=== PATIENT | male | born 1930 | race Caucasian/White ===

== ENCOUNTER 2018-03-17 21:02 | Emergency (ER) | payer MEDICARE, OTHER ==
--- NOTE | 2018-03-17 22:07 | EDM.PDOC ---
ED HPI GENERAL MEDICAL PROBLEM - General Chief Complaint: Neuro Symptoms/Deficits Stated Complaint: [facility] Time Seen by Provider: 03/17/18 21:48 Source of Information: Reports: Patient, Family (, daughter) History Limitations: Reports: Physical Impairment (Dysarthric speech, likely confusion) - History of Present Illness INITIAL COMMENTS - FREE TEXT/NARRATIVE: The patient has a history of a stroke with left hemiparesis. The patient's family states that he is essentially wheelchair bound. He is brought to the ED from [facility] for a complaint of dizziness tonight. Apparently the RNs at the facility found that the patient was "weaving", however, since the patient does not ambulate, it is not clear what this means. When asked if, by dizziness, the patient means that he is lightheaded or vertiginous, the patient responded "neck". When asked if he is feeling dizzy now, he responded yes, if he moves his head. He states that he has had similar symptoms a few times in the past, but cannot say when, or how many. He stated that he feels that way if he gets up too fast. The patient's PCP is Dr. Kennedy. - Related Data Home Meds: Home Meds Carvedilol 25 mg PO BID 03/17/18 [History] Doxazosin [Doxazosin Mesylate] 8 mg PO DAILY 03/17/18 [History] Dutasteride 0.5 mg PO DAILY 03/17/18 [History] Ergocalciferol (Vitamin D2) [Vitamin D2] 1,000 unit PO DAILY 03/17/18 [History] Famotidine 20 mg PO DAILY 03/17/18 [History] Ferrous Sulfate 325 mg PO DAILY 03/17/18 [History] Furosemide 40 mg PO BID 03/17/18 [History] Insulin Glargine,Hum.Rec.Anlog [Basaglar Kwikpen U-100] 22 unit SQ BEDTIME 03/17 [History] Levothyroxine [Sythroid] 100 mcg PO DAILY 03/17/18 [History] Losartan [Cozaar] 100 mg PO DAILY 03/17/18 [History] NIFEdipine [Nifedipine ER] 60 mg PO DAILY 03/17/18 [History] Pravastatin [Pravachol] 40 mg PO DAILY 03/17/18 [History] glipiZIDE [Glucotrol] 15 mg PO BID 03/17/18 [History] traMADol [Ultram] 50 mg PO Q6H PRN 03/17/18 [History] Past Medical History HEENT History: Reports: Impaired Vision Other HEENT History: Wears glasses Cardiovascular History: Reports: High Cholesterol, Hypertension Gastrointestinal History: Reports: GERD Genitourinary History: Reports: BPH, Chronic Renal Insuffiency Neurological History: Reports: CVA (resulting in left hemiparesis, wheelchair- bound) Endocrine/Metabolic History: Reports: Diabetes, Type II, Hypothyroidism, Obesity /BMI 30+ Oncologic (Cancer) History: 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) - Past Surgical History HEENT Surgical History: Reports: Cataract Surgery, Oral Surgery (All teeth extracted), Tonsillectomy Cardiovascular Surgical History: Reports: Carotid Endarterectomy (right) GI Surgical History: Reports: Cholecystectomy Male Surgical History: Reports: Nephrectomy (left) Musculoskeletal Surgical History: Reports: 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 GI/Abdominal: Reports: Stool Incontinence ED EXAM, DIZZINESS - Physical Exam Exam: See Below Exam Limited By: Physical Impairment (Right hemiparesis) General Appearance: Alert, WD/WN, No Apparent Distress Eye Exam: Bilateral Eye: Normal Inspection Ears: Normal External Exam, Hearing Grossly Normal Nose: Normal Inspection, No Blood Throat/Mouth: Normal Inspection, Normal Lips, Normal Voice, No Airway Compromise Head Exam: Atraumatic, Normocephalic Neck: Limited Range of Motion Respiratory/Chest: No Respiratory Distress, Lungs Clear, Normal Breath Sounds, No Accessory Muscle Use Cardiovascular: Normal Peripheral Pulses, No Gallop, No JVD, No Murmur, No Rub, Irregularly Irregular (regular rate) GI/Abdominal: Normal Bowel Sounds, Soft, Non-Tender, No Organomegaly, No Distention, No Abnormal Bruit, No Mass, Other (Obese) (Male) Exam: Deferred Rectal (Males) Exam: Deferred Neurological: Alert, Other (Masked facies. Some confusion.) Back Exam: Normal Inspection Extremities: Normal Inspection, Normal Range of Motion, Normal Capillary Refill , Other (1-2+ bilateral pretibial edema) Psychiatric: Other (Unable to assess) Skin Exam: Warm, Dry, Intact, Normal Color, No Rash EKG INTERPRETATION EKG Date: 03/17/18 Time: 22:12 Rhythm: A-Fib Rate (Beats/Min): 78 Brimley: LAD-Left Brimley Deviation P-Wave: Absent QRS: RBBB (in those normally conducted QRS complexes. Frequent PVCs.) ST-T: Normal QT: Prolonged (QTc 577 ms) Comparison: NA - No Prior EKG Course - Vital Signs Last Recorded V/S: Last Vital Signs Temp 36.3 C 03/17/18 21:05 Pulse 63 03/17/18 21:05 Resp 16 03/17/18 21:05 BP 137/70 03/17/18 21:05 Pulse Ox 91 L 03/17/18 21:05 Orthostatic Blood Pressure [ 168/78 Sitting] Orthostatic Blood Pressure [ 142/68 Supine] - Orders/Labs/Meds Orders: Active Orders 24 hr Category Date Time Status EKG Documentation Completion [RC] STAT Care 03/17/18 22:04 Active Orthostatic Vital Signs [RC] STAT Care 03/17/18 22:05 Active Chest 1V Frontal [CR] Stat Exams 03/17/18 22:04 Taken UA W/MICROSCOPIC [URIN] Stat Lab 03/17/18 22:42 Ordered Labs: Laboratory Tests 03/17/18 03/17/18 03/17/18 Range/Units 22:22 22:22 22:22 WBC 9.99 H (4.23-9.07) K/mm3 RBC 4.14 L (4.63-6.08) M/mm3 Hgb 11.9 L (13.7-17.5) gm/L Hct 36.2 L (40.1-51.0) % MCV 87.4 (79.0-92.2) fl MCH 28.7 (25.7-32.2) pg MCHC 32.9 (32.2-35.5) g/dl RDW Std Deviation 38.8 (35.1-43.9) fL Plt Count 219 (163-337) K/mm3 MPV 9.6 (9.4-12.3) fl Neutrophils % (Manual) 89 H (40-60) % Band Neutrophils % 0 (0-10) % Lymphocytes % (Manual) 5 L (20-40) % Atypical Lymphs % 0 % Monocytes % (Manual) 4 (2-10) % Eosinophils % (Manual) 1 (0.8-7.0) % Basophils % (Manual) 1 (0.2-1.2) Toxic Granulation Few Platelet Estimate Adequate Plt Morphology Comment Normal RBC Morph Comment Normal PT 10.3 (9.5-12.1) SECONDS INR 0.94 APTT 26 (24-31) SECONDS D-Dimer, Quantitative 2.00 H (0.19-0.50) mg/L Sodium 138 (136-145) mEq/L Potassium 3.5 (3.5-5.1) mEq/L Chloride 101 (98-107) mEq/L Carbon Dioxide 29 (21-32) mEq/L Anion Gap 11.5 (5-15) BUN 39 H (7-18) mg/dL Creatinine 2.6 H (0.7-1.3) mg/dL Est Cr Clr Drug Dosing 23.47 mL/min Estimated GFR (MDRD) 24 (>60) mL/min BUN/Creatinine Ratio 15.0 (14-18) Glucose 219 H (83-115) mg/dL Calcium 8.5 (8.5-10.1) mg/dL Magnesium 2.0 (1.8-2.4) mg/dl Total Bilirubin 0.3 (0.2-1.0) mg/dL AST 10 L (15-37) U/L ALT 14 L (16-63) U/L Alkaline Phosphatase 68 (46-116) U/L Troponin I 0.384 H* (0.00-0.056) ng/mL Total Protein 6.9 (6.4-8.2) g/dl Albumin 3.3 L (3.4-5.0) g/dl Globulin 3.6 gm/dL Albumin/Globulin Ratio 0.9 L (1-2) Urine Color (Yellow) Urine Appearance (Clear) Urine pH (5.0-8.0) Ur Specific [place] (1.005-1.030) Urine Protein (Negative) Urine Glucose (UA) (Negative) Urine Ketones (Negative) Urine Occult Blood (Negative) Urine Nitrite (Negative) Urine Bilirubin (Negative) Urine Urobilinogen (0.2-1.0) Ur Leukocyte Esterase (Negative) Urine RBC (0-5) /hpf Urine WBC (0-5) /hpf Ur Epithelial Cells (0-5) /hpf Urine Bacteria (FEW) /hpf Broad Casts Urine Mucus (FEW) /hpf 03/17/18 Range/Units 22:42 WBC (4.23-9.07) K/mm3 RBC (4.63-6.08) M/mm3 Hgb (13.7-17.5) gm/L Hct (40.1-51.0) % MCV (79.0-92.2) fl MCH (25.7-32.2) pg MCHC (32.2-35.5) g/dl RDW Std Deviation (35.1-43.9) fL Plt Count (163-337) K/mm3 MPV (9.4-12.3) fl Neutrophils % (Manual) (40-60) % Band Neutrophils % (0-10) % Lymphocytes % (Manual) (20-40) % Atypical Lymphs % % Monocytes % (Manual) (2-10) % Eosinophils % (Manual) (0.8-7.0) % Basophils % (Manual) (0.2-1.2) Toxic Granulation Platelet Estimate Plt Morphology Comment RBC Morph Comment PT (9.5-12.1) SECONDS INR APTT (24-31) SECONDS D-Dimer, Quantitative (0.19-0.50) mg/L Sodium (136-145) mEq/L Potassium (3.5-5.1) mEq/L Chloride (98-107) mEq/L Carbon Dioxide (21-32) mEq/L Anion Gap (5-15) BUN (7-18) mg/dL Creatinine (0.7-1.3) mg/dL Est Cr Clr Drug Dosing mL/min Estimated GFR (MDRD) (>60) mL/min BUN/Creatinine Ratio (14-18) Glucose (83-115) mg/dL Calcium (8.5-10.1) mg/dL Magnesium (1.8-2.4) mg/dl Total Bilirubin (0.2-1.0) mg/dL AST (15-37) U/L ALT (16-63) U/L Alkaline Phosphatase (46-116) U/L Troponin I (0.00-0.056) ng/mL Total Protein (6.4-8.2) g/dl Albumin (3.4-5.0) g/dl Globulin gm/dL Albumin/Globulin Ratio (1-2) Urine Color Yellow (Yellow) Urine Appearance Clear (Clear) Urine pH 6.0 (5.0-8.0) Ur Specific [place] 1.015 (1.005-1.030) Urine Protein 1+ H (Negative) Urine Glucose (UA) Trace H (Negative) Urine Ketones Negative (Negative) Urine Occult Blood 1+ H (Negative) Urine Nitrite Negative (Negative) Urine Bilirubin Negative (Negative) Urine Urobilinogen 0.2 (0.2-1.0) Ur Leukocyte Esterase Negative (Negative) Urine RBC 5-10 H (0-5) /hpf Urine WBC Not seen (0-5) /hpf Ur Epithelial Cells 0-5 (0-5) /hpf Urine Bacteria Not seen (FEW) /hpf Broad Casts 0 Urine Mucus Not seen (FEW) /hpf - Re-Assessments/Exams Free Text/Narrative Re-Assessment/Exam: 03/17/18 22:06 The patient consents with a complaint of dizziness, however, is unclear if he is referring to lightheadedness or vertigo. Unfortunately, the patient's physical condition precludes performing the [place]-Hallpike maneuver. I have ordered orthostatics, but we will likely only be able to check them supine and sitting, not standing. I have ordered additional tests, including blood work, a urinalysis, ECG, and portable chest radiograph. 03/17/18 22:41 Portable chest radiograph reviewed. Cardiac silhouette is at the upper limits of normal, but no pulmonary vascular congestion to suggest decompensated CHF. No pleural effusions seen. No focal infiltrate. No pneumothorax. Formal read per the Radiologist pending. 03/17/18 22:54 As anticipated, the patient was not able to stand for orthostatics. From supine to sitting, he is not orthostatic. 03/17/18 23:48 The patient's BUN/Cr is elevated at 39/2.6, which accounts for the patient's elevated D-dimer of 2.0 and troponin of 0.384. His blood glucose is elevated at 219. The remainder of his workup is unremarkable, and does not explain the cause of his dizziness. As the patient is hemodynamically stable, I do not see an indication for admission to the hospital. I will recommend return to the assisted living facility, then follow-up with Dr. Kennedy. 03/17/18 23:55 Test results and my plan for discharge discussed with the patient's and daughter. The patient's states that she does not feel the patient can return to the assisted living facility, as she does not feel that she can take care of him there. I asked what she meant, why she needed to take care of him instead of the staff, and she indicated that the staff helps him when he needs to be moved, but she needs to call the staff. She stated that the patient has been experiencing dizziness for greater than 1 month, not just tonight. 03/17/18 23:[address] Saleem at 23:57. She does not find an indication to place the patient into observation, even if intermediate placement is indicated , as that can be done from the assisted living facility. 03/18/18 00:04 The above was discussed with the patient's and daughter. They are okay with returning the patient to the assisted living facility. Departure - Departure Time of Disposition: 00:05 Disposition: Home, Self-Care 01 Condition: Fair Clinical Impression: Dizziness - Discharge Information Instructions: Dizziness Referrals: Santino Kennedy MD [Primary Care Provider] - Forms: ED Department Discharge Additional Instructions: Mr. Hall was seen in the emergency room for dizziness over the past month. It is unclear if he means lightheadedness or vertigo. Workup in the ER included blood work, a urinalysis, positional blood pressure checks, a chest x-ray, and an ECG. His workup found that he has renal insufficiency - likely chronic - otherwise, no significant findings. The cause of his dizziness is not clear. We did not find an indication to keep in the hospital, therefore had to return him to his assisted living facility. He should follow-up with his PCP, Dr. Kennedy, this week, for further evaluation. If any other problems, please do not hesitate to return Mr. Hall to the ER. - My Orders Last 24 Hours: My Active Orders 03/17/18 22:04 EKG Documentation Completion [RC] STAT Chest 1V Frontal [CR] Stat 03/17/18 22:05 Orthostatic Vital Signs [RC] STAT 03/17/18 22:42 UA W/MICROSCOPIC [URIN] Stat - Assessment/Plan Last 24 Hours: My Active Orders 03/17/18 22:04 EKG Documentation Completion [RC] STAT Chest 1V Frontal [CR] Stat 03/17/18 22:05 Orthostatic Vital Signs [RC] STAT 03/17/18 22:42 UA W/MICROSCOPIC [URIN] Stat
--- NOTE | 2018-03-18 08:36 | CR ---
Chest: Portable view of the chest was obtained. Comparison: No prior chest x-ray. Heart size appears at the upper limits of normal. Tortuous thoracic aorta is seen. Lungs are clear with no acute parenchymal change. Several old healed left lower rib fractures are noted. Impression: 1. Incidental findings. Nothing acute is identified on portable chest x-ray. Diagnostic code #2
== END 2018-03-18 00:47 | disposition home or self-care (01) ==
LOC: JD.ED 21:02
DX: R42 Dizziness and giddiness (principal); I10 Essential (primary) hypertension; E78.00 Pure hypercholesterolemia, unspecified; E03.9 Hypothyroidism, unspecified; E11.9 Type 2 diabetes mellitus without complications; Z79.4 Long term (current) use of insulin; Z79.899 Other long term (current) drug therapy; Z87.891 Personal history of nicotine dependence
CPT/HCPCS: 36415; 71045; 71045-26; 80053; 81001; 83735; 84484; 85007; 85027; 85379; 85610; 85730; 87804; 93005; 99284; 99285-25

== ENCOUNTER 2019-06-22 02:23 | Inpatient (IN) | payer MEDICARE, OTHER ==
--- NOTE | 2019-06-22 03:04 | EDM.PDOC ---
ED HPI GENERAL MEDICAL PROBLEM - General Chief Complaint: Respiratory Problem Stated Complaint: [facility] Time Seen by Provider: 06/22/19 02:34 Source of Information: Reports: Patient History Limitations: Reports: No Limitations - History of Present Illness INITIAL COMMENTS - FREE TEXT/NARRATIVE: The patient states that he developed sudden onset shortness of breath around 00: 30 this morning, while in bed. He feels more comfortable now that he is upright. His oxygen saturation was found by EMS to be in the 70s on room air. He was placed on a nonrebreather mask, and saturating 100%. The patient denies having a recent cough or fever. No recent chest pain or palpitations. He states that he thought he was slightly wheezing yesterday afternoon and this morning. He denies prior similar symptoms, although his PMHx includes CHF. Other than the oxygen that was placed per EMS, the patient denies any other home treatments prior to coming to the ED. The patient reports chronic bilateral lower extremity edema that he states is no worse than usual. He states that he ordinarily wears compression stockings, but he does not have them on at this time. The patient has a history of a stroke with left hemiparesis. The patient is wheelchair-bound. He resides with his at [facility]. The patient's PCP is Dr. Santino Kennedy. Treatments [employer]: Reports: IV/IO, Oxygen - Related Data Allergies Allergy/AdvReac Type Severity Reaction Status Date / Time No Known Allergies Allergy Verified 06/22/19 02:26 Home Meds: Home Meds Carvedilol 25 mg PO BID 03/17/18 [History] Doxazosin [Doxazosin Mesylate] 8 mg PO DAILY 03/17/18 [History] Dutasteride 0.5 mg PO DAILY 03/17/18 [History] Ergocalciferol (Vitamin D2) [Vitamin D2] 1,000 unit PO DAILY 03/17/18 [History] Famotidine 20 mg PO DAILY 03/17/18 [History] Furosemide 80 mg PO BID 03/17/18 [History] Insulin Glargine,Hum.Rec.Anlog [Basaglar Kwikpen U-100] 22 unit SQ BEDTIME 03/17 [History] Levothyroxine [Sythroid] 100 mcg PO DAILY 03/17/18 [History] Losartan [Cozaar] 100 mg PO DAILY 03/17/18 [History] NIFEdipine [Nifedipine ER] 60 mg PO DAILY 03/17/18 [History] Pravastatin [Pravachol] 40 mg PO DAILY 03/17/18 [History] glipiZIDE [Glucotrol] 15 mg PO BID 03/17/18 [History] traMADol [Ultram] 50 mg PO Q6H PRN 03/17/18 [History] Finasteride 5 mg PO DAILY 05/23/19 [History] Cinnamon Bark [Cinnamon] 1,000 mg PO DAILY 06/22/19 [History] Cranberry Fruit Extract/Vit C [Cvs Cranberry-Vitamin C Sfgl] 1 each PO DAILY 11/09 [History] Cyanocobalamin (Vitamin B12) [Vitamin B12] 1,000 mcg PO DAILY 06/22/19 [History] Multivit-Min/FA/Lycopene/Lut [Centrum Silver Tablet] 1 each PO DAILY 06/22/19 [ History] Sertraline [Zoloft] 25 mg PO DAILY 06/22/19 [History] Slow Release Iron 45 mg PO DAILY 06/22/19 [History] Ubidecarenone [Co Q-10] 400 mg PO DAILY 06/22/19 [History] Past Medical History HEENT History: Reports: Impaired Vision Other HEENT History: wears glasses Cardiovascular History: Reports: Afib, Heart Failure, High Cholesterol, Hypertension Gastrointestinal History: Reports: GERD Genitourinary History: Reports: BPH, Chronic Renal Insuffiency Neurological History: Reports: CVA (left hemiparesis, wheelchair-bound) Endocrine/Metabolic History: Reports: Diabetes, Type II, Hypothyroidism, Obesity /BMI 30+ Oncologic (Cancer) History: 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) - Past Surgical History HEENT Surgical History: Reports: Cataract Surgery (bilateral), Oral Surgery ( edentulous), Tonsillectomy Cardiovascular Surgical History: Reports: Carotid Endarterectomy (right) GI Surgical History: Reports: Cholecystectomy Male Surgical History: Reports: Nephrectomy (left) Musculoskeletal Surgical History: Reports: Amputation (2 right toes), Carpal Tunnel (bilateral), Knee Replacement (left), ORIF (right ankle) Social & Family History - Tobacco Use Smoking Status *Q: Former Smoker Years of Tobacco use: 37 Packs/Tins Daily: 3 Month/Year Tobacco Last Used: Quit 1987 - Caffeine Use Caffeine Use: Reports: Coffee - Alcohol Use Alcohol Use History: No - Recreational Drug Use Recreational Drug Use: No - Living Situation & Occupation Living situation: Reports: , with Spouse, Assisted Living ([facility]/ [place]) Occupation: Retired ED ROS GENERAL - Review of Systems Review Of Systems: ROS reveals no pertinent complaints other than HPI. ED EXAM, GENERAL - Physical Exam Exam: See Below Exam Limited By: No Limitations General Appearance: Alert, WD/WN, No Apparent Distress Eye Exam: Bilateral Eye: EOMI, Normal Inspection Ears: Normal External Exam, Hearing Grossly Normal Nose: Normal Inspection Throat/Mouth: Normal Inspection, Normal Lips, Normal Voice, No Airway Compromise Head: Atraumatic, Normocephalic Neck: Normal Inspection, Full Range of Motion Respiratory/Chest: No Respiratory Distress, No Accessory Muscle Use, Decreased Breath Sounds, Crackles (1/[address] up bilaterally). No: Rhonchi, Wheezing, Prolonged Expiration Cardiovascular: Normal Peripheral Pulses, No Gallop, No JVD, No Murmur, No Rub, Irregularly Irregular GI/Abdominal: Normal Bowel Sounds, Soft, Non-Tender, No Organomegaly, No Distention, No Abnormal Bruit, No Mass (Male) Exam: Deferred Rectal (Males) Exam: Deferred Back Exam: Normal Inspection, Full Range of Motion, NT Extremities: Normal Capillary Refill, Other (3-4+ pitting pretibial edema bilaterally) Neurological: Alert, Oriented, Normal Cognition, Other (Left hemiparesis) Psychiatric: Normal Affect Skin Exam: Warm, Dry, Intact, Normal Color, No Rash EKG INTERPRETATION EKG Date: 06/22/19 Time: 02:39 Rhythm: A-Fib Rate (Beats/Min): 107 [place]: LAD-Left [place] Deviation P-Wave: Absent 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 Late transition) ST-T: Normal QT: Prolonged (QTc 589 ms) Comparison: No Change (03/17/2018) Course - Vital Signs Last Recorded V/S: Last Vital Signs Temp 36.4 C 06/22/19 02:26 Pulse 95 06/22/19 02:26 Resp 21 H 06/22/19 02:26 BP 155/95 H 06/22/19 02:26 Pulse Ox 100 06/22/19 02:26 - Orders/Labs/Meds Orders: Active Orders 24 hr Category Date Time Status EKG Documentation Completion [RC] STAT Care 06/22/19 02:34 Active Chest 1V Frontal [CR] Stat Exams 06/22/19 02:34 Taken CULTURE BLOOD [BC] Stat Lab 06/22/19 03:30 Received CULTURE BLOOD [BC] Stat Lab 06/22/19 03:40 Received Blood Culture x2 Reflex Set [OM.PC] Stat Oth 06/22/19 02:34 Ordered Labs: Laboratory Tests 06/22/19 06/22/19 06/22/19 Range/Units 02:40 02:55 03:10 WBC 12.32 H (4.23-9.07) K/mm3 RBC 4.03 L (4.63-6.08) M/mm3 Hgb 11.5 L (13.7-17.5) gm/L Hct 36.1 L (40.1-51.0) % MCV 89.6 (79.0-92.2) fl MCH 28.5 (25.7-32.2) pg MCHC 31.9 L (32.2-35.5) g/dl RDW Std Deviation 44.0 H (35.1-43.9) fL Plt Count 201 (163-337) K/mm3 MPV 10.1 (9.4-12.3) fl Neutrophils % (Manual) 91 H (40-60) % Band Neutrophils % 0 (0-10) % Lymphocytes % (Manual) 2 L (20-40) % Atypical Lymphs % 0 % Monocytes % (Manual) 6 (2-10) % Eosinophils % (Manual) 1 (0.8-7.0) % Basophils % (Manual) 0 L (0.2-1.2) Platelet Estimate Adequate RBC Morph Comment Normal PT (9.7-12.0) SECONDS INR APTT (22-31) SECONDS D-Dimer, Quantitative (0.19-0.50) mg/L Puncture Site Rt radial ABG pH 7.33 L (7.35-7.45) ABG pCO2 50.9 H (35.0-45.0) mmHg ABG pO2 67.0 L (80.0-100.0) mmHg ABG HCO3 26.2 H (22.0-26.0) meq/L ABG O2 Saturation 89.8 L (96.0-97.0) % ABG Base Excess 0.3 (-2-2.0) Ike Test Positive O2 Delivery Device Cannula Oxygen Flow Rate 4.0 FiO2 36.00 (21.00-100.00) % Sodium (136-145) mEq/L Potassium (3.5-5.1) mEq/L Chloride (98-107) mEq/L Carbon Dioxide (21-32) mEq/L Anion Gap (5-15) BUN (7-18) mg/dL Creatinine (0.7-1.3) mg/dL Est Cr Clr Drug Dosing Estimated GFR (MDRD) (>60) mL/min BUN/Creatinine Ratio (14-18) Glucose (83-115) mg/dL Lactic Acid 0.8 (0.4-2.0) mmol/L Calcium (8.5-10.1) mg/dL Total Bilirubin (0.2-1.0) mg/dL AST (15-37) U/L ALT (16-63) U/L Alkaline Phosphatase (46-116) U/L Troponin I (0.00-0.056) ng/mL NT-Pro-B Natriuret Pep (0-450) pg/mL Total Protein (6.4-8.2) g/dl Albumin (3.4-5.0) g/dl Globulin gm/dL Albumin/Globulin Ratio (1-2) 06/22/19 06/22/19 06/22/19 Range/Units 03:10 03:10 03:10 WBC (4.23-9.07) K/mm3 RBC (4.63-6.08) M/mm3 Hgb (13.7-17.5) gm/L Hct (40.1-51.0) % MCV (79.0-92.2) fl MCH (25.7-32.2) pg MCHC (32.2-35.5) g/dl RDW Std Deviation (35.1-43.9) fL Plt Count (163-337) K/mm3 MPV (9.4-12.3) fl Neutrophils % (Manual) (40-60) % Band Neutrophils % (0-10) % Lymphocytes % (Manual) (20-40) % Atypical Lymphs % % Monocytes % (Manual) (2-10) % Eosinophils % (Manual) (0.8-7.0) % Basophils % (Manual) (0.2-1.2) Platelet Estimate RBC Morph Comment PT 11.2 (9.7-12.0) SECONDS INR 1.03 APTT 23 (22-31) SECONDS D-Dimer, Quantitative 2.02 H (0.19-0.50) mg/L Puncture Site ABG pH (7.35-7.45) ABG pCO2 (35.0-45.0) mmHg ABG pO2 (80.0-100.0) mmHg ABG HCO3 (22.0-26.0) meq/L ABG O2 Saturation (96.0-97.0) % ABG Base Excess (-2-2.0) Ike Test O2 Delivery Device Oxygen Flow Rate FiO2 (21.00-100.00) % Sodium 137 (136-145) mEq/L Potassium 4.0 (3.5-5.1) mEq/L Chloride 101 (98-107) mEq/L Carbon Dioxide 27 (21-32) mEq/L Anion Gap 13.0 (5-15) BUN 27 H (7-18) mg/dL Creatinine 2.4 H (0.7-1.3) mg/dL Est Cr Clr Drug Dosing TNP Estimated GFR (MDRD) 26 (>60) mL/min BUN/Creatinine Ratio 11.3 L (14-18) Glucose 219 H (83-115) mg/dL Lactic Acid (0.4-2.0) mmol/L Calcium 8.0 L (8.5-10.1) mg/dL Total Bilirubin 0.6 (0.2-1.0) mg/dL AST 15 (15-37) U/L ALT 16 (16-63) U/L Alkaline Phosphatase 68 (46-116) U/L Troponin I 0.282 H* (0.00-0.056) ng/mL NT-Pro-B Natriuret Pep 88698 H (0-450) pg/mL Total Protein 6.8 (6.4-8.2) g/dl Albumin 3.2 L (3.4-5.0) g/dl Globulin 3.6 gm/dL Albumin/Globulin Ratio 0.9 L (1-2) Meds: Medications Discontinued Medications Generic Name Dose Route Start Last Admin Trade Name Gauravq PRN Reason Stop Dose Admin Furosemide 40 mg 06/22/19 04:07 06/22/19 04:13 Lasix IVPUSH 06/22/19 04:08 40 mg NOW ONE Administration Furosemide 40 mg 06/22/19 04:19 Lasix IVPUSH 06/22/19 04:20 NOW ONE - Re-Assessments/Exams Free Text/Narrative Re-Assessment/Exam: 06/22/19 03:03 At first blush, I suspect that the patient is suffering from a CHF exacerbation , but we will need to see what his workup shows. So far, I only have his ABG back, which shows an acute on chronic respiratory acidosis and hypoxemia. The patient's ECG reflects atrial fibrillation, however, he was in atrial fibrillation on his previous ECG on 03/17/2018. The patient tells me that he is not familiar with the term atrial fibrillation - never heard of it - therefore I cannot determine if his atrial fibrillation is chronic or paroxysmal. His medication list does not reflect an anticoagulant. 06/22/19 04:05 Portable chest x-ray reviewed. There is cardiomegaly and pulmonary vascular congestion, consistent with decompensated CHF. A left pleural effusion cannot be excluded. No focal infiltrate. No pneumothorax. Formal read per the Radiologist pending. The patient's CBC is remarkable for a WBC count mildly elevated at 12.32, but with 0% bandemia. His H/H are 11.5/36.1. The remainder of his CBC is unremarkable. His CMP is remarkable for a BUN/Cr elevated at 27/2.4. His blood glucose is elevated at 219. The remainder of his CMP is unremarkable. His troponin is elevated at 0.282. His lactic acid is within normal limits at 0.8. His D-dimer is elevated at 2.02. His coags are within normal limits. His BNP is still pending. The patient's BUN/Cr were 39/2.6 on 03/17/2018, and 25/2.4 on 05/23/2019. His troponin was 0.384 on 03/17/2018, and his D-dimer was 2.00 on 03/17/2018, indicating that his renal function, elevated troponin, and elevated D-dimer are all chronic. Given their chronicity, and his significant renal insufficiency, I do not believe it would be in the patient's best interest to pursue a CT angiogram of the chest to look for a pulmonary embolus at this time. Instead, I think it would be better to treat him for CHF. While his BNP has not yet resulted, I believe we have enough evidence to treat him with IV Lasix and recommend admission to the hospital for CHF exacerbation. 06/22/19 04:19 I discussed the test results with the patient, along with my recommendation to admit him to the hospital. The patient was agreeable. Case then discussed with Dr. Gallardo at 04:15. Because the patient is ordinarily on 80 mg of oral Lasix BID, he is concerned that 40 mg of IV Lasix will be inadequate, therefore he recommended that I give the patient on additional 40 mg, for a total of 80 mg IV here in the ED. He accepted the patient for admission to the hospital. 06/22/19 04:35 The patient's BNP is 18,887. Departure - Departure Time of Disposition: 04:20 Disposition: Admitted As Inpatient 68 Condition: Fair Clinical Impression: CHF exacerbation, Elevated d-dimer, Elevated troponin, Chronic renal insufficiency, Atrial fibrillation - Discharge Information *PRESCRIPTION DRUG MONITORING PROGRAM REVIEWED*: Not Applicable *COPY OF PRESCRIPTION DRUG MONITORING REPORT IN PATIENT [place]: Not Applicable Referrals: Santino Kennedy MD [Primary Care Provider] - - My Orders Last 24 Hours: My Active Orders 06/22/19 02:34 EKG Documentation Completion [RC] STAT Chest 1V Frontal [CR] Stat Blood Culture x2 Reflex Set [OM.PC] Stat 06/22/19 03:30 CULTURE BLOOD [BC] Stat 06/22/19 03:40 CULTURE BLOOD [BC] Stat - Assessment/Plan Last 24 Hours: My Active Orders 06/22/19 02:34 EKG Documentation Completion [RC] STAT Chest 1V Frontal [CR] Stat Blood Culture x2 Reflex Set [OM.PC] Stat 06/22/19 03:30 CULTURE BLOOD [BC] Stat 06/22/19 03:40 CULTURE BLOOD [BC] Stat
[2019-06-22] MEDS ORDERED: Furosemide 40 MG/4 ML VIAL IVPUSH ONE ×2 (04:07→04:19)
[2019-06-22] MEDS ORDERED: Acetaminophen 325 MG Tab PO PRN (08:14)
[2019-06-22] MEDS ORDERED: Heparin Sodium 5,000 Units/ML Vial IVPUSH ONE ×2 (08:15→15:07)
[2019-06-22 08:31] LABS: HEMOGLOBIN A1C 6.7 % (4.50-6.20)
[2019-06-22] MEDS: Levothyroxine 100 MCG Tab PO SCH (08:43)
[2019-06-22] MEDS: Carvedilol 12.5 MG Tab PO SCH ×2 (08:43→20:30)
[2019-06-22] MEDS: Sertraline 25 MG Tab PO SCH (08:43)
[2019-06-22] MEDS: Heparin Sodium/D5W 25,000 UNITS/500 ML BAG IV SCH ×2 (08:44→21:57)
[2019-06-22] MEDS: NIFEdipine 30 MG Tab.ER PO SCH (08:45)
[2019-06-22] MEDS: Furosemide 100 MG in Sodium Chloride 0.9% 90 ML IV SCH ×2 (08:53→20:47)
[2019-06-22] MEDS: Insulin Lispro 100 Units/ML 3 ML Vial SUBCUT SCH ×3 (11:16→21:29)
--- NOTE | 2019-06-22 12:26 | CR ---
Chest: Portable view of the chest was obtained. Comparison: Prior chest x-ray of 03/17/18. Heart size mildly prominent. Pulmonary vessels are felt to be mildly congested. Possible small left-sided pleural effusion is noted. Bony structures are osteopenic. Impression: 1. Findings which are suspicious for mild CHF. Diagnostic code #3
--- NOTE | 2019-06-22 12:59 | PCM.HP.2 ---
H&P History of Present Illness - General Date of Service: 06/22/19 Admit Problem/Dx: Admission Diagnosis/Problem Admission Diagnosis/Problem Congestive heart failure - History of Present Illness Initial Comments - Free Text/Narative: 88-year-old male who is a very poor historian that comes with no family or history presents to the emergency room with sudden shortness of breath around 00 :30. Most of the history is obtained from emergency room and EMS notes. Patient was found at his assisted living [facility] where his oxygen saturation was found to be in the 70s on room air. Patient was placed on a nonrebreather mask and presented to the emergency room saturating 100%. Patient denied any recent illness, cough, fever, chills. It appears he does have a past medical history for atrial fibrillation, CHF, and renal disease, but patient does not believe he has those. he does state he has had a stroke with left-sided leg weakness. He does report chronic bilateral lower extremity edema and states it is no worse than normal. An old EKG from 2018 did show atrial fibrillation. In the emergency room his white count was 12.32, hemoglobin of 11.5, platelet count of 201, d-dimer was 2.2, BNP 18,887, troponin 0.282, creatinine of 2.4 with a BUN of 27. ABG: PH 7.33, PCO2 of 50.9, PO2 67.0, HCO3 26.2, on 4 L nasal cannula. CTA was not performed likely secondary to renal insufficiency. Chest x- ray did show bilateral pulmonary edema. in the emergency room patient was given Lasix 80 mg IV for likely CHF exacerbation. Elevation in troponin and d-dimer were believed to be due to his renal insufficiency and chronic. He was felt to treat the patient for his CHF. It is unknown why patient is not on an anticoagulation for atrial fibrillation. - Related Data Allergies/Adverse Reactions: Allergies Allergy/AdvReac Type Severity Reaction Status Date / Time No Known Allergies Allergy Verified 06/22/19 06:28 Home Medications: Home Meds Carvedilol 25 mg PO BID 03/17/18 [History] Doxazosin [Doxazosin Mesylate] 8 mg PO DAILY 03/17/18 [History] Dutasteride 0.5 mg PO DAILY 03/17/18 [History] Ergocalciferol (Vitamin D2) [Vitamin D2] 1,000 unit PO DAILY 03/17/18 [History] Famotidine 20 mg PO DAILY 03/17/18 [History] Furosemide 80 mg PO BID 03/17/18 [History] Insulin Glargine,Hum.Rec.Anlog [Basaglar Kwikpen U-100] 22 unit SQ BEDTIME 03/17 [History] Levothyroxine [Sythroid] 100 mcg PO DAILY 03/17/18 [History] Losartan [Cozaar] 100 mg PO DAILY 03/17/18 [History] NIFEdipine [Nifedipine ER] 60 mg PO DAILY 03/17/18 [History] Pravastatin [Pravachol] 40 mg PO DAILY 03/17/18 [History] glipiZIDE [Glucotrol] 15 mg PO BID 03/17/18 [History] traMADol [Ultram] 50 mg PO Q6H PRN 03/17/18 [History] Finasteride 5 mg PO DAILY 05/23/19 [History] Cinnamon Bark [Cinnamon] 1,000 mg PO DAILY 06/22/19 [History] Cranberry Fruit Extract/Vit C [Cvs Cranberry-Vitamin C Sfgl] 1 each PO DAILY 11/09 [History] Cyanocobalamin (Vitamin B12) [Vitamin B12] 1,000 mcg PO DAILY 06/22/19 [History] Multivit-Min/FA/Lycopene/Lut [Centrum Silver Tablet] 1 each PO DAILY 06/22/19 [ History] Sertraline [Zoloft] 25 mg PO DAILY 06/22/19 [History] Slow Release Iron 45 mg PO DAILY 06/22/19 [History] Ubidecarenone [Co Q-10] 400 mg PO DAILY 06/22/19 [History] glipiZIDE [Glucotrol] 15 mg PO BID 06/22/19 [History] Past Medical History HEENT History: Reports: Impaired Vision Other HEENT History: wears glasses Cardiovascular History: Reports: Afib, Heart Failure, High Cholesterol, Hypertension Respiratory History: Reports: COPD Gastrointestinal History: Reports: GERD Genitourinary History: Reports: BPH, Chronic Renal Insuffiency Musculoskeletal History: Reports: Amputation Neurological History: Reports: CVA Endocrine/Metabolic History: Reports: Diabetes, Type II, Hypothyroidism, Obesity /BMI 30+ Oncologic (Cancer) History: Reports: Renal Other Oncologic History: R) kidney removed - Past Surgical History HEENT Surgical History: Reports: Cataract Surgery, Oral Surgery, Tonsillectomy Cardiovascular Surgical History: Reports: Carotid Endarterectomy Respiratory Surgical History: Reports: None GI Surgical History: Reports: Cholecystectomy Male Surgical History: Reports: Nephrectomy Endocrine Surgical History: Reports: None Neurological Surgical History: Reports: None Musculoskeletal Surgical History: Reports: Amputation, Carpal Tunnel, Knee Replacement, ORIF Social & Family History - Tobacco Use Smoking Status *Q: Former Smoker Years of Tobacco use: 37 Packs/Tins Daily: 3 Used Tobacco, but Quit: No Month/Year Tobacco Last Used: Quit 1987 Second Hand Smoke Exposure: No - Caffeine Use Caffeine Use: Reports: Coffee - Recreational Drug Use Recreational Drug Use: No - Living Situation & Occupation Living situation: Reports: , with Spouse, Assisted Living ([facility]/ [facility]) Occupation: Retired H&P Review of Systems - Review of Systems: Review Of Systems: Unable To Obtain Exam - Exam Exam: See Below - Vital Signs Vital Signs: Last Vital Signs Temp 98.4 F 06/22/19 12:00 Pulse 96 06/22/19 08:43 Resp 18 06/22/19 12:00 BP 144/85 H 06/22/19 12:00 Pulse Ox 96 06/22/19 12:00 Weight: 240 lb - Exam Quality Assessment: Supplemental Oxygen General: Cooperative, Mild Distress HEENT: Conjunctiva Clear, Mucosa Moist & [place] Neck: Supple, Trachea Midline Lungs: Crackles, Rales. No: Normal Respiratory Effort (increased respiratory effort) Cardiovascular: Irregular Rhythm, Tachycardia GI/Abdominal Exam: Normal Bowel Sounds, Soft, Non-Tender, No Organomegaly, No Distention Extremities: Normal Capillary Refill, Pedal Edema Skin: Warm, Dry, Intact Neuro Extensive - Mental Status: Disorientation to Time, Memory Loss-Remote Events, Memory Loss-Recent Events. No: Memory Intact - Patient Data Lab Results Last 24 hrs: Laboratory Results - last 24 hr 06/22/19 06/22/19 06/22/19 Range/Units 02:40 02:55 03:10 WBC 12.32 H (4.23-9.07) K/mm3 RBC 4.03 L (4.63-6.08) M/mm3 Hgb 11.5 L (13.7-17.5) gm/L Hct 36.1 L (40.1-51.0) % MCV 89.6 (79.0-92.2) fl MCH 28.5 (25.7-32.2) pg MCHC 31.9 L (32.2-35.5) g/dl RDW Std Deviation 44.0 H (35.1-43.9) fL Plt Count 201 (163-337) K/mm3 MPV 10.1 (9.4-12.3) fl Neutrophils % (Manual) 91 H (40-60) % Band Neutrophils % 0 (0-10) % Lymphocytes % (Manual) 2 L (20-40) % Atypical Lymphs % 0 % Monocytes % (Manual) 6 (2-10) % Eosinophils % (Manual) 1 (0.8-7.0) % Basophils % (Manual) 0 L (0.2-1.2) Platelet Estimate Adequate RBC Morph Comment Normal PT (9.7-12.0) SECONDS INR APTT (22-31) SECONDS D-Dimer, Quantitative (0.19-0.50) mg/L Puncture Site Rt radial ABG pH 7.33 L (7.35-7.45) ABG pCO2 50.9 H (35.0-45.0) mmHg ABG pO2 67.0 L (80.0-100.0) mmHg ABG HCO3 26.2 H (22.0-26.0) meq/L ABG O2 Saturation 89.8 L (96.0-97.0) % ABG Base Excess 0.3 (-2-2.0) Ike Test Positive O2 Delivery Device Cannula Oxygen Flow Rate 4.0 FiO2 36.00 (21.00-100.00) % Sodium (136-145) mEq/L Potassium (3.5-5.1) mEq/L Chloride (98-107) mEq/L Carbon Dioxide (21-32) mEq/L Anion Gap (5-15) BUN (7-18) mg/dL Creatinine (0.7-1.3) mg/dL Est Cr Clr Drug Dosing Estimated GFR (MDRD) (>60) mL/min BUN/Creatinine Ratio (14-18) Glucose (83-115) mg/dL POC Glucose (83-110) mg/dL Lactic Acid 0.8 (0.4-2.0) mmol/L Calcium (8.5-10.1) mg/dL Total Bilirubin (0.2-1.0) mg/dL AST (15-37) U/L ALT (16-63) U/L Alkaline Phosphatase (46-116) U/L Troponin I (0.00-0.056) ng/mL NT-Pro-B Natriuret Pep (0-450) pg/mL Total Protein (6.4-8.2) g/dl Albumin (3.4-5.0) g/dl Globulin gm/dL Albumin/Globulin Ratio (1-2) TSH 3rd Generation (0.358-3.74) uIU/mL MRSA (PCR) 06/22/19 06/22/19 06/22/19 Range/Units 03:10 03:10 03:10 WBC (4.23-9.07) K/mm3 RBC (4.63-6.08) M/mm3 Hgb (13.7-17.5) gm/L Hct (40.1-51.0) % MCV (79.0-92.2) fl MCH (25.7-32.2) pg MCHC (32.2-35.5) g/dl RDW Std Deviation (35.1-43.9) fL Plt Count (163-337) K/mm3 MPV (9.4-12.3) fl Neutrophils % (Manual) (40-60) % Band Neutrophils % (0-10) % Lymphocytes % (Manual) (20-40) % Atypical Lymphs % % Monocytes % (Manual) (2-10) % Eosinophils % (Manual) (0.8-7.0) % Basophils % (Manual) (0.2-1.2) Platelet Estimate RBC Morph Comment PT 11.2 (9.7-12.0) SECONDS INR 1.03 APTT 23 (22-31) SECONDS D-Dimer, Quantitative 2.02 H (0.19-0.50) mg/L Puncture Site ABG pH (7.35-7.45) ABG pCO2 (35.0-45.0) mmHg ABG pO2 (80.0-100.0) mmHg ABG HCO3 (22.0-26.0) meq/L ABG O2 Saturation (96.0-97.0) % ABG Base Excess (-2-2.0) Ike Test O2 Delivery Device Oxygen Flow Rate FiO2 (21.00-100.00) % Sodium 137 (136-145) mEq/L Potassium 4.0 (3.5-5.1) mEq/L Chloride 101 (98-107) mEq/L Carbon Dioxide 27 (21-32) mEq/L Anion Gap 13.0 (5-15) BUN 27 H (7-18) mg/dL Creatinine 2.4 H (0.7-1.3) mg/dL Est Cr Clr Drug Dosing TNP Estimated GFR (MDRD) 26 (>60) mL/min BUN/Creatinine Ratio 11.3 L (14-18) Glucose 219 H (83-115) mg/dL POC Glucose (83-110) mg/dL Lactic Acid (0.4-2.0) mmol/L Calcium 8.0 L (8.5-10.1) mg/dL Total Bilirubin 0.6 (0.2-1.0) mg/dL AST 15 (15-37) U/L ALT 16 (16-63) U/L Alkaline Phosphatase 68 (46-116) U/L Troponin I 0.282 H* (0.00-0.056) ng/mL NT-Pro-B Natriuret Pep 49767 H (0-450) pg/mL Total Protein 6.8 (6.4-8.2) g/dl Albumin 3.2 L (3.4-5.0) g/dl Globulin 3.6 gm/dL Albumin/Globulin Ratio 0.9 L (1-2) TSH 3rd Generation (0.358-3.74) uIU/mL MRSA (PCR) 06/22/19 06/22/19 06/22/19 Range/Units 05:30 07:45 07:45 WBC (4.23-9.07) K/mm3 RBC (4.63-6.08) M/mm3 Hgb (13.7-17.5) gm/L Hct (40.1-51.0) % MCV (79.0-92.2) fl MCH (25.7-32.2) pg MCHC (32.2-35.5) g/dl RDW Std Deviation (35.1-43.9) fL Plt Count (163-337) K/mm3 MPV (9.4-12.3) fl Neutrophils % (Manual) (40-60) % Band Neutrophils % (0-10) % Lymphocytes % (Manual) (20-40) % Atypical Lymphs % % Monocytes % (Manual) (2-10) % Eosinophils % (Manual) (0.8-7.0) % Basophils % (Manual) (0.2-1.2) Platelet Estimate RBC Morph Comment PT (9.7-12.0) SECONDS INR APTT (22-31) SECONDS D-Dimer, Quantitative (0.19-0.50) mg/L Puncture Site ABG pH (7.35-7.45) ABG pCO2 (35.0-45.0) mmHg ABG pO2 (80.0-100.0) mmHg ABG HCO3 (22.0-26.0) meq/L ABG O2 Saturation (96.0-97.0) % ABG Base Excess (-2-2.0) Ike Test O2 Delivery Device Oxygen Flow Rate FiO2 (21.00-100.00) % Sodium (136-145) mEq/L Potassium (3.5-5.1) mEq/L Chloride (98-107) mEq/L Carbon Dioxide (21-32) mEq/L Anion Gap (5-15) BUN (7-18) mg/dL Creatinine (0.7-1.3) mg/dL Est Cr Clr Drug Dosing Estimated GFR (MDRD) (>60) mL/min BUN/Creatinine Ratio (14-18) Glucose (83-115) mg/dL POC Glucose (83-110) mg/dL Lactic Acid 0.7 (0.4-2.0) mmol/L Calcium (8.5-10.1) mg/dL Total Bilirubin (0.2-1.0) mg/dL AST (15-37) U/L ALT (16-63) U/L Alkaline Phosphatase (46-116) U/L Troponin I 0.274 H* (0.00-0.056) ng/mL NT-Pro-B Natriuret Pep (0-450) pg/mL Total Protein (6.4-8.2) g/dl Albumin (3.4-5.0) g/dl Globulin gm/dL Albumin/Globulin Ratio (1-2) TSH 3rd Generation (0.358-3.74) uIU/mL MRSA (PCR) Negative 06/22/19 06/22/19 06/22/19 Range/Units 07:45 07:45 09:04 WBC (4.23-9.07) K/mm3 RBC (4.63-6.08) M/mm3 Hgb (13.7-17.5) gm/L Hct (40.1-51.0) % MCV (79.0-92.2) fl MCH (25.7-32.2) pg MCHC (32.2-35.5) g/dl RDW Std Deviation (35.1-43.9) fL Plt Count (163-337) K/mm3 MPV (9.4-12.3) fl Neutrophils % (Manual) (40-60) % Band Neutrophils % (0-10) % Lymphocytes % (Manual) (20-40) % Atypical Lymphs % % Monocytes % (Manual) (2-10) % Eosinophils % (Manual) (0.8-7.0) % Basophils % (Manual) (0.2-1.2) Platelet Estimate RBC Morph Comment PT (9.7-12.0) SECONDS INR APTT 26 (22-31) SECONDS D-Dimer, Quantitative (0.19-0.50) mg/L Puncture Site ABG pH (7.35-7.45) ABG pCO2 (35.0-45.0) mmHg ABG pO2 (80.0-100.0) mmHg ABG HCO3 (22.0-26.0) meq/L ABG O2 Saturation (96.0-97.0) % ABG Base Excess (-2-2.0) Ike Test O2 Delivery Device Oxygen Flow Rate FiO2 (21.00-100.00) % Sodium (136-145) mEq/L Potassium (3.5-5.1) mEq/L Chloride (98-107) mEq/L Carbon Dioxide (21-32) mEq/L Anion Gap (5-15) BUN (7-18) mg/dL Creatinine (0.7-1.3) mg/dL Est Cr Clr Drug Dosing Estimated GFR (MDRD) (>60) mL/min BUN/Creatinine Ratio (14-18) Glucose (83-115) mg/dL POC Glucose 177 H (83-110) mg/dL Lactic Acid (0.4-2.0) mmol/L Calcium (8.5-10.1) mg/dL Total Bilirubin (0.2-1.0) mg/dL AST (15-37) U/L ALT (16-63) U/L Alkaline Phosphatase (46-116) U/L Troponin I (0.00-0.056) ng/mL NT-Pro-B Natriuret Pep (0-450) pg/mL Total Protein (6.4-8.2) g/dl Albumin (3.4-5.0) g/dl Globulin gm/dL Albumin/Globulin Ratio (1-2) TSH 3rd Generation 1.444 (0.358-3.74) uIU/mL MRSA (PCR) 06/22/19 06/22/19 06/22/19 Range/Units 10:20 11:10 11:11 WBC (4.23-9.07) K/mm3 RBC (4.63-6.08) M/mm3 Hgb (13.7-17.5) gm/L Hct (40.1-51.0) % MCV (79.0-92.2) fl MCH (25.7-32.2) pg MCHC (32.2-35.5) g/dl RDW Std Deviation (35.1-43.9) fL Plt Count (163-337) K/mm3 MPV (9.4-12.3) fl Neutrophils % (Manual) (40-60) % Band Neutrophils % (0-10) % Lymphocytes % (Manual) (20-40) % Atypical Lymphs % % Monocytes % (Manual) (2-10) % Eosinophils % (Manual) (0.8-7.0) % Basophils % (Manual) (0.2-1.2) Platelet Estimate RBC Morph Comment PT (9.7-12.0) SECONDS INR APTT (22-31) SECONDS D-Dimer, Quantitative (0.19-0.50) mg/L Puncture Site ABG pH (7.35-7.45) ABG pCO2 (35.0-45.0) mmHg ABG pO2 (80.0-100.0) mmHg ABG HCO3 (22.0-26.0) meq/L ABG O2 Saturation (96.0-97.0) % ABG Base Excess (-2-2.0) Ike Test O2 Delivery Device Oxygen Flow Rate FiO2 (21.00-100.00) % Sodium (136-145) mEq/L Potassium (3.5-5.1) mEq/L Chloride (98-107) mEq/L Carbon Dioxide (21-32) mEq/L Anion Gap (5-15) BUN (7-18) mg/dL Creatinine (0.7-1.3) mg/dL Est Cr Clr Drug Dosing Estimated GFR (MDRD) (>60) mL/min BUN/Creatinine Ratio (14-18) Glucose (83-115) mg/dL POC Glucose 158 H 154 H (83-110) mg/dL Lactic Acid (0.4-2.0) mmol/L Calcium (8.5-10.1) mg/dL Total Bilirubin (0.2-1.0) mg/dL AST (15-37) U/L ALT (16-63) U/L Alkaline Phosphatase (46-116) U/L Troponin I 0.274 H* (0.00-0.056) ng/mL NT-Pro-B Natriuret Pep (0-450) pg/mL Total Protein (6.4-8.2) g/dl Albumin (3.4-5.0) g/dl Globulin gm/dL Albumin/Globulin Ratio (1-2) TSH 3rd Generation (0.358-3.74) uIU/mL MRSA (PCR) Result Diagrams: 06/22/19 03:10 06/22/19 03:10 EKG INTERPRETATION EKG Date: 06/22/19 Rhythm: A-Fib Rate (Beats/Min): 107 QRS: RBBB (PVCs) Problem List Initiated/Reviewed/Updated: Yes Orders Last 24hrs: Active Orders 24 hr Category Date Time Status Patient Status [ADT] Routine ADT 06/22/19 08:09 Active Blood Glucose Check, Bedside [RC] QIDACANDBED Care 06/22/19 08:21 Active Insert Bradford Catheter [Insert Urinary Catheter] [OM.PC] Care 06/22/19 08:15 Ordered Q24H Insert Urinary Catheter [OM.PC] Q24H Care 06/22/19 08:15 Ordered Oxygen Therapy [RC] PRN Care 06/22/19 08:14 Active Up ad Yuliya [RC] ASDIRECTED Care 06/22/19 08:14 Active Urinary Catheter Assessment [RC] Q4HR Care 06/22/19 08:14 Active VTE/DVT Education [RC] Care 06/22/19 08:14 Active Vital Signs [RC] Q4HR Care 06/22/19 08:14 Active Heart Healthy Diet [DIET] Diet 06/22/19 Lunch Active Venous Doppler Lwr Ext Bi [US] Routine Exams 06/22/19 08:18 Ordered CBC WITH AUTO DIFF [HEME] AM Lab 06/23/19 05:11 Ordered CBC WITH AUTO DIFF [HEME] AM Lab 06/24/19 05:11 Ordered CBC WITH AUTO DIFF [HEME] AM Lab 06/25/19 05:11 Ordered CBC WITH AUTO DIFF [HEME] AM Lab 06/26/19 05:11 Ordered CBC WITH AUTO DIFF [HEME] AM Lab 06/27/19 05:11 Ordered COMPREHENSIVE METABOLIC PN,CMP [CHEM] AM Lab 06/23/19 05:11 Ordered COMPREHENSIVE METABOLIC PN,CMP [CHEM] AM Lab 06/24/19 05:11 Ordered COMPREHENSIVE METABOLIC PN,CMP [CHEM] AM Lab 06/25/19 05:11 Ordered COMPREHENSIVE METABOLIC PN,CMP [CHEM] AM Lab 06/26/19 05:11 Ordered COMPREHENSIVE METABOLIC PN,CMP [CHEM] AM Lab 06/27/19 05:11 Ordered CULTURE BLOOD [BC] Stat Lab 06/22/19 03:30 Received CULTURE BLOOD [BC] Stat Lab 06/22/19 03:40 Received GLYCOSYLATED HEMOGLOBIN,HGBA1C [CHEM] AM Lab 06/23/19 05:11 Ordered MAGNESIUM [CHEM] AM Lab 06/23/19 05:11 Ordered MAGNESIUM [CHEM] AM Lab 06/24/19 05:11 Ordered MAGNESIUM [CHEM] AM Lab 06/25/19 05:11 Ordered MAGNESIUM [CHEM] AM Lab 06/26/19 05:11 Ordered MAGNESIUM [CHEM] AM Lab 06/27/19 05:11 Ordered TSH [CHEM] AM Lab 06/23/19 05:11 Ordered aPTT [PTT,PARTIAL THROMBOPLSTIN TIME] [COAG] Timed Lab 06/22/19 14:00 Ordered Acetaminophen [Tylenol] Med 06/22/19 08:14 Active 650 mg PO Q4H PRN Acetaminophen/HYDROcodone [Mona 325-10 MG] Med 06/22/19 08:31 Active 1 tab PO Q4H PRN Carvedilol [Coreg] Med 06/22/19 09:00 Active 25 mg PO BID Furosemide [Lasix] 100 mg Med 06/22/19 09:00 Active Sodium Chloride 0.9% [Normal Saline] 90 ml IV TITRATE Heparin Sodium/D5W [Heparin 25,000 Units in D5W 500 ML] Med 06/22/19 08:30 Active 25,000 units in 500 ml IV TITRATE Insulin Lispro [HumaLOG] Med 06/22/19 11:00 Active See Protocol SUBCUT QIDACANDBED Levothyroxine [Synthroid] Med 06/22/19 09:00 Active 100 mcg PO DAILY@0600 NIFEdipine [Procardia XL] Med 06/22/19 09:00 Active 60 mg PO DAILY Sertraline [Zoloft] Med 06/22/19 09:00 Active 25 mg PO DAILY Simvastatin [Zocor] Med 06/22/19 21:00 Active 20 mg PO BEDTIME Blood Culture x2 Reflex Set [OM.PC] Stat Oth 06/22/19 02:34 Ordered Code Status [Resuscitation Status] Routine Resus Stat 06/22/19 08:11 Ordered Medication Orders Acetaminophen (Tylenol) 650 mg PO Q4H PRN PRN Reason: Pain (Mild 1-3)/fever Hydrocodone Bitart/Acetaminophen (Mona 325-10 Mg) 1 tab PO Q4H PRN PRN Reason: Pain (moderate 4-6) Carvedilol (Coreg) 25 mg PO BID JEN Last Admin: 06/22/19 08:43 Dose: 25 mg Heparin Sodium/Dextrose (Heparin 25,000 Units In D5w 500 Ml) 25,000 units in 500 mls @ 26 mls/hr IV TITRATE JEN; Protocol Last Admin: 06/22/19 08:44 Dose: 1,300 units/hr, 26 mls/hr Furosemide 100 mg/ Sodium (Chloride) 100 mls @ 10 mls/hr IV TITRATE JEN; Protocol Last Infusion: 06/22/19 12:38 Dose: 8 mls/hr Admin: 06/22/19 08:53 Dose: 10 mls/hr Insulin Human Lispro (Humalog) 0 unit SUBCUT QIDACANDBED JEN; Protocol Last Admin: 06/22/19 11:16 Dose: Levothyroxine Sodium (Synthroid) 100 mcg PO DAILY@0600 [facility] Last Admin: 06/22/19 08:43 Dose: 100 mcg Nifedipine (Procardia Xl) 60 mg PO DAILY [facility] Last Admin: 06/22/19 08:45 Dose: 60 mg Sertraline HCl (Zoloft) 25 mg PO DAILY [facility] Last Admin: 06/22/19 08:43 Dose: 25 mg Simvastatin (Zocor) 20 mg PO BEDTIME [facility] Assessment/Plan Comment:: Assessment * Acute on chronic heart failure - presenting probe BNP 18,887: home Lasix 80 mg twice a day * Atrial fibrillation with RVR: home medications include Coreg 25 mg twice a day and nifedipine ER 60 mg daily * Elevated troponin and d-dimer - Unable to do a VQ scan on the weekends and with renal dysfunction risks versus benefits outweigh doing a CTA of the chest. * chronic renal insufficiency with history of only one kidney * hard of hearing and poor historian making history difficult * Diabetes mellitus on Lantus * history of hypertension, hyperlipidemia, hypothyroidism, depression, BPH, GERD , anemia on vitamin B12 Plan * admit to ICU * Lasix drip starting at 10 mg per hour to titrate for urine output of just greater than 100 mL/h * Heparin drip secondary to possible pulmonary embolism and possible non-STEMI due to the elevated d-dimer and troponin respectively. Also secondary to atrial fibrillation. * [id number] - 6.7 % (high risk) * HAS-Bled Score 3- 4.9-19.6 % risk of bled on OAC (high risk) * due to patient's risk of bleeding versus stroke we will continue him on heparin drip at this time and consider a VQ scan on Sunday. Patient's elevation in his d-dimer is likely to be secondary to his renal insufficiency and congestive failure. * Reconcile home meds * Lantus 12 units in the evening. Patient is on 16 units at home. * Sliding scale insulin * strict I's and O's and daily weights with Bradford catheter. * Echocardiogram ordered but it will not be done until Sunday because of the holiday weekend. * CBC, CMP, BNP, magnesium daily * Serial troponins showed no change. This increases the likelihood that this is a false positive since he has improvement in symptoms. Will check one in the morning. * CODE STATUS: Full code. I discussed this in detail with him and his family. They let me to believe that this has not been discussed with them in the past and that his likelihood of survival of a code is very low. * Prognosis is very poor. Family was counseled on the above. - Mortality Measure Prognosis:: Poor
--- NOTE | 2019-06-22 15:26 | US ---
Bilateral lower extremity deep venous ultrasound: Duplex and color flow Doppler imaging was obtained of the right and left common femoral, proximal greater saphenous, superficial femoral, popliteal, posterior tibial and peroneal veins. Normal phasic flow, augmentation and compression is seen. Impression: 1. No evidence of deep venous thrombosis within the right or left lower extremities. Diagnostic code #1
[2019-06-22] MEDS: Simvastatin 20 MG Tab PO SCH (20:30)
[2019-06-22] MEDS: Insulin Glarg,Human.Rec.Analog 100 UNIT/ML ML SUBCUT SCH (20:50)
[2019-06-22] MEDS ORDERED: Insulin Glarg,Human.Rec.Analog 100 UNIT/ML ML SUBCUT SCH ×2 (21:00)
[2019-06-22] MEDS ORDERED: Sodium Chloride 0.9% 500 ML IV PRN (22:45)
[2019-06-22] MEDS: Potassium Chloride 10 MEQ in Premix Bag 1 BAG IV SCH (22:48)
[2019-06-23] MEDS: Potassium Chloride 10 MEQ in Premix Bag 1 BAG IV SCH ×3 (01:06→04:58)
[2019-06-23] MEDS: Levothyroxine 100 MCG Tab PO SCH (06:21)
[2019-06-23] MEDS: Insulin Lispro 100 Units/ML 3 ML Vial SUBCUT SCH ×4 (06:32→21:21)
[2019-06-23] MEDS: Carvedilol 12.5 MG Tab PO SCH ×2 (08:52→20:41)
[2019-06-23] MEDS: NIFEdipine 30 MG Tab.ER PO SCH (08:53)
[2019-06-23] MEDS: Acetaminophen/HYDROcodone 325-10 MG Tab PO PRN ×2 (08:54→15:30)
[2019-06-23] MEDS: Sertraline 25 MG Tab PO SCH (08:54)
[2019-06-23] MEDS: Furosemide 100 MG in Sodium Chloride 0.9% 90 ML IV SCH ×2 (08:59→20:40)
[2019-06-23] MEDS ORDERED: Potassium Chloride 20 MEQ Tab.ER PO ONE (10:34)
[2019-06-23] MEDS ORDERED: Colchicine 0.6 MG Tab PO ONE ×2 (11:31→15:00)
[2019-06-23] MEDS: Heparin Sodium/D5W 25,000 UNITS/500 ML BAG IV SCH (11:49)
--- NOTE | 2019-06-23 15:06 | PCM.PN ---
- General Info Date of Service: 06/23/19 Admission Dx/Problem (Free Text): Admission Diagnosis/Problem Admission Diagnosis/Problem Congestive heart failure Subjective Update: patient states that he is breathing better. He has less shortness of breath. New complaint of right wrist pain over the ulnar styloid. He has a history of gout and uric acid is elevated at 7.8 Functional Status: Denies: Pain Controlled - Review of Systems General: Reports: No Symptoms. Denies: Fever HEENT: Reports: No Symptoms Pulmonary: Reports: Shortness of Breath Cardiovascular: Reports: Edema. Denies: Chest Pain, Palpitations - Patient Data Vitals - Most Recent: Last Vital Signs Temp 99.2 F 06/23/19 12:00 Pulse 77 06/23/19 08:52 Resp 19 06/23/19 12:00 BP 115/81 06/23/19 14:00 Pulse Ox 92 L 06/23/19 14:00 Weight - Most Recent: 248 lb I&O - Last 24 Hours: Intake & Output 06/23/19 06/23/19 06/23/19 06:59 14:59 22:59 Intake Total 890 300 Output Total 750 1075 Balance 140 -775 Lab Results Last 24 Hours: Laboratory Results - last 24 hr 06/22/19 06/22/19 06/22/19 Range/Units 14:03 16:09 20:03 WBC (4.23-9.07) K/mm3 RBC (4.63-6.08) M/mm3 Hgb (13.7-17.5) gm/L Hct (40.1-51.0) % MCV (79.0-92.2) fl MCH (25.7-32.2) pg MCHC (32.2-35.5) g/dl RDW Std Deviation (35.1-43.9) fL Plt Count (163-337) K/mm3 MPV (9.4-12.3) fl Neut % (Auto) (34.0-67.9) % Lymph % (Auto) (21.8-53.1) % [place] % (Auto) (5.3-12.2) % Eos % (Auto) (0.8-7.0) Baso % (Auto) (0.1-1.2) % Neut # (Auto) (1.78-5.38) K/mm3 Lymph # (Auto) (1.32-3.57) K/mm3 [place] # (Auto) (0.30-0.82) K/mm3 Eos # (Auto) (0.04-0.54) K/mm3 Baso # (Auto) (0.01-0.08) K/mm3 APTT 42 H 71 H (22-31) SECONDS Sodium (136-145) mEq/L Potassium (3.5-5.1) mEq/L Chloride (98-107) mEq/L Carbon Dioxide (21-32) mEq/L Anion Gap (5-15) BUN (7-18) mg/dL Creatinine (0.7-1.3) mg/dL Est Cr Clr Drug Dosing mL/min Estimated GFR (MDRD) (>60) mL/min BUN/Creatinine Ratio (14-18) Glucose (83-115) mg/dL POC Glucose 116 H (83-110) mg/dL Uric Acid (3.5-7.2) mg/dL Calcium (8.5-10.1) mg/dL Magnesium (1.8-2.4) mg/dl Total Bilirubin (0.2-1.0) mg/dL AST (15-37) U/L ALT (16-63) U/L Alkaline Phosphatase (46-116) U/L Troponin I (0.00-0.056) ng/mL NT-Pro-B Natriuret Pep (0-450) pg/mL Total Protein (6.4-8.2) g/dl Albumin (3.4-5.0) g/dl Globulin gm/dL Albumin/Globulin Ratio (1-2) TSH 3rd Generation (0.358-3.74) uIU/mL 06/22/19 06/22/19 06/23/19 Range/Units 20:28 21:38 02:05 WBC (4.23-9.07) K/mm3 RBC (4.63-6.08) M/mm3 Hgb (13.7-17.5) gm/L Hct (40.1-51.0) % MCV (79.0-92.2) fl MCH (25.7-32.2) pg MCHC (32.2-35.5) g/dl RDW Std Deviation (35.1-43.9) fL Plt Count (163-337) K/mm3 MPV (9.4-12.3) fl Neut % (Auto) (34.0-67.9) % Lymph % (Auto) (21.8-53.1) % [place] % (Auto) (5.3-12.2) % Eos % (Auto) (0.8-7.0) Baso % (Auto) (0.1-1.2) % Neut # (Auto) (1.78-5.38) K/mm3 Lymph # (Auto) (1.32-3.57) K/mm3 [place] # (Auto) (0.30-0.82) K/mm3 Eos # (Auto) (0.04-0.54) K/mm3 Baso # (Auto) (0.01-0.08) K/mm3 APTT 75 H (22-31) SECONDS Sodium 142 (136-145) mEq/L Potassium 3.3 L (3.5-5.1) mEq/L Chloride 104 (98-107) mEq/L Carbon Dioxide 31 (21-32) mEq/L Anion Gap 10.3 (5-15) BUN 29 H (7-18) mg/dL Creatinine 2.4 H (0.7-1.3) mg/dL Est Cr Clr Drug Dosing 24.25 mL/min Estimated GFR (MDRD) 26 (>60) mL/min BUN/Creatinine Ratio 12.1 L (14-18) Glucose 132 H (83-115) mg/dL POC Glucose 126 H (83-110) mg/dL Uric Acid (3.5-7.2) mg/dL Calcium 8.1 L (8.5-10.1) mg/dL Magnesium (1.8-2.4) mg/dl Total Bilirubin (0.2-1.0) mg/dL AST (15-37) U/L ALT (16-63) U/L Alkaline Phosphatase (46-116) U/L Troponin I (0.00-0.056) ng/mL NT-Pro-B Natriuret Pep (0-450) pg/mL Total Protein (6.4-8.2) g/dl Albumin (3.4-5.0) g/dl Globulin gm/dL Albumin/Globulin Ratio (1-2) TSH 3rd Generation (0.358-3.74) uIU/mL 06/23/19 06/23/19 06/23/19 Range/Units 05:10 05:10 05:10 WBC 7.70 (4.23-9.07) K/mm3 RBC 3.55 L (4.63-6.08) M/mm3 Hgb 10.1 L (13.7-17.5) gm/L Hct 32.3 L (40.1-51.0) % MCV 91.0 (79.0-92.2) fl MCH 28.5 (25.7-32.2) pg MCHC 31.3 L (32.2-35.5) g/dl RDW Std Deviation 45.0 H (35.1-43.9) fL Plt Count 168 (163-337) K/mm3 MPV 10.4 (9.4-12.3) fl Neut % (Auto) 75.9 H (34.0-67.9) % Lymph % (Auto) 10.6 L (21.8-53.1) % [place] % (Auto) 12.1 (5.3-12.2) % Eos % (Auto) 0.9 (0.8-7.0) Baso % (Auto) 0.4 (0.1-1.2) % Neut # (Auto) 5.84 H (1.78-5.38) K/mm3 Lymph # (Auto) 0.82 L (1.32-3.57) K/mm3 [place] # (Auto) 0.93 H (0.30-0.82) K/mm3 Eos # (Auto) 0.07 (0.04-0.54) K/mm3 Baso # (Auto) 0.03 (0.01-0.08) K/mm3 APTT (22-31) SECONDS Sodium 141 (136-145) mEq/L Potassium 3.6 (3.5-5.1) mEq/L Chloride 103 (98-107) mEq/L Carbon Dioxide 29 (21-32) mEq/L Anion Gap 12.6 (5-15) BUN 29 H (7-18) mg/dL Creatinine 2.4 H (0.7-1.3) mg/dL Est Cr Clr Drug Dosing 24.25 mL/min Estimated GFR (MDRD) 26 (>60) mL/min BUN/Creatinine Ratio 12.1 L (14-18) Glucose 128 H (83-115) mg/dL POC Glucose (83-110) mg/dL Uric Acid (3.5-7.2) mg/dL Calcium 7.8 L (8.5-10.1) mg/dL Magnesium 2.0 (1.8-2.4) mg/dl Total Bilirubin 0.6 (0.2-1.0) mg/dL AST 12 L (15-37) U/L ALT 13 L (16-63) U/L Alkaline Phosphatase 56 (46-116) U/L Troponin I 0.225 H* (0.00-0.056) ng/mL NT-Pro-B Natriuret Pep (0-450) pg/mL Total Protein 6.1 L (6.4-8.2) g/dl Albumin 2.7 L (3.4-5.0) g/dl Globulin 3.4 gm/dL Albumin/Globulin Ratio 0.8 L (1-2) TSH 3rd Generation 1.063 (0.358-3.74) uIU/mL 06/23/19 06/23/19 06/23/19 Range/Units 06:18 08:00 08:00 WBC (4.23-9.07) K/mm3 RBC (4.63-6.08) M/mm3 Hgb (13.7-17.5) gm/L Hct (40.1-51.0) % MCV (79.0-92.2) fl MCH (25.7-32.2) pg MCHC (32.2-35.5) g/dl RDW Std Deviation (35.1-43.9) fL Plt Count (163-337) K/mm3 MPV (9.4-12.3) fl Neut % (Auto) (34.0-67.9) % Lymph % (Auto) (21.8-53.1) % [place] % (Auto) (5.3-12.2) % Eos % (Auto) (0.8-7.0) Baso % (Auto) (0.1-1.2) % Neut # (Auto) (1.78-5.38) K/mm3 Lymph # (Auto) (1.32-3.57) K/mm3 [place] # (Auto) (0.30-0.82) K/mm3 Eos # (Auto) (0.04-0.54) K/mm3 Baso # (Auto) (0.01-0.08) K/mm3 APTT 61 H (22-31) SECONDS Sodium (136-145) mEq/L Potassium (3.5-5.1) mEq/L Chloride (98-107) mEq/L Carbon Dioxide (21-32) mEq/L Anion Gap (5-15) BUN (7-18) mg/dL Creatinine (0.7-1.3) mg/dL Est Cr Clr Drug Dosing mL/min Estimated GFR (MDRD) (>60) mL/min BUN/Creatinine Ratio (14-18) Glucose (83-115) mg/dL POC Glucose 125 H (83-110) mg/dL Uric Acid (3.5-7.2) mg/dL Calcium (8.5-10.1) mg/dL Magnesium (1.8-2.4) mg/dl Total Bilirubin (0.2-1.0) mg/dL AST (15-37) U/L ALT (16-63) U/L Alkaline Phosphatase (46-116) U/L Troponin I (0.00-0.056) ng/mL NT-Pro-B Natriuret Pep 58637 H (0-450) pg/mL Total Protein (6.4-8.2) g/dl Albumin (3.4-5.0) g/dl Globulin gm/dL Albumin/Globulin Ratio (1-2) TSH 3rd Generation (0.358-3.74) uIU/mL 06/23/19 06/23/19 06/23/19 Range/Units 08:00 11:47 14:28 WBC (4.23-9.07) K/mm3 RBC (4.63-6.08) M/mm3 Hgb (13.7-17.5) gm/L Hct (40.1-51.0) % MCV (79.0-92.2) fl MCH (25.7-32.2) pg MCHC (32.2-35.5) g/dl RDW Std Deviation (35.1-43.9) fL Plt Count (163-337) K/mm3 MPV (9.4-12.3) fl Neut % (Auto) (34.0-67.9) % Lymph % (Auto) (21.8-53.1) % [place] % (Auto) (5.3-12.2) % Eos % (Auto) (0.8-7.0) Baso % (Auto) (0.1-1.2) % Neut # (Auto) (1.78-5.38) K/mm3 Lymph # (Auto) (1.32-3.57) K/mm3 [place] # (Auto) (0.30-0.82) K/mm3 Eos # (Auto) (0.04-0.54) K/mm3 Baso # (Auto) (0.01-0.08) K/mm3 APTT 51 H (22-31) SECONDS Sodium (136-145) mEq/L Potassium (3.5-5.1) mEq/L Chloride (98-107) mEq/L Carbon Dioxide (21-32) mEq/L Anion Gap (5-15) BUN (7-18) mg/dL Creatinine (0.7-1.3) mg/dL Est Cr Clr Drug Dosing mL/min Estimated GFR (MDRD) (>60) mL/min BUN/Creatinine Ratio (14-18) Glucose (83-115) mg/dL POC Glucose 158 H (83-110) mg/dL Uric Acid 7.8 H (3.5-7.2) mg/dL Calcium (8.5-10.1) mg/dL Magnesium (1.8-2.4) mg/dl Total Bilirubin (0.2-1.0) mg/dL AST (15-37) U/L ALT (16-63) U/L Alkaline Phosphatase (46-116) U/L Troponin I (0.00-0.056) ng/mL NT-Pro-B Natriuret Pep (0-450) pg/mL Total Protein (6.4-8.2) g/dl Albumin (3.4-5.0) g/dl Globulin gm/dL Albumin/Globulin Ratio (1-2) TSH 3rd Generation (0.358-3.74) uIU/mL [place] Results Last 24 Hours: Microbiology 06/22/19 03:40 Aerobic Blood Culture - Preliminary Blood - Venous - Lab Draw NO GROWTH AFTER 1 DAY Anaerobic Blood Culture - Preliminary NO GROWTH AFTER 1 DAY 06/22/19 03:30 Aerobic Blood Culture - Preliminary Blood - Venous NO GROWTH AFTER 1 DAY Anaerobic Blood Culture - Preliminary NO GROWTH AFTER 1 DAY Med Orders - Current: Current Medications Acetaminophen (Tylenol) 650 mg PO Q4H PRN PRN Reason: Pain (Mild 1-3)/fever Hydrocodone Bitart/Acetaminophen ([place] 325-10 Mg) 1 tab PO Q4H PRN PRN Reason: Pain (moderate 4-6) Last Admin: 06/23/19 08:54 Dose: 1 tab Carvedilol (Coreg) 25 mg PO BID [facility] Last Admin: 06/23/19 08:52 Dose: 25 mg Colchicine (Colcrys) 0.6 mg PO ONETIME ONE Stop: 06/23/19 15:01 Heparin Sodium/Dextrose (Heparin 25,000 Units In D5w 500 Ml) 25,000 units in 500 mls @ 26 mls/hr IV TITRATE [facility]; Protocol Last Admin: 06/23/19 11:49 Dose: 1,746 units/hr, 34.92 mls/hr Furosemide 100 mg/ Sodium (Chloride) 100 mls @ 10 mls/hr IV TITRATE [facility]; Protocol Last Admin: 06/23/19 08:59 Dose: 9 mls/hr Insulin Glargine (Lantus) 12 unit SUBCUT BEDTIME [facility] Last Admin: 06/22/19 20:50 Dose: 12 units Insulin Human Lispro (Humalog) 0 unit SUBCUT QIDACANDBED [facility]; Protocol Last Admin: 06/23/19 11:48 Dose: Not Given Levothyroxine Sodium (Synthroid) 100 mcg PO DAILY@0600 [facility] Last Admin: 06/23/19 06:21 Dose: 100 mcg Nifedipine (Procardia Xl) 60 mg PO DAILY [facility] Last Admin: 06/23/19 08:53 Dose: 60 mg Sertraline HCl (Zoloft) 25 mg PO DAILY [facility] Last Admin: 06/23/19 08:54 Dose: 25 mg Simvastatin (Zocor) 20 mg PO BEDTIME [facility] Last Admin: 06/22/19 20:30 Dose: 20 mg Discontinued Medications Colchicine (Colcrys) 1.2 mg PO ONETIME ONE Stop: 06/23/19 11:32 Last Admin: 06/23/19 11:42 Dose: 1.2 mg Furosemide (Lasix) 40 mg IVPUSH NOW ONE Stop: 06/22/19 04:08 Last Admin: 06/22/19 04:13 Dose: 40 mg Furosemide (Lasix) 40 mg IVPUSH NOW ONE Stop: 06/22/19 04:20 Last Admin: 06/22/19 04:25 Dose: 40 mg Heparin Sodium (Porcine) (Heparin Sodium) 5,000 units IVPUSH .BOLUS ONE; Protocol Stop: 06/22/19 08:16 Last Admin: 06/22/19 08:41 Dose: 5,000 units Heparin Sodium (Porcine) (Heparin Sodium) 1,500 units IVPUSH .BOLUS ONE Stop: 06/22/19 15:08 Last Admin: 06/22/19 15:19 Dose: 1,500 units Potassium Chloride 10 meq/ (Premix) 100 mls @ 100 mls/hr IV Q1H JEN Stop: 06/23/19 02:29 Last Admin: 06/23/19 04:58 Dose: 50 mls/hr Sodium Chloride (Normal Saline) 500 mls @ 25 mls/hr IV .BOLUS PRN PRN Reason: IV Use Last Admin: 06/22/19 23:14 Dose: 25 mls/hr Insulin Glargine (Lantus) 15 unit SUBCUT QPM JEN Insulin Glargine (Lantus) 15 unit SUBCUT BEDTIME JEN Potassium Chloride (Klor-Con M20) 40 meq PO ONETIME ONE Stop: 06/23/19 10:35 Last Admin: 06/23/19 10:44 Dose: 40 meq - Exam Quality Assessment: Supplemental Oxygen General: Alert, Oriented HEENT: Pupils Equal Neck: Supple Lungs: Normal Respiratory Effort, Rales Cardiovascular: Regular Rate, Regular Rhythm GI/Abdominal Exam: Normal Bowel Sounds, Soft, Non-Tender, No Distention Extremities: Pedal Edema (upto thigh. Improved.), Other (mild redness and tenderness over the right ulnar styloid) Skin: Warm, Dry, Intact Psy/Mental Status: Alert, Normal Affect, Normal Mood - Problem List Review Problem List Initiated/Reviewed/Updated: Yes - My Orders Last 24 Hours: My Active Orders 06/22/19 21:00 Insulin Glarg,Human.Rec.Analog [LantUS] 12 unit SUBCUT BEDTIME Simvastatin [Zocor] 20 mg PO BEDTIME 06/23/19 15:00 Colchicine [Colcrys] 0.6 mg PO ONETIME ONE 06/24/19 05:00 PRO B-TYPE NATRIUR PEPT,BNPPRO [CHEM] DAILY 06/24/19 05:11 CBC WITH AUTO DIFF [HEME] AM COMPREHENSIVE METABOLIC PN,CMP [CHEM] AM MAGNESIUM [CHEM] AM 06/24/19 07:00 Echo Comp wo Cont [US] Routine 06/25/19 05:00 PRO B-TYPE NATRIUR PEPT,BNPPRO [CHEM] DAILY 06/25/19 05:11 CBC WITH AUTO DIFF [HEME] AM COMPREHENSIVE METABOLIC PN,CMP [CHEM] AM MAGNESIUM [CHEM] AM 06/26/19 05:00 PRO B-TYPE NATRIUR PEPT,BNPPRO [CHEM] DAILY 06/26/19 05:11 CBC WITH AUTO DIFF [HEME] AM COMPREHENSIVE METABOLIC PN,CMP [CHEM] AM MAGNESIUM [CHEM] AM 06/26/19 07:00 CBC W/O DIFF,HEMOGRAM [HEME] MOTH@0700 06/27/19 05:00 PRO B-TYPE NATRIUR PEPT,BNPPRO [CHEM] DAILY 06/27/19 05:11 CBC WITH AUTO DIFF [HEME] AM COMPREHENSIVE METABOLIC PN,CMP [CHEM] AM MAGNESIUM [CHEM] AM 06/30/19 07:00 CBC W/O DIFF,HEMOGRAM [HEME] MOTH@0700 07/03/19 07:00 CBC W/O DIFF,HEMOGRAM [HEME] MOTH@0700 07/07/19 07:00 CBC W/O DIFF,HEMOGRAM [HEME] MOTH@0700 07/10/19 07:00 CBC W/O DIFF,HEMOGRAM [HEME] MOTH@0700 - Plan Plan:: Assessment * Acute on chronic heart failure - presenting probe BNP 18,887: home Lasix 80 mg twice a day * BNP 18,887-->16,687 * Atrial fibrillation with RVR: home medications include Coreg 25 mg twice a day and nifedipine ER 60 mg daily * Elevated troponin and d-dimer - Unable to do a VQ scan on the weekends and with renal dysfunction risks versus benefits outweigh doing a CTA of the chest. * chronic renal insufficiency with history of only one kidney * NEW - wrist pain right ulnar aspect - history of gout * hard of hearing and poor historian making history difficult * Diabetes mellitus on Lantus * history of hypertension, hyperlipidemia, hypothyroidism, depression, BPH, GERD , anemia on vitamin B12 Plan * admit to ICU * Lasix drip starting at 10 mg per hour to titrate for urine output of just greater than 100 mL/h - now at 9 mg/h * Heparin drip secondary to possible pulmonary embolism and possible non-STEMI due to the elevated d-dimer and troponin respectively. Also secondary to atrial fibrillation. * [id number] - 6.7 % (high risk) * HAS-Bled Score 3- 4.9-19.6 % risk of bled on OAC (high risk) * due to patient's risk of bleeding versus stroke we will continue him on heparin drip at this time and consider a VQ scan on Sunday. Patient's elevation in his d-dimer is likely to be secondary to his renal insufficiency and congestive failure. * Reconcile home meds * Lantus 12 units in the evening. Patient is on 16 units at home. * Sliding scale insulin * NEW - colchicine 1.2 mg x1 then 0.6 mg after 1 hour. * strict I's and O's and daily weights with Bradford catheter. * Echocardiogram ordered but it will not be done until Sunday because of the holiday weekend. * CBC, CMP, BNP, magnesium daily * Serial troponins showed no change. This increases the likelihood that this is a false positive since he has improvement in symptoms. Will check one in the morning. * CODE STATUS: Full code. I discussed this in detail with him and his family. They let me to believe that this has not been discussed with them in the past and that his likelihood of survival of a code is very low. * Prognosis is very poor. Family was counseled on the above.
[2019-06-23] MEDS: Simvastatin 20 MG Tab PO SCH (20:42)
[2019-06-23] MEDS: Insulin Glarg,Human.Rec.Analog 100 UNIT/ML ML SUBCUT SCH (20:42)
[2019-06-24] MEDS: Heparin Sodium/D5W 25,000 UNITS/500 ML BAG IV SCH (01:45)
[2019-06-24] MEDS: Levothyroxine 100 MCG Tab PO SCH (06:03)
--- NOTE | 2019-06-24 08:21 | PCM.PN ---
- General Info Date of Service: 06/24/19 Admission Dx/Problem (Free Text): Admission Diagnosis/Problem Admission Diagnosis/Problem Congestive heart failure Subjective Update: No overnight issue. He rested well last night and feels pretty good this morning. Functional Status: Reports: Pain Controlled, Tolerating Diet, Urinating. Denies : New Symptoms - Review of Systems General: Denies: Fever, Weakness, Fatigue, Malaise, Chills HEENT: Reports: No Symptoms Pulmonary: Reports: Shortness of Breath, Cough (intermittent), Sputum Cardiovascular: Denies: Chest Pain, Dyspnea on Exertion, Lightheadedness Gastrointestinal: Denies: Abdominal Pain, Nausea, Vomiting Genitourinary: Reports: No Symptoms Musculoskeletal: Reports: No Symptoms Skin: Denies: Pallor, Diaphoresis, Bruising Neurological: Denies: Confusion, Difficulty Walking, Weakness, Gait Disturbance Psychiatric: Denies: Depression, Mood Lability, Anxiety, Agitation, Cravings, Hallucinations - Patient Data Vitals - Most Recent: Last Vital Signs Temp 36.9 C 06/24/19 07:53 Pulse 71 06/24/19 04:00 Resp 18 06/24/19 07:53 BP 122/84 06/24/19 07:53 Pulse Ox 91 L 06/24/19 07:53 Weight - Most Recent: 108.998 kg I&O - Last 24 Hours: Intake & Output 06/23/19 06/24/19 06/24/19 22:59 06:59 14:59 Intake Total 1693 797 Output Total 740 425 115 Balance 953 372 -115 Lab Results Last 24 Hours: Laboratory Results - last 24 hr 06/22/19 06/23/19 06/23/19 Range/Units 07:45 08:00 08:00 WBC (4.23-9.07) K/mm3 RBC (4.63-6.08) M/mm3 Hgb (13.7-17.5) gm/L Hct (40.1-51.0) % MCV (79.0-92.2) fl MCH (25.7-32.2) pg MCHC (32.2-35.5) g/dl RDW Std Deviation (35.1-43.9) fL Plt Count (163-337) K/mm3 MPV (9.4-12.3) fl Neut % (Auto) (34.0-67.9) % Lymph % (Auto) (21.8-53.1) % Hall % (Auto) (5.3-12.2) % Eos % (Auto) (0.8-7.0) Baso % (Auto) (0.1-1.2) % Neut # (Auto) (1.78-5.38) K/mm3 Lymph # (Auto) (1.32-3.57) K/mm3 Hall # (Auto) (0.30-0.82) K/mm3 Eos # (Auto) (0.04-0.54) K/mm3 Baso # (Auto) (0.01-0.08) K/mm3 Manual Slide Review APTT 61 H (22-31) SECONDS Sodium (136-145) mEq/L Potassium (3.5-5.1) mEq/L Chloride (98-107) mEq/L Carbon Dioxide (21-32) mEq/L Anion Gap (5-15) BUN (7-18) mg/dL Creatinine (0.7-1.3) mg/dL Est Cr Clr Drug Dosing mL/min Estimated GFR (MDRD) (>60) mL/min BUN/Creatinine Ratio (14-18) Glucose (83-115) mg/dL POC Glucose (83-110) mg/dL Hemoglobin A1c 6.70 H (4.50-6.20) % Uric Acid (3.5-7.2) mg/dL Calcium (8.5-10.1) mg/dL Magnesium (1.8-2.4) mg/dl Total Bilirubin (0.2-1.0) mg/dL AST (15-37) U/L ALT (16-63) U/L Alkaline Phosphatase (46-116) U/L NT-Pro-B Natriuret Pep 29317 H (0-450) pg/mL Total Protein (6.4-8.2) g/dl Albumin (3.4-5.0) g/dl Globulin gm/dL Albumin/Globulin Ratio (1-2) 06/23/19 06/23/19 06/23/19 Range/Units 08:00 11:47 14:28 WBC (4.23-9.07) K/mm3 RBC (4.63-6.08) M/mm3 Hgb (13.7-17.5) gm/L Hct (40.1-51.0) % MCV (79.0-92.2) fl MCH (25.7-32.2) pg MCHC (32.2-35.5) g/dl RDW Std Deviation (35.1-43.9) fL Plt Count (163-337) K/mm3 MPV (9.4-12.3) fl Neut % (Auto) (34.0-67.9) % Lymph % (Auto) (21.8-53.1) % Hall % (Auto) (5.3-12.2) % Eos % (Auto) (0.8-7.0) Baso % (Auto) (0.1-1.2) % Neut # (Auto) (1.78-5.38) K/mm3 Lymph # (Auto) (1.32-3.57) K/mm3 Hall # (Auto) (0.30-0.82) K/mm3 Eos # (Auto) (0.04-0.54) K/mm3 Baso # (Auto) (0.01-0.08) K/mm3 Manual Slide Review APTT 51 H (22-31) SECONDS Sodium (136-145) mEq/L Potassium (3.5-5.1) mEq/L Chloride (98-107) mEq/L Carbon Dioxide (21-32) mEq/L Anion Gap (5-15) BUN (7-18) mg/dL Creatinine (0.7-1.3) mg/dL Est Cr Clr Drug Dosing mL/min Estimated GFR (MDRD) (>60) mL/min BUN/Creatinine Ratio (14-18) Glucose (83-115) mg/dL POC Glucose 158 H (83-110) mg/dL Hemoglobin A1c (4.50-6.20) % Uric Acid 7.8 H (3.5-7.2) mg/dL Calcium (8.5-10.1) mg/dL Magnesium (1.8-2.4) mg/dl Total Bilirubin (0.2-1.0) mg/dL AST (15-37) U/L ALT (16-63) U/L Alkaline Phosphatase (46-116) U/L NT-Pro-B Natriuret Pep (0-450) pg/mL Total Protein (6.4-8.2) g/dl Albumin (3.4-5.0) g/dl Globulin gm/dL Albumin/Globulin Ratio (1-2) 06/23/19 06/23/19 06/23/19 Range/Units 17:12 20:10 20:39 WBC (4.23-9.07) K/mm3 RBC (4.63-6.08) M/mm3 Hgb (13.7-17.5) gm/L Hct (40.1-51.0) % MCV (79.0-92.2) fl MCH (25.7-32.2) pg MCHC (32.2-35.5) g/dl RDW Std Deviation (35.1-43.9) fL Plt Count (163-337) K/mm3 MPV (9.4-12.3) fl Neut % (Auto) (34.0-67.9) % Lymph % (Auto) (21.8-53.1) % Hall % (Auto) (5.3-12.2) % Eos % (Auto) (0.8-7.0) Baso % (Auto) (0.1-1.2) % Neut # (Auto) (1.78-5.38) K/mm3 Lymph # (Auto) (1.32-3.57) K/mm3 Hall # (Auto) (0.30-0.82) K/mm3 Eos # (Auto) (0.04-0.54) K/mm3 Baso # (Auto) (0.01-0.08) K/mm3 Manual Slide Review APTT 49 H (22-31) SECONDS Sodium (136-145) mEq/L Potassium (3.5-5.1) mEq/L Chloride (98-107) mEq/L Carbon Dioxide (21-32) mEq/L Anion Gap (5-15) BUN (7-18) mg/dL Creatinine (0.7-1.3) mg/dL Est Cr Clr Drug Dosing mL/min Estimated GFR (MDRD) (>60) mL/min BUN/Creatinine Ratio (14-18) Glucose (83-115) mg/dL POC Glucose 212 H 240 H (83-110) mg/dL Hemoglobin A1c (4.50-6.20) % Uric Acid (3.5-7.2) mg/dL Calcium (8.5-10.1) mg/dL Magnesium (1.8-2.4) mg/dl Total Bilirubin (0.2-1.0) mg/dL AST (15-37) U/L ALT (16-63) U/L Alkaline Phosphatase (46-116) U/L NT-Pro-B Natriuret Pep (0-450) pg/mL Total Protein (6.4-8.2) g/dl Albumin (3.4-5.0) g/dl Globulin gm/dL Albumin/Globulin Ratio (1-2) 06/24/19 06/24/19 06/24/19 Range/Units 02:00 02:00 02:00 WBC 8.86 (4.23-9.07) K/mm3 RBC 3.34 L (4.63-6.08) M/mm3 Hgb 9.6 L (13.7-17.5) gm/L Hct 30.0 L (40.1-51.0) % MCV 89.8 (79.0-92.2) fl MCH 28.7 (25.7-32.2) pg MCHC 32.0 L (32.2-35.5) g/dl RDW Std Deviation 43.5 (35.1-43.9) fL Plt Count 167 (163-337) K/mm3 MPV 10.3 (9.4-12.3) fl Neut % (Auto) 80.9 H (34.0-67.9) % Lymph % (Auto) 6.5 L (21.8-53.1) % Hall % (Auto) 12.3 H (5.3-12.2) % Eos % (Auto) 0 L (0.8-7.0) Baso % (Auto) 0.2 (0.1-1.2) % Neut # (Auto) 7.16 H (1.78-5.38) K/mm3 Lymph # (Auto) 0.58 L (1.32-3.57) K/mm3 Hall # (Auto) 1.09 H (0.30-0.82) K/mm3 Eos # (Auto) 0.00 L (0.04-0.54) K/mm3 Baso # (Auto) 0.02 (0.01-0.08) K/mm3 Manual Slide Review Abnormal smear APTT (22-31) SECONDS Sodium 139 (136-145) mEq/L Potassium 3.9 (3.5-5.1) mEq/L Chloride 102 (98-107) mEq/L Carbon Dioxide 33 H (21-32) mEq/L Anion Gap 7.9 (5-15) BUN 36 H (7-18) mg/dL Creatinine 2.7 H (0.7-1.3) mg/dL Est Cr Clr Drug Dosing 21.56 mL/min Estimated GFR (MDRD) 23 (>60) mL/min BUN/Creatinine Ratio 13.3 L (14-18) Glucose 209 H (83-115) mg/dL POC Glucose (83-110) mg/dL Hemoglobin A1c (4.50-6.20) % Uric Acid (3.5-7.2) mg/dL Calcium 7.6 L (8.5-10.1) mg/dL Magnesium 2.0 (1.8-2.4) mg/dl Total Bilirubin 0.6 (0.2-1.0) mg/dL AST 6 L (15-37) U/L ALT 10 L (16-63) U/L Alkaline Phosphatase 56 (46-116) U/L NT-Pro-B Natriuret Pep 05565 H (0-450) pg/mL Total Protein 6.0 L (6.4-8.2) g/dl Albumin 2.6 L (3.4-5.0) g/dl Globulin 3.4 gm/dL Albumin/Globulin Ratio 0.8 L (1-2) 06/24/19 06/24/19 Range/Units 02:00 05:59 WBC (4.23-9.07) K/mm3 RBC (4.63-6.08) M/mm3 Hgb (13.7-17.5) gm/L Hct (40.1-51.0) % MCV (79.0-92.2) fl MCH (25.7-32.2) pg MCHC (32.2-35.5) g/dl RDW Std Deviation (35.1-43.9) fL Plt Count (163-337) K/mm3 MPV (9.4-12.3) fl Neut % (Auto) (34.0-67.9) % Lymph % (Auto) (21.8-53.1) % Hall % (Auto) (5.3-12.2) % Eos % (Auto) (0.8-7.0) Baso % (Auto) (0.1-1.2) % Neut # (Auto) (1.78-5.38) K/mm3 Lymph # (Auto) (1.32-3.57) K/mm3 Hall # (Auto) (0.30-0.82) K/mm3 Eos # (Auto) (0.04-0.54) K/mm3 Baso # (Auto) (0.01-0.08) K/mm3 Manual Slide Review APTT 63 H (22-31) SECONDS Sodium (136-145) mEq/L Potassium (3.5-5.1) mEq/L Chloride (98-107) mEq/L Carbon Dioxide (21-32) mEq/L Anion Gap (5-15) BUN (7-18) mg/dL Creatinine (0.7-1.3) mg/dL Est Cr Clr Drug Dosing mL/min Estimated GFR (MDRD) (>60) mL/min BUN/Creatinine Ratio (14-18) Glucose (83-115) mg/dL POC Glucose 185 H (83-110) mg/dL Hemoglobin A1c (4.50-6.20) % Uric Acid (3.5-7.2) mg/dL Calcium (8.5-10.1) mg/dL Magnesium (1.8-2.4) mg/dl Total Bilirubin (0.2-1.0) mg/dL AST (15-37) U/L ALT (16-63) U/L Alkaline Phosphatase (46-116) U/L NT-Pro-B Natriuret Pep (0-450) pg/mL Total Protein (6.4-8.2) g/dl Albumin (3.4-5.0) g/dl Globulin gm/dL Albumin/Globulin Ratio (1-2) [place] Results Last 24 Hours: Microbiology 06/22/19 03:40 Aerobic Blood Culture - Preliminary Blood - Venous - Lab Draw NO GROWTH AFTER 2 DAYS Anaerobic Blood Culture - Preliminary NO GROWTH AFTER 2 DAYS 06/22/19 03:30 Aerobic Blood Culture - Preliminary Blood - Venous NO GROWTH AFTER 2 DAYS Anaerobic Blood Culture - Preliminary NO GROWTH AFTER 2 DAYS Med Orders - Current: Current Medications Acetaminophen (Tylenol) 650 mg PO Q4H PRN PRN Reason: Pain (Mild 1-3)/fever Hydrocodone Bitart/Acetaminophen (Maryneal 325-10 Mg) 1 tab PO Q4H PRN PRN Reason: Pain (moderate 4-6) Last Admin: 06/23/19 15:30 Dose: 1 tab Carvedilol (Coreg) 25 mg PO BID [facility] Last Admin: 06/23/19 20:41 Dose: 12.5 mg Heparin Sodium/Dextrose (Heparin 25,000 Units In D5w 500 Ml) 25,000 units in 500 mls @ 26 mls/hr IV TITRATE [facility]; Protocol Last Admin: 06/24/19 01:45 Dose: 1,970 units/hr, 39.4 mls/hr Furosemide 100 mg/ Sodium (Chloride) 100 mls @ 10 mls/hr IV TITRATE [facility]; Protocol Last Infusion: 06/24/19 04:00 Dose: 7 mls/hr Insulin Glargine (Lantus) 12 unit SUBCUT BEDTIME [facility] Last Admin: 06/23/19 20:42 Dose: 12 units Insulin Human Lispro (Humalog) 0 unit SUBCUT QIDACANDBED [facility]; Protocol Last Admin: 06/23/19 21:21 Dose: Not Given Levothyroxine Sodium (Synthroid) 100 mcg PO DAILY@0600 [facility] Last Admin: 06/24/19 06:03 Dose: 100 mcg Nifedipine (Procardia Xl) 60 mg PO DAILY [facility] Last Admin: 06/23/19 08:53 Dose: 60 mg Sertraline HCl (Zoloft) 25 mg PO DAILY [facility] Last Admin: 06/23/19 08:54 Dose: 25 mg Simvastatin (Zocor) 20 mg PO BEDTIME [facility] Last Admin: 06/23/19 20:42 Dose: 20 mg Discontinued Medications Colchicine (Colcrys) 1.2 mg PO ONETIME ONE Stop: 06/23/19 11:32 Last Admin: 06/23/19 11:42 Dose: 1.2 mg Colchicine (Colcrys) 0.6 mg PO ONETIME ONE Stop: 06/23/19 15:01 Last Admin: 06/23/19 15:32 Dose: 0.6 mg Furosemide (Lasix) 40 mg IVPUSH NOW ONE Stop: 06/22/19 04:08 Last Admin: 06/22/19 04:13 Dose: 40 mg Furosemide (Lasix) 40 mg IVPUSH NOW ONE Stop: 06/22/19 04:20 Last Admin: 06/22/19 04:25 Dose: 40 mg Heparin Sodium (Porcine) (Heparin Sodium) 5,000 units IVPUSH .BOLUS ONE; Protocol Stop: 06/22/19 08:16 Last Admin: 06/22/19 08:41 Dose: 5,000 units Heparin Sodium (Porcine) (Heparin Sodium) 1,500 units IVPUSH .BOLUS ONE Stop: 06/22/19 15:08 Last Admin: 06/22/19 15:19 Dose: 1,500 units Potassium Chloride 10 meq/ (Premix) 100 mls @ 100 mls/hr IV Q1H JEN Stop: 06/23/19 02:29 Last Admin: 06/23/19 04:58 Dose: 50 mls/hr Sodium Chloride (Normal Saline) 500 mls @ 25 mls/hr IV .BOLUS PRN PRN Reason: IV Use Last Admin: 06/22/19 23:14 Dose: 25 mls/hr Insulin Glargine (Lantus) 15 unit SUBCUT QPM JEN Insulin Glargine (Lantus) 15 unit SUBCUT BEDTIME JEN Potassium Chloride (Klor-Con M20) 40 meq PO ONETIME ONE Stop: 06/23/19 10:35 Last Admin: 06/23/19 10:44 Dose: 40 meq - Exam Quality Assessment: Supplemental Oxygen General: Alert, Oriented, Cooperative, No Acute Distress HEENT: Pupils Equal, Pupils Reactive, EOMI, Mucous Membr. Moist/Oil Trough, Other ( Hard of Hearing) Neck: Supple Lungs: Normal Respiratory Effort, Decreased Breath Sounds Cardiovascular: Irregular Rhythm GI/Abdominal Exam: Normal Bowel Sounds, Soft, No Distention, No Abnormal Bruit (Male) Exam: Deferred Back Exam: Normal Inspection, Decreased Range of Motion Extremities: Normal Inspection, Normal Range of Motion, Non-Tender, No Pedal Edema, Normal Capillary Refill, Other (mild tendereness on right wrist; no edema or obvious redness; Trace edema on bilateral lower extremity) Peripheral Pulses: 1+: Dorsalis Pedis (L), Dorsalis Pedis (R) Skin: Warm, Dry, Intact Neurological: No New Focal Deficit. No: Normal Gait Psy/Mental Status: Alert, Normal Affect, Normal Mood - Problem List Review Problem List Initiated/Reviewed/Updated: Yes - My Orders Last 24 Hours: My Active Orders 06/24/19 06:18 Lung Vent Perfusion [NM] Routine 06/24/19 08:19 PROTEIN,URINE [URIN] Routine PROTEIN/CREATININE RATIO,URINE [URCHEM] Routine - Plan Plan:: Assessment * Acute on chronic heart failure - presenting probe BNP 18,887: home Lasix 80 mg twice a day; BNP 18,887-->16,687-->25001. Discontinue lasix gtt; Lasix 40 mg po daily and HCTZ 12.5 mg po. Completed 2D echo this morning * Atrial fibrillation with RVR: HR is controlled, home medications include Coreg 25 mg twice a day and nifedipine ER 60 mg daily. Eliquis for stroke prophylaxis starting this evening * D-dimer - Unable to do CTA due to renal insufficiency. VQ scan report read as multiple matched defects but indeterminate probability of PE. Duplex LE U/S shows negative for DVT. We went over what this means to patient and and we agreed to best treat him with presumptive PE. They agreed. * Chronic renal insufficiency with history of only one kidney; D/c lasix gtt since it has been 48hrs since initiation and will switch him to oral dosing in AM * Acute Gout- wrist pain right ulnar aspect, Improved. Has hx/o it in the past; Uric Acid 7.8. Currently on Colchicine and Prednisone. Will start Allopurinol 100 mg po QHS first dose tonight for maintenance medications * NTSEMI- already on Heparin drip since 06/22/2019. ASA 81 mg po QHS, Carvedilol 25 mg po BID, and Zocor 20 mg po QHS. Discontinue heparin * Impaired Hearing, Poor historian making history difficult * Diabetes mellitus on Lantus and Glucotrol but lower dose * History of hypertension, hyperlipidemia, hypothyroidism, depression, BPH, CKD IV, GERD, anemia on vitamin B12 Plan * He is clinically much better * Lasix drip starting at 10 mg per hour to titrate for urine output of just greater than 100 mL/h - now at 9 mg/h; discontinue since he has been on it for 48rhs * Heparin drip will be discontinued to day; he has been on it since 06/22/2019 * Guaifenesin/Dextromethorphan PRN plus IS as directed * Sputum Cx * [id number] - 6.7 % (high risk); HAS-Bled Score 3- 4.9-19.6 % risk of bled on OAC (high risk) * Change Lantus 12 to 15 units BID; Resume Glucotrol at 5 mg po BID instead of 15 mg; Continue sliding scale insulin * NEW - colchicine 1.2 mg x1 then 0.6 mg after 1 hour; prednisone 20 mg po daily then add allopurinol 100 mg po at bedtime * Strict I's and O's and daily weights with Bradford catheter. * Echocardiogram completed this morning * CBC, CMP, BNP, Magnesium daily * Titrate to come off supplemental O2 * PT/OT to assess and evaluation * Additional orders as above * CODE STATUS: Full code. * Prognosis is guarded.
[2019-06-24] MEDS: Sertraline 25 MG Tab PO SCH (10:04)
[2019-06-24] MEDS: Carvedilol 12.5 MG Tab PO SCH ×2 (10:04→20:33)
[2019-06-24] MEDS: NIFEdipine 30 MG Tab.ER PO SCH (10:04)
[2019-06-24] MEDS: guaiFENesin/Dextromethorphan 100-10 MG/5 ML Soln 5 ML Cup PO PRN ×2 (10:11→18:05)
[2019-06-24] MEDS: Insulin Lispro 100 Units/ML 3 ML Vial SUBCUT SCH ×4 (10:15→21:02)
[2019-06-24] MEDS ORDERED: predniSONE 20 MG Tab PO SCH ×3 (11:00→17:00)
--- NOTE | 2019-06-24 14:12 | NM ---
Ventilation/perfusion lung scan Technique: 2.2 mCi of technetium 99m MAA was given intravenously. Scintigraphic imaging obtained of the lungs. 40 mCi of DTPA was then aerosolized and patient inhaled the mixture and continued scintigraphic imaging was performed. Comparison: Prior chest x-ray of 06/22/19. Findings: Multiple matched defects are seen within both lungs. No mismatch defects are seen. Impression: 1. Multiple matched defects giving this an indeterminate probability for pulmonary embolism. Diagnostic code #2
--- NOTE | 2019-06-24 15:02 | PCM.SN ---
- Free Text/Narrative Note: Spoke to patient and his at bedside. We went over findings of the V/Q scan : positive for matched defect but indeterminate. Informed them he has afib as well as shortness of breath and we cannot r/o that he did not have PE due to renal insufficiency. However we can treat him for it. He also scored high on [id number] so it would be appropriate for him to be on blood thinner. We decided Eliquis would be a better option for him.
[2019-06-24] MEDS ORDERED: Apixaban 5 MG Tab PO ONE (17:00)
[2019-06-24] MEDS: Apixaban 5 MG Tab PO SCH (17:46)
[2019-06-24] MEDS ORDERED: predniSONE 20 MG Tab PO ONE (18:00)
[2019-06-24] MEDS: Insulin Glarg,Human.Rec.Analog 100 UNIT/ML ML SUBCUT SCH (20:32)
[2019-06-24] MEDS: glipiZIDE 5 MG Tab PO SCH (20:33)
[2019-06-24] MEDS: Simvastatin 20 MG Tab PO SCH (20:34)
[2019-06-24] MEDS: Aspirin 81 MG Tab.Chew PO SCH (20:34)
[2019-06-24] MEDS: Allopurinol 100 MG Tab PO SCH (20:34)
[2019-06-24] MEDS: Famotidine 20 MG Tab PO SCH (20:34)
[2019-06-24] MEDS ORDERED: Pantoprazole 40 MG Vial IVPUSH SCH (21:00)
[2019-06-24] MEDS ORDERED: Apixaban 2.5 MG Tab PO SCH (21:00)
[2019-06-24] MEDS ORDERED: Hydrochlorothiazide 12.5 MG Cap PO SCH (21:00)
[2019-06-24] MEDS ORDERED: Insulin Glarg,Human.Rec.Analog 100 UNIT/ML ML SUBCUT SCH (21:00)
[2019-06-25] MEDS: Levothyroxine 100 MCG Tab PO SCH (06:04)
--- NOTE | 2019-06-25 06:45 | PCM.PN ---
- General Info Date of Service: 06/25/19 Admission Dx/Problem (Free Text): Admission Diagnosis/Problem Admission Diagnosis/Problem Congestive heart failure Subjective Update: He had an uneventful night. He has no issues and feels good this morning. Cr is up at 2.9, lasix gtt [place] [address]. Functional Status: Reports: Pain Controlled, Tolerating Diet, Urinating. Denies : New Symptoms - Review of Systems General: Denies: Fever, Weakness, Fatigue, Malaise, Chills HEENT: Reports: No Symptoms Pulmonary: Reports: Cough, Sputum (but alot less frequent). Denies: Shortness of Breath Cardiovascular: Denies: Chest Pain, Dyspnea on Exertion, Lightheadedness Gastrointestinal: Denies: Abdominal Pain, Nausea, Vomiting Genitourinary: Reports: No Symptoms Musculoskeletal: Reports: No Symptoms. Denies: Arm Pain Skin: Denies: Cyanosis, Pallor, Diaphoresis, Bruising Neurological: Reports: Difficulty Walking, Gait Disturbance. Denies: Confusion , Weakness Psychiatric: Denies: Depression, Anxiety, Agitation, Hallucinations - Patient Data Vitals - Most Recent: Last Vital Signs Temp 36.7 C 06/25/19 04:00 Pulse 72 06/24/19 20:33 Resp 19 06/25/19 04:00 BP 131/78 06/25/19 04:00 Pulse Ox 91 L 06/25/19 04:00 Weight - Most Recent: 110.087 kg I&O - Last 24 Hours: Intake & Output 06/24/19 06/24/19 06/25/19 14:59 22:59 06:59 Intake Total 757 520 Output Total 420 163 145 Balance 337 357 -145 Lab Results Last 24 Hours: Laboratory Results - last 24 hr 06/24/19 06/24/19 06/24/19 Range/Units 08:05 08:35 10:14 WBC (4.23-9.07) K/mm3 RBC (4.63-6.08) M/mm3 Hgb (13.7-17.5) gm/L Hct (40.1-51.0) % MCV (79.0-92.2) fl MCH (25.7-32.2) pg MCHC (32.2-35.5) g/dl RDW Std Deviation (35.1-43.9) fL Plt Count (163-337) K/mm3 MPV (9.4-12.3) fl Neut % (Auto) (34.0-67.9) % Lymph % (Auto) (21.8-53.1) % [place] % (Auto) (5.3-12.2) % Eos % (Auto) (0.8-7.0) Baso % (Auto) (0.1-1.2) % Neut # (Auto) (1.78-5.38) K/mm3 Lymph # (Auto) (1.32-3.57) K/mm3 [place] # (Auto) (0.30-0.82) K/mm3 Eos # (Auto) (0.04-0.54) K/mm3 Baso # (Auto) (0.01-0.08) K/mm3 Manual Slide Review APTT 67 H (22-31) SECONDS Sodium (136-145) mEq/L Potassium (3.5-5.1) mEq/L Chloride (98-107) mEq/L Carbon Dioxide (21-32) mEq/L Anion Gap (5-15) BUN (7-18) mg/dL Creatinine (0.7-1.3) mg/dL Est Cr Clr Drug Dosing mL/min Estimated GFR (MDRD) (>60) mL/min BUN/Creatinine Ratio (14-18) Glucose (83-115) mg/dL POC Glucose 155 H (83-110) mg/dL Calcium (8.5-10.1) mg/dL Magnesium (1.8-2.4) mg/dl Total Bilirubin (0.2-1.0) mg/dL AST (15-37) U/L ALT (16-63) U/L Alkaline Phosphatase (46-116) U/L NT-Pro-B Natriuret Pep (0-450) pg/mL Total Protein (6.4-8.2) g/dl Albumin (3.4-5.0) g/dl Globulin gm/dL Albumin/Globulin Ratio (1-2) Triglycerides (<150) mg/dL Cholesterol (<200) mg/dL LDL Cholesterol Direct (<100) mg/dL HDL Cholesterol (40-59) mg/dL Ur Random Creatinine 93.3 (30.0-125.0) mg/dL U Random Total Protein 46.9 H (0.0-11.8) mg/dL Protein/Creatinin Ratio 502.7 H (0-149) mg/g 06/24/19 06/24/19 06/24/19 Range/Units 14:32 17:34 20:31 WBC (4.23-9.07) K/mm3 RBC (4.63-6.08) M/mm3 Hgb (13.7-17.5) gm/L Hct (40.1-51.0) % MCV (79.0-92.2) fl MCH (25.7-32.2) pg MCHC (32.2-35.5) g/dl RDW Std Deviation (35.1-43.9) fL Plt Count (163-337) K/mm3 MPV (9.4-12.3) fl Neut % (Auto) (34.0-67.9) % Lymph % (Auto) (21.8-53.1) % [place] % (Auto) (5.3-12.2) % Eos % (Auto) (0.8-7.0) Baso % (Auto) (0.1-1.2) % Neut # (Auto) (1.78-5.38) K/mm3 Lymph # (Auto) (1.32-3.57) K/mm3 [place] # (Auto) (0.30-0.82) K/mm3 Eos # (Auto) (0.04-0.54) K/mm3 Baso # (Auto) (0.01-0.08) K/mm3 Manual Slide Review APTT (22-31) SECONDS Sodium (136-145) mEq/L Potassium (3.5-5.1) mEq/L Chloride (98-107) mEq/L Carbon Dioxide (21-32) mEq/L Anion Gap (5-15) BUN (7-18) mg/dL Creatinine (0.7-1.3) mg/dL Est Cr Clr Drug Dosing mL/min Estimated GFR (MDRD) (>60) mL/min BUN/Creatinine Ratio (14-18) Glucose (83-115) mg/dL POC Glucose 164 H 147 H 244 H (83-110) mg/dL Calcium (8.5-10.1) mg/dL Magnesium (1.8-2.4) mg/dl Total Bilirubin (0.2-1.0) mg/dL AST (15-37) U/L ALT (16-63) U/L Alkaline Phosphatase (46-116) U/L NT-Pro-B Natriuret Pep (0-450) pg/mL Total Protein (6.4-8.2) g/dl Albumin (3.4-5.0) g/dl Globulin gm/dL Albumin/Globulin Ratio (1-2) Triglycerides (<150) mg/dL Cholesterol (<200) mg/dL LDL Cholesterol Direct (<100) mg/dL HDL Cholesterol (40-59) mg/dL Ur Random Creatinine (30.0-125.0) mg/dL U Random Total Protein (0.0-11.8) mg/dL Protein/Creatinin Ratio (0-149) mg/g 06/25/19 06/25/19 06/25/19 Range/Units 04:47 04:47 04:47 WBC 6.12 (4.23-9.07) K/mm3 RBC 3.41 L (4.63-6.08) M/mm3 Hgb 9.7 L (13.7-17.5) gm/L Hct 30.4 L (40.1-51.0) % MCV 89.1 (79.0-92.2) fl MCH 28.4 (25.7-32.2) pg MCHC 31.9 L (32.2-35.5) g/dl RDW Std Deviation 43.0 (35.1-43.9) fL Plt Count 169 (163-337) K/mm3 MPV 10.3 (9.4-12.3) fl Neut % (Auto) 89.3 H (34.0-67.9) % Lymph % (Auto) 5.1 L (21.8-53.1) % [place] % (Auto) 5.2 L (5.3-12.2) % Eos % (Auto) 0.2 L (0.8-7.0) Baso % (Auto) 0.0 L (0.1-1.2) % Neut # (Auto) 5.47 H (1.78-5.38) K/mm3 Lymph # (Auto) 0.31 L (1.32-3.57) K/mm3 [place] # (Auto) 0.32 (0.30-0.82) K/mm3 Eos # (Auto) 0.01 L (0.04-0.54) K/mm3 Baso # (Auto) 0.00 L (0.01-0.08) K/mm3 Manual Slide Review Abnormal smear APTT (22-31) SECONDS Sodium 139 (136-145) mEq/L Potassium 3.9 (3.5-5.1) mEq/L Chloride 100 (98-107) mEq/L Carbon Dioxide 29 (21-32) mEq/L Anion Gap 13.9 (5-15) BUN 48 H (7-18) mg/dL Creatinine 2.9 H (0.7-1.3) mg/dL Est Cr Clr Drug Dosing 20.07 mL/min Estimated GFR (MDRD) 21 (>60) mL/min BUN/Creatinine Ratio 16.6 (14-18) Glucose 193 H (83-115) mg/dL POC Glucose (83-110) mg/dL Calcium 8.0 L (8.5-10.1) mg/dL Magnesium 2.1 (1.8-2.4) mg/dl Total Bilirubin 0.5 (0.2-1.0) mg/dL AST 7 L (15-37) U/L ALT 9 L (16-63) U/L Alkaline Phosphatase 63 (46-116) U/L NT-Pro-B Natriuret Pep 88400 H (0-450) pg/mL Total Protein 6.4 (6.4-8.2) g/dl Albumin 2.6 L (3.4-5.0) g/dl Globulin 3.8 gm/dL Albumin/Globulin Ratio 0.7 L (1-2) Triglycerides 55 (<150) mg/dL Cholesterol 92 (<200) mg/dL LDL Cholesterol Direct 48 (<100) mg/dL HDL Cholesterol 34.0 L (40-59) mg/dL Ur Random Creatinine (30.0-125.0) mg/dL U Random Total Protein (0.0-11.8) mg/dL Protein/Creatinin Ratio (0-149) mg/g 06/25/19 Range/Units 06:07 WBC (4.23-9.07) K/mm3 RBC (4.63-6.08) M/mm3 Hgb (13.7-17.5) gm/L Hct (40.1-51.0) % MCV (79.0-92.2) fl MCH (25.7-32.2) pg MCHC (32.2-35.5) g/dl RDW Std Deviation (35.1-43.9) fL Plt Count (163-337) K/mm3 MPV (9.4-12.3) fl Neut % (Auto) (34.0-67.9) % Lymph % (Auto) (21.8-53.1) % [place] % (Auto) (5.3-12.2) % Eos % (Auto) (0.8-7.0) Baso % (Auto) (0.1-1.2) % Neut # (Auto) (1.78-5.38) K/mm3 Lymph # (Auto) (1.32-3.57) K/mm3 [place] # (Auto) (0.30-0.82) K/mm3 Eos # (Auto) (0.04-0.54) K/mm3 Baso # (Auto) (0.01-0.08) K/mm3 Manual Slide Review APTT (22-31) SECONDS Sodium (136-145) mEq/L Potassium (3.5-5.1) mEq/L Chloride (98-107) mEq/L Carbon Dioxide (21-32) mEq/L Anion Gap (5-15) BUN (7-18) mg/dL Creatinine (0.7-1.3) mg/dL Est Cr Clr Drug Dosing mL/min Estimated GFR (MDRD) (>60) mL/min BUN/Creatinine Ratio (14-18) Glucose (83-115) mg/dL POC Glucose 190 H (83-110) mg/dL Calcium (8.5-10.1) mg/dL Magnesium (1.8-2.4) mg/dl Total Bilirubin (0.2-1.0) mg/dL AST (15-37) U/L ALT (16-63) U/L Alkaline Phosphatase (46-116) U/L NT-Pro-B Natriuret Pep (0-450) pg/mL Total Protein (6.4-8.2) g/dl Albumin (3.4-5.0) g/dl Globulin gm/dL Albumin/Globulin Ratio (1-2) Triglycerides (<150) mg/dL Cholesterol (<200) mg/dL LDL Cholesterol Direct (<100) mg/dL HDL Cholesterol (40-59) mg/dL Ur Random Creatinine (30.0-125.0) mg/dL U Random Total Protein (0.0-11.8) mg/dL Protein/Creatinin Ratio (0-149) mg/g [place] Results Last 24 Hours: Microbiology 06/22/19 03:40 Aerobic Blood Culture - Preliminary Blood - Venous - Lab Draw NO GROWTH AFTER 3 DAYS Anaerobic Blood Culture - Preliminary NO GROWTH AFTER 3 DAYS 06/22/19 03:30 Aerobic Blood Culture - Preliminary Blood - Venous NO GROWTH AFTER 3 DAYS Anaerobic Blood Culture - Preliminary NO GROWTH AFTER 3 DAYS 06/24/19 14:41 Gram Stain - Final Sputum - Expectorated Med Orders - Current: Current Medications Acetaminophen (Tylenol) 650 mg PO Q4H PRN PRN Reason: Pain (Mild 1-3)/fever Hydrocodone Bitart/Acetaminophen ([place] 325-10 Mg) 1 tab PO Q4H PRN PRN Reason: Pain (moderate 4-6) Last Admin: 06/23/19 15:30 Dose: 1 tab Allopurinol (Zyloprim) 100 mg PO BEDTIME [facility] Last Admin: 06/24/19 20:34 Dose: 100 mg Apixaban (Eliquis) 10 mg PO BID@0900,1800 [facility] Last Admin: 06/24/19 17:46 Dose: 10 mg Aspirin (Aspirin) 81 mg PO BEDTIME [facility] Last Admin: 06/24/19 20:34 Dose: 81 mg Carvedilol (Coreg) 25 mg PO BID [facility] Last Admin: 06/24/19 20:33 Dose: 12.5 mg Doxazosin Mesylate (Cardura) 8 mg PO DAILY [facility] Famotidine (Pepcid) 20 mg PO BEDTIME [facility] Last Admin: 06/24/19 20:34 Dose: 20 mg Finasteride (Proscar) 5 mg PO DAILY [facility] Furosemide (Lasix) 40 mg PO DAILY [facility] Glipizide (Glucotrol) 5 mg PO BID [facility] Last Admin: 06/24/19 20:33 Dose: 5 mg Guaifenesin/Phenylephrine HCl (Robitussin Dm) 5 ml PO Q4H PRN PRN Reason: Cough Last Admin: 06/24/19 18:05 Dose: 5 ml Hydrochlorothiazide (Hydrochlorothiazide) 12.5 mg PO BEDTIME [facility] Last Admin: 06/24/19 20:34 Dose: 12.5 mg Insulin Glargine (Lantus) 15 unit SUBCUT BEDTIME [facility] Last Admin: 06/24/19 20:32 Dose: 15 units Insulin Human Lispro (Humalog) 0 unit SUBCUT QIDACANDBED [facility]; Protocol Last Admin: 06/24/19 21:02 Dose: 4 units Levothyroxine Sodium (Synthroid) 100 mcg PO DAILY@0600 [facility] Last Admin: 06/25/19 06:04 Dose: 100 mcg Nifedipine (Procardia Xl) 60 mg PO DAILY [facility] Last Admin: 06/24/19 10:04 Dose: 60 mg Prednisone (Prednisone) 20 mg PO WITHBREAKFAST [facility] Sertraline HCl (Zoloft) 25 mg PO DAILY [facility] Last Admin: 06/24/19 10:04 Dose: 25 mg Simvastatin (Zocor) 20 mg PO BEDTIME [facility] Last Admin: 06/24/19 20:34 Dose: 20 mg Discontinued Medications Apixaban (Eliquis) 2.5 mg PO BID [facility] Apixaban (Eliquis) 10 mg PO ONETIME ONE Stop: 06/24/19 17:01 Colchicine (Colcrys) 1.2 mg PO ONETIME ONE Stop: 06/23/19 11:32 Last Admin: 06/23/19 11:42 Dose: 1.2 mg Colchicine (Colcrys) 0.6 mg PO ONETIME ONE Stop: 06/23/19 15:01 Last Admin: 06/23/19 15:32 Dose: 0.6 mg Furosemide (Lasix) 40 mg IVPUSH NOW ONE Stop: 06/22/19 04:08 Last Admin: 06/22/19 04:13 Dose: 40 mg Furosemide (Lasix) 40 mg IVPUSH NOW ONE Stop: 06/22/19 04:20 Last Admin: 06/22/19 04:25 Dose: 40 mg Glipizide (Glucotrol) 15 mg PO BID [facility] Heparin Sodium (Porcine) (Heparin Sodium) 5,000 units IVPUSH .BOLUS ONE; Protocol Stop: 06/22/19 08:16 Last Admin: 06/22/19 08:41 Dose: 5,000 units Heparin Sodium (Porcine) (Heparin Sodium) 1,500 units IVPUSH .BOLUS ONE Stop: 06/22/19 15:08 Last Admin: 06/22/19 15:19 Dose: 1,500 units Heparin Sodium/Dextrose (Heparin 25,000 Units In D5w 500 Ml) 25,000 units in 500 mls @ 26 mls/hr IV TITRATE JEN; Protocol Last Admin: 06/24/19 01:45 Dose: 1,970 units/hr, 39.4 mls/hr Furosemide 100 mg/ Sodium (Chloride) 100 mls @ 10 mls/hr IV TITRATE JEN; Protocol Last Infusion: 06/24/19 04:00 Dose: 7 mls/hr Potassium Chloride 10 meq/ (Premix) 100 mls @ 100 mls/hr IV Q1H JEN Stop: 06/23/19 02:29 Last Admin: 06/23/19 04:58 Dose: 50 mls/hr Sodium Chloride (Normal Saline) 500 mls @ 25 mls/hr IV .BOLUS PRN PRN Reason: IV Use Last Admin: 06/22/19 23:14 Dose: 25 mls/hr Insulin Glargine (Lantus) 15 unit SUBCUT QPM JEN Insulin Glargine (Lantus) 15 unit SUBCUT BEDTIME JEN Insulin Glargine (Lantus) 12 unit SUBCUT BEDTIME [facility] Last Admin: 06/23/19 20:42 Dose: 12 units Insulin Glargine (Lantus) 22 unit SUBCUT BEDTIME JEN Pantoprazole Sodium (Protonix Iv) 40 mg IVPUSH BEDTIME JEN Stop: 06/24/19 21:01 Last Admin: 06/24/19 20:34 Dose: 40 mg Potassium Chloride (Klor-Con M20) 40 meq PO ONETIME ONE Stop: 06/23/19 10:35 Last Admin: 06/23/19 10:44 Dose: 40 meq Prednisone (Prednisone) 40 mg PO WITHBREAKFAST JEN Prednisone (Prednisone) 40 mg PO WITHLUNCH JEN Stop: 06/24/19 11:01 Prednisone (Prednisone) 20 mg PO WITHLUNCH JEN Stop: 06/24/19 11:01 Last Admin: 06/24/19 16:46 Dose: Not Given Prednisone (Prednisone) 20 mg PO 1700 JEN Stop: 06/24/19 17:01 Prednisone (Prednisone) 20 mg PO 1800 ONE Stop: 06/24/19 18:01 Last Admin: 06/24/19 17:47 Dose: 20 mg - Exam Quality Assessment: Supplemental Oxygen General: Alert, Oriented, Cooperative, No Acute Distress HEENT: Pupils Equal, Pupils Reactive, EOMI, Mucous Membr. Moist/[place], Other ( Impaired Hearing) Neck: Supple Lungs: Normal Respiratory Effort, Decreased Breath Sounds, Crackles (faint crackles) Cardiovascular: Irregular Rhythm, Other (Distant heart sounds but prominent gastric sounds on left anterior chest auscultation) GI/Abdominal Exam: Normal Bowel Sounds, Soft, Non-Tender, No Organomegaly, No Distention, No Abnormal Bruit (Male) Exam: Other (indwelling bobby catheter) Extremities: Normal Inspection, Normal Range of Motion, Non-Tender, Normal Capillary Refill, Other (trace b/l lower extremity edema; distal toes on both feet deviated laterally) Peripheral Pulses: 1+: Dorsalis Pedis (L), Dorsalis Pedis (R) Skin: Warm, Dry, Intact Neurological: No New Focal Deficit. No: Normal Gait Psy/Mental Status: Alert, Normal Affect, Normal Mood - Problem List Review Problem List Initiated/Reviewed/Updated: Yes - My Orders Last 24 Hours: My Active Orders 06/24/19 09:19 Incentive Spirometry [RT Incentive Spirometry] [RC] Q2HWA Dextromethorphan/guaiFENesin [Robitussin DM] 5 ml PO Q4H PRN 06/24/19 09:20 Consult to Physical Therapy [PT Evaluation and Treatment] [CONS] Routine OT Evaluation and Treatment [CONS] Routine 06/24/19 14:41 CULTURE SPUTUM + SMEAR [RM] Routine 06/24/19 18:00 Apixaban [Eliquis] 10 mg PO BID@0900,1800 06/24/19 21:00 Allopurinol [Zyloprim] 100 mg PO BEDTIME Aspirin 81 mg PO BEDTIME Famotidine [Pepcid] 20 mg PO BEDTIME Insulin Glarg,Human.Rec.Analog [LantUS] 15 unit SUBCUT BEDTIME glipiZIDE [Glucotrol] 5 mg PO BID hydroCHLOROthiazide 12.5 mg PO BEDTIME 06/25/19 07:00 Chest 1V Frontal [CR] Routine predniSONE 20 mg PO WITHBREAKFAST 06/25/19 09:00 Doxazosin [Cardura] 8 mg PO DAILY Finasteride [Proscar] 5 mg PO DAILY Furosemide [Lasix] 40 mg PO DAILY 06/25/19 Breakfast Fluid Restriction [DIET] - Plan Plan:: Assessment * Acute on chronic heart failure - presenting probe BNP 18,887: home Lasix 80 mg twice a day; BNP 18,887-->16,687-->92137. Discontinue lasix gtt; Hold scheduled Lasix 40 mg po daily and HCTZ 12.5 mg po due to increased in Cr level. 2D echo report shows Ischemic Cardiomyopathy with an EF of 30% * Atrial fibrillation with RVR: HR is controlled, home medications include Coreg 25 mg twice a day and nifedipine ER 60 mg daily. Eliquis for stroke prophylaxis starting this evening * Presumptive PE 2/2 Elevated D-dimer - Unable to do CTA due to renal insufficiency. VQ scan report read as multiple matched defects but indeterminate (inconclusive) probability of PE. Duplex LE U/S shows negative for DVT. We went over what this means to patient and and we agreed to best treat him with presumptive PE. They agreed. 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 Hold oral dose of lasix and hctz * Acute Gout- wrist pain right ulnar aspect, resolved. Has hx/o it in the past; Uric Acid 7.8. Currently on Colchicine and Prednisone. Last dose of oral steroid and continue Allopurinol 100 mg po QHS for maintenance medications * NTSEMI- already on Heparin drip since 06/22/2019. Continue ASA 81 mg po QHS, Carvedilol 25 mg po BID, and Zocor 20 mg po QHS. AHA diet * Normocytic and Hypochromic Anemia, Hgb of 9.7, Stable * Impaired Hearing, Poor historian making history difficult * Diabetes mellitus on Lantus and Glucotrol but lower dose. BS is controlled. * Aspiration Syndrome- has had wet cough, sputum cx pending and CRX shows consolidation on right base. Afebrile without leukocytosis. IS as directed and [employer] eval for swallow. Aspiration precautions and continue H2B. * Ischemic Cardiomyopathy- , Carvedilol, and Simvastatin. He will on lasix but will hold it for now. Follow up with cardiology after discharge * History of hypertension, hyperlipidemia, hypothyroidism, depression, BPH, CKD IV, GERD, anemia on vitamin B12 Plan * He is clinically stable * Transfer to [facility] with Tele * Guaifenesin/Dextromethorphan PRN plus IS as directed * Sputum Cx pending * 1800 ml fluid restrictions * [id number] - 6.7 % (high risk); HAS-Bled Score 3- 4.9-19.6 % risk of bled on OAC (high risk) * Strict I's and O's and daily weights with Bobby catheter * CBC, CMP, BNP, Magnesium daily * Titrate to come off supplemental O2 * PT/OT to assess and evaluation * Encouraged to do more PT/OT activities * Additional orders as above * CODE STATUS: Full code. * Prognosis is guarded-good.
[2019-06-25] MEDS ORDERED: predniSONE 20 MG Tab PO SCH ×2 (07:00)
--- NOTE | 2019-06-25 08:12 | CR ---
Chest: Portable view of the chest was obtained. Comparison: Prior chest x-ray of 06/22/19. Increasing consolidation within the right lung base is seen. Heart is enlarged. Pulmonary vessels are mildly congested. Lungs otherwise are clear. Bony structures are grossly intact. Impression: 1. Increasing consolidation within the right lung base. Differential includes change from aspiration as well as pneumonia. 2. Stable cardiomegaly and mildly congested pulmonary vessels. Diagnostic code #3
[2019-06-25] MEDS ORDERED: Furosemide 40 MG Tab PO SCH (09:00)
[2019-06-25] MEDS: Insulin Lispro 100 Units/ML 3 ML Vial SUBCUT SCH ×5 (11:24→21:23)
[2019-06-25] MEDS: glipiZIDE 5 MG Tab PO SCH ×2 (12:33→20:16)
[2019-06-25] MEDS: NIFEdipine 30 MG Tab.ER PO SCH (12:34)
[2019-06-25] MEDS: Apixaban 5 MG Tab PO SCH ×2 (12:34→18:12)
[2019-06-25] MEDS: Doxazosin 4 MG Tab PO SCH (12:35)
[2019-06-25] MEDS: Sertraline 25 MG Tab PO SCH (12:35)
[2019-06-25] MEDS: Finasteride 5 MG Tab PO SCH (12:35)
[2019-06-25] MEDS: Carvedilol 12.5 MG Tab PO SCH ×2 (12:39→20:16)
[2019-06-25] MEDS: Aspirin 81 MG Tab.Chew PO SCH (20:15)
[2019-06-25] MEDS: Simvastatin 20 MG Tab PO SCH (20:16)
[2019-06-25] MEDS: Famotidine 20 MG Tab PO SCH (20:16)
[2019-06-25] MEDS: guaiFENesin/Dextromethorphan 100-10 MG/5 ML Soln 5 ML Cup PO PRN (20:16)
[2019-06-25] MEDS: Allopurinol 100 MG Tab PO SCH (20:16)
[2019-06-25] MEDS: Insulin Glarg,Human.Rec.Analog 100 UNIT/ML ML SUBCUT SCH (20:29)
[2019-06-26] MEDS: Levothyroxine 100 MCG Tab PO SCH (06:27)
[2019-06-26] MEDS: Insulin Lispro 100 Units/ML 3 ML Vial SUBCUT SCH ×5 (06:30→22:17)
--- NOTE | 2019-06-26 08:21 | PCM.PN ---
- General Info Date of Service: 06/26/19 Admission Dx/Problem (Free Text): Admission Diagnosis/Problem Admission Diagnosis/Problem Congestive heart failure Subjective Update: He had an uneventful night. He no acute issues or concerns. Functional Status: Reports: Pain Controlled, Tolerating Diet, Ambulating, Urinating. Denies: New Symptoms - Review of Systems General: Reports: Weakness. Denies: Fever, Malaise, Chills HEENT: Denies: No Symptoms Pulmonary: Denies: Shortness of Breath, Cough, Sputum Cardiovascular: Denies: Chest Pain, Dyspnea on Exertion, Lightheadedness Gastrointestinal: Denies: Abdominal Pain, Nausea, Vomiting Genitourinary: Reports: No Symptoms Musculoskeletal: Reports: No Symptoms Skin: Denies: Cyanosis, Mottled, Pallor, Diaphoresis, Bruising Neurological: Reports: Difficulty Walking, Weakness, Gait Disturbance. Denies: Confusion Psychiatric: Denies: Depression, Mood Lability, Anxiety, Agitation, Cravings, Hallucinations, Suicidal Ideation, Homicidal Ideation Systems Review Comment:: No overnight or acute issues. He seems to be doing just fine. He is now at 1L NC sating anywhere bet 91-95%. - Patient Data Vitals - Most Recent: Last Vital Signs Temp 37.8 C 06/26/19 07:53 Pulse 72 06/25/19 20:16 Resp 16 06/26/19 07:53 BP 127/68 06/26/19 07:53 Pulse Ox 91 L 06/26/19 07:53 Weight - Most Recent: 108.771 kg I&O - Last 24 Hours: Intake & Output 06/25/19 06/26/19 06/26/19 22:59 06:59 14:59 Intake Total 750 400 Output Total 250 Balance 750 150 Lab Results Last 24 Hours: Laboratory Results - last 24 hr 06/25/19 06/25/19 06/25/19 Range/Units 11:50 17:13 20:22 WBC (4.23-9.07) K/mm3 RBC (4.63-6.08) M/mm3 Hgb (13.7-17.5) gm/L Hct (40.1-51.0) % MCV (79.0-92.2) fl MCH (25.7-32.2) pg MCHC (32.2-35.5) g/dl RDW Std Deviation (35.1-43.9) fL Plt Count (163-337) K/mm3 MPV (9.4-12.3) fl Neut % (Auto) (34.0-67.9) % Lymph % (Auto) (21.8-53.1) % Saunders % (Auto) (5.3-12.2) % Eos % (Auto) (0.8-7.0) Baso % (Auto) (0.1-1.2) % Neut # (Auto) (1.78-5.38) K/mm3 Lymph # (Auto) (1.32-3.57) K/mm3 Saunders # (Auto) (0.30-0.82) K/mm3 Eos # (Auto) (0.04-0.54) K/mm3 Baso # (Auto) (0.01-0.08) K/mm3 Manual Slide Review Sodium (136-145) mEq/L Potassium (3.5-5.1) mEq/L Chloride (98-107) mEq/L Carbon Dioxide (21-32) mEq/L Anion Gap (5-15) BUN (7-18) mg/dL Creatinine (0.7-1.3) mg/dL Est Cr Clr Drug Dosing mL/min Estimated GFR (MDRD) (>60) mL/min BUN/Creatinine Ratio (14-18) Glucose (83-115) mg/dL POC Glucose 145 H 256 H 210 H (83-110) mg/dL Calcium (8.5-10.1) mg/dL Magnesium (1.8-2.4) mg/dl Total Bilirubin (0.2-1.0) mg/dL AST (15-37) U/L ALT (16-63) U/L Alkaline Phosphatase (46-116) U/L NT-Pro-B Natriuret Pep (0-450) pg/mL Total Protein (6.4-8.2) g/dl Albumin (3.4-5.0) g/dl Globulin gm/dL Albumin/Globulin Ratio (1-2) 06/26/19 06/26/19 06/26/19 Range/Units 04:45 04:45 04:45 WBC 5.39 (4.23-9.07) K/mm3 RBC 3.39 L (4.63-6.08) M/mm3 Hgb 9.6 L (13.7-17.5) gm/L Hct 30.2 L (40.1-51.0) % MCV 89.1 (79.0-92.2) fl MCH 28.3 (25.7-32.2) pg MCHC 31.8 L (32.2-35.5) g/dl RDW Std Deviation 42.1 (35.1-43.9) fL Plt Count 197 (163-337) K/mm3 MPV 11.1 (9.4-12.3) fl Neut % (Auto) 84.8 H (34.0-67.9) % Lymph % (Auto) 6.3 L (21.8-53.1) % Saunders % (Auto) 8.7 (5.3-12.2) % Eos % (Auto) 0 L (0.8-7.0) Baso % (Auto) 0.2 (0.1-1.2) % Neut # (Auto) 4.57 (1.78-5.38) K/mm3 Lymph # (Auto) 0.34 L (1.32-3.57) K/mm3 Saunders # (Auto) 0.47 (0.30-0.82) K/mm3 Eos # (Auto) 0.00 L (0.04-0.54) K/mm3 Baso # (Auto) 0.01 (0.01-0.08) K/mm3 Manual Slide Review Abnormal smear Sodium 142 (136-145) mEq/L Potassium 3.8 (3.5-5.1) mEq/L Chloride 103 (98-107) mEq/L Carbon Dioxide 30 (21-32) mEq/L Anion Gap 12.8 (5-15) BUN 54 H (7-18) mg/dL Creatinine 2.8 H (0.7-1.3) mg/dL Est Cr Clr Drug Dosing 20.79 mL/min Estimated GFR (MDRD) 22 (>60) mL/min BUN/Creatinine Ratio 19.3 H (14-18) Glucose 178 H (83-115) mg/dL POC Glucose (83-110) mg/dL Calcium 8.2 L (8.5-10.1) mg/dL Magnesium 2.2 (1.8-2.4) mg/dl Total Bilirubin 0.4 (0.2-1.0) mg/dL AST 6 L (15-37) U/L ALT 12 L (16-63) U/L Alkaline Phosphatase 60 (46-116) U/L NT-Pro-B Natriuret Pep 88238 H (0-450) pg/mL Total Protein 6.2 L (6.4-8.2) g/dl Albumin 2.6 L (3.4-5.0) g/dl Globulin 3.6 gm/dL Albumin/Globulin Ratio 0.7 L (1-2) 06/26/19 Range/Units 06:29 WBC (4.23-9.07) K/mm3 RBC (4.63-6.08) M/mm3 Hgb (13.7-17.5) gm/L Hct (40.1-51.0) % MCV (79.0-92.2) fl MCH (25.7-32.2) pg MCHC (32.2-35.5) g/dl RDW Std Deviation (35.1-43.9) fL Plt Count (163-337) K/mm3 MPV (9.4-12.3) fl Neut % (Auto) (34.0-67.9) % Lymph % (Auto) (21.8-53.1) % Saunders % (Auto) (5.3-12.2) % Eos % (Auto) (0.8-7.0) Baso % (Auto) (0.1-1.2) % Neut # (Auto) (1.78-5.38) K/mm3 Lymph # (Auto) (1.32-3.57) K/mm3 Saunders # (Auto) (0.30-0.82) K/mm3 Eos # (Auto) (0.04-0.54) K/mm3 Baso # (Auto) (0.01-0.08) K/mm3 Manual Slide Review Sodium (136-145) mEq/L Potassium (3.5-5.1) mEq/L Chloride (98-107) mEq/L Carbon Dioxide (21-32) mEq/L Anion Gap (5-15) BUN (7-18) mg/dL Creatinine (0.7-1.3) mg/dL Est Cr Clr Drug Dosing mL/min Estimated GFR (MDRD) (>60) mL/min BUN/Creatinine Ratio (14-18) Glucose (83-115) mg/dL POC Glucose 154 H (83-110) mg/dL Calcium (8.5-10.1) mg/dL Magnesium (1.8-2.4) mg/dl Total Bilirubin (0.2-1.0) mg/dL AST (15-37) U/L ALT (16-63) U/L Alkaline Phosphatase (46-116) U/L NT-Pro-B Natriuret Pep (0-450) pg/mL Total Protein (6.4-8.2) g/dl Albumin (3.4-5.0) g/dl Globulin gm/dL Albumin/Globulin Ratio (1-2) [place] Results Last 24 Hours: Microbiology 06/22/19 03:40 Aerobic Blood Culture - Preliminary Blood - Venous - Lab Draw NO GROWTH AFTER 4 DAYS Anaerobic Blood Culture - Preliminary NO GROWTH AFTER 4 DAYS 06/22/19 03:30 Aerobic Blood Culture - Preliminary Blood - Venous NO GROWTH AFTER 4 DAYS Anaerobic Blood Culture - Preliminary NO GROWTH AFTER 4 DAYS 06/24/19 14:41 Gram Stain - Final Sputum - Expectorated Sputum Culture - Preliminary Gram Negative Rods Med Orders - Current: Current Medications Acetaminophen (Tylenol) 650 mg PO Q4H PRN PRN Reason: Pain (Mild 1-3)/fever Hydrocodone Bitart/Acetaminophen ([place] 325-10 Mg) 1 tab PO Q4H PRN PRN Reason: Pain (moderate 4-6) Last Admin: 06/23/19 15:30 Dose: 1 tab Allopurinol (Zyloprim) 100 mg PO BEDTIME [facility] Last Admin: 06/25/19 20:16 Dose: 100 mg Apixaban (Eliquis) 10 mg PO BID@0900,1800 [facility] Stop: 07/01/19 09:01 Last Admin: 06/25/19 18:12 Dose: 10 mg Apixaban (Eliquis) 5 mg PO BID@0900,1800 [facility] Aspirin (Aspirin) 81 mg PO BEDTIME [facility] Last Admin: 06/25/19 20:15 Dose: 81 mg Carvedilol (Coreg) 25 mg PO BID [facility] Last Admin: 06/25/19 20:16 Dose: 25 mg Doxazosin Mesylate (Cardura) 8 mg PO DAILY [facility] Last Admin: 06/25/19 12:35 Dose: 8 mg Famotidine (Pepcid) 20 mg PO BEDTIME [facility] Last Admin: 06/25/19 20:16 Dose: 20 mg Finasteride (Proscar) 5 mg PO DAILY [facility] Last Admin: 06/25/19 12:35 Dose: 5 mg Furosemide (Lasix) 40 mg PO DAILY [facility] Glipizide (Glucotrol) 5 mg PO BID [facility] Last Admin: 06/25/19 20:16 Dose: 5 mg Guaifenesin/Phenylephrine HCl (Robitussin Dm) 5 ml PO Q4H PRN PRN Reason: Cough Last Admin: 06/25/19 20:16 Dose: 5 ml Insulin Glargine (Lantus) 15 unit SUBCUT BEDTIME [facility] Last Admin: 06/25/19 20:29 Dose: 15 units Insulin Human Lispro (Humalog) 0 unit SUBCUT QIDACANDBED [facility]; Protocol Last Admin: 06/26/19 06:30 Dose: 1 units Levothyroxine Sodium (Synthroid) 100 mcg PO DAILY@0600 [facility] Last Admin: 06/26/19 06:27 Dose: 100 mcg Nifedipine (Procardia Xl) 60 mg PO DAILY [facility] Last Admin: 06/25/19 12:34 Dose: 60 mg Sertraline HCl (Zoloft) 25 mg PO DAILY [facility] Last Admin: 06/25/19 12:35 Dose: 25 mg Simvastatin (Zocor) 20 mg PO BEDTIME [facility] Last Admin: 06/25/19 20:16 Dose: 20 mg Discontinued Medications Apixaban (Eliquis) 2.5 mg PO BID [facility] Apixaban (Eliquis) 10 mg PO ONETIME ONE Stop: 06/24/19 17:01 Colchicine (Colcrys) 1.2 mg PO ONETIME ONE Stop: 06/23/19 11:32 Last Admin: 06/23/19 11:42 Dose: 1.2 mg Colchicine (Colcrys) 0.6 mg PO ONETIME ONE Stop: 06/23/19 15:01 Last Admin: 06/23/19 15:32 Dose: 0.6 mg Furosemide (Lasix) 40 mg IVPUSH NOW ONE Stop: 06/22/19 04:08 Last Admin: 06/22/19 04:13 Dose: 40 mg Furosemide (Lasix) 40 mg IVPUSH NOW ONE Stop: 06/22/19 04:20 Last Admin: 06/22/19 04:25 Dose: 40 mg Furosemide (Lasix) 40 mg PO DAILY JEN Glipizide (Glucotrol) 15 mg PO BID JEN Heparin Sodium (Porcine) (Heparin Sodium) 5,000 units IVPUSH .BOLUS ONE; Protocol Stop: 06/22/19 08:16 Last Admin: 06/22/19 08:41 Dose: 5,000 units Heparin Sodium (Porcine) (Heparin Sodium) 1,500 units IVPUSH .BOLUS ONE Stop: 06/22/19 15:08 Last Admin: 06/22/19 15:19 Dose: 1,500 units Hydrochlorothiazide (Hydrochlorothiazide) 12.5 mg PO BEDTIME JEN Last Admin: 06/24/19 20:34 Dose: 12.5 mg Heparin Sodium/Dextrose (Heparin 25,000 Units In D5w 500 Ml) 25,000 units in 500 mls @ 26 mls/hr IV TITRATE JEN; Protocol Last Admin: 06/24/19 01:45 Dose: 1,970 units/hr, 39.4 mls/hr Furosemide 100 mg/ Sodium (Chloride) 100 mls @ 10 mls/hr IV TITRATE JEN; Protocol Last Infusion: 06/24/19 04:00 Dose: 7 mls/hr Potassium Chloride 10 meq/ (Premix) 100 mls @ 100 mls/hr IV Q1H JEN Stop: 06/23/19 02:29 Last Admin: 06/23/19 04:58 Dose: 50 mls/hr Sodium Chloride (Normal Saline) 500 mls @ 25 mls/hr IV .BOLUS PRN PRN Reason: IV Use Last Admin: 06/22/19 23:14 Dose: 25 mls/hr Insulin Glargine (Lantus) 15 unit SUBCUT QPM JEN Insulin Glargine (Lantus) 15 unit SUBCUT BEDTIME JEN Insulin Glargine (Lantus) 12 unit SUBCUT BEDTIME JEN Last Admin: 06/23/19 20:42 Dose: 12 units Insulin Glargine (Lantus) 22 unit SUBCUT BEDTIME JEN Pantoprazole Sodium (Protonix Iv) 40 mg IVPUSH BEDTIME JEN Stop: 06/24/19 21:01 Last Admin: 06/24/19 20:34 Dose: 40 mg Potassium Chloride (Klor-Con M20) 40 meq PO ONETIME ONE Stop: 06/23/19 10:35 Last Admin: 06/23/19 10:44 Dose: 40 meq Prednisone (Prednisone) 40 mg PO WITHBREAKFAST JEN Prednisone (Prednisone) 40 mg PO WITHLUNCH JEN Stop: 06/24/19 11:01 Prednisone (Prednisone) 20 mg PO WITHLUNCH JEN Stop: 06/24/19 11:01 Last Admin: 06/24/19 16:46 Dose: Not Given Prednisone (Prednisone) 20 mg PO WITHBREAKFAST JEN Stop: 06/25/19 12:00 Last Admin: 06/25/19 12:35 Dose: 20 mg Prednisone (Prednisone) 20 mg PO 1700 JEN Stop: 06/24/19 17:01 Prednisone (Prednisone) 20 mg PO 1800 ONE Stop: 06/24/19 18:01 Last Admin: 06/24/19 17:47 Dose: 20 mg - Exam General: Alert, Oriented, Cooperative, No Acute Distress, Mild Distress HEENT: Pupils Equal, Pupils Reactive, EOMI, Mucous Membr. Moist/[place] Neck: Supple Lungs: Normal Respiratory Effort, Crackles, Rhonchi Cardiovascular: Irregular Rhythm GI/Abdominal Exam: Normal Bowel Sounds, Soft, Non-Tender, No Organomegaly, No Distention, No Abnormal Bruit, No Mass (Male) Exam: Deferred Back Exam: Normal Inspection, Decreased Range of Motion Extremities: Normal Inspection, Normal Range of Motion, Non-Tender, Normal Capillary Refill, Pedal Edema, Other (Peripheral edema on b/l lower extremity) Skin: Warm, Dry, Intact Neurological: No New Focal Deficit Psy/Mental Status: Alert, Normal Affect, Normal Mood Physical Findings Comments:: He requires 2 person assist with ambulation and 1 person with transfer. He is wobbly and unsteady getting up. - Problem List Review Problem List Initiated/Reviewed/Updated: Yes - My Orders Last 24 Hours: My Active Orders 06/25/19 08:35 Consult to Speech Language Pathology [MORTGAGE PROTECTION SPECIALIST Evaluation and Treatment] [CONS] Routine 06/25/19 09:00 Doxazosin [Cardura] 8 mg PO DAILY Finasteride [Proscar] 5 mg PO DAILY 06/25/19 Dinner Heart Healthy Diet [DIET] 06/26/19 09:00 Furosemide [Lasix] 40 mg PO DAILY 07/01/19 18:00 Apixaban [Eliquis] 5 mg PO BID@0900,1800 - Plan Plan:: Assessment * Acute on chronic heart failure - presenting probe BNP 18,887: home Lasix 80 mg twice a day; BNP 18,887-->16,687-->01090. Discontinue lasix gtt; Hold scheduled Lasix 40 mg po daily and HCTZ 12.5 mg po due to increased in Cr level. 2D echo report shows Ischemic Cardiomyopathy with an EF of 30% * Atrial fibrillation with RVR: HR is controlled, home medications include Coreg 25 mg twice a day and nifedipine ER 60 mg daily. Eliquis for stroke prophylaxis starting this evening * Presumptive PE 2/2 Elevated D-dimer - Unable to do CTA due to renal insufficiency. VQ scan report read as multiple matched defects but indeterminate (inconclusive) probability of PE. Duplex LE U/S shows negative for DVT. We went over what this means to patient and and we agreed to best treat him with presumptive PE. They agreed. 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 Hold oral dose of lasix and hctz * Acute Gout- wrist pain right ulnar aspect, resolved. Has hx/o it in the past; Uric Acid 7.8. Currently on Colchicine and Prednisone. Last dose of oral steroid and continue Allopurinol 100 mg po QHS for maintenance medications * NTSEMI- already on Heparin drip since 06/22/2019. Continue ASA 81 mg po QHS, Carvedilol 25 mg po BID, and Zocor 20 mg po QHS. AHA diet * Normocytic and Hypochromic Anemia, Hgb of 9.7, Stable * Impaired Hearing, Poor historian making history difficult * Diabetes mellitus on Lantus and Glucotrol but lower dose. BS is controlled. * Aspiration Syndrome- has had wet cough, sputum cx pending and CRX shows consolidation on right base. Afebrile without leukocytosis. IS as directed and MORTGAGE PROTECTION SPECIALIST eval for swallow. Aspiration precautions and continue H2B. * Ischemic Cardiomyopathy- , Carvedilol, and Simvastatin. He will on lasix but will hold it for now. Follow up with cardiology after discharge * History of hypertension, hyperlipidemia, hypothyroidism, depression, BPH, CKD IV, GERD, anemia on vitamin B12 Plan * He remains clinically stable but weak * Guaifenesin/Dextromethorphan PRN plus IS as directed * Sputum Cx pending * 1800 ml fluid restrictions * [id number] - 6.7 % (high risk); HAS-Bled Score 3- 4.9-19.6 % risk of bled on OAC (high risk) * Strict I's and O's and daily weights with Bradford catheter * CBC, CMP, BNP, Magnesium daily * Titrate to come off supplemental O2 * PT/OT to assess and evaluation * Encouraged to do more PT/OT activities * Recommend SNF/Rehab due to generalized weakness * Additional orders as above * CODE STATUS: Full code. * Prognosis is guarded-good * LOS > 96hrs pending placement to SNF/Rehab. 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 SW/CM will meet up with them for discussions of SNF/Rehab placement.
[2019-06-26] MEDS: Doxazosin 4 MG Tab PO SCH (09:39)
[2019-06-26] MEDS: Finasteride 5 MG Tab PO SCH (09:40)
[2019-06-26] MEDS: NIFEdipine 30 MG Tab.ER PO SCH (09:40)
[2019-06-26] MEDS: Sertraline 25 MG Tab PO SCH (09:41)
[2019-06-26] MEDS: Carvedilol 12.5 MG Tab PO SCH ×2 (09:41→20:13)
[2019-06-26] MEDS: Apixaban 5 MG Tab PO SCH ×2 (09:41→17:15)
[2019-06-26] MEDS: Furosemide 40 MG Tab PO SCH (09:42)
[2019-06-26] MEDS: glipiZIDE 5 MG Tab PO SCH ×2 (09:50→20:14)
--- NOTE | 2019-06-26 14:04 | CR ---
Chest: Portable view of the chest was obtained. Comparison: Prior chest x-ray of 06/25/19. Containing parenchymal density within the right lung base. Diffuse increasing markings on both sides believed to represent pulmonary vascular congestion and possible early pulmonary edema. Small bilateral pleural effusions are possible. Heart is enlarged. Upper mediastinum is normal. Impression: 1. Worsening chest x-ray from previous study. Continuing parenchymal density within the right base. Increasing pulmonary vascular congestion and possible early pulmonary edema. Diagnostic code #3
[2019-06-26] MEDS: Famotidine 20 MG Tab PO SCH (20:14)
[2019-06-26] MEDS: Simvastatin 20 MG Tab PO SCH (20:14)
[2019-06-26] MEDS: Aspirin 81 MG Tab.Chew PO SCH (20:14)
[2019-06-26] MEDS: guaiFENesin/Dextromethorphan 100-10 MG/5 ML Soln 5 ML Cup PO PRN (20:14)
[2019-06-26] MEDS: Allopurinol 100 MG Tab PO SCH (20:14)
[2019-06-26] MEDS: Insulin Glarg,Human.Rec.Analog 100 UNIT/ML ML SUBCUT SCH (20:58)
[2019-06-27] MEDS: Levothyroxine 100 MCG Tab PO SCH (06:34)
[2019-06-27] MEDS: Insulin Lispro 100 Units/ML 3 ML Vial SUBCUT SCH ×4 (06:38→21:16)
[2019-06-27] MEDS ORDERED: Potassium Chloride 20 MEQ Tab.ER PO ONE (07:01)
[2019-06-27] MEDS ORDERED: Furosemide 40 MG Tab PO ONE (09:46)
[2019-06-27] MEDS: Apixaban 5 MG Tab PO SCH ×2 (10:00→22:00)
[2019-06-27] MEDS: Sertraline 25 MG Tab PO SCH (10:00)
[2019-06-27] MEDS ORDERED: Multivitamins,Therapeutic Tab PO SCH (10:00)
[2019-06-27] MEDS: Furosemide 40 MG Tab PO SCH (10:02)
[2019-06-27] MEDS: NIFEdipine 30 MG Tab.ER PO SCH (10:03)
[2019-06-27] MEDS: Finasteride 5 MG Tab PO SCH (10:03)
[2019-06-27] MEDS: Carvedilol 12.5 MG Tab PO SCH ×2 (10:03→21:02)
[2019-06-27] MEDS: Doxazosin 4 MG Tab PO SCH (10:04)
--- NOTE | 2019-06-27 11:50 | CR ---
Chest: Portable view of the chest was obtained. Comparison: Prior chest x-ray of 06/26/19. Slight parenchymal density is noted within the left perihilar region as minimal change from previous exam possibly due to minimal area of pneumonia. Haziness within both lung bases possibly due to atelectasis and pleural effusions. Central pulmonary vessels are increased which may be accentuated portable technique. Heart size is within normal limits. Upper mediastinum is within normal limits. Two old healed left-sided rib fractures are noted. Impression: 1. Possible small area of pneumonia within the left perihilar region. 2. Mild bibasilar atelectasis and possible pleural effusions. 3. Increased pulmonary vessels most likely accentuation from portable technique. Diagnostic code #3
--- NOTE | 2019-06-27 12:17 | CT ---
CT chest Technique: Multiple axial sections were obtained from above the lung apices inferiorly through the lung bases. Intravenous contrast was not utilized. Comparison: Previous chest x-ray performed earlier on the same day. Left kidney not visualized on this exam. Right kidney shows no hydronephrosis. Hazy inflammatory change around the right kidney is seen possibly old. Cyst is noted off the right kidney. Small to moderate sized bilateral pleural effusions are noted. Increased density is noted within the right lung base adjacent to the pleural effusion. Hazy left-sided perihilar densities are noted. Heart is slightly enlarged. Atherosclerotic calcification within a nondilated thoracic aorta is seen. Extensive coronary artery calcification is seen. Impression: 1. Small to moderate sized bilateral pleural effusions. 2. Patchy perihilar densities are seen. Findings most likely due to patchy areas of pneumonia. 3. Increased density within the right base adjacent to the pleural effusion. This could represent thick area of atelectasis although there are some air bronchograms within this density which makes the possibility of pneumonia a more likely etiology. 4. Cardiomegaly. Other nonacute findings as noted above. Diagnostic code #3
--- NOTE | 2019-06-27 15:32 | PCM.PN ---
- General Info Date of Service: 06/27/19 Admission Dx/Problem (Free Text): Admission Diagnosis/Problem Admission Diagnosis/Problem Congestive heart failure Shortness of breath when talking Having a couch with sputum Diminished sounds on right side of lungs Crackle at bilateral bases of lungs Skin is pallor Having 3+ edema in legs Labs ordered and pending review Subjective Update: He had an uneventful night. He no acute issues or concerns. - Review of Systems General: Reports: No Symptoms HEENT: Reports: No Symptoms Pulmonary: Reports: Cough, Sputum Cardiovascular: Reports: Edema Gastrointestinal: Reports: No Symptoms Genitourinary: Reports: No Symptoms Musculoskeletal: Reports: No Symptoms Skin: Reports: No Symptoms Neurological: Reports: No Symptoms Psychiatric: Reports: No Symptoms - Patient Data Vitals - Most Recent: Last Vital Signs Temp 98.6 F 06/27/19 12:00 Pulse 73 06/27/19 10:03 Resp 22 H 06/27/19 12:00 BP 145/59 H 06/27/19 12:00 Pulse Ox 94 L 06/27/19 12:00 Weight - Most Recent: 238 lb 9.6 oz I&O - Last 24 Hours: Intake & Output 06/26/19 06/27/19 06/27/19 22:59 06:59 14:59 Intake Total 660 440 180 Output Total 400 300 Balance 260 140 180 Lab Results Last 24 Hours: Laboratory Results - last 24 hr 06/26/19 06/26/19 06/27/19 Range/Units 16:56 20:53 05:55 WBC 5.55 (4.23-9.07) K/mm3 RBC 3.46 L (4.63-6.08) M/mm3 Hgb 9.8 L (13.7-17.5) gm/L Hct 30.9 L (40.1-51.0) % MCV 89.3 (79.0-92.2) fl MCH 28.3 (25.7-32.2) pg MCHC 31.7 L (32.2-35.5) g/dl RDW Std Deviation 42.5 (35.1-43.9) fL Plt Count 215 (163-337) K/mm3 MPV 10.2 (9.4-12.3) fl Neut % (Auto) 77.7 H (34.0-67.9) % Lymph % (Auto) 10.8 L (21.8-53.1) % [place] % (Auto) 10.5 (5.3-12.2) % Eos % (Auto) 0.4 L (0.8-7.0) Baso % (Auto) 0.4 (0.1-1.2) % Neut # (Auto) 4.32 (1.78-5.38) K/mm3 Lymph # (Auto) 0.60 L (1.32-3.57) K/mm3 [place] # (Auto) 0.58 (0.30-0.82) K/mm3 Eos # (Auto) 0.02 L (0.04-0.54) K/mm3 Baso # (Auto) 0.02 (0.01-0.08) K/mm3 Sodium (136-145) mEq/L Potassium (3.5-5.1) mEq/L Chloride (98-107) mEq/L Carbon Dioxide (21-32) mEq/L Anion Gap (5-15) BUN (7-18) mg/dL Creatinine (0.7-1.3) mg/dL Est Cr Clr Drug Dosing mL/min Estimated GFR (MDRD) (>60) mL/min BUN/Creatinine Ratio (14-18) Glucose (83-115) mg/dL POC Glucose 136 H 178 H (83-110) mg/dL Calcium (8.5-10.1) mg/dL Magnesium (1.8-2.4) mg/dl Total Bilirubin (0.2-1.0) mg/dL AST (15-37) U/L ALT (16-63) U/L Alkaline Phosphatase (46-116) U/L C-Reactive Protein (<1.0) mg/dL NT-Pro-B Natriuret Pep (0-450) pg/mL Total Protein (6.4-8.2) g/dl Albumin (3.4-5.0) g/dl Globulin gm/dL Albumin/Globulin Ratio (1-2) 06/27/19 06/27/19 06/27/19 Range/Units 05:55 05:55 05:55 WBC (4.23-9.07) K/mm3 RBC (4.63-6.08) M/mm3 Hgb (13.7-17.5) gm/L Hct (40.1-51.0) % MCV (79.0-92.2) fl MCH (25.7-32.2) pg MCHC (32.2-35.5) g/dl RDW Std Deviation (35.1-43.9) fL Plt Count (163-337) K/mm3 MPV (9.4-12.3) fl Neut % (Auto) (34.0-67.9) % Lymph % (Auto) (21.8-53.1) % [place] % (Auto) (5.3-12.2) % Eos % (Auto) (0.8-7.0) Baso % (Auto) (0.1-1.2) % Neut # (Auto) (1.78-5.38) K/mm3 Lymph # (Auto) (1.32-3.57) K/mm3 [place] # (Auto) (0.30-0.82) K/mm3 Eos # (Auto) (0.04-0.54) K/mm3 Baso # (Auto) (0.01-0.08) K/mm3 Sodium 143 (136-145) mEq/L Potassium 3.3 L (3.5-5.1) mEq/L Chloride 104 (98-107) mEq/L Carbon Dioxide 29 (21-32) mEq/L Anion Gap 13.3 (5-15) BUN 51 H (7-18) mg/dL Creatinine 2.5 H (0.7-1.3) mg/dL Est Cr Clr Drug Dosing 23.28 mL/min Estimated GFR (MDRD) 25 (>60) mL/min BUN/Creatinine Ratio 20.4 H (14-18) Glucose 81 L (83-115) mg/dL POC Glucose (83-110) mg/dL Calcium 8.3 L (8.5-10.1) mg/dL Magnesium 2.2 (1.8-2.4) mg/dl Total Bilirubin 0.4 (0.2-1.0) mg/dL AST 11 L (15-37) U/L ALT 12 L (16-63) U/L Alkaline Phosphatase 56 (46-116) U/L C-Reactive Protein 4.1 H* (<1.0) mg/dL NT-Pro-B Natriuret Pep 52969 H (0-450) pg/mL Total Protein 5.9 L (6.4-8.2) g/dl Albumin 2.5 L (3.4-5.0) g/dl Globulin 3.4 gm/dL Albumin/Globulin Ratio 0.7 L (1-2) 06/27/19 06/27/19 06/27/19 Range/Units 06:38 06:50 11:29 WBC (4.23-9.07) K/mm3 RBC (4.63-6.08) M/mm3 Hgb (13.7-17.5) gm/L Hct (40.1-51.0) % MCV (79.0-92.2) fl MCH (25.7-32.2) pg MCHC (32.2-35.5) g/dl RDW Std Deviation (35.1-43.9) fL Plt Count (163-337) K/mm3 MPV (9.4-12.3) fl Neut % (Auto) (34.0-67.9) % Lymph % (Auto) (21.8-53.1) % [place] % (Auto) (5.3-12.2) % Eos % (Auto) (0.8-7.0) Baso % (Auto) (0.1-1.2) % Neut # (Auto) (1.78-5.38) K/mm3 Lymph # (Auto) (1.32-3.57) K/mm3 [place] # (Auto) (0.30-0.82) K/mm3 Eos # (Auto) (0.04-0.54) K/mm3 Baso # (Auto) (0.01-0.08) K/mm3 Sodium (136-145) mEq/L Potassium (3.5-5.1) mEq/L Chloride (98-107) mEq/L Carbon Dioxide (21-32) mEq/L Anion Gap (5-15) BUN (7-18) mg/dL Creatinine (0.7-1.3) mg/dL Est Cr Clr Drug Dosing mL/min Estimated GFR (MDRD) (>60) mL/min BUN/Creatinine Ratio (14-18) Glucose (83-115) mg/dL POC Glucose 65 L 82 L 115 H (83-110) mg/dL Calcium (8.5-10.1) mg/dL Magnesium (1.8-2.4) mg/dl Total Bilirubin (0.2-1.0) mg/dL AST (15-37) U/L ALT (16-63) U/L Alkaline Phosphatase (46-116) U/L C-Reactive Protein (<1.0) mg/dL NT-Pro-B Natriuret Pep (0-450) pg/mL Total Protein (6.4-8.2) g/dl Albumin (3.4-5.0) g/dl Globulin gm/dL Albumin/Globulin Ratio (1-2) [place] Results Last 24 Hours: Microbiology 06/22/19 03:40 Aerobic Blood Culture - Preliminary Blood - Venous - Lab Draw NO GROWTH AFTER 5 DAYS Anaerobic Blood Culture - Preliminary NO GROWTH AFTER 5 DAYS 06/22/19 03:30 Aerobic Blood Culture - Preliminary Blood - Venous NO GROWTH AFTER 5 DAYS Anaerobic Blood Culture - Preliminary NO GROWTH AFTER 5 DAYS 06/24/19 14:41 Gram Stain - Final Sputum - Expectorated Sputum Culture - Preliminary Pseudomonas Aeruginosa Med Orders - Current: Current Medications Acetaminophen (Tylenol) 650 mg PO Q4H PRN PRN Reason: Pain (Mild 1-3)/fever Hydrocodone Bitart/Acetaminophen ([place] 325-10 Mg) 1 tab PO Q4H PRN PRN Reason: Pain (moderate 4-6) Last Admin: 06/23/19 15:30 Dose: 1 tab Allopurinol (Zyloprim) [address] [facility] Last Admin: 06/26/19 20:14 Dose: 100 mg Apixaban (Eliquis) 10 mg PO BID@0900,1800 [facility] Stop: 07/01/19 09:01 Last Admin: 06/27/19 10:00 Dose: 10 mg Apixaban (Eliquis) 5 mg PO BID@0900,1800 [facility] Aspirin (Aspirin) [address] [facility] Last Admin: 06/26/19 20:14 Dose: 81 mg Carvedilol (Coreg) [address] [facility] Last Admin: 06/27/19 10:03 Dose: 25 mg Doxazosin Mesylate (Cardura) [address] [facility] Last Admin: 06/27/19 10:04 Dose: 8 mg Famotidine (Pepcid) [address] [facility] Last Admin: 06/26/19 20:14 Dose: 20 mg Finasteride (Proscar) [address] [facility] Last Admin: 06/27/19 10:03 Dose: 5 mg Furosemide (Lasix) [address] [facility] Last Admin: 06/27/19 10:02 Dose: 40 mg Guaifenesin/Phenylephrine HCl (Robitussin Dm) 5 ml PO Q4H PRN PRN Reason: Cough Last Admin: 06/26/19 20:14 Dose: 5 ml Insulin Glargine (Lantus) [address] [facility] Last Admin: 06/26/19 20:58 Dose: 15 units Insulin Human Lispro (Humalog) [address] [facility]; Protocol Last Admin: 06/27/19 12:39 Dose: Not Given Levothyroxine Sodium (Synthroid) 100 mcg PO DAILY@0600 [facility] Last Admin: 06/27/19 06:34 Dose: 100 mcg Multivitamins (Thera) [address] [facility] Last Admin: 06/27/19 10:00 Dose: 1 each Nifedipine (Procardia Xl) [address] [facility] Last Admin: 06/27/19 10:03 Dose: 60 mg Sertraline HCl (Zoloft) [address] [facility] Last Admin: 06/27/19 10:00 Dose: 25 mg Simvastatin (Zocor) [address] [facility] Last Admin: 06/26/19 20:14 Dose: 20 mg Discontinued Medications Apixaban (Eliquis) 2.[address] [facility] Apixaban (Eliquis) 10 mg PO ONETIME ONE Stop: 06/24/19 17:01 Colchicine (Colcrys) 1.2 mg PO ONETIME ONE Stop: 06/23/19 11:32 Last Admin: 06/23/19 11:42 Dose: 1.2 mg Colchicine (Colcrys) 0.6 mg PO ONETIME ONE Stop: 06/23/19 15:01 Last Admin: 06/23/19 15:32 Dose: 0.6 mg Furosemide (Lasix) 40 mg IVPUSH NOW ONE Stop: 06/22/19 04:08 Last Admin: 06/22/19 04:13 Dose: 40 mg Furosemide (Lasix) 40 mg IVPUSH NOW ONE Stop: 06/22/19 04:20 Last Admin: 06/22/19 04:25 Dose: 40 mg Furosemide (Lasix) 40 mg PO DAILY JEN Furosemide (Lasix) 40 mg PO ONETIME ONE Stop: 06/27/19 09:47 Last Admin: 06/27/19 10:00 Dose: 40 mg Glipizide (Glucotrol) 15 mg PO BID JEN Glipizide (Glucotrol) 5 mg PO BID JEN Last Admin: 06/26/19 20:14 Dose: 5 mg Heparin Sodium (Porcine) (Heparin Sodium) 5,000 units IVPUSH .BOLUS ONE; Protocol Stop: 06/22/19 08:16 Last Admin: 06/22/19 08:41 Dose: 5,000 units Heparin Sodium (Porcine) (Heparin Sodium) 1,500 units IVPUSH .BOLUS ONE Stop: 06/22/19 15:08 Last Admin: 06/22/19 15:19 Dose: 1,500 units Hydrochlorothiazide (Hydrochlorothiazide) 12.5 mg PO BEDTIME JEN Last Admin: 06/24/19 20:34 Dose: 12.5 mg Heparin Sodium/Dextrose (Heparin 25,000 Units In D5w 500 Ml) 25,000 units in 500 mls @ 26 mls/hr IV TITRATE JEN; Protocol Last Admin: 06/24/19 01:45 Dose: 1,970 units/hr, 39.4 mls/hr Furosemide 100 mg/ Sodium (Chloride) 100 mls @ 10 mls/hr IV TITRATE JEN; Protocol Last Infusion: 06/24/19 04:00 Dose: 7 mls/hr Potassium Chloride 10 meq/ (Premix) 100 mls @ 100 mls/hr IV Q1H JEN Stop: 06/23/19 02:29 Last Admin: 06/23/19 04:58 Dose: 50 mls/hr Sodium Chloride (Normal Saline) 500 mls @ 25 mls/hr IV .BOLUS PRN PRN Reason: IV Use Last Admin: 06/22/19 23:14 Dose: 25 mls/hr Insulin Glargine (Lantus) 15 unit SUBCUT QPM JEN Insulin Glargine (Lantus) 15 unit SUBCUT BEDTIME JEN Insulin Glargine (Lantus) 12 unit SUBCUT BEDTIME JEN Last Admin: 06/23/19 20:42 Dose: 12 units Insulin Glargine (Lantus) 22 unit SUBCUT BEDTIME JEN Pantoprazole Sodium (Protonix Iv) 40 mg IVPUSH BEDTIME JEN Stop: 06/24/19 21:01 Last Admin: 06/24/19 20:34 Dose: 40 mg Potassium Chloride (Klor-Con M20) 40 meq PO ONETIME ONE Stop: 06/23/19 10:35 Last Admin: 06/23/19 10:44 Dose: 40 meq Potassium Chloride (Klor-Con M20) 60 meq PO ONETIME ONE Stop: 06/27/19 07:02 Last Admin: 06/27/19 10:04 Dose: 60 meq Prednisone (Prednisone) 40 mg PO WITHBREAKFAST JEN Prednisone (Prednisone) 40 mg PO WITHLUNCH JEN Stop: 06/24/19 11:01 Prednisone (Prednisone) 20 mg PO WITHLUNCH JEN Stop: 06/24/19 11:01 Last Admin: 06/24/19 16:46 Dose: Not Given Prednisone (Prednisone) 20 mg PO WITHBREAKFAST JEN Stop: 06/25/19 12:00 Last Admin: 06/25/19 12:35 Dose: 20 mg Prednisone (Prednisone) 20 mg PO 1700 JEN Stop: 06/24/19 17:01 Prednisone (Prednisone) 20 mg PO 1800 ONE Stop: 06/24/19 18:01 Last Admin: 06/24/19 17:47 Dose: 20 mg - Exam General: Alert, Oriented HEENT: Pupils Equal, Pupils Reactive, EOMI, Mucous Membr. Moist/[place] Neck: Supple Lungs: Decreased Breath Sounds (right side), Crackles (bilateral bases), Other ( shortness of breath with talking) Cardiovascular: Other (3+ edema) GI/Abdominal Exam: Normal Bowel Sounds, Soft, Non-Tender, No Organomegaly, No Distention, No Abnormal Bruit, No Mass, Pelvis Stable (Male) Exam: No Hernia, Normal Inspection, Normal Prostate, Circumcised Back Exam: Normal Inspection, Full Range of Motion Extremities: Pallor Skin: Intact, Other (pallor) Wound/Incisions: Healing Well Neurological: No New Focal Deficit Psy/Mental Status: Alert, Normal Affect, Normal Mood - Problem List & Annotations (1) CHF exacerbation SNOMED Code(s): 958621961, 55170115463481 Code(s): I50.9 - HEART FAILURE, UNSPECIFIED Status: Acute Current Visit: Yes (2) Chronic renal insufficiency SNOMED Code(s): 241758306 Code(s): N18.9 - CHRONIC KIDNEY DISEASE, UNSPECIFIED Status: Acute Current Visit: Yes - Problem List Review Problem List Initiated/Reviewed/Updated: Yes - Plan Plan:: Assessment * Acute on chronic heart failure - presenting probe BNP 18,887: home Lasix 80 mg twice a day; BNP 18,887-->16,687-->15536. Discontinue lasix gtt; Hold scheduled Lasix 40 mg po daily and HCTZ 12.5 mg po due to increased in Cr level. 2D echo report shows Ischemic Cardiomyopathy with an EF of 30% * Atrial fibrillation with RVR: HR is controlled, home medications include Coreg 25 mg twice a day and nifedipine ER 60 mg daily. Eliquis for stroke prophylaxis starting this evening * Presumptive PE 2/2 Elevated D-dimer - Unable to do CTA due to renal insufficiency. VQ scan report read as multiple matched defects but indeterminate (inconclusive) probability of PE. Duplex LE U/S shows negative for DVT. We went over what this means to patient and and we agreed to best treat him with presumptive PE. They agreed. 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 Hold oral dose of lasix and hctz * Acute Gout- wrist pain right ulnar aspect, resolved. Has hx/o it in the past; Uric Acid 7.8. Currently on Colchicine and Prednisone. Last dose of oral steroid and continue Allopurinol 100 mg po QHS for maintenance medications * NTSEMI- already on Heparin drip since 06/22/2019. Continue ASA 81 mg po QHS, Carvedilol 25 mg po BID, and Zocor 20 mg po QHS. AHA diet * Normocytic and Hypochromic Anemia, Hgb of 9.7, Stable * Impaired Hearing, Poor historian making history difficult * Diabetes mellitus on Lantus and Glucotrol but lower dose. BS is controlled. * Aspiration Syndrome- has had wet cough, sputum cx pending and CRX shows consolidation on right base. Afebrile without leukocytosis. IS as directed and [employer] eval for swallow. Aspiration precautions and continue H2B. * Ischemic Cardiomyopathy- , Carvedilol, and Simvastatin. He will on lasix but will hold it for now. Follow up with cardiology after discharge * History of hypertension, hyperlipidemia, hypothyroidism, depression, BPH, CKD IV, GERD, anemia on vitamin B12 Plan * He remains clinically stable but weak * Guaifenesin/Dextromethorphan PRN plus IS as directed * Sputum Cx pending * 1800 ml fluid restrictions * [id number] - 6.7 % (high risk); HAS-Bled Score 3- 4.9-19.6 % risk of bled on OAC (high risk) * Strict I's and O's and daily weights with Bradford catheter * CBC, CMP, BNP, Magnesium daily * Titrate to come off supplemental O2 * PT/OT to assess and evaluation * Encouraged to do more PT/OT activities * Recommend SNF/Rehab due to generalized weakness * Additional orders as above * CODE STATUS: Full code. * Prognosis is guarded-good * LOS > 96hrs pending placement to SNF/Rehab. 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 SW/CM will meet up with them for discussions of SNF/Rehab placement. 06/27/2019 Assessment: Shortness of breath when talking Having a couch with sputum Diminished sounds on right side of lungs Crackle at bilateral bases of lungs Skin is pallor Having 3+ edema in legs Elevated d-dimer On Eliquis Labs ordered and pending review Plan: Remaining stable but weak Discontinue prednisone Continue Colchicine for 3-5 days Lasix 40-60 MG PO daily Start antibiotics Cefepime and Zithromax for pneumonia and atelectasis
[2019-06-27] MEDS ORDERED: Azithromycin 500 MG in Sodium Chloride 0.9% 250 ML IV ONE (16:00)
[2019-06-27] MEDS: Cefepime 2 GM in Premix Bag 1 BAG IV SCH (16:44)
[2019-06-27] MEDS: Aspirin 81 MG Tab.Chew PO SCH (21:02)
[2019-06-27] MEDS: Simvastatin 20 MG Tab PO SCH (21:02)
[2019-06-27] MEDS: Famotidine 20 MG Tab PO SCH (21:08)
[2019-06-27] MEDS: Allopurinol 100 MG Tab PO SCH (21:08)
[2019-06-27] MEDS: Insulin Glarg,Human.Rec.Analog 100 UNIT/ML ML SUBCUT SCH (21:15)
[2019-06-28] MEDS: Levothyroxine 100 MCG Tab PO SCH (05:15)
[2019-06-28] MEDS: Insulin Lispro 100 Units/ML 3 ML Vial SUBCUT SCH ×4 (07:33→21:25)
[2019-06-28] MEDS: Sertraline 25 MG Tab PO SCH (08:51)
[2019-06-28] MEDS: Apixaban 5 MG Tab PO SCH ×2 (08:53→18:00)
[2019-06-28] MEDS: Doxazosin 4 MG Tab PO SCH (08:54)
[2019-06-28] MEDS: NIFEdipine 30 MG Tab.ER PO SCH (08:55)
[2019-06-28] MEDS: Finasteride 5 MG Tab PO SCH (08:56)
[2019-06-28] MEDS: Furosemide 40 MG Tab PO SCH (08:56)
[2019-06-28] MEDS: Carvedilol 12.5 MG Tab PO SCH ×2 (08:58→20:19)
[2019-06-28] MEDS: Albuterol/Ipratropium 3.0-0.5 MG/3 ML Neb Soln NEB PRN ×2 (09:04→15:39)
[2019-06-28] MEDS: Prenatal Multivitamin with Calcium/Folic Acid/Iron Tab PO SCH (12:22)
[2019-06-28] MEDS: Cefepime 2 GM in Premix Bag 1 BAG IV SCH (15:36)
--- NOTE | 2019-06-28 15:50 | PCM.PN ---
- General Info Date of Service: 06/28/19 Admission Dx/Problem (Free Text): Admission Diagnosis/Problem Admission Diagnosis/Problem Congestive heart failure Shortness of breath when talking Having a couch with sputum Diminished sounds on right side of lungs Crackle at bilateral bases of lungs Skin is pallor Having 3+ edema in legs Labs ordered and pending review Subjective Update: He had an uneventful night. He no acute issues or concerns. 06/28/19 transferred to med surg. o2 still on and telemetry report normal i/os good . eating . p.e. alert but not very oriented . lungs clear and decreased few ronchi decreased rt base cor rrr with kassy 2 6 no s3/s4 abd benign legs decreased edema 2/3 plus no calve tenderness dementia unchanged but conversive and pleasant today . moves all extremities . assess. ischemic cardiomyopathy. stable but little forward progress diuresisng . weight decreased form e.r. o2 weaning to 2 liters only . nutrition poor. pneumonia equivocal and better air movement . copd on nebs and cpt and air exchange better attempt to wean switch to po. meds and stablilize diuresis . recehck creatinine . Functional Status: Reports: Pain Controlled - Review of Systems General: Reports: No Symptoms HEENT: Reports: No Symptoms Pulmonary: Reports: No Symptoms, Shortness of Breath, Cough, Wheezing Cardiovascular: Reports: No Symptoms Gastrointestinal: Reports: No Symptoms Genitourinary: Reports: No Symptoms Musculoskeletal: Reports: No Symptoms Skin: Reports: No Symptoms Neurological: Reports: No Symptoms Psychiatric: Reports: No Symptoms - Patient Data Vitals - Most Recent: Last Vital Signs Temp 36.6 C 06/28/19 12:53 Pulse 66 06/28/19 12:53 Resp 14 06/28/19 12:53 BP 152/86 H 06/28/19 12:53 Pulse Ox 93 L 06/28/19 12:53 Weight - Most Recent: 106.64 kg I&O - Last 24 Hours: Intake & Output 06/28/19 06/28/19 06/28/19 06:59 14:59 22:59 Intake Total 300 220 Output Total 1250 Balance -950 220 Lab Results Last 24 Hours: Laboratory Results - last 24 hr 06/27/19 06/27/19 06/28/19 Range/Units 17:23 20:34 05:29 WBC (4.23-9.07) K/mm3 RBC (4.63-6.08) M/mm3 Hgb (13.7-17.5) gm/L Hct (40.1-51.0) % MCV (79.0-92.2) fl MCH (25.7-32.2) pg MCHC (32.2-35.5) g/dl RDW Std Deviation (35.1-43.9) fL Plt Count (163-337) K/mm3 MPV (9.4-12.3) fl Neut % (Auto) (34.0-67.9) % Lymph % (Auto) (21.8-53.1) % [place] % (Auto) (5.3-12.2) % Eos % (Auto) (0.8-7.0) Baso % (Auto) (0.1-1.2) % Neut # (Auto) (1.78-5.38) K/mm3 Lymph # (Auto) (1.32-3.57) K/mm3 [place] # (Auto) (0.30-0.82) K/mm3 Eos # (Auto) (0.04-0.54) K/mm3 Baso # (Auto) (0.01-0.08) K/mm3 Neutrophils % (Manual) (40-60) % Band Neutrophils % (0-10) % Lymphocytes % (Manual) (20-40) % Atypical Lymphs % % Monocytes % (Manual) (2-10) % Eosinophils % (Manual) (0.8-7.0) % Basophils % (Manual) (0.2-1.2) Platelet Estimate Anisocytosis RBC Morph Comment Sodium (136-145) mEq/L Potassium (3.5-5.1) mEq/L Chloride (98-107) mEq/L Carbon Dioxide (21-32) mEq/L Anion Gap (5-15) BUN (7-18) mg/dL Creatinine (0.7-1.3) mg/dL Est Cr Clr Drug Dosing mL/min Estimated GFR (MDRD) (>60) mL/min BUN/Creatinine Ratio (14-18) Glucose (83-115) mg/dL POC Glucose 125 H 145 H (83-110) mg/dL Uric Acid (3.5-7.2) mg/dL Calcium (8.5-10.1) mg/dL Iron (65-175) ug/dL Total Bilirubin (0.2-1.0) mg/dL AST (15-37) U/L ALT (16-63) U/L Alkaline Phosphatase (46-116) U/L C-Reactive Protein 3.0 H* (<1.0) mg/dL NT-Pro-B Natriuret Pep (0-450) pg/mL Total Protein (6.4-8.2) g/dl Albumin (3.4-5.0) g/dl Globulin gm/dL Albumin/Globulin Ratio (1-2) Vitamin B12 (193-986) pg/ml 06/28/19 06/28/19 06/28/19 Range/Units 05:29 05:29 05:29 WBC 6.19 (4.23-9.07) K/mm3 RBC 3.62 L (4.63-6.08) M/mm3 Hgb 10.2 L (13.7-17.5) gm/L Hct 32.6 L (40.1-51.0) % MCV 90.1 (79.0-92.2) fl MCH 28.2 (25.7-32.2) pg MCHC 31.3 L (32.2-35.5) g/dl RDW Std Deviation 43.5 (35.1-43.9) fL Plt Count 254 (163-337) K/mm3 MPV 10.3 (9.4-12.3) fl Neut % (Auto) 77.1 H (34.0-67.9) % Lymph % (Auto) 11.5 L (21.8-53.1) % Harlan % (Auto) 9.9 (5.3-12.2) % Eos % (Auto) 0.8 (0.8-7.0) Baso % (Auto) 0.5 (0.1-1.2) % Neut # (Auto) 4.78 (1.78-5.38) K/mm3 Lymph # (Auto) 0.71 L (1.32-3.57) K/mm3 [place] # (Auto) 0.61 (0.30-0.82) K/mm3 Eos # (Auto) 0.05 (0.04-0.54) K/mm3 Baso # (Auto) 0.03 (0.01-0.08) K/mm3 Neutrophils % (Manual) (40-60) % Band Neutrophils % (0-10) % Lymphocytes % (Manual) (20-40) % Atypical Lymphs % % Monocytes % (Manual) (2-10) % Eosinophils % (Manual) (0.8-7.0) % Basophils % (Manual) (0.2-1.2) Platelet Estimate Anisocytosis RBC Morph Comment Sodium 144 (136-145) mEq/L Potassium 3.6 (3.5-5.1) mEq/L Chloride 106 (98-107) mEq/L Carbon Dioxide 30 (21-32) mEq/L Anion Gap 11.6 (5-15) BUN 45 H (7-18) mg/dL Creatinine 2.1 H (0.7-1.3) mg/dL Est Cr Clr Drug Dosing 27.71 mL/min Estimated GFR (MDRD) 30 (>60) mL/min BUN/Creatinine Ratio 21.4 H (14-18) Glucose 100 (83-115) mg/dL POC Glucose (83-110) mg/dL Uric Acid 8.1 H (3.5-7.2) mg/dL Calcium 8.5 (8.5-10.1) mg/dL Iron 18 L (65-175) ug/dL Total Bilirubin 0.4 (0.2-1.0) mg/dL AST 9 L (15-37) U/L ALT 12 L (16-63) U/L Alkaline Phosphatase 58 (46-116) U/L C-Reactive Protein (<1.0) mg/dL NT-Pro-B Natriuret Pep (0-450) pg/mL Total Protein 6.1 L (6.4-8.2) g/dl Albumin 2.5 L (3.4-5.0) g/dl Globulin 3.6 gm/dL Albumin/Globulin Ratio 0.7 L (1-2) Vitamin B12 246 (193-986) pg/ml 06/28/19 06/28/19 06/28/19 Range/Units 05:29 07:06 10:37 WBC (4.23-9.07) K/mm3 RBC (4.63-6.08) M/mm3 Hgb (13.7-17.5) gm/L Hct (40.1-51.0) % MCV (79.0-92.2) fl MCH (25.7-32.2) pg MCHC (32.2-35.5) g/dl RDW Std Deviation (35.1-43.9) fL Plt Count (163-337) K/mm3 MPV (9.4-12.3) fl Neut % (Auto) (34.0-67.9) % Lymph % (Auto) (21.8-53.1) % Harlan % (Auto) (5.3-12.2) % Eos % (Auto) (0.8-7.0) Baso % (Auto) (0.1-1.2) % Neut # (Auto) (1.78-5.38) K/mm3 Lymph # (Auto) (1.32-3.57) K/mm3 [place] # (Auto) (0.30-0.82) K/mm3 Eos # (Auto) (0.04-0.54) K/mm3 Baso # (Auto) (0.01-0.08) K/mm3 Neutrophils % (Manual) (40-60) % Band Neutrophils % (0-10) % Lymphocytes % (Manual) (20-40) % Atypical Lymphs % % Monocytes % (Manual) (2-10) % Eosinophils % (Manual) (0.8-7.0) % Basophils % (Manual) (0.2-1.2) Platelet Estimate Anisocytosis RBC Morph Comment Sodium (136-145) mEq/L Potassium (3.5-5.1) mEq/L Chloride (98-107) mEq/L Carbon Dioxide (21-32) mEq/L Anion Gap (5-15) BUN (7-18) mg/dL Creatinine (0.7-1.3) mg/dL Est Cr Clr Drug Dosing mL/min Estimated GFR (MDRD) (>60) mL/min BUN/Creatinine Ratio (14-18) Glucose (83-115) mg/dL POC Glucose 114 H 189 H (83-110) mg/dL Uric Acid (3.5-7.2) mg/dL Calcium (8.5-10.1) mg/dL Iron (65-175) ug/dL Total Bilirubin (0.2-1.0) mg/dL AST (15-37) U/L ALT (16-63) U/L Alkaline Phosphatase (46-116) U/L C-Reactive Protein (<1.0) mg/dL NT-Pro-B Natriuret Pep 74888 H (0-450) pg/mL Total Protein (6.4-8.2) g/dl Albumin (3.4-5.0) g/dl Globulin gm/dL Albumin/Globulin Ratio (1-2) Vitamin B12 (193-986) pg/ml 06/28/19 Range/Units 11:08 WBC 6.84 (4.23-9.07) K/mm3 RBC 3.59 L (4.63-6.08) M/mm3 Hgb 10.3 L (13.7-17.5) gm/L Hct 32.5 L (40.1-51.0) % MCV 90.5 (79.0-92.2) fl MCH 28.7 (25.7-32.2) pg MCHC 31.7 L (32.2-35.5) g/dl RDW Std Deviation 43.4 (35.1-43.9) fL Plt Count 232 (163-337) K/mm3 MPV 10.1 (9.4-12.3) fl Neut % (Auto) (34.0-67.9) % Lymph % (Auto) (21.8-53.1) % Harlan % (Auto) (5.3-12.2) % Eos % (Auto) (0.8-7.0) Baso % (Auto) (0.1-1.2) % Neut # (Auto) (1.78-5.38) K/mm3 Lymph # (Auto) (1.32-3.57) K/mm3 [place]lan # (Auto) (0.30-0.82) K/mm3 Eos # (Auto) (0.04-0.54) K/mm3 Baso # (Auto) (0.01-0.08) K/mm3 Neutrophils % (Manual) 82 H (40-60) % Band Neutrophils % 0 (0-10) % Lymphocytes % (Manual) 9 L (20-40) % Atypical Lymphs % 0 % Monocytes % (Manual) 8 (2-10) % Eosinophils % (Manual) 1 (0.8-7.0) % Basophils % (Manual) 0 L (0.2-1.2) Platelet Estimate Adequate Anisocytosis 1+ slight RBC Morph Comment Not Reportable Sodium (136-145) mEq/L Potassium (3.5-5.1) mEq/L Chloride (98-107) mEq/L Carbon Dioxide (21-32) mEq/L Anion Gap (5-15) BUN (7-18) mg/dL Creatinine (0.7-1.3) mg/dL Est Cr Clr Drug Dosing mL/min Estimated GFR (MDRD) (>60) mL/min BUN/Creatinine Ratio (14-18) Glucose (83-115) mg/dL POC Glucose (83-110) mg/dL Uric Acid (3.5-7.2) mg/dL Calcium (8.5-10.1) mg/dL Iron (65-175) ug/dL Total Bilirubin (0.2-1.0) mg/dL AST (15-37) U/L ALT (16-63) U/L Alkaline Phosphatase (46-116) U/L C-Reactive Protein (<1.0) mg/dL NT-Pro-B Natriuret Pep (0-450) pg/mL Total Protein (6.4-8.2) g/dl Albumin (3.4-5.0) g/dl Globulin gm/dL Albumin/Globulin Ratio (1-2) Vitamin B12 (193-986) pg/ml [place] Results Last 24 Hours: Microbiology 06/24/19 14:41 Gram Stain - Final Sputum - Expectorated Sputum Culture - Final Pseudomonas Aeruginosa Streptococcus Pneumoniae 06/22/19 03:30 Aerobic Blood Culture - Preliminary Blood - Venous NO GROWTH AFTER 6 DAYS Anaerobic Blood Culture - Preliminary NO GROWTH AFTER 6 DAYS 06/22/19 03:40 Aerobic Blood Culture - Preliminary Blood - Venous - Lab Draw NO GROWTH AFTER 6 DAYS Anaerobic Blood Culture - Preliminary NO GROWTH AFTER 6 DAYS Med Orders - Current: Current Medications Acetaminophen (Tylenol) 650 mg PO Q4H PRN PRN Reason: Pain (Mild 1-3)/fever Hydrocodone Bitart/Acetaminophen ([place] 325-10 Mg) 1 tab PO Q4H PRN PRN Reason: Pain (moderate 4-6) Last Admin: 06/23/19 15:30 Dose: 1 tab Albuterol/Ipratropium (Duoneb 3.0-0.5 Mg/3 Ml) 3 ml NEB Q6HRRT PRN PRN Reason: Shortness of Breath Last Admin: 06/28/19 15:39 Dose: 3 ml Allopurinol (Zyloprim) 100 mg PO BEDTIME [facility] Last Admin: 06/27/19 21:08 Dose: 100 mg Apixaban (Eliquis) 10 mg PO BID@0900,1800 [facility] Stop: 07/01/19 09:01 Last Admin: 06/28/19 08:53 Dose: 10 mg Apixaban (Eliquis) 5 mg PO BID@0900,1800 [facility] Aspirin (Aspirin) 81 mg PO BEDTIME [facility] Last Admin: 06/27/19 21:02 Dose: 81 mg Carvedilol (Coreg) 25 mg PO BID [facility] Last Admin: 06/28/19 08:58 Dose: 25 mg Doxazosin Mesylate (Cardura) 8 mg PO DAILY [facility] Last Admin: 06/28/19 08:54 Dose: 8 mg Famotidine (Pepcid) 20 mg PO BEDTIME [facility] Last Admin: 06/27/19 21:08 Dose: 20 mg Finasteride (Proscar) 5 mg PO DAILY [facility] Last Admin: 06/28/19 08:56 Dose: 5 mg Furosemide (Lasix) 40 mg PO DAILY [facility] Last Admin: 06/28/19 08:56 Dose: 40 mg Guaifenesin/Phenylephrine HCl (Robitussin Dm) 5 ml PO Q4H PRN PRN Reason: Cough Last Admin: 06/26/19 20:14 Dose: 5 ml Cefepime HCl 2 gm/ Premix 50 mls @ 100 mls/hr IV Q24H [facility] Last Admin: 06/28/19 15:36 Dose: 100 mls/hr Azithromycin 250 mg/ Sodium (Chloride) 250 mls @ 250 mls/hr IV Q24H [facility] Insulin Glargine (Lantus) 15 unit SUBCUT BEDTIME [facility] Last Admin: 06/27/19 21:15 Dose: 15 units Insulin Human Lispro (Humalog) 0 unit SUBCUT QIDACANDBED [facility]; Protocol Last Admin: 06/28/19 10:51 Dose: 2 units Levothyroxine Sodium (Synthroid) 100 mcg PO DAILY@0600 [facility] Last Admin: 06/28/19 05:15 Dose: 100 mcg Nifedipine (Procardia Xl) 60 mg PO DAILY [facility] Last Admin: 06/28/19 08:55 Dose: 60 mg Prenat Multivit/Regulatory Affairs Manager/Iron/Folic Ac ( Plus Iron) 1 each PO DAILY [facility] Last Admin: 06/28/19 12:22 Dose: 1 each Sertraline HCl (Zoloft) 25 mg PO DAILY [facility] Last Admin: 06/28/19 08:51 Dose: 25 mg Simvastatin (Zocor) 20 mg PO BEDTIME [facility] Last Admin: 06/27/19 21:02 Dose: 20 mg Discontinued Medications Apixaban (Eliquis) 2.5 mg PO BID [facility] Apixaban (Eliquis) 10 mg PO ONETIME ONE Stop: 06/24/19 17:01 Colchicine (Colcrys) 1.2 mg PO ONETIME ONE Stop: 06/23/19 11:32 Last Admin: 06/23/19 11:42 Dose: 1.2 mg Colchicine (Colcrys) 0.6 mg PO ONETIME ONE Stop: 06/23/19 15:01 Last Admin: 06/23/19 15:32 Dose: 0.6 mg Furosemide (Lasix) 40 mg IVPUSH NOW ONE Stop: 06/22/19 04:08 Last Admin: 06/22/19 04:13 Dose: 40 mg Furosemide (Lasix) 40 mg IVPUSH NOW ONE Stop: 06/22/19 04:20 Last Admin: 06/22/19 04:25 Dose: 40 mg Furosemide (Lasix) 40 mg PO DAILY [facility] Furosemide (Lasix) 40 mg PO ONETIME ONE Stop: 06/27/19 09:47 Last Admin: 06/27/19 10:00 Dose: 40 mg Glipizide (Glucotrol) 15 mg PO BID [facility] Glipizide (Glucotrol) 5 mg PO BID [facility] Last Admin: 06/26/19 20:14 Dose: 5 mg Heparin Sodium (Porcine) (Heparin Sodium) 5,000 units IVPUSH .BOLUS ONE; Protocol Stop: 06/22/19 08:16 Last Admin: 06/22/19 08:41 Dose: 5,000 units Heparin Sodium (Porcine) (Heparin Sodium) 1,500 units IVPUSH .BOLUS ONE Stop: 06/22/19 15:08 Last Admin: 06/22/19 15:19 Dose: 1,500 units Hydrochlorothiazide (Hydrochlorothiazide) 12.5 mg PO BEDTIME JEN Last Admin: 06/24/19 20:34 Dose: 12.5 mg Heparin Sodium/Dextrose (Heparin 25,000 Units In D5w 500 Ml) 25,000 units in 500 mls @ 26 mls/hr IV TITRATE JEN; Protocol Last Admin: 06/24/19 01:45 Dose: 1,970 units/hr, 39.4 mls/hr Furosemide 100 mg/ Sodium (Chloride) 100 mls @ 10 mls/hr IV TITRATE JEN; Protocol Last Infusion: 06/24/19 04:00 Dose: 7 mls/hr Potassium Chloride 10 meq/ (Premix) 100 mls @ 100 mls/hr IV Q1H JEN Stop: 06/23/19 02:29 Last Admin: 06/23/19 04:58 Dose: 50 mls/hr Sodium Chloride (Normal Saline) 500 mls @ 25 mls/hr IV .BOLUS PRN PRN Reason: IV Use Last Admin: 06/22/19 23:14 Dose: 25 mls/hr Azithromycin 500 mg/ Sodium (Chloride) 250 mls @ 250 mls/hr IV ONETIME ONE Stop: 06/27/19 16:59 Last Admin: 06/27/19 15:34 Dose: 250 mls/hr Insulin Glargine (Lantus) 15 unit SUBCUT QPM JEN Insulin Glargine (Lantus) 15 unit SUBCUT BEDTIME JEN Insulin Glargine (Lantus) 12 unit SUBCUT BEDTIME JEN Last Admin: 06/23/19 20:42 Dose: 12 units Insulin Glargine (Lantus) 22 unit SUBCUT BEDTIME JEN Multivitamins (Thera) 1 each PO DAILY JEN Last Admin: 06/27/19 10:00 Dose: 1 each Pantoprazole Sodium (Protonix Iv) 40 mg IVPUSH BEDTIME JEN Stop: 06/24/19 21:01 Last Admin: 06/24/19 20:34 Dose: 40 mg Potassium Chloride (Klor-Con M20) 40 meq PO ONETIME ONE Stop: 06/23/19 10:35 Last Admin: 06/23/19 10:44 Dose: 40 meq Potassium Chloride (Klor-Con M20) 60 meq PO ONETIME ONE Stop: 06/27/19 07:02 Last Admin: 06/27/19 10:04 Dose: 60 meq Prednisone (Prednisone) 40 mg PO WITHBREAKFAST EJN Prednisone (Prednisone) 40 mg PO WITHLUNCH JEN Stop: 06/24/19 11:01 Prednisone (Prednisone) 20 mg PO WITHLUNCH JEN Stop: 06/24/19 11:01 Last Admin: 06/24/19 16:46 Dose: Not Given Prednisone (Prednisone) 20 mg PO WITHBREAKFAST JEN Stop: 06/25/19 12:00 Last Admin: 06/25/19 12:35 Dose: 20 mg Prednisone (Prednisone) 20 mg PO 1700 JEN Stop: 06/24/19 17:01 Prednisone (Prednisone) 20 mg PO 1800 ONE Stop: 06/24/19 18:01 Last Admin: 06/24/19 17:47 Dose: 20 mg - Exam Quality Assessment: Supplemental Oxygen General: Alert, Oriented HEENT: Pupils Equal, Pupils Reactive, EOMI, Mucous Membr. Moist/[place] Neck: Supple Lungs: Normal Respiratory Effort, Decreased Breath Sounds, Crackles. No: Clear to Auscultation Cardiovascular: Regular Rate, Regular Rhythm GI/Abdominal Exam: Normal Bowel Sounds, Soft, Non-Tender, No Organomegaly, No Distention, No Abnormal Bruit, No Mass, Pelvis Stable (Male) Exam: No Hernia, Normal Inspection, Normal Prostate, Circumcised Back Exam: Normal Inspection, Full Range of Motion Extremities: Normal Inspection, Normal Range of Motion, Non-Tender, No Pedal Edema, Normal Capillary Refill Skin: Warm, Dry, Intact Wound/Incisions: Healing Well Neurological: No New Focal Deficit Psy/Mental Status: Alert, Normal Affect, Normal Mood - Problem List & Annotations (1) CHF exacerbation SNOMED Code(s): 565669440, 56712068167297 Code(s): I50.9 - HEART FAILURE, UNSPECIFIED Status: Acute Current Visit: Yes Qualifiers: Heart failure type: combined systolic and diastolic Qualified Code(s): I50.43 - Acute on chronic combined systolic (congestive) and diastolic ( congestive) heart failure (2) Chronic renal insufficiency SNOMED Code(s): 599745662 Code(s): N18.9 - CHRONIC KIDNEY DISEASE, UNSPECIFIED Status: Acute Priority: Medium Current Visit: Yes Onset Date: 06/26/19 Qualifiers: Chronic kidney disease stage: stage 3 (moderate) Qualified Code(s): N18.3 - Chronic kidney disease, stage 3 (moderate) (3) Atrial fibrillation SNOMED Code(s): 40425937 Code(s): I48.91 - UNSPECIFIED ATRIAL FIBRILLATION Status: Acute Priority : Medium Current Visit: Yes Qualifiers: Atrial fibrillation type: chronic Qualified Code(s): I48.2 - Chronic atrial fibrillation (4) Hypoglycemia SNOMED Code(s): 830554706 Code(s): E16.2 - HYPOGLYCEMIA, UNSPECIFIED Status: Acute Priority: Low Current Visit: No (5) Hypoglycemia associated with type 2 diabetes mellitus SNOMED Code(s): 452461107, 783040210 Code(s): E11.649 - TYPE 2 DIABETES MELLITUS WITH HYPOGLYCEMIA WITHOUT COMA Status: Acute Priority: Low Current Visit: No Onset Date: 06/27/19 - Problem List Review Problem List Initiated/Reviewed/Updated: Yes - My Orders Last 24 Hours: My Active Orders 06/27/19 15:30 Cefepime [Maxipime in D5W 2 GM/50 ML] 2 gm Premix Bag 1 bag IV Q24H 06/27/19 16:06 Albuterol/Ipratropium [DuoNeb 3.0-0.5 MG/3 ML] 3 ml NEB Q6HRRT PRN 06/27/19 16:09 RT Aerosol Therapy [RC] ASDIRECTED 06/28/19 05:30 FOLATE, RBC [REF] Routine 06/28/19 09:00 Vit with Ca/FA/Iron [ Plus Iron] 1 each PO DAILY 06/28/19 12:29 Admission Status [Patient Status] [ADT] Routine 06/28/19 16:00 Azithromycin [Zithromax] 250 mg Sodium Chloride 0.9% [Normal Saline] 250 ml IV Q24H - Plan Plan:: Assessment * Acute on chronic heart failure - presenting probe BNP 18,887: home Lasix 80 mg twice a day; BNP 18,887-->16,687-->12508. Discontinue lasix gtt; Hold scheduled Lasix 40 mg po daily and HCTZ 12.5 mg po due to increased in Cr level. 2D echo report shows Ischemic Cardiomyopathy with an EF of 30% * Atrial fibrillation with RVR: HR is controlled, home medications include Coreg 25 mg twice a day and nifedipine ER 60 mg daily. Eliquis for stroke prophylaxis starting this evening * Presumptive PE 2/2 Elevated D-dimer - Unable to do CTA due to renal insufficiency. VQ scan report read as multiple matched defects but indeterminate (inconclusive) probability of PE. Duplex LE U/S shows negative for DVT. We went over what this means to patient and and we agreed to best treat him with presumptive PE. They agreed. 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 Hold oral dose of lasix and hctz * Acute Gout- wrist pain right ulnar aspect, resolved. Has hx/o it in the past; Uric Acid 7.8. Currently on Colchicine and Prednisone. Last dose of oral steroid and continue Allopurinol 100 mg po QHS for maintenance medications * NTSEMI- already on Heparin drip since 06/22/2019. Continue ASA 81 mg po QHS, Carvedilol 25 mg po BID, and Zocor 20 mg po QHS. AHA diet * Normocytic and Hypochromic Anemia, Hgb of 9.7, Stable * Impaired Hearing, Poor historian making history difficult * Diabetes mellitus on Lantus and Glucotrol but lower dose. BS is controlled. * Aspiration Syndrome- has had wet cough, sputum cx pending and CRX shows consolidation on right base. Afebrile without leukocytosis. IS as directed and RAIL ENGINEER eval for swallow. Aspiration precautions and continue H2B. * Ischemic Cardiomyopathy- , Carvedilol, and Simvastatin. He will on lasix but will hold it for now. Follow up with cardiology after discharge * History of hypertension, hyperlipidemia, hypothyroidism, depression, BPH, CKD IV, GERD, anemia on vitamin B12 Plan * He remains clinically stable but weak * Guaifenesin/Dextromethorphan PRN plus IS as directed * Sputum Cx pending * 1800 ml fluid restrictions * [id number] - 6.7 % (high risk); HAS-Bled Score 3- 4.9-19.6 % risk of bled on OAC (high risk) * Strict I's and O's and daily weights with Bradford catheter * CBC, CMP, BNP, Magnesium daily * Titrate to come off supplemental O2 * PT/OT to assess and evaluation * Encouraged to do more PT/OT activities * Recommend SNF/Rehab due to generalized weakness * Additional orders as above * CODE STATUS: Full code. * Prognosis is guarded-good * LOS > 96hrs pending placement to SNF/Rehab. Met up with and daughter at bedside, updated them about his clinical progress, 2cho report results, expected treatment, local company intermodal truck driver prognosis and discharge care plan. SW/CM will meet up with them for discussions of SNF/Rehab placement. 06/27/2019 Assessment: Shortness of breath when talking Having a couch with sputum Diminished sounds on right side of lungs Crackle at bilateral bases of lungs Skin is pallor Having 3+ edema in legs Elevated d-dimer On Eliquis Labs ordered and pending review Plan: Remaining stable but weak Discontinue prednisone Continue Colchicine for 3-5 days Lasix 40-60 MG PO daily Start antibiotics Cefepime and Zithromax for pneumonia and atelectasis 06/28/19 cont antibiotics cont elaquis cont diuresis attempts but appears stable cont nebs a nd cpt. cont colchacine . denies joint pain this am and walked to b.r and in room . balance ad strength eval. boh
[2019-06-28] MEDS: Azithromycin 250 MG in Sodium Chloride 0.9% 250 ML IV SCH (16:40)
[2019-06-28] MEDS: Allopurinol 100 MG Tab PO SCH (20:20)
[2019-06-28] MEDS: Simvastatin 20 MG Tab PO SCH (20:20)
[2019-06-28] MEDS: Aspirin 81 MG Tab.Chew PO SCH (20:21)
[2019-06-28] MEDS: Famotidine 20 MG Tab PO SCH (20:21)
[2019-06-28] MEDS: Insulin Glarg,Human.Rec.Analog 100 UNIT/ML ML SUBCUT SCH (20:28)
[2019-06-29] MEDS: Levothyroxine 100 MCG Tab PO SCH (06:36)
[2019-06-29] MEDS: Insulin Lispro 100 Units/ML 3 ML Vial SUBCUT SCH ×4 (06:45→22:31)
[2019-06-29] MEDS: Prenatal Multivitamin with Calcium/Folic Acid/Iron Tab PO SCH (08:38)
[2019-06-29] MEDS: Sertraline 25 MG Tab PO SCH (08:38)
[2019-06-29] MEDS: Finasteride 5 MG Tab PO SCH (08:38)
[2019-06-29] MEDS: Doxazosin 4 MG Tab PO SCH (08:39)
[2019-06-29] MEDS: Carvedilol 12.5 MG Tab PO SCH ×2 (08:39→22:26)
[2019-06-29] MEDS: Apixaban 5 MG Tab PO SCH ×2 (08:39→17:26)
[2019-06-29] MEDS: NIFEdipine 30 MG Tab.ER PO SCH (08:39)
[2019-06-29] MEDS: Furosemide 40 MG Tab PO SCH (08:39)
[2019-06-29] MEDS: Albuterol/Ipratropium 3.0-0.5 MG/3 ML Neb Soln NEB PRN (08:59)
[2019-06-29] MEDS ORDERED: Magnesium Hydroxide 400 MG/5 ML Susp 30 ML Cup PO ONE (14:01)
[2019-06-29] MEDS: Cefepime 2 GM in Premix Bag 1 BAG IV SCH (15:25)
[2019-06-29] MEDS: Azithromycin 250 MG in Sodium Chloride 0.9% 250 ML IV SCH (16:26)
--- NOTE | 2019-06-29 16:53 | PCM.PN ---
- General Info Date of Service: 06/29/19 Admission Dx/Problem (Free Text): Admission Diagnosis/Problem Admission Diagnosis/Problem Congestive heart failure Shortness of breath when talking Having a couch with sputum Diminished sounds on right side of lungs Crackle at bilateral bases of lungs Skin is pallor Having 3+ edema in legs Labs ordered and pending review Subjective Update: He had an uneventful night. He no acute issues or concerns. 06/28/19 transferred to med surg. o2 still on and telemetry report normal i/os good . eating . p.e. alert but not very oriented . lungs clear and decreased few ronchi decreased rt base cor rrr with kassy 2 6 no s3/s4 abd benign legs decreased edema 2/3 plus no calve tenderness dementia unchanged but conversive and pleasant today . moves all extremities . assess. ischemic cardiomyopathy. stable but little forward progress diuresisng . weight decreased form e.r. o2 weaning to 2 liters only . nutrition poor. pneumonia equivocal and better air movement . copd on nebs and cpt and air exchange better attempt to wean switch to po. meds and stablilize diuresis . recheck creatinine . 06/29/19 afebrile/ vss/ i/o balanced/ weight stable o2 .5 liters n.c. p.e decreased bs rt mild no further wheezing / no rales today no ronchii rest legs 2 plus edema . able to stand and walk 25 feet without desating on 2 liters n.c. lab pending chest xray in am . assess 1) pneumonia day 4 cefepime . doing well . 2)chf improved and cont current meds repeat bmp/cbc/ crp. chest xray nt bnp in am 3)anemia stable 4) crf stable and recheck labs in am . nh placemnt reviewed with family and patient and agreeable . for strengthening . 5) copd stable cont nebs add long acting steriod /beta/ anticholinergic. boh Functional Status: Reports: Pain Controlled - Review of Systems General: Reports: No Symptoms, Weakness, Fatigue HEENT: Reports: No Symptoms Pulmonary: Reports: No Symptoms, Shortness of Breath Cardiovascular: Reports: No Symptoms Gastrointestinal: Reports: No Symptoms Genitourinary: Reports: No Symptoms Musculoskeletal: Reports: No Symptoms Skin: Reports: No Symptoms Neurological: Reports: No Symptoms Psychiatric: Reports: No Symptoms - Patient Data Vitals - Most Recent: Last Vital Signs Temp 36.5 C 06/29/19 15:23 Pulse 68 06/29/19 15:23 Resp 22 H 06/29/19 15:23 BP 149/67 H 06/29/19 15:23 Pulse Ox 92 L 06/29/19 15:23 Weight - Most Recent: 106.231 kg I&O - Last 24 Hours: Intake & Output 06/29/19 06/29/19 06/29/19 06:59 14:59 22:59 Intake Total 200 240 350 Output Total 575 1100 Balance -375 240 -750 Lab Results Last 24 Hours: Laboratory Results - last 24 hr 06/28/19 06/29/19 06/29/19 Range/Units 20:23 06:44 11:32 POC Glucose 169 H 109 196 H (83-110) mg/dL [place] Results Last 24 Hours: Microbiology 06/22/19 03:40 Aerobic Blood Culture - Final Blood - Venous - Lab Draw NO GROWTH AFTER 7 DAYS Anaerobic Blood Culture - Final NO GROWTH AFTER 7 DAYS 06/22/19 03:30 Aerobic Blood Culture - Final Blood - Venous NO GROWTH AFTER 7 DAYS Anaerobic Blood Culture - Final NO GROWTH AFTER 7 DAYS Med Orders - Current: Current Medications Acetaminophen (Tylenol) 650 mg PO Q4H PRN PRN Reason: Pain (Mild 1-3)/fever Hydrocodone Bitart/Acetaminophen ([place] 325-10 Mg) 1 tab PO Q4H PRN PRN Reason: Pain (moderate 4-6) Last Admin: 06/23/19 15:30 Dose: 1 tab Albuterol/Ipratropium (Duoneb 3.0-0.5 Mg/3 Ml) 3 ml NEB Q6HRRT PRN PRN Reason: Shortness of Breath Last Admin: 06/29/19 08:59 Dose: 3 ml Allopurinol (Zyloprim) 100 mg PO BEDTIME JEN Last Admin: 06/28/19 20:20 Dose: 100 mg Apixaban (Eliquis) 10 mg PO BID@0900,1800 JEN Stop: 07/01/19 09:01 Last Admin: 06/29/19 08:39 Dose: 10 mg Apixaban (Eliquis) 5 mg PO BID@0900,1800 JEN Aspirin (Aspirin) 81 mg PO BEDTIME JEN Last Admin: 06/28/19 20:21 Dose: 81 mg Carvedilol (Coreg) 25 mg PO BID [facility] Last Admin: 06/29/19 08:39 Dose: 25 mg Doxazosin Mesylate (Cardura) 8 mg PO DAILY [facility] Last Admin: 06/29/19 08:39 Dose: 8 mg Famotidine (Pepcid) 20 mg PO BEDTIME [facility] Last Admin: 06/28/19 20:21 Dose: 20 mg Finasteride (Proscar) 5 mg PO DAILY [facility] Last Admin: 06/29/19 08:38 Dose: 5 mg Furosemide (Lasix) 40 mg PO DAILY [facility] Last Admin: 06/29/19 08:39 Dose: 40 mg Guaifenesin/Phenylephrine HCl (Robitussin Dm) 5 ml PO Q4H PRN PRN Reason: Cough Last Admin: 06/26/19 20:14 Dose: 5 ml Cefepime HCl 2 gm/ Premix 50 mls @ 100 mls/hr IV Q24H [facility] Last Admin: 06/29/19 15:25 Dose: 100 mls/hr Azithromycin 250 mg/ Sodium (Chloride) 250 mls @ 250 mls/hr IV Q24H [facility] Last Admin: 06/29/19 16:26 Dose: 250 mls/hr Insulin Glargine (Lantus) 15 unit SUBCUT BEDTIME [facility] Last Admin: 06/28/19 20:28 Dose: 15 units Insulin Human Lispro (Humalog) 0 unit SUBCUT QIDACANDBED [facility]; Protocol Last Admin: 06/29/19 12:28 Dose: Not Given Levothyroxine Sodium (Synthroid) 100 mcg PO DAILY@0600 [facility] Last Admin: 06/29/19 06:36 Dose: 100 mcg Nifedipine (Procardia Xl) 60 mg PO DAILY [facility] Last Admin: 06/29/19 08:39 Dose: 60 mg Prenat Multivit/[place]/Iron/Folic Ac ( Plus Iron) 1 each PO DAILY [facility] Last Admin: 06/29/19 08:38 Dose: 1 each Sertraline HCl (Zoloft) 25 mg PO DAILY [facility] Last Admin: 06/29/19 08:38 Dose: 25 mg Simvastatin (Zocor) 20 mg PO BEDTIME [facility] Last Admin: 06/28/19 20:20 Dose: 20 mg Discontinued Medications Apixaban (Eliquis) 2.5 mg PO BID [facility] Apixaban (Eliquis) 10 mg PO ONETIME ONE Stop: 06/24/19 17:01 Colchicine (Colcrys) 1.2 mg PO ONETIME ONE Stop: 06/23/19 11:32 Last Admin: 06/23/19 11:42 Dose: 1.2 mg Colchicine (Colcrys) 0.6 mg PO ONETIME ONE Stop: 06/23/19 15:01 Last Admin: 06/23/19 15:32 Dose: 0.6 mg Furosemide (Lasix) 40 mg IVPUSH NOW ONE Stop: 06/22/19 04:08 Last Admin: 06/22/19 04:13 Dose: 40 mg Furosemide (Lasix) 40 mg IVPUSH NOW ONE Stop: 06/22/19 04:20 Last Admin: 06/22/19 04:25 Dose: 40 mg Furosemide (Lasix) 40 mg PO DAILY JEN Furosemide (Lasix) 40 mg PO ONETIME ONE Stop: 06/27/19 09:47 Last Admin: 06/27/19 10:00 Dose: 40 mg Glipizide (Glucotrol) 15 mg PO BID JEN Glipizide (Glucotrol) 5 mg PO BID JEN Last Admin: 06/26/19 20:14 Dose: 5 mg Heparin Sodium (Porcine) (Heparin Sodium) 5,000 units IVPUSH .BOLUS ONE; Protocol Stop: 06/22/19 08:16 Last Admin: 06/22/19 08:41 Dose: 5,000 units Heparin Sodium (Porcine) (Heparin Sodium) 1,500 units IVPUSH .BOLUS ONE Stop: 06/22/19 15:08 Last Admin: 06/22/19 15:19 Dose: 1,500 units Hydrochlorothiazide (Hydrochlorothiazide) 12.5 mg PO BEDTIME JEN Last Admin: 06/24/19 20:34 Dose: 12.5 mg Heparin Sodium/Dextrose (Heparin 25,000 Units In D5w 500 Ml) 25,000 units in 500 mls @ 26 mls/hr IV TITRATE JEN; Protocol Last Admin: 06/24/19 01:45 Dose: 1,970 units/hr, 39.4 mls/hr Furosemide 100 mg/ Sodium (Chloride) 100 mls @ 10 mls/hr IV TITRATE JEN; Protocol Last Infusion: 06/24/19 04:00 Dose: 7 mls/hr Potassium Chloride 10 meq/ (Premix) 100 mls @ 100 mls/hr IV Q1H JEN Stop: 06/23/19 02:29 Last Admin: 06/23/19 04:58 Dose: 50 mls/hr Sodium Chloride (Normal Saline) 500 mls @ 25 mls/hr IV .BOLUS PRN PRN Reason: IV Use Last Admin: 06/22/19 23:14 Dose: 25 mls/hr Azithromycin 500 mg/ Sodium (Chloride) 250 mls @ 250 mls/hr IV ONETIME ONE Stop: 06/27/19 16:59 Last Admin: 06/27/19 15:34 Dose: 250 mls/hr Insulin Glargine (Lantus) 15 unit SUBCUT QPM JEN Insulin Glargine (Lantus) 15 unit SUBCUT BEDTIME JEN Insulin Glargine (Lantus) 12 unit SUBCUT BEDTIME JEN Last Admin: 06/23/19 20:42 Dose: 12 units Insulin Glargine (Lantus) 22 unit SUBCUT BEDTIME JEN Magnesium Hydroxide (Milk Of Magnesia) 30 ml PO ONETIME ONE Stop: 06/29/19 14:02 Last Admin: 06/29/19 15:24 Dose: 30 ml Multivitamins (Thera) 1 each PO DAILY JEN Last Admin: 06/27/19 10:00 Dose: 1 each Pantoprazole Sodium (Protonix Iv) 40 mg IVPUSH BEDTIME JEN Stop: 06/24/19 21:01 Last Admin: 06/24/19 20:34 Dose: 40 mg Potassium Chloride (Klor-Con M20) 40 meq PO ONETIME ONE Stop: 06/23/19 10:35 Last Admin: 06/23/19 10:44 Dose: 40 meq Potassium Chloride (Klor-Con M20) 60 meq PO ONETIME ONE Stop: 06/27/19 07:02 Last Admin: 06/27/19 10:04 Dose: 60 meq Prednisone (Prednisone) 40 mg PO WITHBREAKFAST JEN Prednisone (Prednisone) 40 mg PO WITHLUNCH JEN Stop: 06/24/19 11:01 Prednisone (Prednisone) 20 mg PO WITHLUNCH JEN Stop: 06/24/19 11:01 Last Admin: 06/24/19 16:46 Dose: Not Given Prednisone (Prednisone) 20 mg PO WITHBREAKFAST JEN Stop: 06/25/19 12:00 Last Admin: 06/25/19 12:35 Dose: 20 mg Prednisone (Prednisone) 20 mg PO 1700 JEN Stop: 06/24/19 17:01 Prednisone (Prednisone) 20 mg PO 1800 ONE Stop: 06/24/19 18:01 Last Admin: 06/24/19 17:47 Dose: 20 mg Senna/Docusate Sodium (Senna Plus) 1 tab PO ONETIME ONE Stop: 06/29/19 14:02 Last Admin: 06/29/19 15:24 Dose: 1 tab - Exam Quality Assessment: Supplemental Oxygen General: Alert, Oriented HEENT: Pupils Equal, Pupils Reactive, EOMI, Mucous Membr. Moist/[place] Neck: Supple Lungs: Clear to Auscultation, Normal Respiratory Effort Cardiovascular: Regular Rate, Regular Rhythm GI/Abdominal Exam: Normal Bowel Sounds, Soft, Non-Tender, No Organomegaly, No Distention, No Abnormal Bruit, No Mass, Pelvis Stable (Male) Exam: No Hernia, Normal Inspection, Normal Prostate, Circumcised Back Exam: Normal Inspection, Full Range of Motion Extremities: Normal Inspection, Normal Range of Motion, Non-Tender, No Pedal Edema, Normal Capillary Refill Skin: Warm, Dry, Intact Wound/Incisions: Healing Well Neurological: No New Focal Deficit Psy/Mental Status: Alert, Normal Affect, Normal Mood - Problem List & Annotations (1) CHF exacerbation SNOMED Code(s): 806533194, 94550520141835 Code(s): I50.9 - HEART FAILURE, UNSPECIFIED Status: Acute Priority: High Current Visit: Yes Onset Date: 06/27/19 Qualifiers: Heart failure type: combined systolic and diastolic Qualified Code(s): I50.43 - Acute on chronic combined systolic (congestive) and diastolic ( congestive) heart failure (2) Chronic renal insufficiency SNOMED Code(s): 148108958 Code(s): N18.9 - CHRONIC KIDNEY DISEASE, UNSPECIFIED Status: Acute Priority: Medium Current Visit: Yes Onset Date: 06/26/19 Qualifiers: Chronic kidney disease stage: stage 3 (moderate) Qualified Code(s): N18.3 - Chronic kidney disease, stage 3 (moderate) (3) Atrial fibrillation SNOMED Code(s): 20425710 Code(s): I48.91 - UNSPECIFIED ATRIAL FIBRILLATION Status: Acute Priority : Medium Current Visit: Yes Onset Date: 06/26/19 Qualifiers: Atrial fibrillation type: chronic Qualified Code(s): I48.2 - Chronic atrial fibrillation (4) Hypoglycemia SNOMED Code(s): 950953150 Code(s): E16.2 - HYPOGLYCEMIA, UNSPECIFIED Status: Acute Priority: Low Current Visit: No Onset Date: 06/26/19 (5) Hypoglycemia associated with type 2 diabetes mellitus SNOMED Code(s): 084030333, 905339645 Code(s): E11.649 - TYPE 2 DIABETES MELLITUS WITH HYPOGLYCEMIA WITHOUT COMA Status: Acute Priority: Low Current Visit: No Onset Date: 06/27/19 (6) Pneumonia SNOMED Code(s): 813798421 Code(s): J18.9 - PNEUMONIA, UNSPECIFIED ORGANISM Status: Acute Priority: Medium Current Visit: Yes Onset Date: 06/27/19 Qualifiers: Pneumonia type: due to unspecified organism Laterality: right Lung location: unspecified part of lung Qualified Code(s): J18.9 - Pneumonia, unspecified organism - Problem List Review Problem List Initiated/Reviewed/Updated: Yes - My Orders Last 24 Hours: My Active Orders 06/28/19 16:00 Azithromycin [Zithromax] 250 mg Sodium Chloride 0.9% [Normal Saline] 250 ml IV Q24H 06/29/19 Lunch Fluid Restriction [DIET] - Assessment Assessment:: pneumonia improved subclinical chf improved. crf improved . anemia stable copd stable dc plans underway - Plan Plan:: Assessment * Acute on chronic heart failure - presenting probe BNP 18,887: home Lasix 80 mg twice a day; BNP 18,887-->16,687-->72353. Discontinue lasix gtt; Hold scheduled Lasix 40 mg po daily and HCTZ 12.5 mg po due to increased in Cr level. 2D echo report shows Ischemic Cardiomyopathy with an EF of 30% * Atrial fibrillation with RVR: HR is controlled, home medications include Coreg 25 mg twice a day and nifedipine ER 60 mg daily. Eliquis for stroke prophylaxis starting this evening * Presumptive PE 2/2 Elevated D-dimer - Unable to do CTA due to renal insufficiency. VQ scan report read as multiple matched defects but indeterminate (inconclusive) probability of PE. Duplex LE U/S shows negative for DVT. We went over what this means to patient and and we agreed to best treat him with presumptive PE. They agreed. 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 Hold oral dose of lasix and hctz * Acute Gout- wrist pain right ulnar aspect, resolved. Has hx/o it in the past; Uric Acid 7.8. Currently on Colchicine and Prednisone. Last dose of oral steroid and continue Allopurinol 100 mg po QHS for maintenance medications * NTSEMI- already on Heparin drip since 06/22/2019. Continue ASA 81 mg po QHS, Carvedilol 25 mg po BID, and Zocor 20 mg po QHS. AHA diet * Normocytic and Hypochromic Anemia, Hgb of 9.7, Stable * Impaired Hearing, Poor historian making history difficult * Diabetes mellitus on Lantus and Glucotrol but lower dose. BS is controlled. * Aspiration Syndrome- has had wet cough, sputum cx pending and CRX shows consolidation on right base. Afebrile without leukocytosis. IS as directed and ENTERTAINMENT USHER eval for swallow. Aspiration precautions and continue H2B. * Ischemic Cardiomyopathy- , Carvedilol, and Simvastatin. He will on lasix but will hold it for now. Follow up with cardiology after discharge * History of hypertension, hyperlipidemia, hypothyroidism, depression, BPH, CKD IV, GERD, anemia on vitamin B12 Plan * He remains clinically stable but weak * Guaifenesin/Dextromethorphan PRN plus IS as directed * Sputum Cx pending * 1800 ml fluid restrictions * [id number] - 6.7 % (high risk); HAS-Bled Score 3- 4.9-19.6 % risk of bled on OAC (high risk) * Strict I's and O's and daily weights with Bradford catheter * CBC, CMP, BNP, Magnesium daily * Titrate to come off supplemental O2 * PT/OT to assess and evaluation * Encouraged to do more PT/OT activities * Recommend SNF/Rehab due to generalized weakness * Additional orders as above * CODE STATUS: Full code. * Prognosis is guarded-good * LOS > 96hrs pending placement to SNF/Rehab. Met up with and daughter at bedside, updated them about his clinical progress, 2cho report results, expected treatment, buttermaker continuous churn prognosis and discharge care plan. SW/CM will meet up with them for discussions of SNF/Rehab placement. 06/27/2019 Assessment: Shortness of breath when talking Having a couch with sputum Diminished sounds on right side of lungs Crackle at bilateral bases of lungs Skin is pallor Having 3+ edema in legs Elevated d-dimer On Eliquis Labs ordered and pending review Plan: Remaining stable but weak Discontinue prednisone Continue Colchicine for 3-5 days Lasix 40-60 MG PO daily Start antibiotics Cefepime and Zithromax for pneumonia and atelectasis 06/28/19 cont antibiotics cont elaquis cont diuresis attempts but appears stable cont nebs a nd cpt. cont colchacine . denies joint pain this am and walked to b.r and in room . balance ad strength eval. boh
[2019-06-29] MEDS ORDERED: Furosemide 20 MG/2 ML VIAL IVPUSH ONE (22:05)
[2019-06-29] MEDS: Aspirin 81 MG Tab.Chew PO SCH (22:26)
[2019-06-29] MEDS: Simvastatin 20 MG Tab PO SCH (22:26)
[2019-06-29] MEDS: Spironolactone 25 MG Tab PO SCH (22:26)
[2019-06-29] MEDS: Famotidine 20 MG Tab PO SCH (22:26)
[2019-06-29] MEDS: Allopurinol 100 MG Tab PO SCH (22:27)
[2019-06-29] MEDS: Insulin Glarg,Human.Rec.Analog 100 UNIT/ML ML SUBCUT SCH (22:30)
[2019-06-30] MEDS: Levothyroxine 100 MCG Tab PO SCH (06:43)
[2019-06-30] MEDS: Insulin Lispro 100 Units/ML 3 ML Vial SUBCUT SCH ×4 (06:44→21:09)
[2019-06-30] MEDS: Spironolactone 25 MG Tab PO SCH (09:06)
[2019-06-30] MEDS: Carvedilol 12.5 MG Tab PO SCH ×2 (09:07→21:11)
[2019-06-30] MEDS: Apixaban 5 MG Tab PO SCH ×2 (09:11→17:17)
[2019-06-30] MEDS: NIFEdipine 30 MG Tab.ER PO SCH (09:13)
[2019-06-30] MEDS: Doxazosin 4 MG Tab PO SCH (09:14)
[2019-06-30] MEDS: Finasteride 5 MG Tab PO SCH (09:14)
[2019-06-30] MEDS: Prenatal Multivitamin with Calcium/Folic Acid/Iron Tab PO SCH (09:14)
[2019-06-30] MEDS: Sertraline 25 MG Tab PO SCH (09:15)
[2019-06-30] MEDS: Furosemide 40 MG Tab PO SCH (09:16)
[2019-06-30] MEDS: Albuterol/Ipratropium 3.0-0.5 MG/3 ML Neb Soln NEB PRN (09:19)
--- NOTE | 2019-06-30 09:28 | CR ---
Chest: Portable view of the chest was obtained. Comparison: Prior chest x-ray of 06/27/19. Heart is enlarged. Small right-sided pleural effusion is seen. Equivocal small left-sided pleural effusion is noted. Increased density within the right lung base is seen most likely representing atelectasis versus pneumonia. Pulmonary vessels are slightly congested. Impression: 1. Cardiomegaly with slight pulmonary vascular congestion. 2. Small bilateral pleural effusions and probable right lower lobe atelectasis versus pneumonia. Diagnostic code #3 I agree with preliminary report from [facility], finalized on 06/29/19, 7:35 PM Central Time
[2019-06-30] MEDS: Cefepime 2 GM in Premix Bag 1 BAG IV SCH ×2 (11:55→21:04)
--- NOTE | 2019-06-30 12:17 | PCM.PN ---
- General Info Date of Service: 06/30/19 Admission Dx/Problem (Free Text): Admission Diagnosis/Problem Admission Diagnosis/Problem Congestive heart failure Shortness of breath when talking Having a couch with sputum Diminished sounds on right side of lungs Crackle at bilateral bases of lungs Skin is pallor Having 3+ edema in legs Labs ordered and pending review Subjective Update: patient received Lasix 20 mg IV overnight. He did well and he is now off oxygen. Patient is on day 4 of antibiotic therapy and has a room at a [facility] facility available. Functional Status: Reports: Pain Controlled - Review of Systems General: Reports: No Symptoms HEENT: Reports: No Symptoms Pulmonary: Reports: No Symptoms Cardiovascular: Reports: No Symptoms Gastrointestinal: Reports: No Symptoms - Patient Data Vitals - Most Recent: Last Vital Signs Temp 98.1 F 06/30/19 08:43 Pulse 62 06/30/19 09:07 Resp 20 06/30/19 08:43 BP 138/100 H 06/30/19 09:14 Pulse Ox 93 L 06/30/19 09:20 Weight - Most Recent: 228 lb 5 oz I&O - Last 24 Hours: Intake & Output 06/29/19 06/30/19 06/30/19 22:59 06:59 14:59 Intake Total 350 240 120 Output Total 1100 850 Balance -750 -610 120 Lab Results Last 24 Hours: Laboratory Results - last 24 hr 06/29/19 06/29/19 06/29/19 Range/Units 17:11 18:21 18:21 WBC 8.85 (4.23-9.07) K/mm3 RBC 3.89 L (4.63-6.08) M/mm3 Hgb 11.1 L (13.7-17.5) gm/L Hct 35.0 L (40.1-51.0) % MCV 90.0 (79.0-92.2) fl MCH 28.5 (25.7-32.2) pg MCHC 31.7 L (32.2-35.5) g/dl RDW Std Deviation 43.9 (35.1-43.9) fL Plt Count 282 (163-337) K/mm3 MPV 9.9 (9.4-12.3) fl Neut % (Auto) 81.3 H (34.0-67.9) % Lymph % (Auto) 8.2 L (21.8-53.1) % [place] % (Auto) 8.4 (5.3-12.2) % Eos % (Auto) 1.4 (0.8-7.0) Baso % (Auto) 0.5 (0.1-1.2) % Neut # (Auto) 7.20 H (1.78-5.38) K/mm3 Lymph # (Auto) 0.73 L (1.32-3.57) K/mm3 [place] # (Auto) 0.74 (0.30-0.82) K/mm3 Eos # (Auto) 0.12 (0.04-0.54) K/mm3 Baso # (Auto) 0.04 (0.01-0.08) K/mm3 Manual Slide Review Normal smear Sodium 144 (136-145) mEq/L Potassium 3.7 (3.5-5.1) mEq/L Chloride 106 (98-107) mEq/L Carbon Dioxide 33 H (21-32) mEq/L Anion Gap 8.7 (5-15) BUN 39 H (7-18) mg/dL Creatinine 2.3 H (0.7-1.3) mg/dL Est Cr Clr Drug Dosing 25.30 mL/min Estimated GFR (MDRD) 27 (>60) mL/min BUN/Creatinine Ratio 17.0 (14-18) Glucose 228 H (83-115) mg/dL POC Glucose 203 H (83-110) mg/dL Calcium 9.2 (8.5-10.1) mg/dL Total Bilirubin 0.6 (0.2-1.0) mg/dL AST 10 L (15-37) U/L ALT 17 (16-63) U/L Alkaline Phosphatase 66 (46-116) U/L C-Reactive Protein 3.4 H* (<1.0) mg/dL NT-Pro-B Natriuret Pep (0-450) pg/mL Total Protein 6.9 (6.4-8.2) g/dl Albumin 2.9 L (3.4-5.0) g/dl Globulin 4.0 gm/dL Albumin/Globulin Ratio 0.7 L (1-2) 06/29/19 06/29/19 06/30/19 Range/Units 18:21 21:39 05:07 WBC (4.23-9.07) K/mm3 RBC (4.63-6.08) M/mm3 Hgb (13.7-17.5) gm/L Hct (40.1-51.0) % MCV (79.0-92.2) fl MCH (25.7-32.2) pg MCHC (32.2-35.5) g/dl RDW Std Deviation (35.1-43.9) fL Plt Count (163-337) K/mm3 MPV (9.4-12.3) fl Neut % (Auto) (34.0-67.9) % Lymph % (Auto) (21.8-53.1) % [place] % (Auto) (5.3-12.2) % Eos % (Auto) (0.8-7.0) Baso % (Auto) (0.1-1.2) % Neut # (Auto) (1.78-5.38) K/mm3 Lymph # (Auto) (1.32-3.57) K/mm3 [place] # (Auto) (0.30-0.82) K/mm3 Eos # (Auto) (0.04-0.54) K/mm3 Baso # (Auto) (0.01-0.08) K/mm3 Manual Slide Review Sodium 145 (136-145) mEq/L Potassium 3.5 (3.5-5.1) mEq/L Chloride 104 (98-107) mEq/L Carbon Dioxide 30 (21-32) mEq/L Anion Gap 14.5 (5-15) BUN 35 H (7-18) mg/dL Creatinine 2.2 H (0.7-1.3) mg/dL Est Cr Clr Drug Dosing 26.45 mL/min Estimated GFR (MDRD) 29 (>60) mL/min BUN/Creatinine Ratio 15.9 (14-18) Glucose 131 H (83-115) mg/dL POC Glucose 178 H (83-110) mg/dL Calcium 8.8 (8.5-10.1) mg/dL Total Bilirubin (0.2-1.0) mg/dL AST (15-37) U/L ALT (16-63) U/L Alkaline Phosphatase (46-116) U/L C-Reactive Protein (<1.0) mg/dL NT-Pro-B Natriuret Pep 67136 H (0-450) pg/mL Total Protein (6.4-8.2) g/dl Albumin (3.4-5.0) g/dl Globulin gm/dL Albumin/Globulin Ratio (1-2) 06/30/19 06/30/19 Range/Units 06:42 11:33 WBC (4.23-9.07) K/mm3 RBC (4.63-6.08) M/mm3 Hgb (13.7-17.5) gm/L Hct (40.1-51.0) % MCV (79.0-92.2) fl MCH (25.7-32.2) pg MCHC (32.2-35.5) g/dl RDW Std Deviation (35.1-43.9) fL Plt Count (163-337) K/mm3 MPV (9.4-12.3) fl Neut % (Auto) (34.0-67.9) % Lymph % (Auto) (21.8-53.1) % [place] % (Auto) (5.3-12.2) % Eos % (Auto) (0.8-7.0) Baso % (Auto) (0.1-1.2) % Neut # (Auto) (1.78-5.38) K/mm3 Lymph # (Auto) (1.32-3.57) K/mm3 [place] # (Auto) (0.30-0.82) K/mm3 Eos # (Auto) (0.04-0.54) K/mm3 Baso # (Auto) (0.01-0.08) K/mm3 Manual Slide Review Sodium (136-145) mEq/L Potassium (3.5-5.1) mEq/L Chloride (98-107) mEq/L Carbon Dioxide (21-32) mEq/L Anion Gap (5-15) BUN (7-18) mg/dL Creatinine (0.7-1.3) mg/dL Est Cr Clr Drug Dosing mL/min Estimated GFR (MDRD) (>60) mL/min BUN/Creatinine Ratio (14-18) Glucose (83-115) mg/dL POC Glucose 132 H 204 H (83-110) mg/dL Calcium (8.5-10.1) mg/dL Total Bilirubin (0.2-1.0) mg/dL AST (15-37) U/L ALT (16-63) U/L Alkaline Phosphatase (46-116) U/L C-Reactive Protein (<1.0) mg/dL NT-Pro-B Natriuret Pep (0-450) pg/mL Total Protein (6.4-8.2) g/dl Albumin (3.4-5.0) g/dl Globulin gm/dL Albumin/Globulin Ratio (1-2) Med Orders - Current: Current Medications Acetaminophen (Tylenol) 650 mg PO Q4H PRN PRN Reason: Pain (Mild 1-3)/fever Hydrocodone Bitart/Acetaminophen ([place] 325-10 Mg) 1 tab PO Q4H PRN PRN Reason: Pain (moderate 4-6) Last Admin: 06/23/19 15:30 Dose: 1 tab Albuterol/Ipratropium (Duoneb 3.0-0.5 Mg/3 Ml) 3 ml NEB Q6HRRT PRN PRN Reason: Shortness of Breath Last Admin: 06/30/19 09:19 Dose: 3 ml Allopurinol (Zyloprim) 100 mg PO BEDTIME [facility] Last Admin: 06/29/19 22:27 Dose: 100 mg Apixaban (Eliquis) 10 mg PO BID@0900,1800 [facility] Stop: 07/01/19 09:01 Last Admin: 06/30/19 09:11 Dose: 10 mg Apixaban (Eliquis) 5 mg PO BID@0900,1800 [facility] Aspirin (Aspirin) 81 mg PO BEDTIME [facility] Last Admin: 06/29/19 22:26 Dose: 81 mg Azithromycin (Zithromax) 250 mg PO Q24H [facility] Carvedilol (Coreg) 25 mg PO BID [facility] Last Admin: 06/30/19 09:07 Dose: 25 mg Doxazosin Mesylate (Cardura) 8 mg PO DAILY [facility] Last Admin: 06/30/19 09:14 Dose: 8 mg Famotidine (Pepcid) 20 mg PO BEDTIME [facility] Last Admin: 06/29/19 22:26 Dose: 20 mg Finasteride (Proscar) 5 mg PO DAILY [facility] Last Admin: 06/30/19 09:14 Dose: 5 mg Furosemide (Lasix) 40 mg PO DAILY [facility] Last Admin: 06/30/19 09:16 Dose: 40 mg Guaifenesin/Phenylephrine HCl (Robitussin Dm) 5 ml PO Q4H PRN PRN Reason: Cough Last Admin: 06/26/19 20:14 Dose: 5 ml Cefepime HCl 2 gm/ Premix 50 mls @ 100 mls/hr IV Q12H [facility] Last Admin: 06/30/19 11:55 Dose: 100 mls/hr Insulin Glargine (Lantus) 15 unit SUBCUT BEDTIME [facility] Last Admin: 06/29/19 22:30 Dose: 15 units Insulin Human Lispro (Humalog) 0 unit SUBCUT QIDACANDBED [facility]; Protocol Last Admin: 06/30/19 12:01 Dose: 4 units Levothyroxine Sodium (Synthroid) 100 mcg PO DAILY@0600 [facility] Last Admin: 06/30/19 06:43 Dose: 100 mcg Nifedipine (Procardia Xl) 60 mg PO DAILY [facility] Last Admin: 06/30/19 09:13 Dose: 60 mg Prenat Multivit/[place]/Iron/Folic Ac ( Plus Iron) 1 each PO DAILY [facility] Last Admin: 06/30/19 09:14 Dose: 1 each Sertraline HCl (Zoloft) 25 mg PO DAILY [facility] Last Admin: 06/30/19 09:15 Dose: 25 mg Simvastatin (Zocor) 20 mg PO BEDTIME [facility] Last Admin: 06/29/19 22:26 Dose: 20 mg Spironolactone (Aldactone) 50 mg PO DAILY [facility] Last Admin: 06/30/19 09:06 Dose: 50 mg Discontinued Medications Apixaban (Eliquis) 2.5 mg PO BID [facility] Apixaban (Eliquis) 10 mg PO ONETIME ONE Stop: 06/24/19 17:01 Colchicine (Colcrys) 1.2 mg PO ONETIME ONE Stop: 06/23/19 11:32 Last Admin: 06/23/19 11:42 Dose: 1.2 mg Colchicine (Colcrys) 0.6 mg PO ONETIME ONE Stop: 06/23/19 15:01 Last Admin: 06/23/19 15:32 Dose: 0.6 mg Furosemide (Lasix) 40 mg IVPUSH NOW ONE Stop: 06/22/19 04:08 Last Admin: 06/22/19 04:13 Dose: 40 mg Furosemide (Lasix) 40 mg IVPUSH NOW ONE Stop: 06/22/19 04:20 Last Admin: 06/22/19 04:25 Dose: 40 mg Furosemide (Lasix) 40 mg PO DAILY [facility] Furosemide (Lasix) 40 mg PO ONETIME ONE Stop: 06/27/19 09:47 Last Admin: 06/27/19 10:00 Dose: 40 mg Furosemide (Lasix) 20 mg IVPUSH NOW ONE Stop: 06/29/19 22:06 Last Admin: 06/29/19 22:27 Dose: 20 mg Glipizide (Glucotrol) 15 mg PO BID [facility] Glipizide (Glucotrol) 5 mg PO BID [facility] Last Admin: 06/26/19 20:14 Dose: 5 mg Heparin Sodium (Porcine) (Heparin Sodium) 5,000 units IVPUSH .BOLUS ONE; Protocol Stop: 06/22/19 08:16 Last Admin: 06/22/19 08:41 Dose: 5,000 units Heparin Sodium (Porcine) (Heparin Sodium) 1,500 units IVPUSH .BOLUS ONE Stop: 06/22/19 15:08 Last Admin: 06/22/19 15:19 Dose: 1,500 units Hydrochlorothiazide (Hydrochlorothiazide) 12.5 mg PO BEDTIME [facility] Last Admin: 06/24/19 20:34 Dose: 12.5 mg Heparin Sodium/Dextrose (Heparin 25,000 Units In D5w 500 Ml) 25,000 units in 500 mls @ 26 mls/hr IV TITRATE [facility]; Protocol Last Admin: 06/24/19 01:45 Dose: 1,970 units/hr, 39.4 mls/hr Furosemide 100 mg/ Sodium (Chloride) 100 mls @ 10 mls/hr IV TITRATE [facility]EN; Protocol Last Infusion: 06/24/19 04:00 Dose: 7 mls/hr Potassium Chloride 10 meq/ (Premix) 100 mls @ 100 mls/hr IV Q1H [facility] Stop: 06/23/19 02:29 Last Admin: 06/23/19 04:58 Dose: 50 mls/hr Sodium Chloride (Normal Saline) 500 mls @ 25 mls/hr IV .BOLUS PRN PRN Reason: IV Use Last Admin: 06/22/19 23:14 Dose: 25 mls/hr Cefepime HCl 2 gm/ Premix 50 mls @ 100 mls/hr IV Q24H [facility] Last Admin: 06/29/19 15:25 Dose: 100 mls/hr Azithromycin 500 mg/ Sodium (Chloride) 250 mls @ 250 mls/hr IV ONETIME ONE Stop: 06/27/19 16:59 Last Admin: 06/27/19 15:34 Dose: 250 mls/hr Azithromycin 250 mg/ Sodium (Chloride) 250 mls @ 250 mls/hr IV Q24H [facility] Last Admin: 06/29/19 16:26 Dose: 250 mls/hr Insulin Glargine (Lantus) 15 unit SUBCUT QPM [facility] Insulin Glargine (Lantus) 15 unit SUBCUT BEDTIME [facility] Insulin Glargine (Lantus) 12 unit SUBCUT BEDTIME [facility] Last Admin: 06/23/19 20:42 Dose: 12 units Insulin Glargine (Lantus) 22 unit SUBCUT BEDTIME [facility] Magnesium Hydroxide (Milk Of Magnesia) 30 ml PO ONETIME ONE Stop: 06/29/19 14:02 Last Admin: 06/29/19 15:24 Dose: 30 ml Multivitamins (Thera) 1 each PO DAILY [facility] Last Admin: 06/27/19 10:00 Dose: 1 each Pantoprazole Sodium (Protonix Iv) 40 mg IVPUSH BEDTIME [facility] Stop: 06/24/19 21:01 Last Admin: 06/24/19 20:34 Dose: 40 mg Potassium Chloride (Klor-Con M20) 40 meq PO ONETIME ONE Stop: 06/23/19 10:35 Last Admin: 06/23/19 10:44 Dose: 40 meq Potassium Chloride (Klor-Con M20) 60 meq PO ONETIME ONE Stop: 06/27/19 07:02 Last Admin: 06/27/19 10:04 Dose: 60 meq Prednisone (Prednisone) 40 mg PO WITHBREAKFAST JEN Prednisone (Prednisone) 40 mg PO WITHLUNCH JEN Stop: 06/24/19 11:01 Prednisone (Prednisone) 20 mg PO WITHLUNCH JEN Stop: 06/24/19 11:01 Last Admin: 06/24/19 16:46 Dose: Not Given Prednisone (Prednisone) 20 mg PO WITHBREAKFAST JEN Stop: 06/25/19 12:00 Last Admin: 06/25/19 12:35 Dose: 20 mg Prednisone (Prednisone) 20 mg PO 1700 [facility] Stop: 06/24/19 17:01 Prednisone (Prednisone) 20 mg PO 1800 ONE Stop: 06/24/19 18:01 Last Admin: 06/24/19 17:47 Dose: 20 mg Senna/Docusate Sodium (Senna Plus) 1 tab PO ONETIME ONE Stop: 06/29/19 14:02 Last Admin: 06/29/19 15:24 Dose: 1 tab - Exam Quality Assessment: No: Supplemental Oxygen General: Alert, Oriented Neck: Supple Lungs: Normal Respiratory Effort, Decreased Breath Sounds, Crackles, Rales Cardiovascular: Regular Rate, Regular Rhythm Extremities: Non-Tender, Pedal Edema (3+ to the knees) Skin: Warm, Dry, Intact Psy/Mental Status: Alert, Normal Affect, Normal Mood - Problem List Review Problem List Initiated/Reviewed/Updated: Yes - My Orders Last 24 Hours: My Active Orders 06/30/19 14:00 Azithromycin [Zithromax] 250 mg PO Q24H - Assessment Assessment:: pneumonia improved subclinical chf improved. crf improved . anemia stable copd stable dc plans underway - Plan Plan:: Assessment * Acute on chronic heart failure - presenting probe BNP 18,887: home Lasix 80 mg twice a day; BNP 18,887-->16,687-->36838. Discontinue lasix gtt; Hold scheduled Lasix 40 mg po daily and HCTZ 12.5 mg po due to increased in Cr level. 2D echo report shows Ischemic Cardiomyopathy with an EF of 30% * Atrial fibrillation with RVR: HR is controlled, home medications include Coreg 25 mg twice a day and nifedipine ER 60 mg daily. Eliquis for stroke prophylaxis starting this evening * Presumptive PE 2/2 Elevated D-dimer - Unable to do CTA due to renal insufficiency. VQ scan report read as multiple matched defects but indeterminate (inconclusive) probability of PE. Duplex LE U/S shows negative for DVT. We went over what this means to patient and and we agreed to best treat him with presumptive PE. They agreed. 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 Hold oral dose of lasix and hctz * Acute Gout- wrist pain right ulnar aspect, resolved. Has hx/o it in the past; Uric Acid 7.8. Currently on Colchicine and Prednisone. Last dose of oral steroid and continue Allopurinol 100 mg po QHS for maintenance medications * NTSEMI- already on Heparin drip since 06/22/2019. Continue ASA 81 mg po QHS, Carvedilol 25 mg po BID, and Zocor 20 mg po QHS. AHA diet * Normocytic and Hypochromic Anemia, Hgb of 9.7, Stable * Impaired Hearing, Poor historian making history difficult * Diabetes mellitus on Lantus and Glucotrol but lower dose. BS is controlled. * Aspiration Syndrome- has had wet cough, sputum cx pending and CRX shows consolidation on right base. Afebrile without leukocytosis. IS as directed and [employer] eval for swallow. Aspiration precautions and continue H2B. * Ischemic Cardiomyopathy- , Carvedilol, and Simvastatin. He will on lasix but will hold it for now. Follow up with cardiology after discharge * History of hypertension, hyperlipidemia, hypothyroidism, depression, BPH, CKD IV, GERD, anemia on vitamin B12 Plan * He remains clinically stable * Guaifenesin/Dextromethorphan PRN plus IS as directed * Sputum shows Pseudomonas and pneumococcal pneumonia sensitive to cefepime on day 4; patient will finish 5 day course and be discharged * 1800 ml fluid restrictions * [id number] - 6.7 % (high risk); HAS-Bled Score 3- 4.9-19.6 % risk of bled on OAC (high risk) * Strict I's and O's and daily weights * CBC, CMP, BNP, Magnesium daily * Encouraged to do more PT/OT activities * Recommend SNF/Rehab due to generalized weakness; placement at [facility] * Additional orders as above * CODE STATUS: Full code. * Prognosis is guarded-good * LOS > 96hrs pending placement to SNF/Rehab. Met up with and daughter at bedside, updated them about his clinical progress, 2cho report results, expected treatment, custodial prognosis and discharge care plan. SW/CM will meet up with them for discussions of SNF/Rehab placement.
[2019-06-30] MEDS ORDERED: Potassium Chloride 20 MEQ Tab.ER PO ONE ×2 (12:20→14:30)
[2019-06-30] MEDS ORDERED: Azithromycin 250 MG Tab PO SCH (14:00)
[2019-06-30] MEDS ORDERED: Furosemide 40 MG Tab PO SCH (15:00)
[2019-06-30] MEDS: Insulin Glarg,Human.Rec.Analog 100 UNIT/ML ML SUBCUT SCH (21:08)
[2019-06-30] MEDS: Famotidine 20 MG Tab PO SCH (21:11)
[2019-06-30] MEDS: Allopurinol 100 MG Tab PO SCH (21:11)
[2019-06-30] MEDS: Simvastatin 20 MG Tab PO SCH (21:11)
[2019-06-30] MEDS: Aspirin 81 MG Tab.Chew PO SCH (21:12)
[2019-07-01] MEDS: Levothyroxine 100 MCG Tab PO SCH (06:01)
[2019-07-01] MEDS: Insulin Lispro 100 Units/ML 3 ML Vial SUBCUT SCH ×2 (06:04→11:57)
[2019-07-01] MEDS: Cefepime 2 GM in Premix Bag 1 BAG IV SCH (09:51)
[2019-07-01] MEDS: Doxazosin 4 MG Tab PO SCH (09:54)
[2019-07-01] MEDS: Finasteride 5 MG Tab PO SCH (09:55)
[2019-07-01] MEDS: NIFEdipine 30 MG Tab.ER PO SCH (09:55)
[2019-07-01] MEDS: Apixaban 5 MG Tab PO SCH (09:56)
[2019-07-01] MEDS: Furosemide 40 MG Tab PO SCH (09:56)
[2019-07-01] MEDS: Spironolactone 25 MG Tab PO SCH (09:56)
[2019-07-01] MEDS: Sertraline 25 MG Tab PO SCH (09:56)
[2019-07-01] MEDS: Prenatal Multivitamin with Calcium/Folic Acid/Iron Tab PO SCH (09:57)
[2019-07-01] MEDS: Carvedilol 12.5 MG Tab PO SCH (09:57)
--- NOTE | 2019-07-01 11:46 | PCM.DCSUM1 ---
Discharge Summary - Hospital Course HPI Initial Comments: 88-year-old male who is a very poor historian that comes with no family or history presents to the emergency room with sudden shortness of breath around 00 :30. Most of the history is obtained from emergency room and EMS notes. Patient was found at his assisted living [facility] where his oxygen saturation was found to be in the 70s on room air. Patient was placed on a nonrebreather mask and presented to the emergency room saturating 100%. Patient denied any recent illness, cough, fever, chills. It appears he does have a past medical history for atrial fibrillation, CHF, and renal disease, but patient does not believe he has those. he does state he has had a stroke with left-sided leg weakness. He does report chronic bilateral lower extremity edema and states it is no worse than normal. An old EKG from 2018 did show atrial fibrillation. In the emergency room his white count was 12.32, hemoglobin of 11.5, platelet count of 201, d-dimer was 2.2, BNP 18,887, troponin 0.282, creatinine of 2.4 with a BUN of 27. ABG: PH 7.33, PCO2 of 50.9, PO2 67.0, HCO3 26.2, on 4 L nasal cannula. CTA was not performed likely secondary to renal insufficiency. Chest x- ray did show bilateral pulmonary edema. in the emergency room patient was given Lasix 80 mg IV for likely CHF exacerbation. Elevation in troponin and d-dimer were believed to be due to his renal insufficiency and chronic. He was felt to treat the patient for his CHF. It is unknown why patient is not on an anticoagulation for atrial fibrillation. Diagnosis: Stroke: No - Discharge Data Discharge Date: 07/01/19 Discharge Disposition: DC/Tfer to SNF 03 Condition: Good - Referral to Home Health Primary Care Physician: Santino Kennedy MD - Patient Summary/Data Consults: Consultations 06/24/19 09:20 Consult to Physical Therapy [PT Evaluation and Treatment] [CONS] Routine OT Evaluation and Treatment [CONS] Routine 06/25/19 08:35 Consult to Speech Language Pathology [FEEDER/FOLDER Evaluation and Treatment] [CONS] Routine Hospital Course: Patient was admitted and started on a Lasix drip for his acute on chronic heart failure. Heart rate was controlled for his fibrillation with RVR with his home medications of Coreg 25 mg twice a day and nifedipine ER 60 mg daily. Patient had a VQ scan that was indeterminate and did show multiple matched defects. Therefore, secondary to both his atrial fibrillation and his possible PE he was started on Eliquis 5 mg twice a day. [id number] - 6.7 % (high risk); HAS- Bled Score 3- 4.9-19.6 % risk of bled on OAC (high risk). This was discussed with him and his it was felt that anticoagulation was appropriate. Renal insufficiency worsened on the Lasix drip and had to be discontinued. At discharge his renal function is back to baseline at 2.3. We were able to decrease his Lasix down to 40 mg daily and we added spironolactone 50 mg daily. Patient had positive troponins and presumed non-STEMI and was on a heparin drip. He will continue on his aspirin 81 mg. Patient was able to wean down to Lantus 15 units daily and a sliding scale for his diabetes mellitus. This is likely going to need to be increased as he is out of the hospital his diet improves. He also suffered from aspiration syndrome and was placed on cefepime and Zithromax. Sputum cultures grew out Pseudomonas and Zithromax. Patient had 5 days of antibiotics and was never febrile or had a white count. Significant improvement in his pulmonary toilet at discharge. - Patient Instructions Diet: Diabetic Diet Activity: As Tolerated Driving: Do Not Drive Showering/Bathing: May Shower - Discharge Plan *PRESCRIPTION DRUG MONITORING PROGRAM REVIEWED*: Not Applicable *COPY OF PRESCRIPTION DRUG MONITORING REPORT IN PATIENT YASSINE: Not Applicable Prescriptions/Med Rec: Allopurinol [Zyloprim] 100 mg PO BEDTIME #30 tablet Apixaban [Eliquis] 5 mg PO BID@0900,1800 #60 tablet Furosemide [Lasix] 40 mg PO DAILY #30 tablet Insulin Aspart [NovoLOG] 0 unit SQ WITHMEALSANDBED #3 pen Insulin Detemir [Levemir Flextouch] 15 unit SQ BEDTIME #3 ml Spironolactone [Aldactone] 50 mg PO DAILY #30 tablet Home Medications: Home Meds Carvedilol 25 mg PO BID 03/17/18 [History] Doxazosin [Cardura] 8 mg PO DAILY 03/17/18 [History] Dutasteride 0.5 mg PO DAILY 03/17/18 [History] Ergocalciferol (Vitamin D2) [Vitamin D2] 1,000 unit PO DAILY 03/17/18 [History] Famotidine 20 mg PO DAILY 03/17/18 [History] Levothyroxine [Synthroid] 100 mcg PO DAILY 03/17/18 [History] NIFEdipine [Nifedipine ER] 60 mg PO DAILY 03/17/18 [History] Pravastatin [Pravachol] 40 mg PO DAILY 03/17/18 [History] Finasteride 5 mg PO DAILY 05/23/19 [History] Sertraline [Zoloft] 25 mg PO DAILY 06/22/19 [History] Allopurinol [Zyloprim] 100 mg PO BEDTIME #30 tablet 07/01/19 [Rx] Apixaban [Eliquis] 5 mg PO BID@0900,1800 #60 tablet 07/01/19 [Rx] Aspirin 81 mg PO BEDTIME tab.chew 07/01/19 [Rx] Furosemide [Lasix] 40 mg PO DAILY #30 tablet 07/01/19 [Rx] Insulin Aspart [NovoLOG] 0 unit SQ WITHMEALSANDBED #3 pen 07/01/19 [Rx] Insulin Detemir [Levemir Flextouch] 15 unit SQ BEDTIME #3 ml 07/01/19 [Rx] Spironolactone [Aldactone] 50 mg PO DAILY #30 tablet 07/01/19 [Rx] Oxygen Therapy Mode: Room Air Referrals: Santino Kennedy MD [Primary Care Provider] - - Discharge Summary/Plan Comment DC Time >30 min.: Yes Discharge Summary/Plan Comment: Assessment * Acute on chronic heart failure - presenting probe BNP 18,887: home Lasix 80 mg twice a day; BNP 18,887-->16,687-->31834. Discontinue lasix gtt; Hold scheduled Lasix 40 mg po daily and HCTZ 12.5 mg po due to increased in Cr level. 2D echo report shows Ischemic Cardiomyopathy with an EF of 30% * Atrial fibrillation with RVR: HR is controlled, home medications include Coreg 25 mg twice a day and nifedipine ER 60 mg daily. Eliquis for stroke prophylaxis starting this evening * Presumptive PE 2/2 Elevated D-dimer - Unable to do CTA due to renal insufficiency. VQ scan report read as multiple matched defects but indeterminate (inconclusive) probability of PE. Duplex LE U/S shows negative for DVT. We went over what this means to patient and and we agreed to best treat him with presumptive PE. They agreed. 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 Hold oral dose of lasix and hctz * Acute Gout- wrist pain right ulnar aspect, resolved. Has hx/o it in the past; Uric Acid 7.8. Currently on Colchicine and Prednisone. Last dose of oral steroid and continue Allopurinol 100 mg po QHS for maintenance medications * NTSEMI- already on Heparin drip since 06/22/2019. Continue ASA 81 mg po QHS, Carvedilol 25 mg po BID, and Zocor 20 mg po QHS. AHA diet * Normocytic and Hypochromic Anemia, Hgb of 9.7, Stable * Impaired Hearing, Poor historian making history difficult * Diabetes mellitus on Lantus and Glucotrol but lower dose. BS is controlled. * Aspiration Syndrome- has had wet cough, sputum cx pending and CRX shows consolidation on right base. Afebrile without leukocytosis. IS as directed and FEEDER/FOLDER eval for swallow. Aspiration precautions and continue H2B. * Ischemic Cardiomyopathy- , Carvedilol, and Simvastatin. He will on lasix but will hold it for now. Follow up with cardiology after discharge * History of hypertension, hyperlipidemia, hypothyroidism, depression, BPH, CKD IV, GERD, anemia on vitamin B12 Plan * He remains clinically stable * Guaifenesin/Dextromethorphan PRN plus IS as directed * Sputum shows Pseudomonas and pneumococcal pneumonia sensitive to cefepime on day 4; patient will finish 5 day course and be discharged * 1800 ml fluid restrictions * [id number] - 6.7 % (high risk); HAS-Bled Score 3- 4.9-19.6 % risk of bled on OAC (high risk) * Strict I's and O's and daily weights * CBC, CMP, BNP, Magnesium daily * Encouraged to do more PT/OT activities * Recommend SNF/Rehab due to generalized weakness; placement at [facility] * Additional orders as above * CODE STATUS: Full code. * Prognosis is guarded-good * LOS > 96hrs pending placement to SNF/Rehab. - General Info Date of Service: 07/01/19 Admission Dx/Problem (Free Text: Admission Diagnosis/Problem Admission Diagnosis/Problem Congestive heart failure Shortness of breath when talking Having a couch with sputum Diminished sounds on right side of lungs Crackle at bilateral bases of lungs Skin is pallor Having 3+ edema in legs Labs ordered and pending review Subjective Update: patient received Lasix 20 mg IV overnight. He did well and he is now off oxygen. Patient is on day 4 of antibiotic therapy and has a room at a half-way facility available. - Review of Systems General: Reports: No Symptoms HEENT: Reports: No Symptoms Pulmonary: Reports: No Symptoms Cardiovascular: Reports: No Symptoms Gastrointestinal: Reports: No Symptoms Genitourinary: Reports: No Symptoms - Patient Data Vitals - Most Recent: Last Vital Signs Temp 98.2 F 07/01/19 09:48 Pulse 70 07/01/19 09:57 Resp 18 07/01/19 09:48 BP 143/65 H 07/01/19 09:57 Pulse Ox 95 07/01/19 09:48 Weight - Most Recent: 226 lb 3.2 oz I&O - Last 24 hours: Intake & Output 06/30/19 07/01/19 07/01/19 22:59 06:59 14:59 Intake Total 650 150 120 Output Total 750 280 Balance -100 -130 120 Lab Results - Last 24 hrs: Laboratory Results - last 24 hr 06/30/19 06/30/19 07/01/19 Range/Units 17:13 20:50 05:21 WBC 9.01 (4.23-9.07) K/mm3 RBC 3.58 L (4.63-6.08) M/mm3 Hgb 10.1 L (13.7-17.5) gm/L Hct 32.2 L (40.1-51.0) % MCV 89.9 (79.0-92.2) fl MCH 28.2 (25.7-32.2) pg MCHC 31.4 L (32.2-35.5) g/dl RDW Std Deviation 43.1 (35.1-43.9) fL Plt Count 271 (163-337) K/mm3 MPV 10.3 (9.4-12.3) fl Neut % (Auto) 81.3 H (34.0-67.9) % Lymph % (Auto) 8.0 L (21.8-53.1) % [place] % (Auto) 8.0 (5.3-12.2) % Eos % (Auto) 2.2 (0.8-7.0) Baso % (Auto) 0.3 (0.1-1.2) % Neut # (Auto) 7.32 H (1.78-5.38) K/mm3 Lymph # (Auto) 0.72 L (1.32-3.57) K/mm3 [place] # (Auto) 0.72 (0.30-0.82) K/mm3 Eos # (Auto) 0.20 (0.04-0.54) K/mm3 Baso # (Auto) 0.03 (0.01-0.08) K/mm3 Manual Slide Review Abnormal smear Sodium (136-145) mEq/L Potassium (3.5-5.1) mEq/L Chloride (98-107) mEq/L Carbon Dioxide (21-32) mEq/L Anion Gap (5-15) BUN (7-18) mg/dL Creatinine (0.7-1.3) mg/dL Est Cr Clr Drug Dosing mL/min Estimated GFR (MDRD) (>60) mL/min BUN/Creatinine Ratio (14-18) Glucose (83-115) mg/dL POC Glucose 132 H 211 H (83-110) mg/dL Calcium (8.5-10.1) mg/dL Magnesium (1.8-2.4) mg/dl Total Bilirubin (0.2-1.0) mg/dL AST (15-37) U/L ALT (16-63) U/L Alkaline Phosphatase (46-116) U/L Total Protein (6.4-8.2) g/dl Albumin (3.4-5.0) g/dl Globulin gm/dL Albumin/Globulin Ratio (1-2) 07/01/19 07/01/19 07/01/19 Range/Units 05:21 06:00 11:13 WBC (4.23-9.07) K/mm3 RBC (4.63-6.08) M/mm3 Hgb (13.7-17.5) gm/L Hct (40.1-51.0) % MCV (79.0-92.2) fl MCH (25.7-32.2) pg MCHC (32.2-35.5) g/dl RDW Std Deviation (35.1-43.9) fL Plt Count (163-337) K/mm3 MPV (9.4-12.3) fl Neut % (Auto) (34.0-67.9) % Lymph % (Auto) (21.8-53.1) % [place] % (Auto) (5.3-12.2) % Eos % (Auto) (0.8-7.0) Baso % (Auto) (0.1-1.2) % Neut # (Auto) (1.78-5.38) K/mm3 Lymph # (Auto) (1.32-3.57) K/mm3 [place] # (Auto) (0.30-0.82) K/mm3 Eos # (Auto) (0.04-0.54) K/mm3 Baso # (Auto) (0.01-0.08) K/mm3 Manual Slide Review Sodium 142 (136-145) mEq/L Potassium 3.9 (3.5-5.1) mEq/L Chloride 103 (98-107) mEq/L Carbon Dioxide 30 (21-32) mEq/L Anion Gap 12.9 (5-15) BUN 35 H (7-18) mg/dL Creatinine 2.3 H (0.7-1.3) mg/dL Est Cr Clr Drug Dosing 25.30 mL/min Estimated GFR (MDRD) 27 (>60) mL/min BUN/Creatinine Ratio 15.2 (14-18) Glucose 105 (83-115) mg/dL POC Glucose 120 H 190 H (83-110) mg/dL Calcium 8.6 (8.5-10.1) mg/dL Magnesium 2.3 (1.8-2.4) mg/dl Total Bilirubin 0.5 (0.2-1.0) mg/dL AST 12 L (15-37) U/L ALT 14 L (16-63) U/L Alkaline Phosphatase 59 (46-116) U/L Total Protein 6.1 L (6.4-8.2) g/dl Albumin 2.5 L (3.4-5.0) g/dl Globulin 3.6 gm/dL Albumin/Globulin Ratio 0.7 L (1-2) Med Orders - Current: Current Medications Acetaminophen (Tylenol) 650 mg PO Q4H PRN PRN Reason: Pain (Mild 1-3)/fever Hydrocodone Bitart/Acetaminophen ([place] 325-10 Mg) 1 tab PO Q4H PRN PRN Reason: Pain (moderate 4-6) Last Admin: 06/23/19 15:30 Dose: 1 tab Albuterol/Ipratropium (Duoneb 3.0-0.5 Mg/3 Ml) 3 ml NEB Q6HRRT PRN PRN Reason: Shortness of Breath Last Admin: 06/30/19 09:19 Dose: 3 ml Allopurinol (Zyloprim) 100 mg PO BEDTIME [facility] Last Admin: 06/30/19 21:11 Dose: 100 mg Apixaban (Eliquis) 5 mg PO BID@0900,1800 [facility] Aspirin (Aspirin) 81 mg PO BEDTIME [facility] Last Admin: 06/30/19 21:12 Dose: 81 mg Azithromycin (Zithromax) 250 mg PO ONETIME ONE Stop: 07/01/19 12:01 Carvedilol (Coreg) 25 mg PO BID [facility] Last Admin: 07/01/19 09:57 Dose: 25 mg Doxazosin Mesylate (Cardura) 8 mg PO DAILY [facility] Last Admin: 07/01/19 09:54 Dose: 8 mg Famotidine (Pepcid) 20 mg PO BEDTIME [facility] Last Admin: 06/30/19 21:11 Dose: 20 mg Finasteride (Proscar) 5 mg PO DAILY [facility] Last Admin: 07/01/19 09:55 Dose: 5 mg Furosemide (Lasix) 40 mg PO DAILY [facility] Last Admin: 07/01/19 09:56 Dose: 40 mg Guaifenesin/Phenylephrine HCl (Robitussin Dm) 5 ml PO Q4H PRN PRN Reason: Cough Last Admin: 06/26/19 20:14 Dose: 5 ml Cefepime HCl 2 gm/ Premix 50 mls @ 100 mls/hr IV Q12H [facility] Last Admin: 07/01/19 09:51 Dose: 100 mls/hr Insulin Glargine (Lantus) 15 unit SUBCUT BEDTIME [facility] Last Admin: 06/30/19 21:08 Dose: 15 units Insulin Human Lispro (Humalog) 0 unit SUBCUT QIDACANDBED [facility]; Protocol Last Admin: 07/01/19 06:04 Dose: Not Given Levothyroxine Sodium (Synthroid) 100 mcg PO DAILY@0600 [facility] Last Admin: 07/01/19 06:01 Dose: 100 mcg Nifedipine (Procardia Xl) 60 mg PO DAILY [facility] Last Admin: 07/01/19 09:55 Dose: 60 mg Prenat Multivit/[place]/Iron/Folic Ac ( Plus Iron) 1 each PO DAILY [facility] Last Admin: 07/01/19 09:57 Dose: 1 each Sertraline HCl (Zoloft) 25 mg PO DAILY [facility] Last Admin: 07/01/19 09:56 Dose: 25 mg Simvastatin (Zocor) 20 mg PO BEDTIME [facility] Last Admin: 06/30/19 21:11 Dose: 20 mg Spironolactone (Aldactone) 50 mg PO DAILY [facility] Last Admin: 07/01/19 09:56 Dose: 50 mg Discontinued Medications Apixaban (Eliquis) 2.5 mg PO BID [facility] Apixaban (Eliquis) 10 mg PO BID@0900,1800 [facility] Stop: 07/01/19 09:01 Last Admin: 07/01/19 09:56 Dose: 10 mg Apixaban (Eliquis) 10 mg PO ONETIME ONE Stop: 06/24/19 17:01 Azithromycin (Zithromax) 250 mg PO Q24H [facility] Last Admin: 06/30/19 14:29 Dose: 250 mg Colchicine (Colcrys) 1.2 mg PO ONETIME ONE Stop: 06/23/19 11:32 Last Admin: 06/23/19 11:42 Dose: 1.2 mg Colchicine (Colcrys) 0.6 mg PO ONETIME ONE Stop: 06/23/19 15:01 Last Admin: 06/23/19 15:32 Dose: 0.6 mg Furosemide (Lasix) 40 mg IVPUSH NOW ONE Stop: 06/22/19 04:08 Last Admin: 06/22/19 04:13 Dose: 40 mg Furosemide (Lasix) 40 mg IVPUSH NOW ONE Stop: 06/22/19 04:20 Last Admin: 06/22/19 04:25 Dose: 40 mg Furosemide (Lasix) 40 mg PO DAILY [facility] Furosemide (Lasix) 40 mg PO ONETIME ONE Stop: 06/27/19 09:47 Last Admin: 06/27/19 10:00 Dose: 40 mg Furosemide (Lasix) 20 mg IVPUSH NOW ONE Stop: 06/29/19 22:06 Last Admin: 06/29/19 22:27 Dose: 20 mg Furosemide (Lasix) 40 mg PO Q24H [facility] Last Admin: 06/30/19 14:31 Dose: 40 mg Glipizide (Glucotrol) 15 mg PO BID [facility] Glipizide (Glucotrol) 5 mg PO BID [facility] Last Admin: 06/26/19 20:14 Dose: 5 mg Heparin Sodium (Porcine) (Heparin Sodium) 5,000 units IVPUSH .BOLUS ONE; Protocol Stop: 06/22/19 08:16 Last Admin: 06/22/19 08:41 Dose: 5,000 units Heparin Sodium (Porcine) (Heparin Sodium) 1,500 units IVPUSH .BOLUS ONE Stop: 06/22/19 15:08 Last Admin: 06/22/19 15:19 Dose: 1,500 units Hydrochlorothiazide (Hydrochlorothiazide) 12.5 mg PO BEDTIME [facility] Last Admin: 06/24/19 20:34 Dose: 12.5 mg Heparin Sodium/Dextrose (Heparin 25,000 Units In D5w 500 Ml) 25,000 units in 500 mls @ 26 mls/hr IV TITRATE [facility]EN; Protocol Last Admin: 06/24/19 01:45 Dose: 1,970 units/hr, 39.4 mls/hr Furosemide 100 mg/ Sodium (Chloride) 100 mls @ 10 mls/hr IV TITRATE JEN; Protocol Last Infusion: 06/24/19 04:00 Dose: 7 mls/hr Potassium Chloride 10 meq/ (Premix) 100 mls @ 100 mls/hr IV Q1H [facility] Stop: 06/23/19 02:29 Last Admin: 06/23/19 04:58 Dose: 50 mls/hr Sodium Chloride (Normal Saline) 500 mls @ 25 mls/hr IV .BOLUS PRN PRN Reason: IV Use Last Admin: 06/22/19 23:14 Dose: 25 mls/hr Cefepime HCl 2 gm/ Premix 50 mls @ 100 mls/hr IV Q24H [facility] Last Admin: 06/29/19 15:25 Dose: 100 mls/hr Azithromycin 500 mg/ Sodium (Chloride) 250 mls @ 250 mls/hr IV ONETIME ONE Stop: 06/27/19 16:59 Last Admin: 06/27/19 15:34 Dose: 250 mls/hr Azithromycin 250 mg/ Sodium (Chloride) 250 mls @ 250 mls/hr IV Q24H [facility] Last Admin: 06/29/19 16:26 Dose: 250 mls/hr Insulin Glargine (Lantus) 15 unit SUBCUT QPM [facility]EN Insulin Glargine (Lantus) 15 unit SUBCUT BEDTIME JEN Insulin Glargine (Lantus) 12 unit SUBCUT BEDTIME [facility] Last Admin: 06/23/19 20:42 Dose: 12 units Insulin Glargine (Lantus) 22 unit SUBCUT BEDTIME [facility] Magnesium Hydroxide (Milk Of Magnesia) 30 ml PO ONETIME ONE Stop: 06/29/19 14:02 Last Admin: 06/29/19 15:24 Dose: 30 ml Multivitamins (Thera) 1 each PO DAILY [facility] Last Admin: 06/27/19 10:00 Dose: 1 each Pantoprazole Sodium (Protonix Iv) 40 mg IVPUSH BEDTIME [facility] Stop: 06/24/19 21:01 Last Admin: 06/24/19 20:34 Dose: 40 mg Potassium Chloride (Klor-Con M20) 40 meq PO ONETIME ONE Stop: 06/23/19 10:35 Last Admin: 06/23/19 10:44 Dose: 40 meq Potassium Chloride (Klor-Con M20) 60 meq PO ONETIME ONE Stop: 06/27/19 07:02 Last Admin: 06/27/19 10:04 Dose: 60 meq Potassium Chloride (Klor-Con M20) 20 meq PO ONETIME ONE Stop: 06/30/19 12:21 Last Admin: 06/30/19 14:31 Dose: Not Given Potassium Chloride (Klor-Con M20) 20 meq PO ONETIME ONE Stop: 06/30/19 14:31 Last Admin: 06/30/19 14:30 Dose: 20 meq Prednisone (Prednisone) 40 mg PO WITHBREAKFAST JEN Prednisone (Prednisone) 40 mg PO WITHLUNCH JEN Stop: 06/24/19 11:01 Prednisone (Prednisone) 20 mg PO WITHLUNCH JEN Stop: 06/24/19 11:01 Last Admin: 06/24/19 16:46 Dose: Not Given Prednisone (Prednisone) 20 mg PO WITHBREAKFAST JEN Stop: 06/25/19 12:00 Last Admin: 06/25/19 12:35 Dose: 20 mg Prednisone (Prednisone) 20 mg PO 1700 [facility] Stop: 06/24/19 17:01 Prednisone (Prednisone) 20 mg PO 1800 ONE Stop: 06/24/19 18:01 Last Admin: 06/24/19 17:47 Dose: 20 mg Senna/Docusate Sodium (Senna Plus) 1 tab PO ONETIME ONE Stop: 06/29/19 14:02 Last Admin: 06/29/19 15:24 Dose: 1 tab - Exam Quality Assessment: Denies: Supplemental Oxygen General: Reports: Alert, Oriented HEENT: Reports: Pupils Equal Neck: Reports: Supple Lungs: Reports: Clear to Auscultation, Normal Respiratory Effort Cardiovascular: Reports: Irregular Rhythm GI/Abdominal Exam: Normal Bowel Sounds, Soft, Non-Tender, No Organomegaly, No Distention, No Abnormal Bruit, No Mass, Pelvis Stable Extremities: Normal Inspection, Pedal Edema (2+) Neurological: Reports: No New Focal Deficit Psy/Mental Status: Reports: Alert, Normal Affect, Normal Mood
[2019-07-01] MEDS ORDERED: Azithromycin 250 MG Tab PO ONE (12:00)
[2019-07-01] MEDS ORDERED: Apixaban 5 MG Tab PO SCH (18:00)
== END 2019-07-01 13:07 | DRG 280 ==
LOC: JD.ED 02:23 → JD.MS 05:14 → JD.ICU 08:09 → JD.MS 06-27 18:24
PROVIDERS: ADMIT Family Medicine; ATTEND Family Medicine
DX: I13.0 Hypertensive heart and chronic kidney disease with heart failure and stage 1 through stage 4 chronic kidney disease, or unspecified chronic kidney disease (principal); R06.2 Wheezing; I21.4 Non-ST elevation (NSTEMI) myocardial infarction; I50.9 Heart failure, unspecified; R60.0 Localized edema; I26.99 Other pulmonary embolism without acute cor pulmonale; Z99.3 Dependence on wheelchair; Z79.890 Hormone replacement therapy; J13 Pneumonia due to Streptococcus pneumoniae; J15.1 Pneumonia due to Pseudomonas; I50.43 Acute on chronic combined systolic (congestive) and diastolic (congestive) heart failure; I69.354 Hemiplegia and hemiparesis following cerebral infarction affecting left non-dominant side; N18.4 Chronic kidney disease, stage 4 (severe); E11.22 Type 2 diabetes mellitus with diabetic chronic kidney disease; I48.91 Unspecified atrial fibrillation; N18.9 Chronic kidney disease, unspecified; Z90.5 Acquired absence of kidney; M10.9 Gout, unspecified; D50.9 Iron deficiency anemia, unspecified; Z85.528 Personal history of other malignant neoplasm of kidney; H91.90 Unspecified hearing loss, unspecified ear; Z79.4 Long term (current) use of insulin; I25.5 Ischemic cardiomyopathy; E87.2 Acidosis; R09.02 Hypoxemia; R74.8 Abnormal levels of other serum enzymes; R79.1 Abnormal coagulation profile; E78.5 Hyperlipidemia, unspecified; E03.9 Hypothyroidism, unspecified; F32.9 Major depressive disorder, single episode, unspecified; N40.0 Benign prostatic hyperplasia without lower urinary tract symptoms; K21.9 Gastro-esophageal reflux disease without esophagitis; Z79.899 Other long term (current) drug therapy; H54.7 Unspecified visual loss; E78.00 Pure hypercholesterolemia, unspecified; J44.9 Chronic obstructive pulmonary disease, unspecified; E66.9 Obesity, unspecified; Z90.89 Acquired absence of other organs; Z90.49 Acquired absence of other specified parts of digestive tract; Z87.891 Personal history of nicotine dependence; F03.90 Unspecified dementia, unspecified severity, without behavioral disturbance, psychotic disturbance, mood disturbance, and anxiety; Z68.30 Body mass index [BMI] 30.0-30.9, adult
CPT/HCPCS: 36415 ×2; 36600; 71045; 80053; 82803; 83605; 83880; 84484; 85007; 85027; 85379; 85610; 85730; 87040 ×2; 93005; 96374; 99285; J1940 ×2; 51702; 71250; 71250-26; 78582; 78582-26; 80048; 80061; 82570; 82607; 82747; 82962; 83036; 83540; 83735; 84156; 84443; 84550; 85014; 85025; 86140; 87070; 87077; 87184; 87186; 87205; 87641; 92526-GN; 92610-GN; 93010; 93306; 93970; 93970-26; 94640; 94667; 94668; 94760; 94761; 97110-GO; 97110-GP; 97116-GP; 97162-GP; 97165-GO; 97530-GO; 97535-GO; A9270-GY; A9540; C9113; J0456; J0692; J1644; J1815-GY; J3480; J7030; J7040; J7050; J7620-GY

== ENCOUNTER 2019-10-30 11:00 | Inpatient (IN) | payer MEDICARE, OTHER ==
[2019-10-30] MEDS ORDERED: cefTRIAXone 2 GM in Sodium Chloride 0.9% 100 ML IV ONE (11:08)
[2019-10-30] MEDS ORDERED: Sodium Chloride 0.9% 10 ML Syringe FLUSH PRN (11:08)
[2019-10-30] MEDS ORDERED: Albuterol/Ipratropium 3.0-0.5 MG/3 ML Neb Soln NEB ONE (11:13)
[2019-10-30] MEDS ORDERED: Sodium Chloride 0.9% 100 ML ONE (11:23)
[2019-10-30] MEDS ORDERED: cefTRIAXone 2 GM AdvVial IV ONE (11:23)
--- NOTE | 2019-10-30 11:52 | EDM.PDOC ---
ED HPI GENERAL MEDICAL PROBLEM - General Chief Complaint: Cardiovascular Problem Stated Complaint: [facility] Time Seen by Provider: 10/30/19 11:05 Source of Information: Reports: Patient, EMS, Jail Records History Limitations: Reports: No Limitations - History of Present Illness INITIAL COMMENTS - FREE TEXT/NARRATIVE: The patient presents with a cough, shortness of breath and low oxygen saturations. This started a couple days ago. They put him on oxygen yesterday and that did help for awhile but today he needed more oxygen at 3L. He says he does not feel feverish but he feels warm. He has no chest pain. He has no abdominal pain, nausea or vomiting. He has no dysuria. He has a history of atrial fibrillation, CHF, stroke and renal disease. Onset: Gradual Duration: Day(s): Severity: Moderate Improves with: Reports: None Worsens with: Reports: None Associated Symptoms: Reports: Cough, Shortness of Breath. Denies: Chest Pain, Fever/Chills, Headaches, Nausea/Vomiting - Related Data Allergies Allergy/AdvReac Type Severity Reaction Status Date / Time No Known Allergies Allergy Verified 06/22/19 06:28 Home Meds: Home Meds Dutasteride 0.5 mg PO DAILY 03/17/18 [History] Famotidine 20 mg PO DAILY 03/17/18 [History] Levothyroxine [Synthroid] 100 mcg PO DAILY 03/17/18 [History] NIFEdipine [Nifedipine ER] 60 mg PO DAILY 03/17/18 [History] Pravastatin [Pravachol] 40 mg PO DAILY 03/17/18 [History] carvediloL [Carvedilol] 25 mg PO BID 03/17/18 [History] Finasteride 5 mg PO DAILY 05/23/19 [History] Sertraline [Zoloft] 25 mg PO DAILY 06/22/19 [History] Aspirin 81 mg PO BEDTIME tab.chew 07/01/19 [Rx] Insulin Aspart [NovoLOG] 0 unit SQ WITHMEALSANDBED #3 pen 07/01/19 [Rx] Insulin Detemir [Levemir Flextouch] 15 unit SQ BEDTIME #3 ml 07/01/19 [Rx] Spironolactone [Aldactone] 50 mg PO DAILY #30 tablet 07/01/19 [Rx] Apixaban [Eliquis] 2.5 mg PO BID@0900,1800 10/30/19 [History] Brimonidine Tartrate [Alphagan P 0.1% Ophth Soln] 1 drop EYEBOTH BID 10/30/19 [ History] Cholecalciferol (Vitamin D3) [Vitamin D3] 5,000 unit PO DAILY 10/30/19 [History] Febuxostat [Uloric] 40 mg PO DAILY 10/30/19 [History] Furosemide [Lasix] 60 mg PO BID 10/30/19 [History] Insulin Aspart [NovoLOG] 7 units SUBCUT TID 10/30/19 [History] Ipratropium/Albuterol Sulfate [Iprat-Albut 0.5-3(2.5) mg/3 ml] 3 ml NEB QID 07/11 [History] Iron Ag,Ps/C/Fa6/B12/Zn/SA/Sto [Niferex Tablet] 1 tab PO DAILY 10/30/19 [History ] Multivitamin [Multivitamins] 1 tab PO DAILY 10/30/19 [History] Sacubitril/Valsartan [Entresto 24 mg-26 mg Tablet] 1 tab PO DAILY 10/30/19 [ History] guaiFENesin [Mucinex] 600 mg PO DAILY 10/30/19 [History] Past Medical History HEENT History: Reports: Impaired Vision Other HEENT History: wears glasses Cardiovascular History: Reports: Afib, Heart Failure, High Cholesterol, Hypertension Respiratory History: Reports: COPD Gastrointestinal History: Reports: GERD Genitourinary History: Reports: BPH, Chronic Renal Insuffiency Musculoskeletal History: Reports: Amputation Neurological History: Reports: CVA Endocrine/Metabolic History: Reports: Diabetes, Type II, Hypothyroidism, Obesity /BMI 30+ Oncologic (Cancer) History: Reports: Renal Other Oncologic History: R) kidney removed - Past Surgical History HEENT Surgical History: Reports: Cataract Surgery, Oral Surgery, Tonsillectomy Cardiovascular Surgical History: Reports: Carotid Endarterectomy Respiratory Surgical History: Reports: None GI Surgical History: Reports: Cholecystectomy Male Surgical History: Reports: Nephrectomy Endocrine Surgical History: Reports: None Neurological Surgical History: Reports: None Musculoskeletal Surgical History: Reports: Amputation, Carpal Tunnel, Knee Replacement, ORIF Social & Family History - Tobacco Use Smoking Status *Q: Former Smoker Used Tobacco, but Quit: Yes Month/Year Tobacco Last Used: 30 - Caffeine Use Caffeine Use: Reports: Coffee - Recreational Drug Use Recreational Drug Use: No - Living Situation & Occupation Living situation: Reports: , with Spouse, Assisted Living ([facility]/ [place]) Occupation: Retired ED ROS GENERAL - Review of Systems Review Of Systems: See Below Constitutional: Reports: No Symptoms HEENT: Reports: No Symptoms Respiratory: Reports: Shortness of Breath, Cough Cardiovascular: Reports: No Symptoms Endocrine: Reports: No Symptoms GI/Abdominal: Reports: No Symptoms : Reports: No Symptoms ED EXAM, GENERAL - Physical Exam Exam: See Below Exam Limited By: No Limitations General Appearance: Alert, No Apparent Distress Ears: Normal External Exam Nose: Normal Inspection Head: Atraumatic, Normocephalic Neck: Normal Inspection Respiratory/Chest: No Respiratory Distress, Decreased Breath Sounds (Worse on the left) Cardiovascular: No Murmur, Irregularly Irregular GI/Abdominal: Soft, Non-Tender, No Organomegaly, No Mass Back Exam: Normal Inspection Course - Vital Signs Last Recorded V/S: Last Vital Signs Temp 98.4 F 10/30/19 11:12 Pulse 88 10/30/19 11:12 Resp 18 10/30/19 11:12 BP Pulse Ox 90 L 10/30/19 11:14 - Orders/Labs/Meds Orders: Active Orders 24 hr Category Date Time Status RT Aerosol Therapy [RC] ASDIRECTED Care 10/30/19 11:14 Active Chest 1V Frontal [CR] Stat Exams 10/30/19 11:57 Taken CULTURE BLOOD [BC] Stat Lab 10/30/19 11:25 Received CULTURE BLOOD [BC] Stat Lab 10/30/19 11:40 Received TROPONIN I [CHEM] Stat Lab 10/30/19 11:25 Received Sodium Chloride 0.9% [Saline Flush] Med 10/30/19 11:08 Active 10 ml FLUSH ASDIRECTED PRN Blood Culture x2 Reflex Set [OM.PC] Stat Oth 10/30/19 11:09 Ordered Saline Lock Insert [OM.PC] Stat Oth 10/30/19 11:09 Ordered Severe Sepsis Onset Time [OM.PC] Stat Oth 10/30/19 11:09 Ordered Medication Orders Sodium Chloride (Saline Flush) 10 ml FLUSH ASDIRECTED PRN PRN Reason: Keep Vein Open Last Admin: 10/30/19 11:55 Dose: 10 ml Labs: Laboratory Tests 10/30/19 10/30/19 10/30/19 Range/Units 11:18 11:25 11:25 WBC 8.73 (4.23-9.07) K/mm3 RBC 3.15 L (4.63-6.08) M/mm3 Hgb 8.6 L D (13.7-17.5) gm/dl Hct 27.3 L (40.1-51.0) % MCV 86.7 D (79.0-92.2) fl MCH 27.3 (25.7-32.2) pg MCHC 31.5 L (32.2-35.5) g/dl RDW Std Deviation 42.9 (35.1-43.9) fL Plt Count 352 H D (163-337) K/mm3 MPV 9.3 L (9.4-12.3) fl Neutrophils % (Manual) 86 H (40-60) % Band Neutrophils % 0 (0-10) % Lymphocytes % (Manual) 4 L (20-40) % Atypical Lymphs % 0 % Immat Monocytes % (Man) 0 Monocytes % (Manual) 8 (2-10) % Eosinophils % (Manual) 0 L (0.8-7.0) % Basophils % (Manual) 2 H (0.2-1.2) Metamyelocytes % 0 Myelocytes % 0 Promyelocytes % 0 Blast Cells % 0 Plasma Cell % (Manual) 0 Nucleated RBCs 0.0 % Platelet Estimate Adequate RBC Morph Comment Normal PT 11.9 (9.7-12.0) SECONDS INR 1.10 Sodium (136-145) mEq/L Potassium (3.5-5.1) mEq/L Chloride (98-107) mEq/L Carbon Dioxide (21-32) mEq/L Anion Gap (5-15) BUN (7-18) mg/dL Creatinine (0.7-1.3) mg/dL Est Cr Clr Drug Dosing mL/min Estimated GFR (MDRD) (>60) mL/min BUN/Creatinine Ratio (14-18) Glucose (83-115) mg/dL Lactic Acid (0.4-2.0) mmol/L Calcium (8.5-10.1) mg/dL Total Bilirubin (0.2-1.0) mg/dL AST (15-37) U/L ALT (16-63) U/L Alkaline Phosphatase (46-116) U/L C-Reactive Protein (<1.0) mg/dL NT-Pro-B Natriuret Pep (0-450) pg/mL Total Protein (6.4-8.2) g/dl Albumin (3.4-5.0) g/dl Globulin gm/dL Albumin/Globulin Ratio (1-2) Urine Color Yellow (Yellow) Urine Appearance Clear (Clear) Urine pH 5.5 (5.0-8.0) Ur Specific [place] 1.020 (1.005-1.030) Urine Protein 1+ H (Negative) Urine Glucose (UA) Negative (Negative) Urine Ketones Negative (Negative) Urine Occult Blood Negative (Negative) Urine Nitrite Negative (Negative) Urine Bilirubin Negative (Negative) Urine Urobilinogen 1.0 (0.2-1.0) Ur Leukocyte Esterase Negative (Negative) Urine RBC Not seen (0-5) /hpf Urine WBC 0-5 (0-5) /hpf Ur Squamous Epith Cells 0-5 (0-5) /hpf Urine Bacteria Few (FEW) /hpf Hyaline Casts 5-10 H (0-5) /lpf Urine Mucus Few (FEW) /hpf 10/30/19 10/30/19 10/30/19 Range/Units 11:25 11:25 11:25 WBC (4.23-9.07) K/mm3 RBC (4.63-6.08) M/mm3 Hgb (13.7-17.5) gm/dl Hct (40.1-51.0) % MCV (79.0-92.2) fl MCH (25.7-32.2) pg MCHC (32.2-35.5) g/dl RDW Std Deviation (35.1-43.9) fL Plt Count (163-337) K/mm3 MPV (9.4-12.3) fl Neutrophils % (Manual) (40-60) % Band Neutrophils % (0-10) % Lymphocytes % (Manual) (20-40) % Atypical Lymphs % % Immat Monocytes % (Man) Monocytes % (Manual) (2-10) % Eosinophils % (Manual) (0.8-7.0) % Basophils % (Manual) (0.2-1.2) Metamyelocytes % Myelocytes % Promyelocytes % Blast Cells % Plasma Cell % (Manual) Nucleated RBCs % Platelet Estimate RBC Morph Comment PT (9.7-12.0) SECONDS INR Sodium 142 (136-145) mEq/L Potassium 3.5 (3.5-5.1) mEq/L Chloride 101 (98-107) mEq/L Carbon Dioxide 29 (21-32) mEq/L Anion Gap 15.5 H (5-15) BUN 57 H (7-18) mg/dL Creatinine 3.7 H D (0.7-1.3) mg/dL Est Cr Clr Drug Dosing 15.44 mL/min Estimated GFR (MDRD) 16 (>60) mL/min BUN/Creatinine Ratio 15.4 (14-18) Glucose 63 L (83-115) mg/dL Lactic Acid 0.7 (0.4-2.0) mmol/L Calcium 8.5 (8.5-10.1) mg/dL Total Bilirubin 0.4 (0.2-1.0) mg/dL AST 23 (15-37) U/L ALT 26 (16-63) U/L Alkaline Phosphatase 68 (46-116) U/L C-Reactive Protein 18.3 H* (<1.0) mg/dL NT-Pro-B Natriuret Pep 46251 H (0-450) pg/mL Total Protein 6.9 (6.4-8.2) g/dl Albumin 2.5 L (3.4-5.0) g/dl Globulin 4.4 gm/dL Albumin/Globulin Ratio 0.6 L (1-2) Urine Color (Yellow) Urine Appearance (Clear) Urine pH (5.0-8.0) Ur Specific [place] (1.005-1.030) Urine Protein (Negative) Urine Glucose (UA) (Negative) Urine Ketones (Negative) Urine Occult Blood (Negative) Urine Nitrite (Negative) Urine Bilirubin (Negative) Urine Urobilinogen (0.2-1.0) Ur Leukocyte Esterase (Negative) Urine RBC (0-5) /hpf Urine WBC (0-5) /hpf Ur Squamous Epith Cells (0-5) /hpf Urine Bacteria (FEW) /hpf Hyaline Casts (0-5) /lpf Urine Mucus (FEW) /hpf Meds: Medications Generic Name Dose Route Start Last Admin Trade Name Gallo PRN Reason Stop Dose Admin Sodium Chloride 10 ml 10/30/19 11:08 10/30/19 11:55 Saline Flush FLUSH 10 ml ASDIRECTED PRN Administration Keep Vein Open Discontinued Medications Generic Name Dose Route Start Last Admin Trade Name Gallo PRN Reason Stop Dose Admin Albuterol/Ipratropium 3 ml 10/30/19 11:13 10/30/19 11:33 Duoneb 3.0-0.5 Mg/3 Ml NEB 10/30/19 11:14 3 ml ONETIME ONE Administration Ceftriaxone Sodium Confirm 10/30/19 11:23 10/30/19 11:53 Rocephin Administered 10/30/19 11:24 Not Given Dose 2 gm IV .STK-MED ONE Ceftriaxone Sodium 2 gm/ 100 mls @ 200 mls/hr 10/30/19 11:08 10/30/19 11:53 Sodium Chloride IV 10/30/19 11:37 200 mls/hr STAT ONE Administration Sodium Chloride Confirm 10/30/19 11:23 10/30/19 11:52 Normal Saline Administered 10/30/19 11:24 Not Given Dose 100 mls @ as directed .ROUTE .STK-MED ONE - Re-Assessments/Exams Free Text/Narrative Re-Assessment/Exam: 10/30/19 11:54 I ordered oxygen, CXR, labs, blood cultures, lactic acid, influenza, albuterol and rocephin 2 grams IV. 10/30/19 14:19 His CXR shows a complete white out of the left lung. 10/30/19 14:20 His WBC was normal. His Hgb was low at 8.6. It has been low in the past. His INR is normal. His BNP was 16,950. His creatinine is 3.7. A few months ago it was 2.3. His CRP is 18.3 with a normal lactic acid. His anion gap is elevated at 15.5. The CT of his chest shows collapse of a large portion of the left lung with surrounding left sided pleural effusion. Shifting of the mediastinum is noted. Small to moderate sized pleural effusion. No additional abnormality is seen. I have ordered some bipap. I feel he needs to be admitted and possibly have a thorocentesis done. I called Dr Perla and he agreed to the admission. Departure - Departure Time of Disposition: 14:35 Disposition: Admitted As Inpatient 68 Condition: Serious Clinical Impression: Pleural effusion on left, Hypoxia CHF exacerbation Qualifiers: Heart failure type: combined systolic and diastolic Qualified Code(s): I50.43 - Acute on chronic combined systolic (congestive) and diastolic (congestive) heart failure Anemia Qualifiers: Anemia type: other cause Other causes of anemia: other cause, not classified Qualified Code(s): D64.89 - Other specified anemias Chronic renal disease Qualifiers: Chronic kidney disease stage: unspecified stage Qualified Code(s): N18.9 - Chronic kidney disease, unspecified Referrals: Santino Kennedy MD [Primary Care Provider] - Forms: ED Department Discharge Sepsis Event Note - Evaluation Sepsis Screening Result: No Definite Risk - Focused Exam Vital Signs: Vital Signs Temp Pulse Resp Pulse Ox Pulse Ox 10/30/19 11:14 90 L 10/30/19 11:12 98.4 F 88 18 89 L Date Exam was Performed: 10/30/19 Time Exam was Performed: 14:19 - My Orders Last 24 Hours: My Active Orders 10/30/19 11:08 Sodium Chloride 0.9% [Saline Flush] 10 ml FLUSH ASDIRECTED PRN 10/30/19 11:09 Blood Culture x2 Reflex Set [OM.PC] Stat Saline Lock Insert [OM.PC] Stat Severe Sepsis Onset Time [OM.PC] Stat 10/30/19 11:14 RT Aerosol Therapy [RC] ASDIRECTED 10/30/19 11:25 CULTURE BLOOD [BC] Stat TROPONIN I [CHEM] Stat 10/30/19 11:40 CULTURE BLOOD [BC] Stat 10/30/19 11:57 Chest 1V Frontal [CR] Stat - Assessment/Plan Last 24 Hours: My Active Orders 10/30/19 11:08 Sodium Chloride 0.9% [Saline Flush] 10 ml FLUSH ASDIRECTED PRN 10/30/19 11:09 Blood Culture x2 Reflex Set [OM.PC] Stat Saline Lock Insert [OM.PC] Stat Severe Sepsis Onset Time [OM.PC] Stat 10/30/19 11:14 RT Aerosol Therapy [RC] ASDIRECTED 10/30/19 11:25 CULTURE BLOOD [BC] Stat TROPONIN I [CHEM] Stat 10/30/19 11:40 CULTURE BLOOD [BC] Stat 10/30/19 11:57 Chest 1V Frontal [CR] Stat
--- NOTE | 2019-10-30 12:52 | CT ---
CT chest Technique: Multiple axial sections through the chest were obtained. Reconstructed coronal and sagittal images were reviewed. Intravenous contrast was not utilized. Comparison: Prior chest x-ray performed earlier on the same day. Findings: Collapse of a large portion of the left lung is seen. Mild to moderate left-sided pleural effusion surrounds the collapsed lung. Shifting of the mediastinum to the left side is seen. Small to moderate pleural effusion is also noted on the right side. Right lung is otherwise clear. Bony structures show degenerative spurring within the spine with scoliosis. No acute osseous finding is appreciated. Impression: 1. Collapse of a large portion of the left lung with surrounding left-sided pleural effusion. Shifting of the mediastinum is noted. 2. Small to moderate sized right-sided pleural effusion. 3. No additional abnormality is seen. Diagnostic code #3 This report was dictated in [place] Standard Time
[2019-10-30] MEDS ORDERED: Albuterol/Ipratropium 3.0-0.5 MG/3 ML Neb Soln NEB PRN (14:29)
[2019-10-30] MEDS ORDERED: Acetaminophen/HYDROcodone 325-5 MG Tab PO PRN (14:29)
[2019-10-30] MEDS ORDERED: Acetaminophen 650 MG Supp RECTAL PRN (14:29)
[2019-10-30] MEDS ORDERED: HYDROmorphone 0.5 MG/0.5 ML Syringe IVPUSH PRN (14:29)
[2019-10-30] MEDS ORDERED: Acetaminophen 325 MG Tab PO PRN (14:29)
[2019-10-30] MEDS ORDERED: Promethazine 6.25 MG in Sodium Chloride 0.9% 50 ML IV PRN (14:29)
[2019-10-30] MEDS ORDERED: Ondansetron 4 MG/2 ML SDV IV PRN (14:29)
--- NOTE | 2019-10-30 14:36 | PCM.HP.2 ---
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 He denies having signs or symptoms of systemic infection. No GI/ issues. HPI is limited by him being on BIPAP. His initial work up in ED shows a CBC remarkable for RBC of 3.15, Hgb 8.6 of grams, Hct of 27.3, MCHC of 31.5, Platelet # of 352, MPV of 9.3, Neutrophils of 86%, Lymphocytes of 4%, and Basophils of 2%. His Chemistry is significant for AG of 15.5, BUN of 57, Cr of 3.7, BS of 63, Troponin of 0.174 and 0.163, ProBNP 04180, Albumin of 2.5, and CRP of 18.3. His UA is negative for UTI. His CXR shows complete white out of the left lung. His Chest CTA report read as collapse of a large portion of the left lung with surrounding left sided pleural effusion, shifting of the mediastinum is noted, and small to moderate sized right sided pleural effusion. Patient received initial treatment in ED and he was put on BIPAP prior to coming in for further management. - Related Data Allergies/Adverse Reactions: Allergies Allergy/AdvReac Type Severity Reaction Status Date / Time No Known Allergies Allergy Verified 06/22/19 06:28 Home Medications: Home Meds Dutasteride 0.5 mg PO DAILY 03/17/18 [History] Famotidine 20 mg PO DAILY 03/17/18 [History] Levothyroxine [Synthroid] 100 mcg PO DAILY 03/17/18 [History] NIFEdipine [Nifedipine ER] 60 mg PO DAILY 03/17/18 [History] Pravastatin [Pravachol] 40 mg PO DAILY 03/17/18 [History] carvediloL [Carvedilol] 25 mg PO BID 03/17/18 [History] Finasteride 5 mg PO DAILY 05/23/19 [History] Sertraline [Zoloft] 25 mg PO DAILY 06/22/19 [History] Aspirin 81 mg PO BEDTIME tab.chew 07/01/19 [Rx] Insulin Aspart [NovoLOG] 0 unit SQ WITHMEALSANDBED #3 pen 07/01/19 [Rx] Insulin Detemir [Levemir Flextouch] 15 unit SQ BEDTIME #3 ml 07/01/19 [Rx] Spironolactone [Aldactone] 50 mg PO DAILY #30 tablet 07/01/19 [Rx] Apixaban [Eliquis] 2.5 mg PO BID@0900,1800 10/30/19 [History] Brimonidine Tartrate [Alphagan P 0.1% Ophth Soln] 1 drop EYEBOTH BID 10/30/19 [ History] Cholecalciferol (Vitamin D3) [Vitamin D3] 5,000 unit PO DAILY 10/30/19 [History] Febuxostat [Uloric] 40 mg PO DAILY 10/30/19 [History] Furosemide [Lasix] 60 mg PO BID 10/30/19 [History] Insulin Aspart [NovoLOG] 7 units SUBCUT TID 10/30/19 [History] Ipratropium/Albuterol Sulfate [Iprat-Albut 0.5-3(2.5) mg/3 ml] 3 ml NEB QID 07/11 [History] Iron Ag,Ps/C/Fa6/B12/Zn/SA/Sto [Niferex Tablet] 1 tab PO DAILY 10/30/19 [History ] Multivitamin [Multivitamins] 1 tab PO DAILY 10/30/19 [History] Sacubitril/Valsartan [Entresto 24 mg-26 mg Tablet] 1 tab PO DAILY 10/30/19 [ History] guaiFENesin [Mucinex] 600 mg PO BID 10/30/19 [History] Past Medical History HEENT History: Reports: Impaired Vision Other HEENT History: wears glasses Cardiovascular History: Reports: Afib, Heart Failure, High Cholesterol, Hypertension Respiratory History: Reports: COPD Gastrointestinal History: Reports: GERD Genitourinary History: Reports: BPH, Chronic Renal Insuffiency Musculoskeletal History: Reports: Amputation Neurological History: Reports: CVA Endocrine/Metabolic History: Reports: Diabetes, Type II, Hypothyroidism, Obesity /BMI 30+ Oncologic (Cancer) History: Reports: Renal Other Oncologic History: R) kidney removed - Past Surgical History HEENT Surgical History: Reports: Cataract Surgery, Oral Surgery, Tonsillectomy Cardiovascular Surgical History: Reports: Carotid Endarterectomy Respiratory Surgical History: Reports: None GI Surgical History: Reports: Cholecystectomy Male Surgical History: Reports: Nephrectomy Endocrine Surgical History: Reports: None Neurological Surgical History: Reports: None Musculoskeletal Surgical History: Reports: Amputation, Carpal Tunnel, Knee Replacement, ORIF Social & Family History - Tobacco Use Smoking Status *Q: Former Smoker Used Tobacco, but Quit: Yes Month/Year Tobacco Last Used: 30 - Caffeine Use Caffeine Use: Reports: Coffee - Recreational Drug Use Recreational Drug Use: No - Living Situation & Occupation Living situation: Reports: , with Spouse, Assisted Living ([facility]/ [place]) Occupation: Retired H&P Review of Systems - Review of Systems: Review Of Systems: Unable To Obtain Reason Not Obtained: on BIPAP Exam - Exam Exam: See Below - Vital Signs Vital Signs: Last Vital Signs Temp 36.9 C 10/30/19 11:12 Pulse 77 10/30/19 14:22 Resp 20 10/30/19 14:22 BP 110/60 10/30/19 14:22 Pulse Ox 93 L 10/30/19 14:22 Weight: 108.862 kg - Exam General: Alert, Cooperative, Mild Distress HEENT: Conjunctiva Clear, EACs Clear, Hearing Intact, Pupils Equal, Pupils Reactive Neck: Supple, Trachea Midline Lungs: Decreased Breath Sounds, Other (no aubidle air sound on left side of the lung) Cardiovascular: Irregular Rhythm GI/Abdominal Exam: Normal Bowel Sounds, Non-Tender, No Organomegaly, No Distention, No Abnormal Bruit (Male) Exam: Deferred Rectal (Males) Exam: Deferred Back Exam: Other (deferred) Extremities: Normal Inspection, Non-Tender, No Pedal Edema, Normal Capillary Refill Peripheral Pulses: 2+: Dorsalis Pedis (L), Dorsalis Pedis (R) Skin: Warm, Dry, Intact Neuro Extensive - Mental Status: Alert, Normal Mood/Affect Neuro Extensive - Motor, Sensory, Reflexes: Other (not appropriate at this but not focal deficit) Psychiatric: Alert, Normal Affect, Normal Mood Physical Exam Comments:: Physical exam is limited. He is currently on BIPAP - Patient Data Lab Results Last 24 hrs: Laboratory Results - last 24 hr 10/30/19 10/30/19 10/30/19 Range/Units 11:18 11:25 11:25 WBC 8.73 (4.23-9.07) K/mm3 RBC 3.15 L (4.63-6.08) M/mm3 Hgb 8.6 L D (13.7-17.5) gm/dl Hct 27.3 L (40.1-51.0) % MCV 86.7 D (79.0-92.2) fl MCH 27.3 (25.7-32.2) pg MCHC 31.5 L (32.2-35.5) g/dl RDW Std Deviation 42.9 (35.1-43.9) fL Plt Count 352 H D (163-337) K/mm3 MPV 9.3 L (9.4-12.3) fl Neutrophils % (Manual) 86 H (40-60) % Band Neutrophils % 0 (0-10) % Lymphocytes % (Manual) 4 L (20-40) % Atypical Lymphs % 0 % Immat Monocytes % (Man) 0 Monocytes % (Manual) 8 (2-10) % Eosinophils % (Manual) 0 L (0.8-7.0) % Basophils % (Manual) 2 H (0.2-1.2) Metamyelocytes % 0 Myelocytes % 0 Promyelocytes % 0 Blast Cells % 0 Plasma Cell % (Manual) 0 Nucleated RBCs 0.0 % Platelet Estimate Adequate RBC Morph Comment Normal PT 11.9 (9.7-12.0) SECONDS INR 1.10 Sodium (136-145) mEq/L Potassium (3.5-5.1) mEq/L Chloride (98-107) mEq/L Carbon Dioxide (21-32) mEq/L Anion Gap (5-15) BUN (7-18) mg/dL Creatinine (0.7-1.3) mg/dL Est Cr Clr Drug Dosing mL/min Estimated GFR (MDRD) (>60) mL/min BUN/Creatinine Ratio (14-18) Glucose (83-115) mg/dL Lactic Acid (0.4-2.0) mmol/L Calcium (8.5-10.1) mg/dL Total Bilirubin (0.2-1.0) mg/dL AST (15-37) U/L ALT (16-63) U/L Alkaline Phosphatase (46-116) U/L Troponin I (0.00-0.056) ng/mL C-Reactive Protein (<1.0) mg/dL NT-Pro-B Natriuret Pep (0-450) pg/mL Total Protein (6.4-8.2) g/dl Albumin (3.4-5.0) g/dl Globulin gm/dL Albumin/Globulin Ratio (1-2) Urine Color Yellow (Yellow) Urine Appearance Clear (Clear) Urine pH 5.5 (5.0-8.0) Ur Specific [place] 1.020 (1.005-1.030) Urine Protein 1+ H (Negative) Urine Glucose (UA) Negative (Negative) Urine Ketones Negative (Negative) Urine Occult Blood Negative (Negative) Urine Nitrite Negative (Negative) Urine Bilirubin Negative (Negative) Urine Urobilinogen 1.0 (0.2-1.0) Ur Leukocyte Esterase Negative (Negative) Urine RBC Not seen (0-5) /hpf Urine WBC 0-5 (0-5) /hpf Ur Squamous Epith Cells 0-5 (0-5) /hpf Urine Bacteria Few (FEW) /hpf Hyaline Casts 5-10 H (0-5) /lpf Urine Mucus Few (FEW) /hpf 10/30/19 10/30/19 10/30/19 Range/Units 11:25 11:25 11:25 WBC (4.23-9.07) K/mm3 RBC (4.63-6.08) M/mm3 Hgb (13.7-17.5) gm/dl Hct (40.1-51.0) % MCV (79.0-92.2) fl MCH (25.7-32.2) pg MCHC (32.2-35.5) g/dl RDW Std Deviation (35.1-43.9) fL Plt Count (163-337) K/mm3 MPV (9.4-12.3) fl Neutrophils % (Manual) (40-60) % Band Neutrophils % (0-10) % Lymphocytes % (Manual) (20-40) % Atypical Lymphs % % Immat Monocytes % (Man) Monocytes % (Manual) (2-10) % Eosinophils % (Manual) (0.8-7.0) % Basophils % (Manual) (0.2-1.2) Metamyelocytes % Myelocytes % Promyelocytes % Blast Cells % Plasma Cell % (Manual) Nucleated RBCs % Platelet Estimate RBC Morph Comment PT (9.7-12.0) SECONDS INR Sodium 142 (136-145) mEq/L Potassium 3.5 (3.5-5.1) mEq/L Chloride 101 (98-107) mEq/L Carbon Dioxide 29 (21-32) mEq/L Anion Gap 15.5 H (5-15) BUN 57 H (7-18) mg/dL Creatinine 3.7 H D (0.7-1.3) mg/dL Est Cr Clr Drug Dosing 15.44 mL/min Estimated GFR (MDRD) 16 (>60) mL/min BUN/Creatinine Ratio 15.4 (14-18) Glucose 63 L (83-115) mg/dL Lactic Acid 0.7 (0.4-2.0) mmol/L Calcium 8.5 (8.5-10.1) mg/dL Total Bilirubin 0.4 (0.2-1.0) mg/dL AST 23 (15-37) U/L ALT 26 (16-63) U/L Alkaline Phosphatase 68 (46-116) U/L Troponin I (0.00-0.056) ng/mL C-Reactive Protein 18.3 H* (<1.0) mg/dL NT-Pro-B Natriuret Pep 06465 H (0-450) pg/mL Total Protein 6.9 (6.4-8.2) g/dl Albumin 2.5 L (3.4-5.0) g/dl Globulin 4.4 gm/dL Albumin/Globulin Ratio 0.6 L (1-2) Urine Color (Yellow) Urine Appearance (Clear) Urine pH (5.0-8.0) Ur Specific [place] (1.005-1.030) Urine Protein (Negative) Urine Glucose (UA) (Negative) Urine Ketones (Negative) Urine Occult Blood (Negative) Urine Nitrite (Negative) Urine Bilirubin (Negative) Urine Urobilinogen (0.2-1.0) Ur Leukocyte Esterase (Negative) Urine RBC (0-5) /hpf Urine WBC (0-5) /hpf Ur Squamous Epith Cells (0-5) /hpf Urine Bacteria (FEW) /hpf Hyaline Casts (0-5) /lpf Urine Mucus (FEW) /hpf 10/30/19 Range/Units 11:25 WBC (4.23-9.07) K/mm3 RBC (4.63-6.08) M/mm3 Hgb (13.7-17.5) gm/dl Hct (40.1-51.0) % MCV (79.0-92.2) fl MCH (25.7-32.2) pg MCHC (32.2-35.5) g/dl RDW Std Deviation (35.1-43.9) fL Plt Count (163-337) K/mm3 MPV (9.4-12.3) fl Neutrophils % (Manual) (40-60) % Band Neutrophils % (0-10) % Lymphocytes % (Manual) (20-40) % Atypical Lymphs % % Immat Monocytes % (Man) Monocytes % (Manual) (2-10) % Eosinophils % (Manual) (0.8-7.0) % Basophils % (Manual) (0.2-1.2) Metamyelocytes % Myelocytes % Promyelocytes % Blast Cells % Plasma Cell % (Manual) Nucleated RBCs % Platelet Estimate RBC Morph Comment PT (9.7-12.0) SECONDS INR Sodium (136-145) mEq/L Potassium (3.5-5.1) mEq/L Chloride (98-107) mEq/L Carbon Dioxide (21-32) mEq/L Anion Gap (5-15) BUN (7-18) mg/dL Creatinine (0.7-1.3) mg/dL Est Cr Clr Drug Dosing mL/min Estimated GFR (MDRD) (>60) mL/min BUN/Creatinine Ratio (14-18) Glucose (83-115) mg/dL Lactic Acid (0.4-2.0) mmol/L Calcium (8.5-10.1) mg/dL Total Bilirubin (0.2-1.0) mg/dL AST (15-37) U/L ALT (16-63) U/L Alkaline Phosphatase (46-116) U/L Troponin I 0.174 H* (0.00-0.056) ng/mL C-Reactive Protein (<1.0) mg/dL NT-Pro-B Natriuret Pep (0-450) pg/mL Total Protein (6.4-8.2) g/dl Albumin (3.4-5.0) g/dl Globulin gm/dL Albumin/Globulin Ratio (1-2) Urine Color (Yellow) Urine Appearance (Clear) Urine pH (5.0-8.0) Ur Specific [place] (1.005-1.030) Urine Protein (Negative) Urine Glucose (UA) (Negative) Urine Ketones (Negative) Urine Occult Blood (Negative) Urine Nitrite (Negative) Urine Bilirubin (Negative) Urine Urobilinogen (0.2-1.0) Ur Leukocyte Esterase (Negative) Urine RBC (0-5) /hpf Urine WBC (0-5) /hpf Ur Squamous Epith Cells (0-5) /hpf Urine Bacteria (FEW) /hpf Hyaline Casts (0-5) /lpf Urine Mucus (FEW) /hpf Result Diagrams: 10/31/19 05:20 10/31/19 05:20 [place] Results Last 24 hrs: Microbiology 10/30/19 11:55 Influenza Type A Antigen Screen - Final Nasopharyngeal Swab NEGATIVE INFLUENZA A VIRUS AG REFERENCE RANGE: NEGATIVE Influenza Type B Antigen Screen - Final NEGATIVE INFLUENZA B VIRUS AG REFERENCE RANGE: NEGATIVE EKG INTERPRETATION EKG Date: 10/30/19 Time: 17:50 Rhythm: A-Fib Rate (Beats/Min): 90 QRS: RBBB [place]/PQ Interval: Unsustained V-tach Sepsis Event Note - Evaluation Sepsis Screening Result: No Definite Risk - Focused Exam Vital Signs: Vital Signs Temp Pulse Resp BP Pulse Ox Pulse Ox 10/30/19 14:22 77 20 110/60 93 L 10/30/19 11:14 90 L 10/30/19 11:12 36.9 C 88 18 89 L Date Exam was Performed: 10/31/19 Time Exam was Performed: 13:23 Problem List Initiated/Reviewed/Updated: Yes Orders Last 24hrs: Active Orders 24 hr Category Date Time Status Antiembolic Devices [RC] PER UNIT ROUTINE Care 10/30/19 14:31 Ordered Cardiac Monitoring [RC] CONTINUOUS Care 10/30/19 14:30 Ordered Height and Weight [RC] DAILY Care 10/30/19 14:29 Ordered Intake and Output [RC] QSHIFT Care 10/30/19 14:30 Ordered Oxygen Therapy [RC] PRN Care 10/30/19 14:30 Ordered Pulse Oximetry [RC] CONTINUOUS Care 10/30/19 14:30 Ordered RT Aerosol Therapy [RC] ASDIRECTED Care 10/30/19 11:14 Active RT Aerosol Therapy [RC] ASDIRECTED Care 10/30/19 14:31 Ordered Up ad Yuliya [RC] ASDIRECTED Care 10/30/19 14:29 Ordered VTE/DVT Education [RC] PER UNIT ROUTINE Care 10/30/19 14:30 Ordered Vital Signs [RC] Q4H Care 10/30/19 14:30 Ordered Consult to Case Management/Oxyacetylene Welder [CONS] Cons 10/30/19 14:29 Ordered Routine Consult to Spiritual Care [CONS] Routine Cons 10/30/19 14:29 Ordered OT Evaluation and Treatment [CONS] Routine Cons 10/30/19 14:29 Ordered PT Evaluation and Treatment [CONS] Routine Cons 10/30/19 14:29 Ordered Respiratory Care Assess and Treatment [CONS] Routine Cons 10/30/19 14:29 Ordered Nothing per Oral Now Diet [DIET] Diet 10/30/19 Lunch Ordered Chest 1V Frontal [CR] Stat Exams 10/30/19 11:57 Taken BASIC METABOLIC PANEL,BMP [CHEM] AM Lab 10/31/19 05:11 Ordered BASIC METABOLIC PANEL,BMP [CHEM] AM Lab 11/01/19 05:11 Ordered BASIC METABOLIC PANEL,BMP [CHEM] AM Lab 11/02/19 05:11 Ordered BASIC METABOLIC PANEL,BMP [CHEM] AM Lab 11/03/19 05:11 Ordered BASIC METABOLIC PANEL,BMP [CHEM] AM Lab 11/04/19 05:11 Ordered C-REACTIVE PROTEIN [CHEM] AM Lab 10/31/19 05:11 Ordered C-REACTIVE PROTEIN [CHEM] AM Lab 11/01/19 05:11 Ordered C-REACTIVE PROTEIN [CHEM] AM Lab 11/02/19 05:11 Ordered C-REACTIVE PROTEIN [CHEM] AM Lab 11/03/19 05:11 Ordered C-REACTIVE PROTEIN [CHEM] AM Lab 11/04/19 05:11 Ordered CBC WITH AUTO DIFF [HEME] AM Lab 10/31/19 05:11 Ordered CBC WITH AUTO DIFF [HEME] AM Lab 11/01/19 05:11 Ordered CBC WITH AUTO DIFF [HEME] AM Lab 11/02/19 05:11 Ordered CBC WITH AUTO DIFF [HEME] AM Lab 11/03/19 05:11 Ordered CBC WITH AUTO DIFF [HEME] AM Lab 11/04/19 05:11 Ordered CULTURE BLOOD [BC] Stat Lab 10/30/19 11:25 Received CULTURE BLOOD [BC] Stat Lab 10/30/19 11:40 Received MAGNESIUM [CHEM] AM Lab 10/31/19 05:11 Ordered MAGNESIUM [CHEM] AM Lab 11/01/19 05:11 Ordered MAGNESIUM [CHEM] AM Lab 11/02/19 05:11 Ordered MAGNESIUM [CHEM] AM Lab 11/03/19 05:11 Ordered MAGNESIUM [CHEM] AM Lab 11/04/19 05:11 Ordered TROPONIN I [CHEM] Q6H Lab 10/30/19 17:00 Ordered TROPONIN I [CHEM] Q6H Lab 10/30/19 23:00 Ordered Acetaminophen [Tylenol] Med 10/30/19 14:29 Ordered 650 mg PO Q4H PRN Acetaminophen [Tylenol] Med 10/30/19 14:29 Ordered 650 mg RECTAL Q4H PRN Acetaminophen/HYDROcodone [[place] 325-5 MG] Med 10/30/19 14:29 Ordered 1 tab PO Q4H PRN Albuterol/Ipratropium [DuoNeb 3.0-0.5 MG/3 ML] Med 10/30/19 14:29 Ordered 3 ml NEB Q4H PRN Albuterol/Ipratropium [DuoNeb 3.0-0.5 MG/3 ML] Med 10/30/19 17:00 Ordered 3 ml NEB QID Brimonidine Tartrate Med 10/30/19 21:00 Ordered 1 drop EYEBOTH BID Carvedilol Med 10/30/19 21:00 Ordered 25 mg PO BID Cholecalciferol (Vitamin D3) [Vitamin D3] Med 10/31/19 09:00 Ordered 5,000 unit PO DAILY Dutasteride Med 10/31/19 09:00 Ordered 0.5 mg PO DAILY Famotidine [Pepcid] Med 10/31/19 09:00 Ordered 20 mg PO DAILY Febuxostat Med 10/31/19 09:00 Ordered 40 mg PO DAILY Finasteride [Proscar] Med 10/31/19 09:00 Ordered 5 mg PO DAILY Furosemide [Lasix] Med 10/30/19 21:00 Ordered 60 mg PO BID HYDROmorphone [Dilaudid] Med 10/30/19 14:29 Ordered 0.25 mg IVPUSH Q2H PRN Insulin Detemir Med 10/30/19 21:00 Ordered 15 unit SQ BEDTIME Levothyroxine [Synthroid] Med 10/31/19 09:00 Ordered 100 mcg PO DAILY Multivitamin [Multivitamins] Med 10/31/19 09:00 Ordered 1 tab PO DAILY NIFEdipine [Nifedipine ER] Med 10/31/19 09:00 Ordered 60 mg PO DAILY Ondansetron [Zofran] Med 10/30/19 14:29 Ordered 4 mg IV Q6H PRN Pravastatin Sodium Med 10/31/19 09:00 Ordered 40 mg PO DAILY Promethazine [Phenergan] 6.25 mg Med 10/30/19 14:29 Ordered Sodium Chloride 0.9% [Normal Saline] 50 ml IV Q6H Sacubitril/Valsartan [Entresto 24 mg-26 mg Tablet] Med 10/31/19 09:00 Ordered 1 tab PO DAILY Sertraline [Zoloft] Med 10/31/19 09:00 Ordered 25 mg PO DAILY Sodium Chloride 0.9% [Saline Flush] Med 10/30/19 11:08 Active 10 ml FLUSH ASDIRECTED PRN Spironolactone [Aldactone] Med 10/31/19 09:00 Ordered 50 mg PO DAILY guaiFENesin [Mucinex] Med 10/31/19 09:00 Ordered 600 mg PO DAILY BiPAP [RESPCARE] Routine Oth 10/30/19 14:19 Active Blood Culture x2 Reflex Set [OM.PC] Stat Oth 10/30/19 11:09 Ordered Saline Lock Insert [OM.PC] Stat Oth 10/30/19 11:09 Ordered Sequential Compression Device [OM.PC] Per Unit Routine Oth 10/30/19 14:30 Ordered Severe Sepsis Onset Time [OM.PC] Stat Oth 10/30/19 11:09 Ordered Resuscitation Status Routine Resus Stat 10/30/19 14:29 Ordered Medication Orders Acetaminophen (Tylenol) 650 mg PO Q4H PRN PRN Reason: Pain (Mild 1-3)/fever Acetaminophen (Tylenol) 650 mg RECTAL Q4H PRN PRN Reason: Pain (mild 1-3) Hydrocodone Bitart/Acetaminophen ([place] 325-5 Mg) 1 tab PO Q4H PRN PRN Reason: Pain (moderate 4-6) Albuterol/Ipratropium (Duoneb 3.0-0.5 Mg/3 Ml) 3 ml NEB QID JEN Albuterol/Ipratropium (Duoneb 3.0-0.5 Mg/3 Ml) 3 ml NEB Q4H PRN PRN Reason: Shortness Of Breath/wheezing Cholecalciferol (Vitamin D3) 5,000 unit PO DAILY JEN Famotidine (Pepcid) 20 mg PO DAILY JEN Finasteride (Proscar) 5 mg PO DAILY JEN Furosemide (Lasix) 60 mg PO BID JEN Guaifenesin (Mucinex) 600 mg PO DAILY JEN Hydromorphone HCl (Dilaudid) 0.25 mg IVPUSH Q2H PRN PRN Reason: Pain (severe 7-10) Promethazine HCl 6.25 mg/ (Sodium Chloride) 50.25 mls @ 100 mls/hr IV Q6H PRN PRN Reason: Nausea/Vomiting Levothyroxine Sodium (Synthroid) 100 mcg PO DAILY [facility] Non-Formulary Medication (Brimonidine Tartrate) 1 drop EYEBOTH BID JEN Non-Formulary Medication (Carvedilol) 25 mg PO BID JEN Non-Formulary Medication (Dutasteride) 0.5 mg PO DAILY JEN Non-Formulary Medication (Febuxostat) 40 mg PO DAILY JEN Non-Formulary Medication (Insulin Detemir) 15 unit SQ BEDTIME JEN Non-Formulary Medication (Multivitamin [Multivitamins]) 1 tab PO DAILY JEN Non-Formulary Medication (Nifedipine [Nifedipine Er]) 60 mg PO DAILY JEN Non-Formulary Medication (Pravastatin Sodium) 40 mg PO DAILY JEN Non-Formulary Medication (Sacubitril/Valsartan [Entresto 24 Mg-26 Mg Tablet]) 1 tab PO DAILY JEN Ondansetron HCl (Zofran) 4 mg IV Q6H PRN PRN Reason: Nausea/Vomiting Sertraline HCl (Zoloft) 25 mg PO DAILY [facility] Sodium Chloride (Saline Flush) 10 ml FLUSH ASDIRECTED PRN PRN Reason: Keep Vein Open Last Admin: 10/30/19 11:55 Dose: 10 ml Spironolactone (Aldactone) 50 mg PO DAILY [facility] Assessment/Plan Comment:: Acute: Respiratory Failure. 2/2 Collapse Lung and Pleural Effusion. Risk factors: HF with Reduced EF and COPD. Currently on BIPAP. He is on Eliquis so we have to wait for 24hrs to perform invasive procedures. He seems to be stable on BIPAP. Thrombocytopenia. Platelet of 352. He has been normal in the past. We will monitor. Its possible lab error. Normocytic and Hypochromic Anemia. Carries a hx/o NAE and on Chronic anticoagulant with Eliquis. Hgb of 8.6 grams. Baseline of 9.6-11 gams. No report of rectal bleed or melena. Will hold Eliquis for now due to possible thoracentesis after 24hrs. CKD Stage 3-4. He is at baseline. 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 [place] [address]. Heart failure regimen: diuretic, salt/fluid restriction, daily weight check, and Is/ Os. No need for repeat 2D echo; most recent echo was done back in Jun of last year. Elevated proBNP level [id number]. Likely due to B/L Pleural Effusions. Expect to improve after thoracentesis. Hold off fluids for now. Collapse Left Lung with Pleural Effusion and Compressive Atelectasis. Consider therapeutic thoracentesis after 24hrs off Eliquis. If no improvement after thoracentesis, may need to go [place] for pulmonary evaluation. Patient is DNR on Palliative Care. Pleural Effusions on Both Lungs. Consider therapeutic thoracentesis and IS as directed. Elevated Troponin I level. LV Strain vs NSTEMI. Patient is on ASA/Eliquis and Carvedilol. Would not recommend Heparin gtt. He is very high risk for bleeding. Hypoglycemia with DM2. BS of 63. Hold diabetic medications for now. Accu-check Q6H since he is NPO with hypoglycemic protocol. Chronic: Impaired Vision, Afib on Eliquis, HF with Reduce EF of 30%, Moderate Mitral Valve Regurgitation, HTN, HLD, COPD, GERD, BPH, CKD Stage 3-4, Hx/o Right Nephrectomy, CVA, DM2, Hypothyroidism, NAE, Hx/o CVA, Dysphagia, Cognitive Deficits, B/L Extremity Edema, Muscle Weakness and Obesity. Plan: Admit to [facility] with Tele. Routine AM Labs. Aspiration and Fall precautions. BIPAP. Hold Eliquis for now. Therapeutic Thoracentesis after 24 hrs. Code status : DNR on Palliative Care. GI prophylaxis. DVT/Stroke SCDs for now. Short term is guarded but overall prognosis is poor.
[2019-10-30] MEDS: Albuterol/Ipratropium 3.0-0.5 MG/3 ML Neb Soln NEB SCH ×2 (16:58→20:23)
[2019-10-30] MEDS ORDERED: Furosemide 20 MG Tab PO SCH (21:00)
[2019-10-30] MEDS: BRIMONIDINE TARTRATE EYEBOTH SCH (21:35)
[2019-10-30] MEDS: Carvedilol 12.5 MG Tab PO SCH (21:35)
[2019-10-30] MEDS: Insulin Glarg,Human.Rec.Analog 100 Unit/ML SUBCUT SCH (21:42)
[2019-10-30] MEDS ORDERED: 50% Dextrose in Water 50 ML Syringe IVPUSH PRN (23:28)
[2019-10-30] MEDS ORDERED: Insulin Lispro 100 Units/ML 3 ML Vial SUBCUT SCH (23:30)
[2019-10-31] MEDS: Insulin Lispro 100 Units/ML 3 ML Vial SUBCUT SCH ×4 (05:35→21:59)
[2019-10-31] MEDS: Levothyroxine 100 MCG Tab PO SCH (05:35)
[2019-10-31] MEDS ORDERED: DUTASTERIDE 0.5 MG PO SCH (09:00)
[2019-10-31] MEDS: Albuterol/Ipratropium 3.0-0.5 MG/3 ML Neb Soln NEB SCH ×3 (09:19→21:10)
[2019-10-31] MEDS: SACUBITRIL PO SCH (09:30)
[2019-10-31] MEDS: FEBUXOSTAT 40 MG PO SCH (09:30)
[2019-10-31] MEDS: VALSARTAN PO SCH (09:30)
[2019-10-31] MEDS: BRIMONIDINE TARTRATE EYEBOTH SCH ×2 (09:30→21:50)
[2019-10-31] MEDS: NIFEdipine 30 MG Tab.ER PO SCH (09:31)
[2019-10-31] MEDS: Famotidine 20 MG Tab PO SCH (09:32)
[2019-10-31] MEDS: Simvastatin 20 MG Tab PO SCH (09:32)
[2019-10-31] MEDS: Sertraline 25 MG Tab PO SCH (09:32)
[2019-10-31] MEDS: Multivitamins,Therapeutic Tab PO SCH (09:32)
[2019-10-31] MEDS: Cholecalciferol (Vitamin D3) 5,000 UNIT Tab PO SCH (09:34)
[2019-10-31] MEDS: Furosemide 20 MG Tab PO SCH ×2 (09:34→13:52)
[2019-10-31] MEDS: Carvedilol 12.5 MG Tab PO SCH ×2 (09:34→21:42)
[2019-10-31] MEDS: guaiFENesin 600 MG Tab.ER PO SCH (09:34)
[2019-10-31] MEDS: Finasteride 5 MG Tab PO SCH (09:34)
[2019-10-31] MEDS: Spironolactone 25 MG Tab PO SCH (09:35)
[2019-10-31] MEDS: Oseltamivir 30 MG Cap PO SCH (13:52)
--- NOTE | 2019-10-31 17:24 | PCM.PN ---
- General Info Date of Service: 10/31/19 Subjective Update: Feeling ok Still a little tired Denies any pain SOB is improved - Patient Data Vitals - Most Recent: Last Vital Signs Temp 98.2 F 10/31/19 16:02 Pulse 79 10/31/19 16:02 Resp 19 10/31/19 16:02 BP 143/86 H 10/31/19 16:02 Pulse Ox 90 L 10/31/19 16:07 Weight - Most Recent: 108.862 kg - Exam Quality Assessment: Supplemental Oxygen General: Alert, Oriented, No Acute Distress HEENT: Pupils Equal, Pupils Reactive, EOMI, Mucous Membr. Moist/[place] Neck: Supple, Trachea Midline, No JVD, No Thyromegaly Lungs: Other (No air entry in whole left hemithorax, decreased at mid-chest on right side, dull to percussion, occassional crackles) Cardiovascular: Regular Rate, Regular Rhythm. No: Murmurs, Gallops, Rubs GI/Abdominal Exam: Normal Bowel Sounds, Soft, Non-Tender, No Organomegaly Back Exam: Normal Inspection. No: CVA Tenderness (L), CVA Tenderness (R) Extremities: Normal Inspection, Pedal Edema Psy/Mental Status: Alert, Normal Affect, Normal Mood Sepsis Event Note - Evaluation Sepsis Screening Result: No Definite Risk - Focused Exam Vital Signs: Vital Signs Temp Temp Pulse Pulse Resp BP BP 10/31/19 16:07 10/31/19 16:02 98.2 F 79 19 143/86 H 10/31/19 12:00 97.8 F 79 17 150/60 H 10/31/19 09:34 78 136/70 10/31/19 09:31 136/70 10/31/19 09:21 10/31/19 08:00 98.5 F 73 19 136/70 Pulse Ox Pulse Ox 10/31/19 16:07 90 L 10/31/19 16:02 89 L 10/31/19 12:00 97 10/31/19 09:34 10/31/19 09:31 10/31/19 09:21 92 L 10/31/19 08:00 94 L Date Exam was Performed: 10/31/19 Time Exam was Performed: 17:50 - Problem List & Annotations (1) Acute hypoxemic respiratory failure SNOMED Code(s): 418136582 Code(s): J96.01 - ACUTE RESPIRATORY FAILURE WITH HYPOXIA Status: Acute Current Visit: Yes (2) Acute systolic CHF (congestive heart failure) SNOMED Code(s): 162228054, 300541449 Code(s): I50.21 - ACUTE SYSTOLIC (CONGESTIVE) HEART FAILURE Status: Acute Current Visit: Yes (3) Chronic systolic HF (heart failure) SNOMED Code(s): 493805143 Code(s): I50.22 - CHRONIC SYSTOLIC (CONGESTIVE) HEART FAILURE Status: Acute Current Visit: Yes (4) Iron deficiency anemia SNOMED Code(s): 05290349 Code(s): D50.9 - IRON DEFICIENCY ANEMIA, UNSPECIFIED Status: Acute Current Visit: Yes (5) Diabetes mellitus, type 2 SNOMED Code(s): 41447588 Code(s): E11.9 - TYPE 2 DIABETES MELLITUS WITHOUT COMPLICATIONS Status: Acute Current Visit: Yes (6) Acquired absence of kidney SNOMED Code(s): 683360770 Code(s): Z90.5 - ACQUIRED ABSENCE OF KIDNEY Status: Acute Current Visit: Yes (7) Dysphagia, pharyngeal phase SNOMED Code(s): 55807890375176 Code(s): R13.13 - DYSPHAGIA, PHARYNGEAL PHASE Status: Acute Current Visit : Yes (8) Cognitive communication deficit SNOMED Code(s): 665053596353253 Code(s): R41.841 - COGNITIVE COMMUNICATION DEFICIT Status: Acute Current Visit: Yes (9) COPD (chronic obstructive pulmonary disease) SNOMED Code(s): 51023316 Code(s): J44.9 - CHRONIC OBSTRUCTIVE PULMONARY DISEASE, UNSPECIFIED Status : Acute Current Visit: Yes (10) Chronic kidney disease (CKD), stage III (moderate) SNOMED Code(s): 531819651 Code(s): N18.3 - CHRONIC KIDNEY DISEASE, STAGE 3 (MODERATE) Status: Acute Current Visit: Yes (11) Acute kidney failure SNOMED Code(s): 92714538 Code(s): N17.9 - ACUTE KIDNEY FAILURE, UNSPECIFIED Status: Acute Current Visit: Yes (12) Bilateral pleural effusion SNOMED Code(s): 694626279 Code(s): J90 - PLEURAL EFFUSION, NOT ELSEWHERE CLASSIFIED Status: Acute Current Visit: Yes (13) Elevated troponin SNOMED Code(s): 554358746, 300315737, 256531670 Code(s): R74.8 - ABNORMAL LEVELS OF OTHER SERUM ENZYMES Status: Acute Current Visit: No (14) Hypoglycemia SNOMED Code(s): 342097605 Code(s): E16.2 - HYPOGLYCEMIA, UNSPECIFIED Status: Acute Priority: Low Current Visit: No Onset Date: 06/26/19 (15) Hypothyroidism SNOMED Code(s): 00564940 Code(s): E03.9 - HYPOTHYROIDISM, UNSPECIFIED Status: Acute Current Visit : Yes (16) Atrial fibrillation SNOMED Code(s): 90011549 Code(s): I48.91 - UNSPECIFIED ATRIAL FIBRILLATION Status: Acute Priority : Medium Current Visit: No Onset Date: 06/26/19 Qualifiers: Atrial fibrillation type: chronic (17) Hypoglycemia associated with type 2 diabetes mellitus SNOMED Code(s): 821248750, 430125296 Code(s): E11.649 - TYPE 2 DIABETES MELLITUS WITH HYPOGLYCEMIA WITHOUT COMA Status: Acute Priority: Low Current Visit: No Onset Date: 06/27/19 - Problem List Review Problem List Initiated/Reviewed/Updated: Yes - Plan Plan:: Acute hypoxemic respiratory failure, multifactorial Bilateral pleural effusions, L>R Acute on chronic kidney disease, stage III O2 sat in ED 89% on 12L--> placed on BiPAP BiPAP overnight O2 sat trend 89-94% on BiPAP GFR on admission 15, stage V but senior care documentation with stage III PLAN - Left thoracentesis today - Continue oxygen supplementation with goal O2 > 88% - Repeat ABGs in AM - Incentive spirometry Acute on chronic systolic CHF (congestive heart failure), LVEF 30% (06/2019) Elevated troponin, plateaued Worsening pedal edema Pleural effusion likely a transudate Home management with carvedilol, pravastatin, spironolactone, Entresto and furosemide Troponin elevation likely due to high demand trend has remained stable PLAN - Thoracentesis today - Re-start home medications as tolerated - Daily weights - Strict I/Os - Switch Lasix from PO to IV Hypoglycemia Diabetes mellitus, type 2 unknown HbA1c Glucose on admission 63 Patient was asymptomatic NH management with sliding scale and 7u premeal insulin No new HbA1c measurement due to poor reliability in patient with anemia PLAN - Hypoglycemia protocol - Diabetic diet - Accuchecks TID AC and HS - No insulin for now Acute kidney failure, admission GFR 15 Chronic kidney disease (CKD), stage III (moderate) Acquired absence of kidney, 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 Iron deficiency anemia GFR on admission 15, stage V but senior care documentation with stage III PLAN - Renally dosed medications - Avoid nephrotoxic agents - Monitor urine output - Daily labs COPD (chronic obstructive pulmonary disease), unknown stage ABGs on admission without hypercarbia CO2 on admission borderline high at 29 PLAN - Goal O2 sat >88% due to chronic pulmonary issues - Continue home nebs and inhalers Atrial fibrillation, rate controlled on Eliquis Previous CVA Dysphagia, pharyngeal phase Cognitive communication deficit Likely patient has silent aspiration as per audible gargling during evaluation PLAN - Diabetic diet with dysphagia protocol - PT and OT - Continue eliquis - Monitor VS Hypothyroidism No acute issues PLAN - Continue home levothyroxine PROPHYLAXIS DVT- SCDs GI- not indicated CODE STATUS: DNR DISPOSITION: Patient will remain admitted in medical floor for oxygen supplementation as well as diuresis under monitorization. Discharge unlikely in the next 24 hours. Acute: Respiratory Failure. 2/2 Collapse Lung and Pleural Effusion. Risk factors: HF with Reduced EF and COPD. Currently on BIPAP. He is on Eliquis so we have to wait for 24hrs to perform invasive procedures. He seems to be stable on BIPAP. Thrombocytopenia. Platelet of 352. He has been normal in the past. We will monitor. Its possible lab error. Normocytic and Hypochromic Anemia. Carries a hx/o NAE and on Chronic anticoagulant with Eliquis. Hgb of 8.6 grams. Baseline of 9.6-11 gams. No report of rectal bleed or melena. Will hold Eliquis for now due to possible thoracentesis after 24hrs. CKD Stage 3-4. He is at baseline. 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 [place] [address]. Heart failure regimen: diuretic, salt/fluid restriction, daily weight check, and Is/ Os. No need for repeat 2D echo; most recent echo was done back in Jun of last year. Elevated proBNP level 11150. Likely due to B/L Pleural Effusions. Expect to improve after thoracentesis. Hold off fluids for now. Collapse Left Lung with Pleural Effusion and Compressive Atelectasis. Consider therapeutic thoracentesis after 24hrs off Eliquis. If no improvement after thoracentesis, may need to go [place] for pulmonary evaluation. Patient is DNR on Palliative Care. Pleural Effusions on Both Lungs. Consider therapeutic thoracentesis and IS as directed. Elevated Troponin I level. LV Strain vs NSTEMI. Patient is on ASA/Eliquis and Carvedilol. Would not recommend Heparin gtt. He is very high risk for bleeding. Hypoglycemia with DM2. BS of 63. Hold diabetic medications for now. Accu-check Q6H since he is NPO with hypoglycemic protocol. Chronic: Impaired Vision, Afib on Eliquis, HF with Reduce EF of 30%, Moderate Mitral Valve Regurgitation, HTN, HLD, COPD, GERD, BPH, CKD Stage 3-4, Hx/o Right Nephrectomy, CVA, DM2, Hypothyroidism, NAE, Hx/o CVA, Dysphagia, Cognitive Deficits, B/L Extremity Edema, Muscle Weakness and Obesity. Plan: Admit to [facility] with Tele. Routine AM Labs. Aspiration and Fall precautions. BIPAP. Hold Eliquis for now. Therapeutic Thoracentesis after 24 hrs. Code status : DNR on Palliative Care. GI prophylaxis. DVT/Stroke SCDs for now. Short term is guarded but overall prognosis is poor. Thoracentesis - Thoracentesis Thoracentesis Indication: pleural effusion Location: Left Skin prep: CDC/MBT Guidelines Ultrasound guided: Yes Local anesthesia: lidocaine 1 % Local anesthesia volume: 5cc Number of Attempts: 1 Device Used: 8 Fr kit device Fluid: yellow, cloudy Aspirated volume (mls): 410 Fluids sent: gram stain and culture, cell count, protein, glucose, cytology, other (LDH) Chest xray: Yes Complications: No Dressing: adhesive dressing
--- NOTE | 2019-10-31 17:29 | PCM.PRNOTE ---
- Free Text/Narrative Note: Thoracentesis Date: 10/31/2019 Time: 16:45 Indication: Large left pleural effusion Attending: Jacqueline Grubbs MD A time-out was completed verifying correct patient, procedure, site, positioning , and special equipment if applicable. The patients left side was prepped and draped in a sterile manner after the appropriate infiltration level was confirmed by ultrasound. 1% lidocaine was used anesthetize the surrounding skin. A finder needle was then used to locate fluid and clear yellow fluid was obtained. A 10-blade scalpel used to make the incision. The thoracentesis catheter was then threaded without difficulty. The patient had 410mL of clear yellow fluid removed. A post-procedure chest x-ray was ordered and the fluid will be sent for several studies. Estimated Blood Loss: <1mL The patient tolerated the procedure well and there were no complications.
[2019-10-31] MEDS: Furosemide 40 MG/4 ML VIAL IVPUSH SCH (21:43)
[2019-10-31] MEDS: Insulin Glarg,Human.Rec.Analog 100 Unit/ML SUBCUT SCH (21:47)
[2019-11-01] MEDS: Albuterol/Ipratropium 3.0-0.5 MG/3 ML Neb Soln NEB SCH ×4 (06:06→20:41)
[2019-11-01] MEDS: Insulin Lispro 100 Units/ML 3 ML Vial SUBCUT SCH ×4 (07:04→21:22)
[2019-11-01] MEDS: Furosemide 40 MG/4 ML VIAL IVPUSH SCH ×2 (07:04→13:14)
[2019-11-01] MEDS: Levothyroxine 100 MCG Tab PO SCH (07:04)
[2019-11-01] MEDS: Spironolactone 25 MG Tab PO SCH (08:22)
[2019-11-01] MEDS: Finasteride 5 MG Tab PO SCH (08:22)
[2019-11-01] MEDS: Carvedilol 12.5 MG Tab PO SCH ×2 (08:22→21:19)
[2019-11-01] MEDS: Famotidine 20 MG Tab PO SCH (08:22)
[2019-11-01] MEDS: Sertraline 25 MG Tab PO SCH (08:23)
[2019-11-01] MEDS: Cholecalciferol (Vitamin D3) 5,000 UNIT Tab PO SCH (08:23)
[2019-11-01] MEDS: Multivitamins,Therapeutic Tab PO SCH (08:23)
[2019-11-01] MEDS: Simvastatin 20 MG Tab PO SCH (08:23)
[2019-11-01] MEDS: NIFEdipine 30 MG Tab.ER PO SCH (08:23)
[2019-11-01] MEDS: guaiFENesin 600 MG Tab.ER PO SCH (08:23)
[2019-11-01] MEDS: BRIMONIDINE TARTRATE EYEBOTH SCH ×2 (12:12→21:23)
[2019-11-01] MEDS: FEBUXOSTAT 40 MG PO SCH (12:12)
[2019-11-01] MEDS: SACUBITRIL PO SCH (12:13)
[2019-11-01] MEDS: VALSARTAN PO SCH (12:13)
[2019-11-01] MEDS: Oseltamivir 30 MG Cap PO SCH (13:14)
--- NOTE | 2019-11-01 16:32 | PCM.PN ---
- General Info Date of Service: 11/01/19 Subjective Update: Feeling ok Slept ok Tolerating diet Shortness of breath improved - Patient Data Vitals - Most Recent: Last Vital Signs Temp 97.7 F 11/01/19 15:36 Pulse 62 11/01/19 15:36 Resp 20 11/01/19 15:36 BP 123/95 H 11/01/19 15:36 Pulse Ox 97 11/01/19 15:36 Weight - Most Recent: 106.413 kg - Exam Quality Assessment: Supplemental Oxygen General: Alert, Oriented, Cooperative, No Acute Distress HEENT: Pupils Equal, Pupils Reactive, EOMI, Mucous Membr. Moist/[place] Neck: Supple, Trachea Midline Lungs: Decreased Breath Sounds, Rales, Other (diminished air entry at both bases ). No: Crackles, Rhonchi, Wheezing Cardiovascular: Regular Rate, Regular Rhythm. No: Murmurs, Gallops, Rubs GI/Abdominal Exam: Normal Bowel Sounds, Soft, Non-Tender. No: Distended, Guarding Back Exam: Normal Inspection Sepsis Event Note - Evaluation Sepsis Screening Result: No Definite Risk - Focused Exam Vital Signs: Vital Signs Temp Temp Pulse Pulse Resp BP BP 11/01/19 15:36 97.7 F 62 20 123/95 H 11/01/19 15:16 11/01/19 11:54 98.7 F 69 20 120/88 11/01/19 11:19 11/01/19 09:00 11/01/19 08:23 112/67 11/01/19 08:22 74 112/67 11/01/19 08:21 98.4 F 77 20 112/67 11/01/19 06:07 Pulse Ox Pulse Ox Pulse Ox 11/01/19 15:36 97 11/01/19 15:16 87 L 11/01/19 11:54 93 L 11/01/19 11:19 94 L 11/01/19 09:00 93 L 11/01/19 08:23 11/01/19 08:22 11/01/19 08:21 11/01/19 06:07 89 L Date Exam was Performed: 11/02/19 Time Exam was Performed: 17:54 - Problem List & Annotations (1) Acute hypoxemic respiratory failure SNOMED Code(s): 951077563 Code(s): J96.01 - ACUTE RESPIRATORY FAILURE WITH HYPOXIA Status: Acute Current Visit: Yes (2) Acute systolic CHF (congestive heart failure) SNOMED Code(s): 783248318, 179487308 Code(s): I50.21 - ACUTE SYSTOLIC (CONGESTIVE) HEART FAILURE Status: Acute Current Visit: Yes (3) Chronic systolic HF (heart failure) SNOMED Code(s): 090118810 Code(s): I50.22 - CHRONIC SYSTOLIC (CONGESTIVE) HEART FAILURE Status: Acute Current Visit: Yes (4) Iron deficiency anemia SNOMED Code(s): 61705422 Code(s): D50.9 - IRON DEFICIENCY ANEMIA, UNSPECIFIED Status: Acute Current Visit: Yes (5) Diabetes mellitus, type 2 SNOMED Code(s): 63218996 Code(s): E11.9 - TYPE 2 DIABETES MELLITUS WITHOUT COMPLICATIONS Status: Acute Current Visit: Yes (6) Acquired absence of kidney SNOMED Code(s): 293753061 Code(s): Z90.5 - ACQUIRED ABSENCE OF KIDNEY Status: Acute Current Visit: Yes (7) Dysphagia, pharyngeal phase SNOMED Code(s): 03879702941232 Code(s): R13.13 - DYSPHAGIA, PHARYNGEAL PHASE Status: Acute Current Visit : Yes (8) Cognitive communication deficit SNOMED Code(s): 090207603219816 Code(s): R41.841 - COGNITIVE COMMUNICATION DEFICIT Status: Acute Current Visit: Yes (9) COPD (chronic obstructive pulmonary disease) SNOMED Code(s): 38006432 Code(s): J44.9 - CHRONIC OBSTRUCTIVE PULMONARY DISEASE, UNSPECIFIED Status : Acute Current Visit: Yes (10) Chronic kidney disease (CKD), stage III (moderate) SNOMED Code(s): 363608216 Code(s): N18.3 - CHRONIC KIDNEY DISEASE, STAGE 3 (MODERATE) Status: Acute Current Visit: Yes (11) Acute kidney failure SNOMED Code(s): 55874091 Code(s): N17.9 - ACUTE KIDNEY FAILURE, UNSPECIFIED Status: Acute Current Visit: Yes (12) Bilateral pleural effusion SNOMED Code(s): 994705128 Code(s): J90 - PLEURAL EFFUSION, NOT ELSEWHERE CLASSIFIED Status: Acute Current Visit: Yes (13) Elevated troponin SNOMED Code(s): 867074457, 171625300, 981419622 Code(s): R74.8 - ABNORMAL LEVELS OF OTHER SERUM ENZYMES Status: Acute Current Visit: No (14) Hypoglycemia SNOMED Code(s): 237204673 Code(s): E16.2 - HYPOGLYCEMIA, UNSPECIFIED Status: Acute Priority: Low Current Visit: No Onset Date: 06/26/19 (15) Hypothyroidism SNOMED Code(s): 92412837 Code(s): E03.9 - HYPOTHYROIDISM, UNSPECIFIED Status: Acute Current Visit : Yes (16) Atrial fibrillation SNOMED Code(s): 17033136 Code(s): I48.91 - UNSPECIFIED ATRIAL FIBRILLATION Status: Acute Priority : Medium Current Visit: No Onset Date: 06/26/19 Qualifiers: Atrial fibrillation type: chronic (17) Hypoglycemia associated with type 2 diabetes mellitus SNOMED Code(s): 685740752, 800154327 Code(s): E11.649 - TYPE 2 DIABETES MELLITUS WITH HYPOGLYCEMIA WITHOUT COMA Status: Acute Priority: Low Current Visit: No Onset Date: 06/27/19 - Problem List Review Problem List Initiated/Reviewed/Updated: Yes - Plan Plan:: Acute hypoxemic respiratory failure, multifactorial Bilateral pleural effusions, L>R s/p thoracentesis 10/31 Acute on chronic kidney disease, stage III O2 sat in ED 89% on 12L--> placed on BiPAP BiPAP overnight O2 sat trend 89-94% on BiPAP GFR on admission 15, stage V but half-way documentation with stage III Fluid results are a transudate PLAN - Continue oxygen supplementation with goal O2 > 88% - Incentive spirometry Acute on chronic systolic CHF (congestive heart failure), LVEF 30% (06/2019) Elevated troponin, plateaued Worsening pedal edema Pleural effusion likely a transudate Home management with carvedilol, pravastatin, spironolactone, Entresto and furosemide Troponin elevation likely due to high demand trend has remained stable PLAN - Thoracentesis today - Re-start home medications as tolerated - Daily weights - Strict I/Os - Switch Lasix from PO to IV Hypoglycemia Diabetes mellitus, type 2 unknown HbA1c Glucose on admission 63 Patient was asymptomatic NH management with sliding scale and 7u premeal insulin No new HbA1c measurement due to poor reliability in patient with anemia required 3u on sliding scale PLAN - Hypoglycemia protocol - Diabetic diet - Accuchecks TID AC and HS - No insulin for now Acute kidney failure, admission GFR 15 Chronic kidney disease (CKD), stage III (moderate) Acquired absence of kidney, 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 Iron deficiency anemia GFR on admission 15, stage V but half-way documentation with stage III PLAN - Renally dosed medications - Avoid nephrotoxic agents - Monitor urine output - Daily labs COPD (chronic obstructive pulmonary disease), unknown stage ABGs on admission without hypercarbia CO2 on admission borderline high at 29 PLAN - Goal O2 sat >88% due to chronic pulmonary issues - Continue home nebs and inhalers Atrial fibrillation, rate controlled on Eliquis Previous CVA Dysphagia, pharyngeal phase Cognitive communication deficit Likely patient has silent aspiration as per audible gargling during evaluation PLAN - Diabetic diet with dysphagia protocol - PT and OT - Continue eliquis - Monitor VS Hypothyroidism No acute issues PLAN - Continue home levothyroxine PROPHYLAXIS DVT- SCDs GI- not indicated CODE STATUS: DNR DISPOSITION: Patient will remain admitted in medical floor for oxygen supplementation as well as diuresis under monitorization. Discharge unlikely in the next 24 hours.
--- NOTE | 2019-11-01 20:10 | CR ---
Chest: Portable view of the chest was obtained. Comparison: Prior chest x-ray of 10/30/19. Decreased opacification of the left chest is seen. Considerable pleural effusion remains. Left hemidiaphragm is elevated. No definite pneumothorax seen. Right lung remains clear. Impression: 1. Decreased opacification left chest. Considerable pleural effusion remains within the left chest. Elevated left hemidiaphragm. No definite pneumothorax. 2. Right lung remains clear. Diagnostic code #3 This report was dictated in [place] Standard Time
--- NOTE | 2019-11-01 20:11 | CR ---
Chest: Portable upright view of the chest was obtained. Comparison: Previous chest x-ray performed one day earlier. Small left-sided pleural effusion is seen. Elevated left hemidiaphragm is noted. Mild atelectasis is seen within the left base. No pneumothorax is seen. Right lung remains clear. Heart is felt to be mildly enlarged. Impression: 1. Small left-sided pleural effusion. 2. Elevated left hemidiaphragm and mild left basilar atelectasis. 3. Right lung remains clear. Diagnostic code #2 This report was dictated in [place] Standard Time
[2019-11-01] MEDS: Insulin Glarg,Human.Rec.Analog 100 Unit/ML SUBCUT SCH (21:22)
[2019-11-02] MEDS: Albuterol/Ipratropium 3.0-0.5 MG/3 ML Neb Soln NEB SCH ×4 (06:07→20:36)
[2019-11-02] MEDS: Levothyroxine 100 MCG Tab PO SCH (06:33)
[2019-11-02] MEDS: Furosemide 40 MG/4 ML VIAL IVPUSH SCH ×2 (06:33→15:01)
[2019-11-02] MEDS: Finasteride 5 MG Tab PO SCH (09:15)
[2019-11-02] MEDS: Insulin Lispro 100 Units/ML 3 ML Vial SUBCUT SCH ×4 (09:15→21:53)
[2019-11-02] MEDS: Multivitamins,Therapeutic Tab PO SCH (09:15)
[2019-11-02] MEDS: Carvedilol 12.5 MG Tab PO SCH ×2 (09:15→21:54)
[2019-11-02] MEDS: NIFEdipine 30 MG Tab.ER PO SCH (09:16)
[2019-11-02] MEDS: Famotidine 20 MG Tab PO SCH (09:16)
[2019-11-02] MEDS: guaiFENesin 600 MG Tab.ER PO SCH (09:16)
[2019-11-02] MEDS: Sertraline 25 MG Tab PO SCH (09:16)
[2019-11-02] MEDS: Apixaban 2.5 MG Tab PO SCH ×2 (09:16→21:54)
[2019-11-02] MEDS: Simvastatin 20 MG Tab PO SCH (09:16)
[2019-11-02] MEDS: Spironolactone 25 MG Tab PO SCH (09:16)
[2019-11-02] MEDS: SACUBITRIL PO SCH (09:17)
[2019-11-02] MEDS: Cholecalciferol (Vitamin D3) 5,000 UNIT Tab PO SCH (09:17)
[2019-11-02] MEDS: VALSARTAN PO SCH (09:17)
[2019-11-02] MEDS: FEBUXOSTAT 40 MG PO SCH (09:17)
[2019-11-02] MEDS: BRIMONIDINE TARTRATE EYEBOTH SCH (09:17)
[2019-11-02] MEDS: Brimonidine 0.2% Ophth Soln 5 ML Bottle EYEBOTH SCH ×2 (11:44→21:50)
[2019-11-02] MEDS: Oseltamivir 30 MG Cap PO SCH (11:44)
--- NOTE | 2019-11-02 16:27 | PCM.PN ---
- General Info Date of Service: 11/02/19 Subjective Update: Feeling ok Slept ok Tolerating diet - Patient Data Vitals - Most Recent: Last Vital Signs Temp 98.2 F 11/02/19 12:38 Pulse 54 L 11/02/19 14:25 Resp 24 H 11/02/19 12:38 BP 111/53 L 11/02/19 12:38 Pulse Ox 93 L 11/02/19 14:25 Weight - Most Recent: 105.642 kg - Exam Quality Assessment: Supplemental Oxygen General: Alert, Oriented, Cooperative, No Acute Distress HEENT: Pupils Equal, Pupils Reactive, EOMI, Mucous Membr. Moist/[place] Neck: Supple, Trachea Midline, No JVD Lungs: Decreased Breath Sounds, Crackles. No: Rales, Rhonchi, Wheezing Cardiovascular: Regular Rate, Regular Rhythm. No: Murmurs, Gallops, Rubs GI/Abdominal Exam: Normal Bowel Sounds, Soft, Non-Tender Back Exam: Normal Inspection Extremities: Normal Inspection Neurological: No New Focal Deficit Sepsis Event Note - Evaluation Sepsis Screening Result: No Definite Risk - Focused Exam Vital Signs: Vital Signs Temp Pulse Resp BP Pulse Ox Pulse Ox Pulse Ox 11/02/19 14:25 54 L 93 L 11/02/19 14:03 91 L 11/02/19 13:50 94 L 11/02/19 13:49 96 11/02/19 13:47 99 11/02/19 13:33 100 11/02/19 12:38 98.2 F 53 L 24 H 111/53 L 97 11/02/19 10:16 95 11/02/19 09:16 119/58 L 11/02/19 09:15 53 L 119/58 L 11/02/19 08:31 98.2 F 53 L 24 H 119/58 L 99 11/02/19 08:25 100 11/02/19 06:07 100 Date Exam was Performed: 11/03/19 Time Exam was Performed: 09:30 - Problem List & Annotations (1) Acute hypoxemic respiratory failure SNOMED Code(s): 098082660 Code(s): J96.01 - ACUTE RESPIRATORY FAILURE WITH HYPOXIA Status: Acute Current Visit: Yes (2) Acute systolic CHF (congestive heart failure) SNOMED Code(s): 601952066, 899644973 Code(s): I50.21 - ACUTE SYSTOLIC (CONGESTIVE) HEART FAILURE Status: Acute Current Visit: Yes (3) Chronic systolic HF (heart failure) SNOMED Code(s): 793080632 Code(s): I50.22 - CHRONIC SYSTOLIC (CONGESTIVE) HEART FAILURE Status: Acute Current Visit: Yes (4) Iron deficiency anemia SNOMED Code(s): 84277722 Code(s): D50.9 - IRON DEFICIENCY ANEMIA, UNSPECIFIED Status: Acute Current Visit: Yes (5) Diabetes mellitus, type 2 SNOMED Code(s): 85248626 Code(s): E11.9 - TYPE 2 DIABETES MELLITUS WITHOUT COMPLICATIONS Status: Acute Current Visit: Yes (6) Acquired absence of kidney SNOMED Code(s): 804031759 Code(s): Z90.5 - ACQUIRED ABSENCE OF KIDNEY Status: Acute Current Visit: Yes (7) Dysphagia, pharyngeal phase SNOMED Code(s): 04179405189671 Code(s): R13.13 - DYSPHAGIA, PHARYNGEAL PHASE Status: Acute Current Visit : Yes (8) Cognitive communication deficit SNOMED Code(s): 902510278905384 Code(s): R41.841 - COGNITIVE COMMUNICATION DEFICIT Status: Acute Current Visit: Yes (9) COPD (chronic obstructive pulmonary disease) SNOMED Code(s): 68946991 Code(s): J44.9 - CHRONIC OBSTRUCTIVE PULMONARY DISEASE, UNSPECIFIED Status : Acute Current Visit: Yes (10) Chronic kidney disease (CKD), stage III (moderate) SNOMED Code(s): 762206728 Code(s): N18.3 - CHRONIC KIDNEY DISEASE, STAGE 3 (MODERATE) Status: Acute Current Visit: Yes (11) Acute kidney failure SNOMED Code(s): 91392687 Code(s): N17.9 - ACUTE KIDNEY FAILURE, UNSPECIFIED Status: Acute Current Visit: Yes (12) Bilateral pleural effusion SNOMED Code(s): 261961087 Code(s): J90 - PLEURAL EFFUSION, NOT ELSEWHERE CLASSIFIED Status: Acute Current Visit: Yes (13) Elevated troponin SNOMED Code(s): 529537073, 149387857, 311951053 Code(s): R74.8 - ABNORMAL LEVELS OF OTHER SERUM ENZYMES Status: Acute Current Visit: No (14) Hypoglycemia SNOMED Code(s): 580453837 Code(s): E16.2 - HYPOGLYCEMIA, UNSPECIFIED Status: Acute Priority: Low Current Visit: No Onset Date: 06/26/19 (15) Hypothyroidism SNOMED Code(s): 86111906 Code(s): E03.9 - HYPOTHYROIDISM, UNSPECIFIED Status: Acute Current Visit : Yes (16) Atrial fibrillation SNOMED Code(s): 05674876 Code(s): I48.91 - UNSPECIFIED ATRIAL FIBRILLATION Status: Acute Priority : Medium Current Visit: No Onset Date: 06/26/19 Qualifiers: Atrial fibrillation type: chronic (17) Hypoglycemia associated with type 2 diabetes mellitus SNOMED Code(s): 868649328, 408556676 Code(s): E11.649 - TYPE 2 DIABETES MELLITUS WITH HYPOGLYCEMIA WITHOUT COMA Status: Acute Priority: Low Current Visit: No Onset Date: 06/27/19 - Problem List Review Problem List Initiated/Reviewed/Updated: Yes - Plan Plan:: Acute hypoxemic respiratory failure, multifactorial Transudative bilateral pleural effusions, L>R s/p thoracentesis 10/31 Acute on chronic kidney disease, stage III O2 sat in ED 89% on 12L--> placed on BiPAP--> transitioned to hi-flow NC GFR on admission 15, stage V but mcc documentation with stage III O2 sat trend 87-100% PLAN - Continue oxygen supplementation with goal O2 > 88% - Incentive spirometry Acute on chronic systolic CHF (congestive heart failure), LVEF 30% (06/2019) Elevated troponin, plateaued Worsening pedal edema Pleural effusion likely a transudate Home management with carvedilol, pravastatin, spironolactone, Entresto and furosemide Troponin elevation likely due to high demand trend has remained stable PLAN - Re-start home medications as tolerated - Daily weights - Strict I/Os - Switch Lasix from PO to IV Hypoglycemia Diabetes mellitus, type 2 unknown HbA1c Glucose on admission 63 Patient was asymptomatic NH management with sliding scale and 7u premeal insulin No new HbA1c measurement due to poor reliability in patient with anemia Glucose trend 122-231required 3u on sliding scale PLAN - Hypoglycemia protocol - Diabetic diet - Accuchecks TID AC and HS - 15u glargine Acute kidney failure, admission GFR 15 Chronic kidney disease (CKD), stage III (moderate) Acquired absence of kidney, 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 Iron deficiency anemia, worsening GFR on admission 15, stage V but mcc documentation with stage III No signs of acute bleeding PLAN - Renally dosed medications - Avoid nephrotoxic agents - Monitor urine output - Daily labs - Repeat CBC in AM COPD (chronic obstructive pulmonary disease), unknown stage ABGs on admission without hypercarbia CO2 on admission borderline high at 29 PLAN - Goal O2 sat >88% due to chronic pulmonary issues - Continue home nebs and inhalers Atrial fibrillation, rate controlled on Eliquis Previous CVA Dysphagia, pharyngeal phase Cognitive communication deficit Likely patient has silent aspiration as per audible gargling during evaluation PLAN - Diabetic diet with dysphagia protocol - PT and OT - Continue eliquis - Monitor VS Hypothyroidism No acute issues PLAN - Continue home levothyroxine PROPHYLAXIS DVT- SCDs GI- not indicated CODE STATUS: DNR DISPOSITION: Patient will remain admitted in medical floor for oxygen supplementation as well as diuresis under monitorization. Discharge once patient is able to be weaned off of high flow nasal cannula. Discharge unlikely in the next 24 hours.
[2019-11-02] MEDS ORDERED: Diphenhydramine/Lidocaine/MagAl/Simethicone 119 ML Bottle PO PRN (17:09)
--- NOTE | 2019-11-02 17:48 | CR ---
Chest: Portable view of the chest was obtained. Comparison: Prior chest x-ray of 07/25/19. Opacified left chest compatible with pleural effusion and atelectasis is noted. Heart is enlarged. Right lung is clear. Bony structures are grossly intact. Impression: 1. Left-sided pleural effusion and left-sided atelectasis. 2. Cardiomegaly. Diagnostic code #3 This report was dictated in [place] Standard Time
[2019-11-02] MEDS: Insulin Glarg,Human.Rec.Analog 100 Unit/ML SUBCUT SCH (21:51)
[2019-11-03] MEDS: Albuterol/Ipratropium 3.0-0.5 MG/3 ML Neb Soln NEB SCH ×3 (05:27→17:25)
[2019-11-03] MEDS: Furosemide 40 MG/4 ML VIAL IVPUSH SCH ×2 (06:55→13:35)
[2019-11-03] MEDS: Levothyroxine 100 MCG Tab PO SCH (06:55)
[2019-11-03] MEDS: Insulin Lispro 100 Units/ML 3 ML Vial SUBCUT SCH ×4 (06:56→21:00)
[2019-11-03] MEDS: Apixaban 2.5 MG Tab PO SCH ×2 (08:30→20:51)
[2019-11-03] MEDS: NIFEdipine 30 MG Tab.ER PO SCH (08:30)
[2019-11-03] MEDS: Simvastatin 20 MG Tab PO SCH (08:31)
[2019-11-03] MEDS: Multivitamins,Therapeutic Tab PO SCH (08:31)
[2019-11-03] MEDS: Carvedilol 12.5 MG Tab PO SCH ×2 (08:31→20:51)
[2019-11-03] MEDS: Finasteride 5 MG Tab PO SCH (08:31)
[2019-11-03] MEDS: Cholecalciferol (Vitamin D3) 5,000 UNIT Tab PO SCH (08:31)
[2019-11-03] MEDS: Spironolactone 25 MG Tab PO SCH (08:31)
[2019-11-03] MEDS: Sertraline 25 MG Tab PO SCH (08:32)
[2019-11-03] MEDS: Brimonidine 0.2% Ophth Soln 5 ML Bottle EYEBOTH SCH ×2 (08:32→20:52)
[2019-11-03] MEDS: guaiFENesin 600 MG Tab.ER PO SCH (08:32)
--- NOTE | 2019-11-03 09:15 | PCM.PN ---
- General Info Date of Service: 11/03/19 Admission Dx/Problem (Free Text): Respiratory Failure - Patient Data Vitals - Most Recent: Last Vital Signs Temp 98.6 F 11/03/19 07:42 Pulse 64 11/03/19 08:31 Resp 23 H 11/03/19 07:42 BP 133/76 11/03/19 08:31 Pulse Ox 91 L 11/03/19 07:42 Weight - Most Recent: 228 lb 3.2 oz I&O - Last 24 Hours: Intake & Output 11/02/19 11/03/19 11/03/19 22:59 06:59 14:59 Intake Total 960 400 Output Total 1100 2125 Balance -140 -1725 Lab Results Last 24 Hours: Laboratory Results - last 24 hr 11/02/19 11/02/19 11/02/19 Range/Units 10:59 16:50 20:32 WBC (4.23-9.07) K/mm3 RBC (4.63-6.08) M/mm3 Hgb (13.7-17.5) gm/dl Hct (40.1-51.0) % MCV (79.0-92.2) fl MCH (25.7-32.2) pg MCHC (32.2-35.5) g/dl RDW Std Deviation (35.1-43.9) fL Plt Count (163-337) K/mm3 MPV (9.4-12.3) fl Neut % (Auto) (34.0-67.9) % Lymph % (Auto) (21.8-53.1) % [place] % (Auto) (5.3-12.2) % Eos % (Auto) (0.8-7.0) Baso % (Auto) (0.1-1.2) % Neut # (Auto) (1.78-5.38) K/mm3 Lymph # (Auto) (1.32-3.57) K/mm3 [place] # (Auto) (0.30-0.82) K/mm3 Eos # (Auto) (0.04-0.54) K/mm3 Baso # (Auto) (0.01-0.08) K/mm3 POC Glucose 167 H 149 H 153 H (83-110) mg/dL 11/03/19 11/03/19 Range/Units 05:36 06:54 WBC 4.82 (4.23-9.07) K/mm3 RBC 3.40 L (4.63-6.08) M/mm3 Hgb 9.3 L D (13.7-17.5) gm/dl Hct 29.4 L (40.1-51.0) % MCV 86.5 (79.0-92.2) fl MCH 27.4 (25.7-32.2) pg MCHC 31.6 L (32.2-35.5) g/dl RDW Std Deviation 41.6 (35.1-43.9) fL Plt Count 275 (163-337) K/mm3 MPV 9.9 (9.4-12.3) fl Neut % (Auto) 66.6 (34.0-67.9) % Lymph % (Auto) 15.6 L (21.8-53.1) % [place] % (Auto) 13.3 H (5.3-12.2) % Eos % (Auto) 3.5 (0.8-7.0) Baso % (Auto) 0.6 (0.1-1.2) % Neut # (Auto) 3.21 (1.78-5.38) K/mm3 Lymph # (Auto) 0.75 L (1.32-3.57) K/mm3 [place] # (Auto) 0.64 (0.30-0.82) K/mm3 Eos # (Auto) 0.17 (0.04-0.54) K/mm3 Baso # (Auto) 0.03 (0.01-0.08) K/mm3 POC Glucose 131 H (83-110) mg/dL [place] Results Last 24 Hours: Microbiology 10/31/19 16:59 Gram Stain - Final Thoracentesis Fluid Body Fluid Culture - Preliminary NO GROWTH AFTER 3 DAYS 10/30/19 11:25 Aerobic Blood Culture - Preliminary Blood - Venous NO GROWTH AFTER 3 DAYS Anaerobic Blood Culture - Preliminary NO GROWTH AFTER 3 DAYS 10/30/19 11:40 Aerobic Blood Culture - Preliminary Blood - Venous - Lab Draw NO GROWTH AFTER 3 DAYS Anaerobic Blood Culture - Preliminary NO GROWTH AFTER 3 DAYS Med Orders - Current: Current Medications Acetaminophen (Tylenol) 650 mg PO Q4H PRN PRN Reason: Nausea/Vomiting Acetaminophen (Tylenol) 650 mg RECTAL Q4H PRN PRN Reason: Pain (mild 1-3) Hydrocodone Bitart/Acetaminophen ([place] 325-5 Mg) 1 tab PO Q4H PRN PRN Reason: Pain (moderate 4-6) Albuterol/Ipratropium (Duoneb 3.0-0.5 Mg/3 Ml) 3 ml NEB Q4H PRN PRN Reason: Shortness Of Breath/wheezing Last Admin: 11/01/19 01:59 Dose: 3 ml Albuterol/Ipratropium (Duoneb 3.0-0.5 Mg/3 Ml) 3 ml NEB QIDRT [facility] Last Admin: 11/03/19 05:27 Dose: 3 ml Apixaban (Eliquis) 2.5 mg PO BID [facility] Last Admin: 11/03/19 08:30 Dose: 2.5 mg Brimonidine Tartrate ([place] 0.2% Ophth Soln) 0 ml EYEBOTH BID [facility] Last Admin: 11/03/19 08:32 Dose: 1 drop Carvedilol (Coreg) 25 mg PO BID [facility] Last Admin: 11/03/19 08:31 Dose: 25 mg Cholecalciferol (Vitamin D3) 5,000 unit PO DAILY [facility] Last Admin: 11/03/19 08:31 Dose: 5,000 unit Dextrose/Water (Dextrose 50% In Water) 50 ml IVPUSH ASDIRECTED PRN PRN Reason: Hypoglycemia Diphenhydr/Magaldrate/Simeth/Lidoca (First-Mouthwash Blm Susp) 30 ml PO ASDIRECTED PRN PRN Reason: Pain Last Admin: 11/02/19 17:48 Dose: 30 ml Finasteride (Proscar) 5 mg PO DAILY [facility] Last Admin: 11/03/19 08:31 Dose: 5 mg Furosemide (Lasix) 40 mg IVPUSH BIDDIURETIC [facility] Last Admin: 11/03/19 06:55 Dose: 40 mg Guaifenesin (Mucinex) 600 mg PO DAILY [facility] Last Admin: 11/03/19 08:32 Dose: 600 mg Insulin Glargine (Lantus) 15 unit SUBCUT BEDTIME [facility] Last Admin: 11/02/19 21:51 Dose: 15 units Insulin Human Lispro (Humalog) 0 unit SUBCUT QIDACANDBED [facility]; Protocol Last Admin: 11/03/19 06:56 Dose: Not Given Levothyroxine Sodium (Synthroid) 100 mcg PO ACBREAKFAST [facility] Last Admin: 11/03/19 06:55 Dose: 100 mcg Multivitamins (Thera) 1 each PO DAILY [facility] Last Admin: 11/03/19 08:31 Dose: 1 each Nifedipine (Procardia Xl) 60 mg PO DAILY [facility] Last Admin: 11/03/19 08:30 Dose: 60 mg Febuxostat 40 Mg (Ptom) 40 mg PO DAILY [facility] Last Admin: 11/02/19 09:17 Dose: Not Given Sacubitril/Valsartan [Entresto 24 Mg-26 Mg Tablet] Ptom 1 tab PO DAILY [facility] Last Admin: 11/02/19 09:17 Dose: Not Given Ondansetron HCl (Zofran) 4 mg IV Q6H PRN PRN Reason: Nausea/Vomiting Oseltamivir Phosphate (Tamiflu) 30 mg PO Q24H [facility] Stop: 11/04/19 12:01 Last Admin: 11/02/19 11:44 Dose: 30 mg Sertraline HCl (Zoloft) 25 mg PO DAILY [facility] Last Admin: 11/03/19 08:32 Dose: 25 mg Simvastatin (Zocor) 20 mg PO DAILY [facility] Last Admin: 11/03/19 08:31 Dose: 20 mg Sodium Chloride (Saline Flush) 10 ml FLUSH ASDIRECTED PRN PRN Reason: Keep Vein Open Last Admin: 10/30/19 11:55 Dose: 10 ml Spironolactone (Aldactone) 50 mg PO DAILY [facility] Last Admin: 11/03/19 08:31 Dose: 50 mg Discontinued Medications Albuterol/Ipratropium (Duoneb 3.0-0.5 Mg/3 Ml) 3 ml NEB ONETIME ONE Stop: 10/30/19 11:14 Last Admin: 10/30/19 11:33 Dose: 3 ml Albuterol/Ipratropium (Duoneb 3.0-0.5 Mg/3 Ml) 3 ml NEB QID [facility] Last Admin: 10/30/19 20:23 Dose: 3 ml Ceftriaxone Sodium (Rocephin) Confirm Administered Dose 2 gm IV .STK-MED ONE Stop: 10/30/19 11:24 Last Admin: 10/30/19 11:53 Dose: Not Given Famotidine (Pepcid) 20 mg PO DAILY [facility] Last Admin: 11/02/19 09:16 Dose: 20 mg Furosemide (Lasix) 60 mg PO BID [facility] Last Admin: 10/30/19 21:40 Dose: 60 mg Furosemide (Lasix) 60 mg PO BIDDIURETIC [facility] Last Admin: 10/31/19 13:52 Dose: 60 mg Hydromorphone HCl (Dilaudid) 0.25 mg IVPUSH Q2H PRN PRN Reason: Pain (severe 7-10) Ceftriaxone Sodium 2 gm/ (Sodium Chloride) 100 mls @ 200 mls/hr IV STAT ONE Stop: 10/30/19 11:37 Last Admin: 10/30/19 11:53 Dose: 200 mls/hr Sodium Chloride (Normal Saline) Confirm Administered Dose 100 mls @ as directed .ROUTE .STK-MED ONE Stop: 10/30/19 11:24 Last Admin: 10/30/19 11:52 Dose: Not Given Promethazine HCl 6.25 mg/ (Sodium Chloride) 50.25 mls @ 100 mls/hr IV Q6H PRN PRN Reason: Nausea/Vomiting Insulin Human Lispro (Humalog) 0 unit SUBCUT Q6H [facility]; Protocol Last Admin: 10/31/19 00:03 Dose: Not Given Insulin Human Lispro (Humalog) 0 unit SUBCUT Q6H [facility]; Protocol Last Admin: 10/31/19 18:43 Dose: Not Given Brimonidine Tartrate (Ptom) 1 drop EYEBOTH BID [facility] Last Admin: 11/02/19 09:17 Dose: Not Given Non-Formulary Medication (Dutasteride) 0.5 mg PO DAILY [facility] Last Admin: 10/31/19 20:09 Dose: Not Given Sepsis Event Note - Evaluation Sepsis Screening Result: No Definite Risk - Focused Exam Vital Signs: Vital Signs Temp Pulse Resp BP Pulse Ox Pulse Ox 11/03/19 08:31 64 133/76 11/03/19 08:30 133/76 11/03/19 07:42 98.6 F 64 23 H 133/76 91 L 11/03/19 05:29 90 L 11/03/19 05:21 98.6 F 58 L 20 92 L 11/03/19 00:31 94 L 11/02/19 23:00 94 L 11/02/19 21:56 98.8 F 66 20 117/75 95 11/02/19 21:54 64 117/75 Date Exam was Performed: 11/03/19 Time Exam was Performed: 09:15 - Plan Plan:: Acute hypoxemic respiratory failure, multifactorial Bilateral pleural effusions, L>R Acute on chronic kidney disease, stage III O2 sat in ED 89% on 12L--> placed on BiPAP BiPAP overnight O2 sat trend 89-94% on BiPAP GFR on admission 15, stage V but half-way documentation with stage III PLAN - Left thoracentesis today - Continue oxygen supplementation with goal O2 > 88% - Repeat ABGs in AM - Incentive spirometry Acute on chronic systolic CHF (congestive heart failure), LVEF 30% (06/2019) Elevated troponin, plateaued Worsening pedal edema Pleural effusion likely a transudate Home management with carvedilol, pravastatin, spironolactone, Entresto and furosemide Troponin elevation likely due to high demand trend has remained stable PLAN - Thoracentesis today - Re-start home medications as tolerated - Daily weights - Strict I/Os - Switch Lasix from PO to IV Hypoglycemia Diabetes mellitus, type 2 unknown HbA1c Glucose on admission 63 Patient was asymptomatic NH management with sliding scale and 7u premeal insulin No new HbA1c measurement due to poor reliability in patient with anemia PLAN - Hypoglycemia protocol - Diabetic diet - Accuchecks TID AC and HS - No insulin for now Acute kidney failure, admission GFR 15 Chronic kidney disease (CKD), stage III (moderate) Acquired absence of kidney, 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 Iron deficiency anemia GFR on admission 15, stage V but half-way documentation with stage III PLAN - Renally dosed medications - Avoid nephrotoxic agents - Monitor urine output - Daily labs COPD (chronic obstructive pulmonary disease), unknown stage ABGs on admission without hypercarbia CO2 on admission borderline high at 29 PLAN - Goal O2 sat >88% due to chronic pulmonary issues - Continue home nebs and inhalers Atrial fibrillation, rate controlled on Eliquis Previous CVA Dysphagia, pharyngeal phase Cognitive communication deficit Likely patient has silent aspiration as per audible gargling during evaluation PLAN - Diabetic diet with dysphagia protocol - PT and OT - Continue eliquis - Monitor VS Hypothyroidism No acute issues PLAN - Continue home levothyroxine PROPHYLAXIS DVT- SCDs GI- not indicated CODE STATUS: DNR DISPOSITION: Patient will remain admitted in medical floor for oxygen supplementation as well as diuresis under monitorization. Discharge unlikely in the next 24 hours.
[2019-11-03] MEDS: VALSARTAN PO SCH (09:46)
[2019-11-03] MEDS: FEBUXOSTAT 40 MG PO SCH (09:46)
[2019-11-03] MEDS: SACUBITRIL PO SCH (09:46)
[2019-11-03] MEDS: Oseltamivir 30 MG Cap PO SCH (11:50)
--- NOTE | 2019-11-03 11:54 | CR ---
Chest: Portable view of the chest was obtained. Comparison: Prior chest x-ray of 11/01/19. Small right-sided pleural effusion and slightly larger left-sided pleural effusion is noted. Continuing parenchymal density within the left base is seen most likely representing atelectasis. Heart is enlarged. Upper lungs are clear. Old healed rib fractures are noted within the lower left chest. Left hemidiaphragm again noted be slightly elevated. Impression: 1. Pleural effusions and increased parenchymal density within the left base. No significant change is seen from previous study. Diagnostic code #3 This report was dictated in [place] Standard Time
--- NOTE | 2019-11-03 13:04 | PCM.PN ---
- General Info Date of Service: 11/03/19 Subjective Update: patient had an ok night Still on high flow nasal cannula No BM yet - Patient Data Vitals - Most Recent: Last Vital Signs Temp 98.6 F 11/03/19 07:42 Pulse 64 11/03/19 08:31 Resp 23 H 11/03/19 07:42 BP 133/76 11/03/19 08:31 Pulse Ox 94 L 11/03/19 10:57 Weight - Most Recent: 105.642 kg - Exam Quality Assessment: Supplemental Oxygen General: Alert, Oriented, Cooperative, No Acute Distress, Obtunded HEENT: Pupils Equal, Mucous Membr. Moist/[place] Neck: Supple, Trachea Midline, No JVD, No Thyromegaly Lungs: Decreased Breath Sounds, Crackles. No: Rales, Rhonchi, Rub, Stridor, Wheezing Cardiovascular: Regular Rate, Regular Rhythm. No: Murmurs, Gallops, Rubs GI/Abdominal Exam: Normal Bowel Sounds, Soft, Non-Tender. No: Distended, Guarding, Rigid, Rebound Extremities: Normal Inspection, Non-Tender, No Pedal Edema Sepsis Event Note - Evaluation Sepsis Screening Result: No Definite Risk - Focused Exam Vital Signs: Vital Signs Temp Pulse Resp BP Pulse Ox Pulse Ox 11/03/19 10:57 94 L 11/03/19 09:32 93 L 11/03/19 08:31 64 133/76 11/03/19 08:30 133/76 11/03/19 07:42 98.6 F 64 23 H 133/76 91 L 11/03/19 05:29 90 L 11/03/19 05:21 98.6 F 58 L 20 92 L Date Exam was Performed: 11/04/19 Time Exam was Performed: 12:31 - Problem List & Annotations (1) Comfort measures only status SNOMED Code(s): 26573221352839 Code(s): Z51.5 - ENCOUNTER FOR PALLIATIVE CARE Status: Acute Current Visit: Yes (2) Acute hypoxemic respiratory failure SNOMED Code(s): 718462753 Code(s): J96.01 - ACUTE RESPIRATORY FAILURE WITH HYPOXIA Status: Acute Current Visit: Yes (3) Acute systolic CHF (congestive heart failure) SNOMED Code(s): 279140651, 951252729 Code(s): I50.21 - ACUTE SYSTOLIC (CONGESTIVE) HEART FAILURE Status: Acute Current Visit: Yes (4) Chronic systolic HF (heart failure) SNOMED Code(s): 554734287 Code(s): I50.22 - CHRONIC SYSTOLIC (CONGESTIVE) HEART FAILURE Status: Acute Current Visit: Yes (5) Iron deficiency anemia SNOMED Code(s): 40643659 Code(s): D50.9 - IRON DEFICIENCY ANEMIA, UNSPECIFIED Status: Acute Current Visit: Yes (6) Diabetes mellitus, type 2 SNOMED Code(s): 66144400 Code(s): E11.9 - TYPE 2 DIABETES MELLITUS WITHOUT COMPLICATIONS Status: Acute Current Visit: Yes (7) Acquired absence of kidney SNOMED Code(s): 042345926 Code(s): Z90.5 - ACQUIRED ABSENCE OF KIDNEY Status: Acute Current Visit: Yes (8) Dysphagia, pharyngeal phase SNOMED Code(s): 51675337966424 Code(s): R13.13 - DYSPHAGIA, PHARYNGEAL PHASE Status: Acute Current Visit : Yes (9) Cognitive communication deficit SNOMED Code(s): 400925760226123 Code(s): R41.841 - COGNITIVE COMMUNICATION DEFICIT Status: Acute Current Visit: Yes (10) COPD (chronic obstructive pulmonary disease) SNOMED Code(s): 25952790 Code(s): J44.9 - CHRONIC OBSTRUCTIVE PULMONARY DISEASE, UNSPECIFIED Status : Acute Current Visit: Yes (11) Chronic kidney disease (CKD), stage III (moderate) SNOMED Code(s): 452141988 Code(s): N18.3 - CHRONIC KIDNEY DISEASE, STAGE 3 (MODERATE) Status: Acute Current Visit: Yes (12) Acute kidney failure SNOMED Code(s): 19238271 Code(s): N17.9 - ACUTE KIDNEY FAILURE, UNSPECIFIED Status: Acute Current Visit: Yes (13) Bilateral pleural effusion SNOMED Code(s): 053810756 Code(s): J90 - PLEURAL EFFUSION, NOT ELSEWHERE CLASSIFIED Status: Acute Current Visit: Yes (14) Elevated troponin SNOMED Code(s): 204377164, 589474541, 464581501 Code(s): R74.8 - ABNORMAL LEVELS OF OTHER SERUM ENZYMES Status: Acute Current Visit: No (15) Hypoglycemia SNOMED Code(s): 377929916 Code(s): E16.2 - HYPOGLYCEMIA, UNSPECIFIED Status: Acute Priority: Low Current Visit: No Onset Date: 06/26/19 (16) Hypothyroidism SNOMED Code(s): 92433138 Code(s): E03.9 - HYPOTHYROIDISM, UNSPECIFIED Status: Acute Current Visit : Yes (17) Atrial fibrillation SNOMED Code(s): 52677030 Code(s): I48.91 - UNSPECIFIED ATRIAL FIBRILLATION Status: Acute Priority : Medium Current Visit: No Onset Date: 06/26/19 Qualifiers: Atrial fibrillation type: chronic (18) Hypoglycemia associated with type 2 diabetes mellitus SNOMED Code(s): 089080144, 665477611 Code(s): E11.649 - TYPE 2 DIABETES MELLITUS WITH HYPOGLYCEMIA WITHOUT COMA Status: Acute Priority: Low Current Visit: No Onset Date: 06/27/19 - Problem List Review Problem List Initiated/Reviewed/Updated: Yes - Plan Plan:: Comfort measures only status Extensive conversation was had with patient, and 9 children regarding his current status and prognosis I discussed - Options of discharge if patient is unable to be weaned off Hi-flow nasal cannula - If patient decided not to go to LTAC then his only option would be get off hi flow nasal cannula and see how he tolerates it - Answered questions from him and family members The patient decided he wanted to focus on symptom control and look for placement in a retirement PLAN - Transition off hi-flow NC - Palliative team care consult - Morphine for SOB and pain - Scopolamine patch for secretions - Haldol for delirium - Ativan for anxiety - Biotene for dry mouth - Atropine for respiratory secretions or congestion - Lactulose for constipation - Regular diet as tolerated - Change code status INACTIVE PROBLEMS PER CODE STATUS AND PATIENT'S WISHES Acute hypoxemic respiratory failure, multifactorial Transudative bilateral pleural effusions, L>R s/p thoracentesis 10/31 Acute on chronic kidney disease, stage III Acute on chronic systolic CHF (congestive heart failure), LVEF 30% (06/2019) Elevated troponin, plateaued Hypoglycemia Diabetes mellitus, type 2 unknown HbA1c Acute kidney failure, admission GFR 15 Chronic kidney disease (CKD), stage III (moderate) Acquired absence of kidney, 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 Iron deficiency anemia, worsening COPD (chronic obstructive pulmonary disease), unknown stage Atrial fibrillation, rate controlled on Eliquis Previous CVA Dysphagia, pharyngeal phase Cognitive communication deficit Hypothyroidism CODE STATUS: DNR DISPOSITION: Patient made comfort measures today, he is from [facility] and would like to return there. Palliative care consult placed. Pending placement with controlled symptoms.
[2019-11-03] MEDS: Lactulose Soln 10 GM/15 ML 30 ML UD Cup PO SCH ×2 (17:46→21:01)
[2019-11-03] MEDS: Insulin Glarg,Human.Rec.Analog 100 Unit/ML SUBCUT SCH (20:51)
[2019-11-03] MEDS ORDERED: Albuterol 0.083% 2.5 MG/3 ML Neb Soln NEB PRN (23:34)
[2019-11-03] MEDS ORDERED: Scopolamine 1.5 MG Transdermal Patch TRDERM PRN (23:34)
[2019-11-03] MEDS ORDERED: LORazepam 1 MG Tab PO PRN (23:34)
[2019-11-03] MEDS ORDERED: Acetaminophen 325 MG Tab PO PRN (23:34)
[2019-11-03] MEDS ORDERED: LORazepam 2 MG/ML SDV IVPUSH PRN (23:34)
[2019-11-03] MEDS ORDERED: Atropine 1% Ophth Soln 5 ML BOTTLE SL PRN (23:34)
[2019-11-03] MEDS ORDERED: Morphine 2 MG/ML Syringe IVPUSH PRN (23:34)
[2019-11-03] MEDS ORDERED: Carboxymethylcellulose Sodium 1% Ophth Gel 15 ML Bottle EYEBOTH PRN (23:34)
[2019-11-03] MEDS ORDERED: Haloperidol Lactate 5 MG/ML SDV IVPUSH PRN (23:34)
[2019-11-03] MEDS ORDERED: Lactoperoxi/Gluc Oxid/Pot Thio 42 GM Tube MUCMEM PRN (23:34)
[2019-11-04] MEDS: Lactulose Soln 10 GM/15 ML 30 ML UD Cup PO SCH ×4 (04:30→21:42)
[2019-11-04] MEDS: Insulin Lispro 100 Units/ML 3 ML Vial SUBCUT SCH ×2 (06:27→12:15)
[2019-11-04] MEDS: Furosemide 40 MG/4 ML VIAL IVPUSH SCH (06:27)
[2019-11-04] MEDS: Levothyroxine 100 MCG Tab PO SCH (06:27)
[2019-11-04] MEDS ORDERED: Atropine 1% Ophth Soln 5 ML BOTTLE SL PRN (07:29)
[2019-11-04] MEDS: Finasteride 5 MG Tab PO SCH (09:32)
[2019-11-04] MEDS: Simvastatin 20 MG Tab PO SCH (09:32)
[2019-11-04] MEDS: Spironolactone 25 MG Tab PO SCH (09:32)
[2019-11-04] MEDS: guaiFENesin 600 MG Tab.ER PO SCH (09:33)
[2019-11-04] MEDS: Multivitamins,Therapeutic Tab PO SCH (09:33)
[2019-11-04] MEDS: Apixaban 2.5 MG Tab PO SCH (09:33)
[2019-11-04] MEDS: Carvedilol 12.5 MG Tab PO SCH (09:33)
[2019-11-04] MEDS: Cholecalciferol (Vitamin D3) 5,000 UNIT Tab PO SCH (09:33)
[2019-11-04] MEDS: Sertraline 25 MG Tab PO SCH (09:33)
[2019-11-04] MEDS: Brimonidine 0.2% Ophth Soln 5 ML Bottle EYEBOTH SCH (09:34)
[2019-11-04] MEDS: FEBUXOSTAT 40 MG PO SCH (09:34)
[2019-11-04] MEDS: NIFEdipine 30 MG Tab.ER PO SCH (09:34)
[2019-11-04] MEDS: VALSARTAN PO SCH (09:34)
[2019-11-04] MEDS: SACUBITRIL PO SCH (09:34)
--- NOTE | 2019-11-04 14:31 | PCM.PN ---
- General Info Date of Service: 11/04/19 Subjective Update: No PRN med needs No complaints Still no BM Eating ok Family questions answered - Patient Data Vitals - Most Recent: Last Vital Signs Temp 97.9 F 11/04/19 08:06 Pulse 60 11/04/19 09:33 Resp 18 11/04/19 08:06 BP 131/85 11/04/19 09:34 Pulse Ox 96 11/04/19 08:06 Weight - Most Recent: 105.642 kg Comments:: Deferred due to patient being comfort measures - Exam General: Alert, Oriented, Cooperative, No Acute Distress HEENT: Mucous Membr. Moist/[place] Sepsis Event Note - Evaluation Sepsis Screening Result: No Definite Risk - Problem List & Annotations (1) Comfort measures only status SNOMED Code(s): 28116506260940 Code(s): Z51.5 - ENCOUNTER FOR PALLIATIVE CARE Status: Acute Current Visit: Yes (2) Acute hypoxemic respiratory failure SNOMED Code(s): 962605666 Code(s): J96.01 - ACUTE RESPIRATORY FAILURE WITH HYPOXIA Status: Acute Current Visit: Yes (3) Acute systolic CHF (congestive heart failure) SNOMED Code(s): 585982259, 176262370 Code(s): I50.21 - ACUTE SYSTOLIC (CONGESTIVE) HEART FAILURE Status: Acute Current Visit: Yes (4) Chronic systolic HF (heart failure) SNOMED Code(s): 601068096 Code(s): I50.22 - CHRONIC SYSTOLIC (CONGESTIVE) HEART FAILURE Status: Acute Current Visit: Yes (5) Iron deficiency anemia SNOMED Code(s): 25684731 Code(s): D50.9 - IRON DEFICIENCY ANEMIA, UNSPECIFIED Status: Acute Current Visit: Yes (6) Diabetes mellitus, type 2 SNOMED Code(s): 02880885 Code(s): E11.9 - TYPE 2 DIABETES MELLITUS WITHOUT COMPLICATIONS Status: Acute Current Visit: Yes (7) Acquired absence of kidney SNOMED Code(s): 299759953 Code(s): Z90.5 - ACQUIRED ABSENCE OF KIDNEY Status: Acute Current Visit: Yes (8) Dysphagia, pharyngeal phase SNOMED Code(s): 85616098573336 Code(s): R13.13 - DYSPHAGIA, PHARYNGEAL PHASE Status: Acute Current Visit : Yes (9) Cognitive communication deficit SNOMED Code(s): 281340141505457 Code(s): R41.841 - COGNITIVE COMMUNICATION DEFICIT Status: Acute Current Visit: Yes (10) COPD (chronic obstructive pulmonary disease) SNOMED Code(s): 84917870 Code(s): J44.9 - CHRONIC OBSTRUCTIVE PULMONARY DISEASE, UNSPECIFIED Status : Acute Current Visit: Yes (11) Chronic kidney disease (CKD), stage III (moderate) SNOMED Code(s): 641325858 Code(s): N18.3 - CHRONIC KIDNEY DISEASE, STAGE 3 (MODERATE) Status: Acute Current Visit: Yes (12) Acute kidney failure SNOMED Code(s): 27802026 Code(s): N17.9 - ACUTE KIDNEY FAILURE, UNSPECIFIED Status: Acute Current Visit: Yes (13) Bilateral pleural effusion SNOMED Code(s): 598821207 Code(s): J90 - PLEURAL EFFUSION, NOT ELSEWHERE CLASSIFIED Status: Acute Current Visit: Yes (14) Elevated troponin SNOMED Code(s): 140622458, 330534374, 651676780 Code(s): R74.8 - ABNORMAL LEVELS OF OTHER SERUM ENZYMES Status: Acute Current Visit: No (15) Hypoglycemia SNOMED Code(s): 250753326 Code(s): E16.2 - HYPOGLYCEMIA, UNSPECIFIED Status: Acute Priority: Low Current Visit: No Onset Date: 06/26/19 (16) Hypothyroidism SNOMED Code(s): 54819342 Code(s): E03.9 - HYPOTHYROIDISM, UNSPECIFIED Status: Acute Current Visit : Yes (17) Atrial fibrillation SNOMED Code(s): 89026764 Code(s): I48.91 - UNSPECIFIED ATRIAL FIBRILLATION Status: Acute Priority : Medium Current Visit: No Onset Date: 06/26/19 Qualifiers: Atrial fibrillation type: chronic (18) Hypoglycemia associated with type 2 diabetes mellitus SNOMED Code(s): 943163505, 047923498 Code(s): E11.649 - TYPE 2 DIABETES MELLITUS WITH HYPOGLYCEMIA WITHOUT COMA Status: Acute Priority: Low Current Visit: No Onset Date: 06/27/19 - Problem List Review Problem List Initiated/Reviewed/Updated: Yes - Plan Plan:: Comfort measures only status Extensive conversation was had with patient, and 9 children regarding his current status and prognosis on 11/03 Patient decided comfort measures and transfer back to residential All interventions were discontinued Off hi flow NC since yesterday On 2L NC PLAN - Continue NC - Palliative team care consult - Morphine for SOB and pain; Scopolamine patch for secretions; Haldol for delirium; Ativan for anxiety; Biotene for dry mouth; Atropine for respiratory secretions or congestion; Lactulose for constipation - Regular diet as tolerated - No more nursing assessments or vital signs - Will keep IV past 96 hours due to patient being comfort care and likely discharged in the AM INACTIVE PROBLEMS PER CODE STATUS AND PATIENT'S WISHES Acute hypoxemic respiratory failure, multifactorial Transudative bilateral pleural effusions, L>R s/p thoracentesis 10/31 Acute on chronic kidney disease, stage III Acute on chronic systolic CHF (congestive heart failure), LVEF 30% (06/2019) Elevated troponin, plateaued Diabetes mellitus, type 2 unknown HbA1c Acute kidney failure, admission GFR 15 Chronic kidney disease (CKD), stage III (moderate) Acquired absence of kidney, 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 Palliative care team consult has been placed today. Discharge planning aware, if patient continues to be this stable he will be discharged in AM back to residential. Family aware of current plan and has no further questions at this time.
[2019-11-04] MEDS ORDERED: LORazepam 2 MG/ML SDV IVPUSH PRN (16:38)
[2019-11-05] MEDS: Lactulose Soln 10 GM/15 ML 30 ML UD Cup PO SCH ×2 (05:18→10:55)
--- NOTE | 2019-11-05 13:59 | PCM.DCSUM1 ---
Discharge Summary - Hospital Course Diagnosis: Stroke: No - Discharge Data Discharge Disposition: DC/Tfer to SNF 03 Condition: Good - Referral to Home Health Primary Care Physician: Santino Kennedy MD - Discharge Diagnosis/Problem(s) (1) Acquired absence of kidney SNOMED Code(s): 787672535 ICD Code: Z90.5 - ACQUIRED ABSENCE OF KIDNEY Status: Acute Current Visit : Yes (2) Acute hypoxemic respiratory failure SNOMED Code(s): 565520944 ICD Code: J96.01 - ACUTE RESPIRATORY FAILURE WITH HYPOXIA Status: Acute Current Visit: Yes (3) Acute kidney failure SNOMED Code(s): 84640405 ICD Code: N17.9 - ACUTE KIDNEY FAILURE, UNSPECIFIED Status: Acute Current Visit: Yes (4) Acute systolic CHF (congestive heart failure) SNOMED Code(s): 966472611, 365908911 ICD Code: I50.21 - ACUTE SYSTOLIC (CONGESTIVE) HEART FAILURE Status: Acute Current Visit: Yes (5) Anemia SNOMED Code(s): 011672827 ICD Code: D64.9 - ANEMIA, UNSPECIFIED Status: Acute Current Visit: Yes Qualifiers: Anemia type: other cause Other causes of anemia: other cause, not classified Qualified Code(s): D64.89 - Other specified anemias (6) Bilateral pleural effusion SNOMED Code(s): 119127420 ICD Code: J90 - PLEURAL EFFUSION, NOT ELSEWHERE CLASSIFIED Status: Acute Current Visit: Yes (7) CHF exacerbation SNOMED Code(s): 410858421, 71627209366482 ICD Code: I50.9 - HEART FAILURE, UNSPECIFIED Status: Acute Priority: High Current Visit: Yes Onset Date: 06/27/19 Qualifiers: Heart failure type: combined systolic and diastolic Qualified Code(s): I50.43 - Acute on chronic combined systolic (congestive) and diastolic ( congestive) heart failure (8) COPD (chronic obstructive pulmonary disease) SNOMED Code(s): 57866585 ICD Code: J44.9 - CHRONIC OBSTRUCTIVE PULMONARY DISEASE, UNSPECIFIED Status : Acute Current Visit: Yes (9) Chronic systolic HF (heart failure) SNOMED Code(s): 759144942 ICD Code: I50.22 - CHRONIC SYSTOLIC (CONGESTIVE) HEART FAILURE Status: Acute Current Visit: Yes (10) Cognitive communication deficit SNOMED Code(s): 908521589377456 ICD Code: R41.841 - COGNITIVE COMMUNICATION DEFICIT Status: Acute Current Visit: Yes (11) Comfort measures only status SNOMED Code(s): 38224590777317 ICD Code: Z51.5 - ENCOUNTER FOR PALLIATIVE CARE Status: Acute Current Visit: Yes (12) Diabetes mellitus, type 2 SNOMED Code(s): 85762464 ICD Code: E11.9 - TYPE 2 DIABETES MELLITUS WITHOUT COMPLICATIONS Status: Acute Current Visit: Yes (13) Dysphagia, pharyngeal phase SNOMED Code(s): 72824629229008 ICD Code: R13.13 - DYSPHAGIA, PHARYNGEAL PHASE Status: Acute Current Visit: Yes (14) Hypothyroidism SNOMED Code(s): 41531728 ICD Code: E03.9 - HYPOTHYROIDISM, UNSPECIFIED Status: Acute Current Visit : Yes (15) Hypoxia SNOMED Code(s): 861121950 ICD Code: R09.02 - HYPOXEMIA Status: Acute Current Visit: Yes (16) Iron deficiency anemia SNOMED Code(s): 78213273 ICD Code: D50.9 - IRON DEFICIENCY ANEMIA, UNSPECIFIED Status: Acute Current Visit: Yes (17) Pleural effusion on left SNOMED Code(s): 94160191 ICD Code: J90 - PLEURAL EFFUSION, NOT ELSEWHERE CLASSIFIED Status: Acute Current Visit: Yes - Patient Instructions Diet: Usual Diet as Tolerated Diet, Other: Food for comfort care Activity: As Tolerated Other/Special Instructions: Follow-up with PCP as needed for comfort care. Home medications were discontinued for comfort care. Pain medications as ordered. Consider hosp[facility]. Oxygen as needed for comfort care. Has been on 2L while here. Discharged under comfort care. - Discharge Plan *PRESCRIPTION DRUG MONITORING PROGRAM REVIEWED*: No *COPY OF PRESCRIPTION DRUG MONITORING REPORT IN PATIENT YASSINE: No Prescriptions/Med Rec: Diphenhyd/Lidocaine/MagAl/Alexander [First-Mouthwash BLM Susp] 30 ml PO Q2H PRN #1 bottle PRN Reason: Pain Lactulose [Cephulac] 20 gm PO Q6H PRN #2 cup PRN Reason: Constipation LORazepam [Ativan] 2 mg PO Q6H PRN #30 ml PRN Reason: Anxiety Morphine [Morphine 20 MG/ML Soln] 2 mg PO Q1H PRN #40 ml PRN Reason: Pain Home Medications: Home Meds Diphenhyd/Lidocaine/MagAl/Alexander [First-Mouthwash BLM Susp] 30 ml PO Q2H PRN #1 bottle 11/05/19 [Rx] LORazepam [Ativan] 2 mg PO Q6H PRN #30 ml 11/05/19 [Rx] Lactulose [Cephulac] 20 gm PO Q6H PRN #2 cup 11/05/19 [Rx] Morphine [Morphine 20 MG/ML Soln] 2 mg PO Q1H PRN #40 ml 11/05/19 [Rx] Oxygen Therapy Mode: Nasal Cannula Oxygen Flow Rate (L/min): 2 (O2 for comfort care ) Patient Handouts: Hypoxia, Pleural Effusion, Heart Failure Referrals: Santino Kennedy MD [Primary Care Provider] - (Follow-up as needed.) - Patient Data Vitals - Most Recent: Last Vital Signs Temp 97.9 F 11/04/19 08:06 Pulse 60 11/04/19 09:33 Resp 18 11/04/19 08:06 BP 131/85 11/04/19 09:34 Pulse Ox 96 11/04/19 08:06 Weight - Most Recent: 232 lb 14.4 oz I&O - Last 24 hours: Intake & Output 11/04/19 11/05/19 11/05/19 22:59 06:59 14:59 Intake Total 660 120 Output Total 900 830 Balance -240 -710 [place] Results - Last 24 hrs: Microbiology 10/30/19 11:25 Aerobic Blood Culture - Preliminary Blood - Venous NO GROWTH AFTER 6 DAYS Anaerobic Blood Culture - Preliminary NO GROWTH AFTER 6 DAYS 10/30/19 11:40 Aerobic Blood Culture - Preliminary Blood - Venous - Lab Draw NO GROWTH AFTER 6 DAYS Anaerobic Blood Culture - Preliminary NO GROWTH AFTER 6 DAYS 10/31/19 16:59 Gram Stain - Final Thoracentesis Fluid Body Fluid Culture - Preliminary NO GROWTH AFTER 5 DAYS Med Orders - Current: Current Medications Acetaminophen (Tylenol) 650 mg PO Q4H PRN PRN Reason: Pain/Fever Albuterol (Proventil Neb Soln) 2.5 mg NEB Q15M PRN PRN Reason: Shortness of Breath Artificial Tears (Refresh Liquigel 1%) 1 - 2 ml EYEBOTH QID PRN; Protocol PRN Reason: Dry Eyes Atropine Sulfate (Atropine 1% Ophth Soln) 0 ml SL Q1H PRN PRN Reason: Resp. secretions or congestion Diphenhydr/Magaldrate/Simeth/Lidoca (First-Mouthwash Blm Susp) 30 ml PO ASDIRECTED PRN PRN Reason: Pain Last Admin: 11/02/19 17:48 Dose: 30 ml Glucose Oxid/Lactoperoxid/Muramidas (Biotene Oralbalance Gel) 0 gm MUCMEM ASDIRECTED PRN PRN Reason: Dry mouth Haloperidol Lactate (Haldol) 1 mg IVPUSH Q1H PRN PRN Reason: delirium or restlessness Lactulose (Cephulac) 20 gm PO Q6H JEN Last Admin: 11/05/19 10:55 Dose: Not Given Lorazepam (Ativan) 1 mg IVPUSH Q4H PRN PRN Reason: Anxiety Miscellaneous Information (Remove Patch) 1 ea TRDERM Q3D PRN PRN Reason: patch Morphine Sulfate (Morphine) 2 mg IVPUSH Q30M PRN PRN Reason: Pain or Shortness of breath Ondansetron HCl (Zofran) 4 mg IV Q6H PRN PRN Reason: Nausea/Vomiting Scopolamine (Transderm-Scop) 1.5 mg TRDERM Q72H PRN PRN Reason: Secretions Discontinued Medications Acetaminophen (Tylenol) 650 mg PO Q4H PRN PRN Reason: Nausea/Vomiting Acetaminophen (Tylenol) 650 mg RECTAL Q4H PRN PRN Reason: Pain (mild 1-3) Hydrocodone Bitart/Acetaminophen ([place] 325-5 Mg) 1 tab PO Q4H PRN PRN Reason: Pain (moderate 4-6) Albuterol/Ipratropium (Duoneb 3.0-0.5 Mg/3 Ml) 3 ml NEB ONETIME ONE Stop: 10/30/19 11:14 Last Admin: 10/30/19 11:33 Dose: 3 ml Albuterol/Ipratropium (Duoneb 3.0-0.5 Mg/3 Ml) 3 ml NEB QID JEN Last Admin: 10/30/19 20:23 Dose: 3 ml Albuterol/Ipratropium (Duoneb 3.0-0.5 Mg/3 Ml) 3 ml NEB Q4H PRN PRN Reason: Shortness Of Breath/wheezing Last Admin: 11/01/19 01:59 Dose: 3 ml Albuterol/Ipratropium (Duoneb 3.0-0.5 Mg/3 Ml) 3 ml NEB QIDRT [facility] Last Admin: 11/03/19 17:25 Dose: Not Given Apixaban (Eliquis) 2.5 mg PO BID [facility] Last Admin: 11/04/19 09:33 Dose: 2.5 mg Atropine Sulfate (Atropine 1% Ophth Soln) 2 ml SL Q1H PRN PRN Reason: Resp. secretions or congestion Brimonidine Tartrate (Alphagan 0.2% Ophth Soln) 0 ml EYEBOTH BID [facility] Last Admin: 11/04/19 09:34 Dose: 1 drop Carvedilol (Coreg) 25 mg PO BID [facility] Last Admin: 11/04/19 09:33 Dose: 25 mg Ceftriaxone Sodium (Rocephin) Confirm Administered Dose 2 gm IV .STK-MED ONE Stop: 10/30/19 11:24 Last Admin: 10/30/19 11:53 Dose: Not Given Cholecalciferol (Vitamin D3) 5,000 unit PO DAILY [facility] Last Admin: 11/04/19 09:33 Dose: 5,000 unit Dextrose/Water (Dextrose 50% In Water) 50 ml IVPUSH ASDIRECTED PRN PRN Reason: Hypoglycemia Famotidine (Pepcid) 20 mg PO DAILY [facility] Last Admin: 11/02/19 09:16 Dose: 20 mg Finasteride (Proscar) 5 mg PO DAILY [facility] Last Admin: 11/04/19 09:32 Dose: 5 mg Furosemide (Lasix) 60 mg PO BID [facility] Last Admin: 10/30/19 21:40 Dose: 60 mg Furosemide (Lasix) 60 mg PO BIDDIURETIC [facility] Last Admin: 10/31/19 13:52 Dose: 60 mg Furosemide (Lasix) 40 mg IVPUSH BIDDIURETIC [facility] Last Admin: 11/04/19 06:27 Dose: 40 mg Guaifenesin (Mucinex) 600 mg PO DAILY [facility] Last Admin: 11/04/19 09:33 Dose: 600 mg Hydromorphone HCl (Dilaudid) 0.25 mg IVPUSH Q2H PRN PRN Reason: Pain (severe 7-10) Ceftriaxone Sodium 2 gm/ (Sodium Chloride) 100 mls @ 200 mls/hr IV STAT ONE Stop: 10/30/19 11:37 Last Admin: 10/30/19 11:53 Dose: 200 mls/hr Sodium Chloride (Normal Saline) Confirm Administered Dose 100 mls @ as directed .ROUTE .STK-MED ONE Stop: 10/30/19 11:24 Last Admin: 10/30/19 11:52 Dose: Not Given Promethazine HCl 6.25 mg/ (Sodium Chloride) 50.25 mls @ 100 mls/hr IV Q6H PRN PRN Reason: Nausea/Vomiting Insulin Glargine (Lantus) 15 unit SUBCUT BEDTIME [facility] Last Admin: 11/03/19 20:51 Dose: 15 units Insulin Human Lispro (Humalog) 0 unit SUBCUT Q6H [facility]; Protocol Last Admin: 10/31/19 00:03 Dose: Not Given Insulin Human Lispro (Humalog) 0 unit SUBCUT Q6H [facility]; Protocol Last Admin: 10/31/19 18:43 Dose: Not Given Insulin Human Lispro (Humalog) 0 unit SUBCUT QIDACANDBED [facility]; Protocol Last Admin: 11/04/19 12:15 Dose: Not Given Levothyroxine Sodium (Synthroid) 100 mcg PO ACBREAKFAST [facility] Last Admin: 11/04/19 06:27 Dose: 100 mcg Lorazepam (Ativan) 1 mg IVPUSH Q15M PRN PRN Reason: Anxiety Lorazepam (Ativan) 1 mg PO Q30M PRN PRN Reason: Anxiety Multivitamins (Thera) 1 each PO DAILY [facility] Last Admin: 11/04/19 09:33 Dose: 1 each Nifedipine (Procardia Xl) 60 mg PO DAILY [facility] Last Admin: 11/04/19 09:34 Dose: 60 mg Brimonidine Tartrate (Ptom) 1 drop EYEBOTH BID [facility] Last Admin: 11/02/19 09:17 Dose: Not Given Non-Formulary Medication (Dutasteride) 0.5 mg PO DAILY [facility] Last Admin: 10/31/19 20:09 Dose: Not Given Febuxostat 40 Mg (Ptom) 40 mg PO DAILY [facility] Last Admin: 11/04/19 09:34 Dose: Not Given Sacubitril/Valsartan [Entresto 24 Mg-26 Mg Tablet] Ptom 1 tab PO DAILY [facility] Last Admin: 11/04/19 09:34 Dose: Not Given Oseltamivir Phosphate (Tamiflu) 30 mg PO Q24H [facility] Stop: 11/04/19 12:01 Last Admin: 11/03/19 11:50 Dose: 30 mg Sertraline HCl (Zoloft) 25 mg PO DAILY [facility] Last Admin: 11/04/19 09:33 Dose: 25 mg Simvastatin (Zocor) 20 mg PO DAILY [facility] Last Admin: 11/04/19 09:32 Dose: 20 mg Sodium Chloride (Saline Flush) 10 ml FLUSH ASDIRECTED PRN PRN Reason: Keep Vein Open Last Admin: 10/30/19 11:55 Dose: 10 ml Spironolactone (Aldactone) 50 mg PO DAILY [facility] Last Admin: 11/04/19 09:32 Dose: 50 mg Discharge Operative/Procedures - Procedures Performed Thoracentesis Indication: pleural effusion
--- NOTE | 2019-11-05 15:39 | PCM.DCSUM1 ---
Discharge Summary - Hospital Course HPI Initial Comments: Patient came in with worsening cough and shortness of breath, found to be hypoxemic in the ED. Placed on BiPAP in ED. Diagnosis: Stroke: No - Discharge Data Discharge Date: 11/05/19 Discharge Disposition: DC/Tfer to SNF 03 Condition: Good - Referral to Home Health Primary Care Physician: Santino Kennedy MD - Discharge Diagnosis/Problem(s) (1) Comfort measures only status SNOMED Code(s): 22384421626369 ICD Code: Z51.5 - ENCOUNTER FOR PALLIATIVE CARE Status: Acute Current Visit: Yes (2) Acute hypoxemic respiratory failure SNOMED Code(s): 618202922 ICD Code: J96.01 - ACUTE RESPIRATORY FAILURE WITH HYPOXIA Status: Acute Current Visit: Yes (3) Acute systolic CHF (congestive heart failure) SNOMED Code(s): 346622649, 049027397 ICD Code: I50.21 - ACUTE SYSTOLIC (CONGESTIVE) HEART FAILURE Status: Acute Current Visit: Yes (4) Chronic systolic HF (heart failure) SNOMED Code(s): 828774983 ICD Code: I50.22 - CHRONIC SYSTOLIC (CONGESTIVE) HEART FAILURE Status: Acute Current Visit: Yes (5) Iron deficiency anemia SNOMED Code(s): 66341290 ICD Code: D50.9 - IRON DEFICIENCY ANEMIA, UNSPECIFIED Status: Acute Current Visit: Yes (6) Diabetes mellitus, type 2 SNOMED Code(s): 06644604 ICD Code: E11.9 - TYPE 2 DIABETES MELLITUS WITHOUT COMPLICATIONS Status: Acute Current Visit: Yes (7) Acquired absence of kidney SNOMED Code(s): 419951875 ICD Code: Z90.5 - ACQUIRED ABSENCE OF KIDNEY Status: Acute Current Visit : Yes (8) Dysphagia, pharyngeal phase SNOMED Code(s): 27732026689345 ICD Code: R13.13 - DYSPHAGIA, PHARYNGEAL PHASE Status: Acute Current Visit: Yes (9) Cognitive communication deficit SNOMED Code(s): 316020555620757 ICD Code: R41.841 - COGNITIVE COMMUNICATION DEFICIT Status: Acute Current Visit: Yes (10) COPD (chronic obstructive pulmonary disease) SNOMED Code(s): 84883486 ICD Code: J44.9 - CHRONIC OBSTRUCTIVE PULMONARY DISEASE, UNSPECIFIED Status : Acute Current Visit: Yes (11) Chronic kidney disease (CKD), stage III (moderate) SNOMED Code(s): 643383551 ICD Code: N18.3 - CHRONIC KIDNEY DISEASE, STAGE 3 (MODERATE) Status: Acute Current Visit: Yes (12) Acute kidney failure SNOMED Code(s): 90754256 ICD Code: N17.9 - ACUTE KIDNEY FAILURE, UNSPECIFIED Status: Acute Current Visit: Yes (13) Bilateral pleural effusion SNOMED Code(s): 404297397 ICD Code: J90 - PLEURAL EFFUSION, NOT ELSEWHERE CLASSIFIED Status: Acute Current Visit: Yes (14) Elevated troponin SNOMED Code(s): 565792812, 881928184, 089371210 ICD Code: R74.8 - ABNORMAL LEVELS OF OTHER SERUM ENZYMES Status: Acute Current Visit: No (15) Hypoglycemia SNOMED Code(s): 351161050 ICD Code: E16.2 - HYPOGLYCEMIA, UNSPECIFIED Status: Acute Priority: Low Current Visit: No Onset Date: 06/26/19 (16) Hypothyroidism SNOMED Code(s): 05229925 ICD Code: E03.9 - HYPOTHYROIDISM, UNSPECIFIED Status: Acute Current Visit : Yes (17) Atrial fibrillation SNOMED Code(s): 64637418 ICD Code: I48.91 - UNSPECIFIED ATRIAL FIBRILLATION Status: Acute Priority : Medium Current Visit: No Onset Date: 06/26/19 Qualifiers: Atrial fibrillation type: chronic (18) Hypoglycemia associated with type 2 diabetes mellitus SNOMED Code(s): 601337467, 406870459 ICD Code: E11.649 - TYPE 2 DIABETES MELLITUS WITH HYPOGLYCEMIA WITHOUT COMA Status: Acute Priority: Low Current Visit: No Onset Date: 06/27/19 - Patient Summary/Data Hospital Course: Patient came in to the ED complaining of cough associated with worsening hypoxemia and shortness of breath that starts a couple of days prior to consultation. Found to be hypoxemic in the ED. CXR in the ED with left lung field completely ramo out for which a thoracentesis was performed. Fluid resulted as a transudate. After this patients oxygenation status improved temporarily but eventually he required hi-flow nasal cannula. Once patients progression plateaued a discussion was had with family and patient decided to proceed with treatment focused on comfort. He was transitioned back to [facility]. - Patient Instructions Diet: Usual Diet as Tolerated Diet, Other: Food for comfort care Activity: As Tolerated Other/Special Instructions: Follow-up with PCP as needed for comfort care. Home medications were discontinued for comfort care. Pain medications as ordered. Consider hosp[facility] care at [facility]. Oxygen as needed for comfort care. Has been on 2L while here. Discharged under comfort care. - Discharge Plan *PRESCRIPTION DRUG MONITORING PROGRAM REVIEWED*: No *COPY OF PRESCRIPTION DRUG MONITORING REPORT IN PATIENT YASSINE: No Prescriptions/Med Rec: Diphenhyd/Lidocaine/MagAl/Alexander [First-Mouthwash BLM Susp] 30 ml PO Q2H PRN #1 bottle PRN Reason: Pain Lactulose [Cephulac] 20 gm PO Q6H PRN #2 cup PRN Reason: Constipation LORazepam [Ativan] 2 mg PO Q6H PRN #30 ml PRN Reason: Anxiety Morphine [Morphine 20 MG/ML Soln] 2 mg PO Q1H PRN #40 ml PRN Reason: Pain Home Medications: Home Meds Diphenhyd/Lidocaine/MagAl/Alexander [First-Mouthwash BLM Susp] 30 ml PO Q2H PRN #1 bottle 11/05/19 [Rx] LORazepam [Ativan] 2 mg PO Q6H PRN #30 ml 11/05/19 [Rx] Lactulose [Cephulac] 20 gm PO Q6H PRN #2 cup 11/05/19 [Rx] Morphine [Morphine 20 MG/ML Soln] 2 mg PO Q1H PRN #40 ml 11/05/19 [Rx] Oxygen Therapy Mode: Nasal Cannula Oxygen Flow Rate (L/min): 2 (O2 for comfort care ) Patient Handouts: Hypoxia, Pleural Effusion, Heart Failure Referrals: Santino Kennedy MD [Primary Care Provider] - (Follow-up as needed.) - Discharge Summary/Plan Comment DC Time >30 min.: Yes - General Info Date of Service: 11/05/19 Subjective Update: Slept ok Eating ok No current complaints - Patient Data Vitals - Most Recent: Last Vital Signs Temp 97.9 F 11/04/19 08:06 Pulse 60 11/04/19 09:33 Resp 18 11/04/19 08:06 BP 131/85 11/04/19 09:34 Pulse Ox 96 11/04/19 08:06 Weight - Most Recent: 105.642 kg - Exam General: Reports: Alert, Oriented, Cooperative, No Acute Distress HEENT: Reports: Pupils Equal, Pupils Reactive, EOMI, Mucous Membr. Moist/[place] Neck: Reports: Supple, Trachea Midline, No JVD, No Thyromegaly Lungs: Reports: Decreased Breath Sounds. Denies: Crackles, Rales, Rhonchi, Rub , Stridor, Wheezing Cardiovascular: Reports: Regular Rate, Regular Rhythm. Denies: Murmurs, Gallops , Rubs GI/Abdominal Exam: Normal Bowel Sounds, Soft, Non-Tender, No Organomegaly. No: Distended, Guarding, Rigid Back Exam: Reports: Normal Inspection Extremities: Normal Inspection, No Pedal Edema, Slow Capillary Refill Neurological: Reports: No New Focal Deficit Psy/Mental Status: Reports: Alert, Normal Affect, Normal Mood Discharge Operative/Procedures - Procedures Performed Thoracentesis Indication: pleural effusion
== END 2019-11-05 13:59 | DRG 291 ==
LOC: JD.ED 11:00 → SUPCPDRO 11:02 → JD.MS 14:36
PROVIDERS: ADMIT Internal Medicine; ATTEND Internal Medicine
PROC: 0W9B3ZZ Drainage of Left Pleural Cavity, Percutaneous Approach (ICD-10-PCS; principal; 2019-10-31)
PROC: 5A09457 Assistance with Respiratory Ventilation, 24-96 Consecutive Hours, Continuous Positive Airway Pressure (ICD-10-PCS; 2019-10-31)
DX: I13.0 Hypertensive heart and chronic kidney disease with heart failure and stage 1 through stage 4 chronic kidney disease, or unspecified chronic kidney disease (principal); I50.43 Acute on chronic combined systolic (congestive) and diastolic (congestive) heart failure; N18.9 Chronic kidney disease, unspecified; I50.23 Acute on chronic systolic (congestive) heart failure; I48.91 Unspecified atrial fibrillation; J96.01 Acute respiratory failure with hypoxia; N17.9 Acute kidney failure, unspecified; H54.7 Unspecified visual loss; J90 Pleural effusion, not elsewhere classified; I48.20 Chronic atrial fibrillation, unspecified; Z51.5 Encounter for palliative care; D50.9 Iron deficiency anemia, unspecified; Z66 Do not resuscitate; R13.13 Dysphagia, pharyngeal phase; N18.3 Chronic kidney disease, stage 3 (moderate); J44.9 Chronic obstructive pulmonary disease, unspecified; R41.841 Cognitive communication deficit; Z96.659 Presence of unspecified artificial knee joint; R74.8 Abnormal levels of other serum enzymes; R09.02 Hypoxemia; D64.89 Other specified anemias; Z89.9 Acquired absence of limb, unspecified; Z79.01 Long term (current) use of anticoagulants; E11.649 Type 2 diabetes mellitus with hypoglycemia without coma; E11.22 Type 2 diabetes mellitus with diabetic chronic kidney disease; E78.5 Hyperlipidemia, unspecified; K21.9 Gastro-esophageal reflux disease without esophagitis; N40.0 Benign prostatic hyperplasia without lower urinary tract symptoms; E78.00 Pure hypercholesterolemia, unspecified; D69.6 Thrombocytopenia, unspecified; M62.81 Muscle weakness (generalized); E03.9 Hypothyroidism, unspecified; E66.9 Obesity, unspecified; Z86.73 Personal history of transient ischemic attack (TIA), and cerebral infarction without residual deficits; Z90.5 Acquired absence of kidney; Z79.890 Hormone replacement therapy; Z79.82 Long term (current) use of aspirin; Z79.4 Long term (current) use of insulin; Z79.899 Other long term (current) drug therapy; Z98.49 Cataract extraction status, unspecified eye; Z90.49 Acquired absence of other specified parts of digestive tract; Z87.891 Personal history of nicotine dependence; Z85.528 Personal history of other malignant neoplasm of kidney; Z68.31 Body mass index [BMI] 31.0-31.9, adult
CPT/HCPCS: 36415; 36600; 71045; 71045-26; 71250; 71250-26; 80048; 80053; 81001; 82803; 82962; 83605; 83615; 83735; 83880; 84155; 84157; 84484; 85007; 85025; 85027; 85610; 86140; 87040; 87070; 87205; 87641; 87804; 89050; 93005; 94640; 94660; 94761; 96365; 97163-GP; 97165-GO; 97535-GO; 99284; 99285-25; A9270-GY; C1729; J0696; J1815-GY; J1940; J7050; J7620-GY